=== PATIENT | female | born 1985 | race Caucasian/White ===

== ENCOUNTER 2019-12-07 14:23 | Emergency (ER) | payer OTHER, SELFPAY ==
[2019-12-07 14:55] VITALS: BP 151/82; PULSE 93; RESP 20; TEMP 36.7; O2SAT 99
--- NOTE | 2019-12-07 15:01 | ED.URI ---
HPI - URI/Sore Throat General Chief Complaint: Upper Respiratory Infection Stated Complaint: sinus sore throat cough Time Seen by Provider: 12/07/19 15:01 Source: patient and RN notes reviewed Mode of arrival: ambulatory Limitations: no limitations History of Present Illness HPI Narrative: 34 year old female who presents to [facility] care with complaints of sore throat, left ear pain, and cough for 1 week duration. Patient states that she has had some sinus drainage and non productive cough. denies any fevers, chills, or sweats. Patient states that she has not noted any drainage from her left ear or any tragal tenderness. Patient denies any shortness of breath or any tachypnea or accessory muscle use, [id number]% on room air.Patient states that she has Flonase at home but hasn't been using unsure if doing it correctly, reviewed administration. MD elicited complaint: sore throat and other (ear pain) Related Data Home Medications Medication Instructions Recorded Confirmed citalopram mg 12/07/19 norethindrone-e.estradiol-iron tablet 12/07/19 [] venlafaxine mg PO 12/07/19 Allergies Allergy/AdvReac Type Severity Reaction Status Date / Time Sulfa (Sulfonamide Allergy Severe swell up Verified 12/07/19 14:46 Antibiotics) Review of Systems Review of Systems: Narrative: CONSTITUTIONAL: Denies fever, chills, or sweats. EYES: Denies visual changes, redness, or discharge. ENT:positive rhinorrhea, congestion, sore throat, left otalgia. CARDIOVASCULAR: Denies chest pain, palpitations, or edema. RESPIRATORY: positive cough denies dyspnea. GASTROINTESTINAL: Denies abdominal pain, nausea, vomiting, or diarrhea. GENITOURINARY: Denies dysuria or hematuria. SKIN: Denies rash or itching. MUSCULOSKELETAL: Denies back pain, joint pain, or myalgia. NEUROLOGIC: Denies headache, numbness, or weakness. PSYCHIATRIC: positive history of anxiety or depression. All systems reviewed & are unremarkable except as noted in HPI and below PMFSH Past Medical History Medical History (Updated 12/08/19 @ 18:03 by Hayley Alvarez NP) Asthma Depression with anxiety GERD (gastroesophageal reflux disease) Hyperlipidemia Hypertension Hypothyroidism Kidney stone Migraines Seasonal allergies Surgical History Surgical History (Updated 12/08/19 @ 18:00 by Hayley Alvarez NP) Previous section Social History Social History (Updated 12/08/19 @ 18:03 by Hayley Alvarez NP) Smoking status: Never smoker Alcohol intake: never Substance use: never Living arrangements: with family Gender identity (if verbalized by the patient): Female Comments At time of signature, agree with nursing past medical, surgical, social history. There is no relevant family history pertinent to the presenting complaint Exam Narrative: Exam Narrative: GENERAL: Well-appearing, well-nourished, and in no acute distress. HEAD: Normocephalic, atraumatic. EYES: PERRLA and EOMI. ENT: Nares with swollen turbinates, clear rhinorrhea no epistaxis. Mucous membranes moist.TM's normal with good light reflex,left ear canal red irritated and swollen no drainage noted, right ear canal normal, throat pink with no tonsil swelling or exudates, post nasal drainage noted NECK: Supple.no lymphadenopathy CHEST: Clear to auscultation. No respiratory distress.SAO2 99% on room air HEART: Regular rate and rhythm. No murmur heard. Normal peripheral pulses. ABDOMEN: Soft, nontender, nondistended, normal active bowel sounds. EXTREMITIES: Normal range of motion. No edema. SKIN: Warm, dry, no rash. NEURO: No focal deficits. Alert and oriented x3. Course Vital Signs Vital signs: Vital Signs Temperature 36.7 C 12/07/19 14:55 Pulse Rate 93 12/07/19 14:55 Respiratory Rate 20 12/07/19 14:55 Blood Pressure 151/82 H 12/07/19 14:55 Pulse Oximetry 99 12/07/19 14:55 Temperature 36.7 C 12/07/19 14:55 Pulse Rate 93 12/07/19 14:55 Respiratory Rate
== END 2019-12-07 15:29 | disposition home or self-care (01) ==
PROVIDERS: Emergency Provider Registered Nurse; PCP Internal Medicine
DX: H60.502 Unspecified acute noninfective otitis externa, left ear (principal); J31.0 Chronic rhinitis; I10 Essential (primary) hypertension
CPT/HCPCS: 99213; G0463

== ENCOUNTER 2021-07-30 12:22 | Emergency (ER) | payer OTHER, SELFPAY ==
[2021-07-30 12:26] VITALS: BP 134/80; PULSE 98; RESP 16; TEMP 36.4; O2SAT 99
--- NOTE | 2021-07-30 12:49 | ED.URI ---
HPI - URI/Sore Throat General Chief Complaint: Upper Respiratory Infection Stated Complaint: left ear and nose runny Time Seen by Provider: 07/30/21 12:49 Source: patient, RN notes reviewed and old records reviewed Mode of arrival: ambulatory Limitations: no limitations History of Present Illness HPI Narrative: 35-year-old female who presents to [facility] care with complaints of left ear pain, clear nasal drainage and some sinus congestion for the past 2 days. Patient reports that she has history of sinus allergies and takes daily Singulair and has also had past history of ear infections and asthma. Patient denies any fevers, chills or sweats, denies any sore throat, shortness of breath or any wheezing. Patient states that her left ear is aching sharp pain at time with throbbing. MD elicited complaint: rhinorrhea, nasal congestion and other (ear pain) Related Data Home Medications Medication Instructions Recorded Confirmed albuterol sulfate 2 puff INHALATION QID PRN 07/30/21 07/30/21 carbamazepine 200 mg PO BID 07/30/21 07/30/21 citalopram 40 mg PO DAILY 07/30/21 07/30/21 docosahexaenoic acid-epa [EPA Fish 1 cap PO DAILY 07/30/21 07/30/21 Oil] erenumab-aooe [Aimovig 70 mg SUBCUT MONTHLY 07/30/21 07/30/21 Autoinjector] famotidine 20 mg PO BID 07/30/21 07/30/21 fenofibrate nanocrystallized 145 mg PO DAILY 07/30/21 07/30/21 fexofenadine-pseudoephedrine 1 tablet PO QAM 07/30/21 07/30/21 [Mary Grace-D 24 Hour] fluticasone furoate 1 inh INHALATION BID 07/30/21 07/30/21 hydrocodone-acetaminophen 1 tablet PO Q6H PRN 07/30/21 07/30/21 ketorolac 10 mg PO Q6H PRN 07/30/21 07/30/21 levothyroxine 25 mcg PO DAILY 07/30/21 07/30/21 lisinopril 20 mg PO DAILY 07/30/21 07/30/21 montelukast 10 mg PO DAILY 07/30/21 07/30/21 norethindrone-e.estradiol-iron 1 tablet PO DAILY 07/30/21 07/30/21 [Minh 24 Fe] ondansetron 4 mg PO Q8H PRN 07/30/21 07/30/21 pantoprazole 40 mg PO DAILY 07/30/21 07/30/21 psyllium husk [Fiber-Caps 0.52 g PO DAILY 07/30/21 07/30/21 (psyllium husk)] rizatriptan See Rx Instructions .ROUTE .COMPLEX 07/30/21 07/30/21 simvastatin 20 mg PO DAILY 07/30/21 07/30/21 venlafaxine 37.5 mg PO DAILY 07/30/21 07/30/21 Allergies Allergy/AdvReac Type Severity Reaction Status Date / Time Sulfa (Sulfonamide Allergy Severe swell up Verified 07/30/21 12:48 Antibiotics) haloperidol Allergy Unknown Verified 07/30/21 12:49 Review of Systems Review of Systems: CONSTITUTIONAL: Denies fever, chills, or sweats. EYES: Denies visual changes, redness, or discharge. ENT: Positive for rhinorrhea, congestion,no sore throat, positive for left otalgia. CARDIOVASCULAR: Denies chest pain, palpitations, or edema. RESPIRATORY: Denies cough or dyspnea. GASTROINTESTINAL: Denies abdominal pain, nausea, vomiting, or diarrhea. GENITOURINARY: Denies dysuria or hematuria. SKIN: Denies rash or itching. MUSCULOSKELETAL: Positive for chronic back pain,no other joint pain, or myalgia. NEUROLOGIC: Denies headache, numbness, or weakness. PSYCHIATRIC: Positive for anxiety or depression. All systems reviewed & are unremarkable except as noted in HPI and below PMFSH Past Medical History Medical History (Updated 07/31/21 @ 10:48 by Hayley Alvarez NP) Asthma Depression with anxiety GERD (gastroesophageal reflux disease) Hyperlipidemia Hypertension Hypothyroidism Kidney stone Migraines Seasonal allergies Surgical History Surgical History (Updated 12/08/19 @ 18:00 by Hayley Alvarez NP) Previous section Social History Social History (Updated 12/08/19 @ 18:03 by Hayley Alvarez NP) Smoking status: Never smoker Alcohol intake: never Substance use: never Gender identity (if verbalized by the patient): Female Exam Narrative: GENERAL: Well-appearing, well-nourished, and in no acute distress. HEAD: Normocephalic, atraumatic. EYES: PERRLA and EOMI. ENT: Nares with minimal redness with clear rhinorrhea no epistaxis. Mucous m
== END 2021-07-30 13:05 | disposition home or self-care (01) ==
PROVIDERS: Emergency Provider Registered Nurse
DX: H66.002 Acute suppurative otitis media without spontaneous rupture of ear drum, left ear (principal); J06.9 Acute upper respiratory infection, unspecified; K21.9 Gastro-esophageal reflux disease without esophagitis; E78.5 Hyperlipidemia, unspecified; I10 Essential (primary) hypertension; E03.9 Hypothyroidism, unspecified; F41.9 Anxiety disorder, unspecified; F32.A Depression, unspecified
CPT/HCPCS: 99213; G0463

== ENCOUNTER 2022-02-23 08:47 | Emergency (ER) | payer OTHER, SELFPAY ==
[2022-02-23 09:01] VITALS: BP 122/75; PULSE 94; RESP 16; TEMP 36.8; O2SAT 99
--- NOTE | 2022-02-23 09:54 | ED.URI ---
HPI - URI/Sore Throat General Chief Complaint: Upper Respiratory Infection Stated Complaint: ears and throat Time Seen by Provider: 02/23/22 09:54 Source: patient, RN notes reviewed and old records reviewed Mode of arrival: ambulatory Limitations: no limitations History of Present Illness HPI Narrative: 36 year old female who presents to [facility] care with complaints of 2 day history of sore throat, and left ear pain and some body aches.. Patient reports that highest temperature 100.3F and has taken Tylenol and Mary Grace for her symptoms.Patient denies any acute cough or any shortness of breath patient does have asthma history.Patient reports that daughter was ill with flu 1 week ago. Patient reports that she has been COVID vaccinated and has had flu shot. MD elicited complaint: sore throat and other (ear pain) Pertinent past history: asthma and seasonal allergies Onset (ago): day(s) (2) Pain scale (0-10): 7 Treatments prior to arrival: acetaminophen and other (mary grace) Related Data Home Medications Medication Instructions Recorded Confirmed albuterol sulfate 90 mcg/actuation 2 puff inhalation QID PRN sob 07/30/21 02/23/22 aerosol inhaler carbamazepine 200 mg 200 mg PO BID 07/30/21 02/23/22 tablet,extended release,12 hr citalopram 40 mg tablet 40 mg PO DAILY 07/30/21 02/23/22 docosahexaenoic acid (dha)-epa 1 cap PO DAILY 07/30/21 07/30/21 capsule erenumab-aooe 140 mg/mL 70 mg subcut MONTHLY 07/30/21 02/23/22 subcutaneous auto-injector (Aimovig Autoinjector) famotidine 20 mg tablet 20 mg PO BID 07/30/21 02/23/22 fenofibrate nanocrystallized 145 145 mg PO DAILY 07/30/21 02/23/22 mg tablet fexofenadine-pseudoephedrine ER 1 tablet PO QAM 07/30/21 02/23/22 180 mg-240 mg tablet,ext.release 24 hr (Mary Grace-D 24 Hour) fluticasone furoate 50 1 inh inhalation BID 07/30/21 02/23/22 mcg/actuation blister powder for inhalation hydrocodone 7.5 mg-acetaminophen 1 tablet PO Q6H PRN pain 07/30/21 02/23/22 325 mg tablet ketorolac 10 mg tablet 10 mg PO Q6H PRN Pain 07/30/21 02/23/22 levothyroxine 25 mcg tablet 25 mcg PO DAILY 07/30/21 02/23/22 lisinopril 20 mg tablet 20 mg PO DAILY 07/30/21 02/23/22 montelukast 10 mg tablet 10 mg PO DAILY 07/30/21 02/23/22 norethindrone 1 mg-ethinyl 1 tablet PO DAILY 07/30/21 02/23/22 estradiol 20 mcg (24)-iron 75 mg (4) tablet (Minh 24 Fe) ondansetron 4 mg disintegrating 4 mg PO Q8H PRN Nausea 07/30/21 02/23/22 tablet pantoprazole 40 mg tablet,delayed 40 mg PO DAILY 07/30/21 02/23/22 release psyllium husk 0.52 gram capsule 0.52 g PO DAILY 07/30/21 02/23/22 (Fiber-Caps (psyllium husk)) rizatriptan See Rx Instructions .Route .COMPLEX 07/30/21 07/30/21 simvastatin 20 mg tablet 20 mg PO DAILY 07/30/21 02/23/22 venlafaxine 37.5 mg 37.5 mg PO DAILY 07/30/21 02/23/22 capsule,extended release 24 hr Allergies Allergy/AdvReac Type Severity Reaction Status Date / Time Sulfa (Sulfonamide Allergy Severe swell up Verified 02/23/22 10:02 Antibiotics) haloperidol Allergy Unknown Verified 02/23/22 10:02 Review of Systems Review of Systems: CONSTITUTIONAL:Reports malaise, chills, sweats, or fever. EYES: Denies visual changes, redness, or discharge. ENT: Reports rhinorrhea, congestion, sinus pain, left otalgia and sore throat. CARDIOVASCULAR: Denies chest pain, palpitations, or edema. RESPIRATORY: Reports occasional cough.? Denies dyspnea. GASTROINTESTINAL: Denies abdominal pain, nausea, vomiting, diarrhea SKIN: Denies rash or itching. MUSCULOSKELETAL: Reports myalgia. NEUROLOGIC: Denies headache. All systems reviewed & are unremarkable except as noted in HPI and below PMFSH Past Medical History Medical History (Updated 02/24/22 @ 00:00 by Background Daemon) Asthma Depression with anxiety GERD (gastroesophageal reflux disease) Hyperlipidemia Hypertension Hypothyroidism Kidney stone Migraines Seasonal allergies Surgical History Surgical Hist
== END 2022-02-23 10:35 | disposition home or self-care (01) ==
PROVIDERS: Emergency Provider Registered Nurse; PCP Physician Assistant
DX: J06.9 Acute upper respiratory infection, unspecified (principal); H65.02 Acute serous otitis media, left ear; J45.909 Unspecified asthma, uncomplicated; K21.9 Gastro-esophageal reflux disease without esophagitis; I10 Essential (primary) hypertension; E03.9 Hypothyroidism, unspecified; F41.8 Other specified anxiety disorders
CPT/HCPCS: 99213; G0463

== ENCOUNTER 2022-03-08 08:15 | Emergency (ER) | payer OTHER, SELFPAY ==
[2022-03-08 08:22] VITALS: BP 134/86; PULSE 99; RESP 18; TEMP 36.8; O2SAT 100
--- NOTE | 2022-03-08 08:47 | ED.URI ---
HPI - URI/Sore Throat General Chief Complaint: Upper Respiratory Infection Stated Complaint: Cough Time Seen by Provider: 03/08/22 08:48 Source: patient and RN notes reviewed Mode of arrival: ambulatory Limitations: no limitations History of Present Illness HPI Narrative: 36-year-old female presents with concern for cough. Reports symptoms started on Monday with a scratchy throat and a cough. She reports she has not had a fever. She reports she has been taking [id number] medications with some of her symptoms. She reports she has asthma, she has not used her inhaler. She denies known recent sick contacts. MD elicited complaint: cough Related Data Home Medications Medication Instructions Recorded Confirmed albuterol sulfate 90 mcg/actuation 2 puff inhalation QID PRN sob 07/30/21 02/23/22 aerosol inhaler carbamazepine 200 mg 200 mg PO BID 07/30/21 02/23/22 tablet,extended release,12 hr citalopram 40 mg tablet 40 mg PO DAILY 07/30/21 02/23/22 docosahexaenoic acid (dha)-epa 1 cap PO DAILY 07/30/21 07/30/21 capsule erenumab-aooe 140 mg/mL 70 mg subcut MONTHLY 07/30/21 02/23/22 subcutaneous auto-injector (Aimovig Autoinjector) famotidine 20 mg tablet 20 mg PO BID 07/30/21 02/23/22 fenofibrate nanocrystallized 145 145 mg PO DAILY 07/30/21 02/23/22 mg tablet fexofenadine-pseudoephedrine ER 1 tablet PO QAM 07/30/21 02/23/22 180 mg-240 mg tablet,ext.release 24 hr (Mary Grace-D 24 Hour) fluticasone furoate 50 1 inh inhalation BID 07/30/21 02/23/22 mcg/actuation blister powder for inhalation hydrocodone 7.5 mg-acetaminophen 1 tablet PO Q6H PRN pain 07/30/21 02/23/22 325 mg tablet ketorolac 10 mg tablet 10 mg PO Q6H PRN Pain 07/30/21 02/23/22 levothyroxine 25 mcg tablet 25 mcg PO DAILY 07/30/21 02/23/22 lisinopril 20 mg tablet 20 mg PO DAILY 07/30/21 02/23/22 montelukast 10 mg tablet 10 mg PO DAILY 07/30/21 02/23/22 norethindrone 1 mg-ethinyl 1 tablet PO DAILY 07/30/21 02/23/22 estradiol 20 mcg (24)-iron 75 mg (4) tablet (Minh 24 Fe) ondansetron 4 mg disintegrating 4 mg PO Q8H PRN Nausea 07/30/21 02/23/22 tablet pantoprazole 40 mg tablet,delayed 40 mg PO DAILY 07/30/21 02/23/22 release psyllium husk 0.52 gram capsule 0.52 g PO DAILY 07/30/21 02/23/22 (Fiber-Caps (psyllium husk)) rizatriptan See Rx Instructions .Route .COMPLEX 07/30/21 07/30/21 simvastatin 20 mg tablet 20 mg PO DAILY 07/30/21 02/23/22 venlafaxine 37.5 mg 37.5 mg PO DAILY 07/30/21 02/23/22 capsule,extended release 24 hr Allergies Allergy/AdvReac Type Severity Reaction Status Date / Time Sulfa (Sulfonamide Allergy Severe swell up Verified 02/23/22 10:02 Antibiotics) haloperidol Allergy Unknown Verified 02/23/22 10:02 Review of Systems Review of Systems: CONSTITUTIONAL: Denies malaise, chills, sweats, or fever. EYES: Denies visual changes, redness, or discharge. ENT: Reports rhinorrhea, congestion, and sore throat. Denies sinus pain, otalgia CARDIOVASCULAR: Denies chest pain, palpitations, or edema. RESPIRATORY: Reports productive cough. Denies dyspnea. GASTROINTESTINAL: Denies abdominal pain, nausea, vomiting, diarrhea SKIN: Denies rash or itching. MUSCULOSKELETAL: Denies myalgia. NEUROLOGIC: Denies headache. All systems reviewed & are unremarkable except as noted in HPI and below PMFSH Past Medical History Medical History (Updated 03/08/22 @ 08:54 by Lizette Whitehead NP) Asthma Depression with anxiety GERD (gastroesophageal reflux disease) Hyperlipidemia Hypertension Hypothyroidism Kidney stone Migraines Seasonal allergies Surgical History Surgical History (Updated 12/08/19 @ 18:00 by Hayley Alvarez NP) Previous section Social History Social History (Updated 12/08/19 @ 18:03 by Hayley Alvarez NP) Smoking status: Never smoker Alcohol intake: never Substance use: never Gender identity (if verbalized by the patient): Female Comments At time of signature, agr
== END 2022-03-08 09:02 | disposition home or self-care (01) ==
PROVIDERS: Emergency Provider Nurse Practitioner; PCP Physician Assistant
DX: J06.9 Acute upper respiratory infection, unspecified (principal); J45.909 Unspecified asthma, uncomplicated; E78.5 Hyperlipidemia, unspecified; I10 Essential (primary) hypertension; E03.9 Hypothyroidism, unspecified
CPT/HCPCS: 99213; G0463

== ENCOUNTER 2022-05-13 09:39 | Outpatient (CLI) | payer OTHER, SELFPAY | END 2022-05-13 09:40 | disposition home or self-care (01) | LOC: ANHBWCAUD 09:40 | PROVIDERS: PCP Physician Assistant | DX: H90.3 Sensorineural hearing loss, bilateral (principal) | CPT/HCPCS: 92557; 92567 ==

== ENCOUNTER 2022-06-08 08:41 | Outpatient (CLI) | payer OTHER, SELFPAY | END 2022-06-08 08:42 | disposition home or self-care (01) | LOC: ANHBWCAUD 08:41 | PROVIDERS: PCP Physician Assistant | DX: H69.83 Other specified disorders of Eustachian tube, bilateral (principal) | CPT/HCPCS: 92557; 92567 ==

== ENCOUNTER 2022-06-16 13:14 | Emergency (ER) | payer OTHER, SELFPAY ==
--- NOTE | 2022-06-16 13:20 | ED.URI ---
HPI - URI/Sore Throat General Chief Complaint: Ear Stated Complaint: left ear pain Time Seen by Provider: 06/16/22 13:20 Source: patient and RN notes reviewed History of Present Illness HPI Narrative: Patient is a 36-year-old female who presents to urgent care with complaints of left ear pain. Patient states that it started 2 days ago. Patient has been taking Tylenol for the pain. States that she had tubes placed on the 7th. Patient was on Augmentin up until last week. Denies any drainage from the ear. No other acute complaints. No acute distress noted. Patient aware of the plan of care. Some parts of this dictation were generated by voice recognition software and may contain typographical and/or grammatical inaccuracies. Related Data Home Medications Medication Instructions Recorded Confirmed albuterol sulfate 90 mcg/actuation 2 puff inhalation QID PRN sob 07/30/21 02/23/22 aerosol inhaler carbamazepine 200 mg 200 mg PO BID 07/30/21 02/23/22 tablet,extended release,12 hr citalopram 40 mg tablet 40 mg PO DAILY 07/30/21 02/23/22 docosahexaenoic acid (dha)-epa 1 cap PO DAILY 07/30/21 07/30/21 capsule erenumab-aooe 140 mg/mL 70 mg subcut MONTHLY 07/30/21 02/23/22 subcutaneous auto-injector (Aimovig Autoinjector) famotidine 20 mg tablet 20 mg PO BID 07/30/21 02/23/22 fenofibrate nanocrystallized 145 145 mg PO DAILY 07/30/21 02/23/22 mg tablet fexofenadine-pseudoephedrine ER 1 tablet PO QAM 07/30/21 02/23/22 180 mg-240 mg tablet,ext.release 24 hr (Mary Grace-D 24 Hour) fluticasone furoate 50 1 inh inhalation BID 07/30/21 02/23/22 mcg/actuation blister powder for inhalation hydrocodone 7.5 mg-acetaminophen 1 tablet PO Q6H PRN pain 07/30/21 02/23/22 325 mg tablet ketorolac 10 mg tablet 10 mg PO Q6H PRN Pain 07/30/21 02/23/22 levothyroxine 25 mcg tablet 25 mcg PO DAILY 07/30/21 02/23/22 lisinopril 20 mg tablet 20 mg PO DAILY 07/30/21 02/23/22 montelukast 10 mg tablet 10 mg PO DAILY 07/30/21 02/23/22 norethindrone 1 mg-ethinyl 1 tablet PO DAILY 07/30/21 02/23/22 estradiol 20 mcg (24)-iron 75 mg (4) tablet (Minh 24 Fe) ondansetron 4 mg disintegrating 4 mg PO Q8H PRN Nausea 07/30/21 02/23/22 tablet pantoprazole 40 mg tablet,delayed 40 mg PO DAILY 07/30/21 02/23/22 release psyllium husk 0.52 gram capsule 0.52 g PO DAILY 07/30/21 02/23/22 (Fiber-Caps (psyllium husk)) rizatriptan See Rx Instructions .Route .COMPLEX 07/30/21 07/30/21 simvastatin 20 mg tablet 20 mg PO DAILY 07/30/21 02/23/22 venlafaxine 37.5 mg 37.5 mg PO DAILY 07/30/21 02/23/22 capsule,extended release 24 hr Allergies Allergy/AdvReac Type Severity Reaction Status Date / Time Sulfa (Sulfonamide Allergy Severe swell up Verified 02/23/22 10:02 Antibiotics) haloperidol Allergy Unknown Verified 02/23/22 10:02 Review of Systems Review of Systems: CONSTITUTIONAL: Denies fever, chills, or sweats. EYES: Denies visual changes, redness, or discharge. ENT: Denies rhinorrhea, congestion, sore throat. Reports of left otalgia CARDIOVASCULAR: Denies chest pain, palpitations, or edema. RESPIRATORY: Denies cough or dyspnea. GASTROINTESTINAL: Denies abdominal pain, nausea, vomiting, or diarrhea. GENITOURINARY: Denies dysuria or hematuria. SKIN: Denies rash or itching. MUSCULOSKELETAL: Denies back pain, joint pain, or myalgia. NEUROLOGIC: Denies headache, numbness, or weakness. All other systems reviewed are negative, except as documented in HPI. [facility] Past Medical History Medical History (Updated 06/16/22 @ 13:37 by BOB Soto) Asthma Depression with anxiety GERD (gastroesophageal reflux disease) Hyperlipidemia Hypertension Hypothyroidism Kidney stone Migraines Seasonal allergies Surgical History Surgical History (Updated 12/08/19 @ 18:00 by Hayley Alvarez NP) Previous section Social History Social History (Updated 12/08/19 @ 18:03 by Hayley Alvarez NP) Smoking status: Never
[2022-06-16 13:22] VITALS: BP 128/78; PULSE 102; RESP 20; TEMP 36.3; O2SAT 99
== END 2022-06-16 13:47 | disposition home or self-care (01) ==
PROVIDERS: Emergency Provider Nurse Practitioner Family; PCP Physician Assistant
DX: H92.02 Otalgia, left ear (principal); K21.9 Gastro-esophageal reflux disease without esophagitis; E78.5 Hyperlipidemia, unspecified; I10 Essential (primary) hypertension; E03.9 Hypothyroidism, unspecified; J45.909 Unspecified asthma, uncomplicated; F41.8 Other specified anxiety disorders
CPT/HCPCS: 99211; G0463

== ENCOUNTER 2022-10-06 14:58 | Emergency (ER) | payer OTHER, SELFPAY ==
[2022-10-06 15:03] VITALS: BP 124/77; PULSE 96; RESP 16; TEMP 36.2; O2SAT 99
[2022-10-06] MEDS: KETOROLAC (*BKC) 60 MG/2 ML VIAL IM (15:37)
--- NOTE | 2022-10-06 15:56 | ED.NECK ---
HPI - Neck Pain/Injury General Chief Complaint: Neck Pain/Injury Stated Complaint: Neck/shoulder pain w/headache Time Seen by Provider: 10/06/22 15:15 Source: patient Mode of arrival: ambulatory Limitations: no limitations History of Present Illness HPI Narrative: 36 yo F presents with c/o neck and upper back pain for approx. 1 wk. States very stiff . Pain is worse with movement. Denies injury. States hx of arthritis and thinks arthritis flaring. Taking tylenol arthritis with no relief. Now has had headache for past several days. Feels this is related to neck pain and how stiff she's holding herself. Denies N/v. No vision changes. no hx of migraines. States really don't have the headache right now . Ambulatory with steady gait. No c/o numbness/tingling to upper extremities. pt does not like to take NSAIDS due to hx of gastroparesis. All systems reviewed and negative except as noted above. Related Data Home Medications Medication Instructions Recorded Confirmed albuterol sulfate 90 mcg/actuation 2 puff inhalation QID PRN sob 07/30/21 10/06/22 aerosol inhaler carbamazepine 200 mg 200 mg PO BID 07/30/21 10/06/22 tablet,extended release,12 hr citalopram 40 mg tablet 40 mg PO DAILY 07/30/21 10/06/22 erenumab-aooe 140 mg/mL 70 mg subcut MONTHLY 07/30/21 10/06/22 subcutaneous auto-injector (Aimovig Autoinjector) famotidine 20 mg tablet 20 mg PO BID 07/30/21 10/06/22 fenofibrate nanocrystallized 145 145 mg PO DAILY 07/30/21 10/06/22 mg tablet fexofenadine-pseudoephedrine ER 1 tablet PO QAM 07/30/21 10/06/22 180 mg-240 mg tablet,ext.release 24 hr (Mary Grace-D 24 Hour) levothyroxine 25 mcg tablet 25 mcg PO DAILY 07/30/21 10/06/22 lisinopril 20 mg tablet 20 mg PO DAILY 07/30/21 10/06/22 montelukast 10 mg tablet 10 mg PO DAILY 07/30/21 10/06/22 norethindrone 1 mg-ethinyl 1 tablet PO DAILY 07/30/21 10/06/22 estradiol 20 mcg (24)-iron 75 mg (4) tablet (Minh 24 Fe) psyllium husk 0.52 gram capsule 0.52 g PO DAILY 07/30/21 10/06/22 (Fiber-Caps (psyllium husk)) simvastatin 20 mg tablet 20 mg PO DAILY 07/30/21 10/06/22 Allergies Allergy/AdvReac Type Severity Reaction Status Date / Time Sulfa (Sulfonamide Allergy Severe swell up Verified 10/06/22 15:30 Antibiotics) haloperidol Allergy Unknown Verified 10/06/22 15:30 Review of Systems Review of Systems: CONSTITUTIONAL: Denies fever, chills, or sweats. EYES: Denies visual changes, redness, or discharge. ENT: Denies rhinorrhea, congestion, sore throat, or otalgia. CARDIOVASCULAR: Denies chest pain, palpitations, or edema. RESPIRATORY: Denies cough or dyspnea. GASTROINTESTINAL: Denies abdominal pain, nausea, vomiting, or diarrhea. GENITOURINARY: Denies dysuria or hematuria. SKIN: Denies rash or itching. MUSCULOSKELETAL: Reports neck and upper back stiffness and pain. NEUROLOGIC: Reports headache. Denies numbness, or weakness. PSYCHIATRIC: Denies anxiety or depression. All other systems reviewed are negative, except as documented in HPI. [facility] Past Medical History Medical History (Updated 10/06/22 @ 15:55 by Emani Nam NP) Asthma Depression with anxiety GERD (gastroesophageal reflux disease) Hyperlipidemia Hypertension Hypothyroidism Kidney stone Migraines Seasonal allergies Surgical History Surgical History (Updated 12/08/19 @ 18:00 by Hayley Alvarez NP) Previous section Social History Social History (Updated 12/08/19 @ 18:03 by Hayley Alvarez NP) Smoking status: Never smoker Alcohol intake: never Substance use: never Living arrangements: with family Gender identity (if verbalized by the patient): Female Comments At time of signature, agree with nursing past medical, surgical, social and family history. There is no relevant family history pertinent to the presenting complaint. Exam Narrative: GENERAL: This is a well-nourished, well-developed patient, in no apparent distress. HEAD: norm
== END 2022-10-06 16:00 | disposition home or self-care (01) ==
PROVIDERS: Emergency Provider Nurse Practitioner Family; PCP Physician Assistant
DX: S16.1XXA Strain of muscle, fascia and tendon at neck level, initial encounter (principal); X58.XXXA Exposure to other specified factors, initial encounter; J45.909 Unspecified asthma, uncomplicated; K21.9 Gastro-esophageal reflux disease without esophagitis; I10 Essential (primary) hypertension; E03.9 Hypothyroidism, unspecified
CPT/HCPCS: 96372; 99213; G0463; J1885

== ENCOUNTER 2023-01-21 09:05 | Emergency (ER) | payer OTHER, SELFPAY ==
[2023-01-21 09:10] VITALS: BP 133/80; PULSE 97; RESP 20; TEMP 37.1; O2SAT 100
--- NOTE | 2023-01-21 09:28 | ED.URI ---
HPI - URI/Sore Throat General Chief Complaint: Upper Respiratory Infection Stated Complaint: Sinus Drainage and Sore Throat History of Present Illness HPI Narrative: Patient presents with right ear pain and nasal congestion. Patient states she takes daily nasal spray and Mary Grace. No fever no shortness of breath no chest pain. Related Data Home Medications Medication Instructions Recorded Confirmed albuterol sulfate 90 mcg/actuation 2 puff inhalation QID PRN sob 07/30/21 01/21/23 aerosol inhaler citalopram 40 mg tablet 40 mg PO DAILY 07/30/21 01/21/23 erenumab-aooe 140 mg/mL 70 mg subcut MONTHLY 07/30/21 01/21/23 subcutaneous auto-injector (Aimovig Autoinjector) famotidine 20 mg tablet 20 mg PO BID 07/30/21 01/21/23 fenofibrate nanocrystallized 145 145 mg PO DAILY 07/30/21 01/21/23 mg tablet fexofenadine-pseudoephedrine ER 1 tablet PO QAM 07/30/21 01/21/23 180 mg-240 mg tablet,ext.release 24 hr (Mary Grace-D 24 Hour) levothyroxine 25 mcg tablet 25 mcg PO DAILY 07/30/21 01/21/23 lisinopril 20 mg tablet 20 mg PO DAILY 07/30/21 01/21/23 montelukast 10 mg tablet 10 mg PO DAILY 07/30/21 01/21/23 norethindrone 1 mg-ethinyl 1 tablet PO DAILY 07/30/21 01/21/23 estradiol 20 mcg (24)-iron 75 mg (4) tablet (Minh 24 Fe) psyllium husk 0.52 gram capsule 0.52 g PO DAILY 07/30/21 01/21/23 (Fiber-Caps (psyllium husk)) simvastatin 20 mg tablet 20 mg PO DAILY 07/30/21 01/21/23 Allergies Allergy/AdvReac Type Severity Reaction Status Date / Time Sulfa (Sulfonamide Allergy Severe swell up Verified 01/21/23 09:14 Antibiotics) allopurinol Allergy Other Verified 01/21/23 09:15 haloperidol Allergy Unknown Verified 01/21/23 09:14 Review of Systems Review of Systems: CONSTITUTIONAL: Denies chills, or sweats. Reports fever and generalized body aches EYES: Denies visual changes, redness, or discharge. ENT: Denies otalgia. Reports nasal congestion runny nose and sore throat CARDIOVASCULAR: Denies chest pain, palpitations, or edema. RESPIRATORY: Denies dyspnea. Reports occasional cough GASTROINTESTINAL: Denies abdominal pain, nausea, vomiting, or diarrhea. GENITOURINARY: Denies dysuria or hematuria. SKIN: Denies rash or itching. MUSCULOSKELETAL: Denies back pain, joint pain, or myalgia. Reports generalized body aches NEUROLOGIC: Denies headache, numbness, or weakness. PSYCHIATRIC: Denies anxiety or depression. [facility] Past Medical History Medical History (Updated 01/21/23 @ 09:30 by BOB Cruz) Asthma Depression with anxiety GERD (gastroesophageal reflux disease) Hyperlipidemia Hypertension Hypothyroidism Kidney stone Migraines Seasonal allergies Surgical History Surgical History (Updated 12/08/19 @ 18:00 by Hayley Alvarez NP) Previous section Social History Social History (Updated 12/08/19 @ 18:03 by Hayley Alvarez NP) Smoking status: Never smoker Alcohol intake: never Substance use: never Living arrangements: with family Gender identity (if verbalized by the patient): Female Comments At time of signature, agree with nursing past medical, surgical, social and family history. There is no relevant family history pertinent to the presenting complaint Exam Narrative: The patient is a well-developed, well-nourished in no acute distress. SKIN: Skin is warm and dry without erythema, swelling or exudate. There is good turgor. No tenting. HEAD: Atraumatic. Normocephalic. No temporal or scalp tenderness. EYES: Moist and bright. Sclera and conjunctivae normal. No discharge. PERRLA. Extraocular motions intact. Gross visual acuity intact. EARS: Pinna is normal shape and contour. Clear external auditory canals. TM pearly capellan with good cone of light, no erythema or suppuration. Bilateral cerumen noted no gross hearing deficit. Right TM aero the Daysi tube patent. Mild maxillary sinus pressure and tenderness NOSE: pink, moist mucosa with good air movement. Clear
== END 2023-01-21 09:32 | disposition home or self-care (01) ==
PROVIDERS: Emergency Provider Nurse Practitioner Family; PCP Physician Assistant
DX: H66.90 Otitis media, unspecified, unspecified ear (principal); J32.9 Chronic sinusitis, unspecified; E78.5 Hyperlipidemia, unspecified; E03.9 Hypothyroidism, unspecified; I10 Essential (primary) hypertension; Z79.899 Other long term (current) drug therapy
CPT/HCPCS: 99213; G0463

== ENCOUNTER 2023-02-07 08:12 | Emergency (ER) | payer OTHER, SELFPAY ==
[2023-02-07 08:22] VITALS: BP 122/81; PULSE 100; RESP 16; TEMP 36.2; O2SAT 96
--- NOTE | 2023-02-07 08:37 | ED.GENADULT ---
HPI - General Adult General Chief complaint: Upper Respiratory Infection Stated complaint: Cough/Chest Congestion Source: patient Mode of arrival: ambulatory Limitations: no limitations History of Present Illness HPI narrative: Patient presents for evaluation of sick symptoms for last 3 days. Symptoms include sinus congestion, green nasal drainage, ?excessive sputum in the throat and left sided otalgia. She states her temperature has been higher than her baseline but she denies objective fever. No nausea, vomiting or diarrhea. She does not smoke. She took a home COVID test which was negative. One of her family members recently had a respiratory illness. She has history of tympanostomy tube placement. She states her ENT removed her left tube recently. Related Data Home Medications Medication Instructions Recorded Confirmed albuterol sulfate 90 mcg/actuation 2 puff inhalation QID PRN sob 07/30/21 01/21/23 aerosol inhaler citalopram 40 mg tablet 40 mg PO DAILY 07/30/21 01/21/23 erenumab-aooe 140 mg/mL 70 mg subcut MONTHLY 07/30/21 01/21/23 subcutaneous auto-injector (Aimovig Autoinjector) famotidine 20 mg tablet 20 mg PO BID 07/30/21 01/21/23 fenofibrate nanocrystallized 145 145 mg PO DAILY 07/30/21 01/21/23 mg tablet fexofenadine-pseudoephedrine ER 1 tablet PO QAM 07/30/21 01/21/23 180 mg-240 mg tablet,ext.release 24 hr (Mary Grace-D 24 Hour) levothyroxine 25 mcg tablet 25 mcg PO DAILY 07/30/21 01/21/23 lisinopril 20 mg tablet 20 mg PO DAILY 07/30/21 01/21/23 montelukast 10 mg tablet 10 mg PO DAILY 07/30/21 01/21/23 norethindrone 1 mg-ethinyl 1 tablet PO DAILY 07/30/21 01/21/23 estradiol 20 mcg (24)-iron 75 mg (4) tablet (Minh 24 Fe) psyllium husk 0.52 gram capsule 0.52 g PO DAILY 07/30/21 01/21/23 (Fiber-Caps (psyllium husk)) simvastatin 20 mg tablet 20 mg PO DAILY 07/30/21 01/21/23 Allergies Allergy/AdvReac Type Severity Reaction Status Date / Time Sulfa (Sulfonamide Allergy Severe swell up Verified 01/21/23 09:14 Antibiotics) allopurinol Allergy Other Verified 01/21/23 09:15 haloperidol Allergy Unknown Verified 01/21/23 09:14 Review of Systems Review of Systems: CONSTITUTIONAL: Denies fever, chills, or sweats. EYES: Denies visual changes, redness, or discharge. ENT: Reports sinus congestion, green nasal drainage, left-sided otalgia and excessive sputum in the throat CARDIOVASCULAR: Denies chest pain, palpitations, or edema. RESPIRATORY: Denies cough or dyspnea. GASTROINTESTINAL: Denies abdominal pain, nausea, vomiting, or diarrhea. GENITOURINARY: Denies dysuria or hematuria. SKIN: Denies rash or itching. MUSCULOSKELETAL: Denies back pain, joint pain, or myalgia. NEUROLOGIC: Reports headache, numbness, dizziness, or weakness. PSYCHIATRIC: Denies anxiety or depression. [facility] Past Medical History Medical History Asthma Depression with anxiety GERD (gastroesophageal reflux disease) Hyperlipidemia Hypertension Hypothyroidism Kidney stone Migraines Seasonal allergies Surgical History Surgical History Previous section Family History Family History Mother Family history non-contributory Social History Social History Smoking status: Never smoker Alcohol intake: never Substance use: never Living arrangements: with family Gender identity (if verbalized by the patient): Female Exam Narrative: GENERAL: Well-appearing, well-nourished, and in no acute distress. HEAD: Normocephalic, atraumatic. EYES: PERRLA and EOMI. ENT: Nares clear, no rhinorrhea or epistaxis. Mucous membranes moist. Oropharynx without tonsillar hypertrophy exudate or other lesions. Right tympanostomy tube in place. Left tympanic membrane is
== END 2023-02-07 08:39 | disposition home or self-care (01) ==
PROVIDERS: Emergency Provider Nurse Practitioner; PCP Physician Assistant
DX: H66.92 Otitis media, unspecified, left ear (principal); E78.5 Hyperlipidemia, unspecified; I10 Essential (primary) hypertension; E03.9 Hypothyroidism, unspecified
CPT/HCPCS: 99213; G0463

== ENCOUNTER 2023-06-03 08:21 | Emergency (ER) | payer OTHER, SELFPAY ==
[2023-06-03 08:32] VITALS: BP 136/96; PULSE 113; RESP 16; TEMP 37.1; O2SAT 100
--- NOTE | 2023-06-03 08:49 | ED.URI ---
HPI - URI/Sore Throat General Chief Complaint: Upper Respiratory Infection Stated Complaint: Sore Throat/Right Ear Pain Time Seen by Provider: 06/03/23 08:49 Source: patient, RN notes reviewed and old records reviewed Mode of arrival: ambulatory Limitations: no limitations History of Present Illness HPI Narrative: 37-year-old female presents to [facility] with complaint cough, congestion, sore throat 3 days and right ear pain that started this morning. Patient has attempted to treat at home with [id number] sinus medication. Patient denies fevers, shortness breath. Patient able tolerate fluids by mouth. Related Data Home Medications Medication Instructions Recorded Confirmed albuterol sulfate 90 mcg/actuation 2 puff inhalation QID PRN sob 07/30/21 06/03/23 aerosol inhaler citalopram 40 mg tablet 40 mg PO DAILY 07/30/21 06/03/23 erenumab-aooe 140 mg/mL 70 mg subcut MONTHLY 07/30/21 06/03/23 subcutaneous auto-injector (Aimovig Autoinjector) famotidine 20 mg tablet 20 mg PO BID 07/30/21 06/03/23 fenofibrate nanocrystallized 145 145 mg PO DAILY 07/30/21 06/03/23 mg tablet fexofenadine-pseudoephedrine ER 1 tablet PO QAM 07/30/21 06/03/23 180 mg-240 mg tablet,ext.release 24 hr (Mary Grace-D 24 Hour) levothyroxine 25 mcg tablet 25 mcg PO DAILY 07/30/21 06/03/23 lisinopril 20 mg tablet 20 mg PO DAILY 07/30/21 06/03/23 montelukast 10 mg tablet 10 mg PO DAILY 07/30/21 06/03/23 norethindrone 1 mg-ethinyl 1 tablet PO DAILY 07/30/21 06/03/23 estradiol 20 mcg (24)-iron 75 mg (4) tablet (Minh 24 Fe) psyllium husk 0.52 gram capsule 0.52 g PO DAILY 07/30/21 06/03/23 (Fiber-Caps (psyllium husk)) simvastatin 20 mg tablet 20 mg PO DAILY 07/30/21 06/03/23 Allergies Allergy/AdvReac Type Severity Reaction Status Date / Time Sulfa (Sulfonamide Allergy Severe swell up Verified 06/03/23 08:37 Antibiotics) allopurinol Allergy Unknown Other Verified 06/03/23 08:37 haloperidol Allergy Unknown Unknown Verified 06/03/23 08:37 dexamethasone AdvReac Intermediate Nervousness Verified 06/03/23 08:38 Review of Systems Review of Systems: All systems reviewed & are unremarkable except as noted in HPI and below Constitutional: Constitutional: Reports no additional constitutional complaints and Denies fever(s) Eyes: Eyes: Reports no additional eye complaints ENT: Reports as per HPI, Reports otalgia (right), Reports nasal congestion and Reports sore throat Cardiovascular: Cardiovascular: Reports no additional cardiovascular complaints, Denies chest pain and Denies dyspnea Respiratory: Respiratory: Reports no additional respiratory complaints, Reports cough ( nonproductive) and Denies dyspnea Musculoskeletal: Musculoskeletal: Reports no additional musculoskeletal complaints Neurologic: Reports system reviewed and no additional complaints, except as documented Psychiatric: Psychiatric: Reports no additional psychiatric complaints PMFSH Past Medical History Medical History Asthma Depression with anxiety GERD (gastroesophageal reflux disease) Hyperlipidemia Hypertension Hypothyroidism Kidney stone Migraines Seasonal allergies Surgical History Surgical History Previous section Family History Family History Mother Family history non-contributory Social History Social History Smoking status: Never smoker Alcohol intake: never Substance use: never Living arrangements: with family Gender identity (if verbalized by the patient): Female Comments At the time of my signature, I reviewed and agree with the nursing past medical, surgical, social, and family history. There is no relevant family history pertinent to the patient complaint. Exam Const:
== END 2023-06-03 09:05 | disposition home or self-care (01) ==
PROVIDERS: Emergency Provider Nurse Practitioner Family; PCP Physician Assistant
DX: H65.191 Other acute nonsuppurative otitis media, right ear (principal); H61.22 Impacted cerumen, left ear; H61.891 Other specified disorders of right external ear; Z20.822 Contact with and (suspected) exposure to COVID-19; J45.909 Unspecified asthma, uncomplicated; K21.9 Gastro-esophageal reflux disease without esophagitis; E78.5 Hyperlipidemia, unspecified; I10 Essential (primary) hypertension; E03.9 Hypothyroidism, unspecified; F41.8 Other specified anxiety disorders
CPT/HCPCS: 87081; 87426; 87804; 87880; 99213; G0463

== ENCOUNTER 2023-06-11 14:38 | Emergency (ER) | payer OTHER, SELFPAY ==
[2023-06-11 14:57] VITALS: BP 135/87; PULSE 106; RESP 20; TEMP 36.4; O2SAT 99
--- NOTE | 2023-06-11 14:58 | ED.EAR ---
HPI - Ear Problem General Chief complaint: Ear Stated complaint: Ears/eyes History of Present Illness HPI Narrative: Patient presents with right ear pain. Patient is currently taken on Amoxil for left ear infection patient states she had drainage from her right ear and does have a TM tube patent in her right ear. Related Data Home Medications Medication Instructions Recorded Confirmed albuterol sulfate 90 mcg/actuation 2 puff inhalation QID PRN sob 07/30/21 06/03/23 aerosol inhaler citalopram 40 mg tablet 40 mg PO DAILY 07/30/21 06/03/23 erenumab-aooe 140 mg/mL 70 mg subcut MONTHLY 07/30/21 06/03/23 subcutaneous auto-injector (Aimovig Autoinjector) famotidine 20 mg tablet 20 mg PO BID 07/30/21 06/03/23 fenofibrate nanocrystallized 145 145 mg PO DAILY 07/30/21 06/03/23 mg tablet fexofenadine-pseudoephedrine ER 1 tablet PO QAM 07/30/21 06/03/23 180 mg-240 mg tablet,ext.release 24 hr (Mary Grace-D 24 Hour) levothyroxine 25 mcg tablet 25 mcg PO DAILY 07/30/21 06/03/23 lisinopril 20 mg tablet 20 mg PO DAILY 07/30/21 06/03/23 montelukast 10 mg tablet 10 mg PO DAILY 07/30/21 06/03/23 norethindrone 1 mg-ethinyl 1 tablet PO DAILY 07/30/21 06/03/23 estradiol 20 mcg (24)-iron 75 mg (4) tablet (Minh 24 Fe) psyllium husk 0.52 gram capsule 0.52 g PO DAILY 07/30/21 06/03/23 (Fiber-Caps (psyllium husk)) simvastatin 20 mg tablet 20 mg PO DAILY 07/30/21 06/03/23 Allergies Allergy/AdvReac Type Severity Reaction Status Date / Time Sulfa (Sulfonamide Allergy Severe swell up Verified 06/03/23 08:37 Antibiotics) allopurinol Allergy Unknown Other Verified 06/03/23 08:37 haloperidol Allergy Unknown Unknown Verified 06/03/23 08:37 dexamethasone AdvReac Intermediate Nervousness Verified 06/03/23 08:38 Review of Systems Review of Systems: CONSTITUTIONAL: Denies fever, chills, or sweats. EYES: Denies visual changes, redness, or discharge. ENT: Denies rhinorrhea, congestion, sore throat, or otalgia. CARDIOVASCULAR: Denies chest pain, palpitations, or edema. RESPIRATORY: Denies cough or dyspnea. GASTROINTESTINAL: Denies abdominal pain, nausea, vomiting, or diarrhea. GENITOURINARY: Denies dysuria or hematuria. SKIN: Denies rash or itching. MUSCULOSKELETAL: Denies back pain, joint pain, or myalgia. NEUROLOGIC: Denies headache, numbness, or weakness. PSYCHIATRIC: Denies anxiety or depression. [facility] Past Medical History Medical History Asthma Depression with anxiety GERD (gastroesophageal reflux disease) Hyperlipidemia Hypertension Hypothyroidism Kidney stone Migraines Seasonal allergies Surgical History Surgical History Previous section Family History Family History Mother Family history non-contributory Social History Social History Smoking status: Never smoker Alcohol intake: never Substance use: never Living arrangements: with family Gender identity (if verbalized by the patient): Female Comments At time of signature, agree with nursing past medical, surgical, social and family history. There is no relevant family history pertinent to the presenting complaint Exam Narrative: GENERAL: Well-appearing, well-nourished, and in no acute distress. HEAD: Normocephalic, atraumatic. EYES: PERRLA and EOMI. ENT: Nares clear, no rhinorrhea or epistaxis. Mucous membranes moist. TM tube pain to left ear mild erythema around tube no drainage noted NECK: Supple. CHEST: Clear to auscultation. No respiratory distress. HEART: Regular rate and rhythm. No murmur heard. Normal peripheral pulses. ABDOMEN: Soft, nontender, nondistended, normal active bowel sounds. EXTREMITIES: Normal range of motion. No edema. SKIN: Warm, dry, no rash. NEURO: No focal defic
== END 2023-06-11 15:22 | disposition home or self-care (01) ==
PROVIDERS: Emergency Provider Nurse Practitioner Family; PCP Physician Assistant
DX: H60.91 Unspecified otitis externa, right ear (principal); H66.91 Otitis media, unspecified, right ear; J45.909 Unspecified asthma, uncomplicated; K21.9 Gastro-esophageal reflux disease without esophagitis; E78.5 Hyperlipidemia, unspecified; I10 Essential (primary) hypertension; E03.9 Hypothyroidism, unspecified
CPT/HCPCS: 99213; G0463

== ENCOUNTER 2023-08-14 12:27 | Emergency (ER) | payer OTHER, SELFPAY ==
[2023-08-14 12:32] VITALS: BP 142/84; PULSE 90; RESP 20; TEMP 36.7; O2SAT 97
--- NOTE | 2023-08-14 13:37 | ED.GENADULT ---
HPI - General Adult General Chief complaint: Dental/Oral Stated complaint: headache/neck and ear pain Source: patient Mode of arrival: ambulatory Limitations: no limitations History of Present Illness HPI narrative: Patient presents for evaluation of right sided dental pain with associated right sided headache and ear pain. Symptom onset two days ago. She has a tympanostomy tube in place on the right. She is under the care of ENT. She has known impacted teeth on the right. She is trying to get an appointment with an oral surgeon. She denies any fever, chills, nausea, vomiting, drainage from the ear, sore throat. Related Data Home Medications Medication Instructions Recorded Confirmed albuterol sulfate 90 mcg/actuation 2 puff inhalation QID PRN sob 07/30/21 08/14/23 aerosol inhaler citalopram 40 mg tablet 40 mg PO DAILY 07/30/21 08/14/23 erenumab-aooe 140 mg/mL 70 mg subcut MONTHLY 07/30/21 08/14/23 subcutaneous auto-injector (Aimovig Autoinjector) famotidine 20 mg tablet 20 mg PO BID 07/30/21 08/14/23 fenofibrate nanocrystallized 145 145 mg PO DAILY 07/30/21 08/14/23 mg tablet levothyroxine 25 mcg tablet 25 mcg PO DAILY 07/30/21 08/14/23 lisinopril 20 mg tablet 20 mg PO DAILY 07/30/21 08/14/23 montelukast 10 mg tablet 10 mg PO DAILY 07/30/21 08/14/23 norethindrone 1 mg-ethinyl 1 tablet PO DAILY 07/30/21 08/14/23 estradiol 20 mcg (24)-iron 75 mg (4) tablet (Minh 24 Fe) psyllium husk 0.52 gram capsule 0.52 g PO DAILY 07/30/21 08/14/23 (Fiber-Caps (psyllium husk)) simvastatin 20 mg tablet 20 mg PO DAILY 07/30/21 08/14/23 Allergies Allergy/AdvReac Type Severity Reaction Status Date / Time Sulfa (Sulfonamide Allergy Severe swell up Verified 08/14/23 13:22 Antibiotics) allopurinol Allergy Unknown Other Verified 08/14/23 13:22 haloperidol Allergy Unknown Unknown Verified 08/14/23 13:22 dexamethasone AdvReac Intermediate Nervousness Verified 08/14/23 13:22 Review of Systems Review of Systems: CONSTITUTIONAL: Denies fever, chills, or sweats. EYES: Denies visual changes, redness, or discharge. ENT: Reports right-sided dental pain and otalgia. Denies rhinorrhea, congestion, or sore throat. CARDIOVASCULAR: Denies chest pain, palpitations, or edema. RESPIRATORY: Denies cough or dyspnea. GASTROINTESTINAL: Denies abdominal pain, nausea, vomiting, or diarrhea. GENITOURINARY: Denies dysuria or hematuria. SKIN: Denies rash or itching. MUSCULOSKELETAL: Denies back pain, joint pain, or myalgia. NEUROLOGIC: Reports headache. Denies numbness, dizziness, or weakness. PSYCHIATRIC: Denies anxiety or depression. [facility] Past Medical History Medical History Asthma Depression with anxiety GERD (gastroesophageal reflux disease) Hyperlipidemia Hypertension Hypothyroidism Kidney stone Migraines Seasonal allergies Surgical History Surgical History Previous section Family History Family History Mother Family history non-contributory Social History Social History Smoking status: Never smoker Alcohol intake: never Substance use: never Living arrangements: with family Gender identity (if verbalized by the patient): Female Exam Narrative: GENERAL: Well-appearing, well-nourished, and in no acute distress. HEAD: Normocephalic, atraumatic. EYES: PERRLA and EOMI. ENT: Nares clear, no rhinorrhea or epistaxis. Mucous membranes moist. Oropharynx without tonsillar hypertrophy exudate or other lesions. There is tenderness over tooth #1 And over tooth #32 which are both impacted. Bilateral TMs pearly [place]field nonbulging. There is a tympanostomy tube on the right with yellow exudate present. NECK: Supple. No adenopathy or masses. No carotid bruits or J
== END 2023-08-14 13:40 | disposition home or self-care (01) ==
PROVIDERS: Emergency Provider Nurse Practitioner; PCP Physician Assistant
DX: H92.11 Otorrhea, right ear (principal); K01.1 Impacted teeth; J45.909 Unspecified asthma, uncomplicated; F41.8 Other specified anxiety disorders; E78.5 Hyperlipidemia, unspecified; E03.9 Hypothyroidism, unspecified; I10 Essential (primary) hypertension
CPT/HCPCS: 99213; G0463

== ENCOUNTER 2023-11-20 12:52 | Emergency (ER) | payer OTHER, SELFPAY ==
[2023-11-20 13:00] VITALS: BP 129/74; PULSE 99; RESP 20; TEMP 36.6; O2SAT 100
--- NOTE | 2023-11-20 13:37 | ED.DENTAL ---
HPI - Dental/Oral General Chief complaint: Dental/Oral Stated complaint: dizzy and diarrhea Time Seen by Provider: 11/20/23 13:25 Source: patient, RN notes reviewed and old records reviewed Mode of arrival: ambulatory Limitations: no limitations History of Present Illness HPI Narrative: 38-year-old female [facility] complaints with complaints of having dental pain to where she had wisdom teeth removed on the 06 of November, with removal of top and bottom wisdom teeth on the right side. Patient continues to have redness and swelling of the gums where teeth were removed. Patient reports that she is concerned for infection was not given antibiotic after procedure,denies any known fevers. MD Complaint: tooth pain (dental pain redness and swelling right upper and lower jaw where teeth removed) Location: Tooth # (#32 and #1 removed) Severity scale (1-10): 3 Treatment prior to arrival: other (Peridex mouth wash,Tylenol and Ibuprofen) Related Data Home Medications Medication Instructions Recorded Confirmed albuterol sulfate 90 mcg/actuation 2 puff inhalation QID PRN sob 07/30/21 08/14/23 aerosol inhaler citalopram 40 mg tablet 40 mg PO DAILY 07/30/21 08/14/23 erenumab-aooe 140 mg/mL 70 mg subcut MONTHLY 07/30/21 08/14/23 subcutaneous auto-injector (Aimovig Autoinjector) famotidine 20 mg tablet 20 mg PO BID 07/30/21 08/14/23 fenofibrate nanocrystallized 145 145 mg PO DAILY 07/30/21 08/14/23 mg tablet levothyroxine 25 mcg tablet 25 mcg PO DAILY 07/30/21 08/14/23 lisinopril 20 mg tablet 20 mg PO DAILY 07/30/21 08/14/23 montelukast 10 mg tablet 10 mg PO DAILY 07/30/21 08/14/23 norethindrone 1 mg-ethinyl 1 tablet PO DAILY 07/30/21 08/14/23 estradiol 20 mcg (24)-iron 75 mg (4) tablet (Minh 24 Fe) psyllium husk 0.52 gram capsule 0.52 g PO DAILY 07/30/21 08/14/23 (Fiber-Caps (psyllium husk)) simvastatin 20 mg tablet 20 mg PO DAILY 07/30/21 08/14/23 Allergies Allergy/AdvReac Type Severity Reaction Status Date / Time Sulfa (Sulfonamide Allergy Severe swell up Verified 08/14/23 13:22 Antibiotics) allopurinol Allergy Unknown Other Verified 08/14/23 13:22 haloperidol Allergy Unknown Unknown Verified 08/14/23 13:22 dexamethasone AdvReac Intermediate Nervousness Verified 08/14/23 13:22 Review of Systems Review of Systems: CONSTITUTIONAL: Denies fever, chills, or sweats. ENT: Denies rhinorrhea, congestion, sore throat, or otalgia. Reports dental pain with swelling and redness of gums where #32 and #1 teeth removed CARDIOVASCULAR: Denies chest pain, palpitations, or edema. RESPIRATORY: Denies cough or dyspnea. SKIN: Denies rash or itching. MUSCULOSKELETAL: Denies myalgia. NEUROLOGIC: Denies headache All systems reviewed & are unremarkable except as noted in HPI and below PMFSH Past Medical History Medical History Asthma Depression with anxiety GERD (gastroesophageal reflux disease) Hyperlipidemia Hypertension Hypothyroidism Kidney stone Migraines Seasonal allergies Surgical History Surgical History Previous section Family History Family History Mother Family history non-contributory Social History Social History Smoking status: Never smoker Alcohol intake: never Substance use: never Living arrangements: with family Gender identity (if verbalized by the patient): Female Comments At time of signature, agree with nursing past medical, surgical, social and family history. There is no relevant family history pertinent to the presenting complaint Exam Narrative: GENERAL: Well-appearing, well-nourished, and in no acute distress. HEAD: Normocephalic, atraumatic. EYES: PERRLA and EOMI. ENT: Nares clear, no rhinorrhea or epistaxis. Mucous membranes m
== END 2023-11-20 13:55 | disposition home or self-care (01) ==
PROVIDERS: Emergency Provider Registered Nurse; PCP Physician Assistant
DX: K08.89 Other specified disorders of teeth and supporting structures (principal); J45.909 Unspecified asthma, uncomplicated; K21.9 Gastro-esophageal reflux disease without esophagitis; E78.5 Hyperlipidemia, unspecified; I10 Essential (primary) hypertension; E03.9 Hypothyroidism, unspecified; F41.9 Anxiety disorder, unspecified; F32.A Depression, unspecified
CPT/HCPCS: 99213; G0463

== ENCOUNTER 2024-01-13 12:46 | Emergency (ER) | payer OTHER, SELFPAY ==
[2024-01-13 12:51] VITALS: BP 122/81; PULSE 85; RESP 18; TEMP 36.6; O2SAT 100
--- NOTE | 2024-01-13 13:45 | ED.URI ---
HPI - URI/Sore Throat General Chief Complaint: Upper Respiratory Infection Stated Complaint: Sore Throat/Chest Congestion Time Seen by Provider: 01/13/24 13:30 Source: patient, RN notes reviewed and old records reviewed Mode of arrival: ambulatory Limitations: no limitations History of Present Illness HPI Narrative: 38 year old female who presents to express care with complaints of 2 week history of sore throat, chest congestion which feel like it is going into her chest. Patient states it feels like something is stuck in her throat. Patient reports that she has been seen in the ER X2 and has seen her ENT and also her PMD. Patient reports that she has had strep and COVID test which has been negative. Patient reports that she is scheduled to have scope done on Monday. Patient reports that she has been taking her nasal spray and Mary Grace and also some Tylenol. MD elicited complaint: sore throat, rhinorrhea and nasal congestion Pertinent past history: asthma Onset (ago): week(s) (2) Pain scale (0-10): 8 Able to tolerate fluids by mouth: Yes Treatments prior to arrival: acetaminophen and other (nasal spray and Mary Grace) Related Data Home Medications Medication Instructions Recorded Confirmed albuterol sulfate 90 mcg/actuation 2 puff inhalation QID PRN sob 07/30/21 08/14/23 aerosol inhaler citalopram 40 mg tablet 40 mg PO DAILY 07/30/21 08/14/23 erenumab-aooe 140 mg/mL 70 mg subcut MONTHLY 07/30/21 08/14/23 subcutaneous auto-injector (Aimovig Autoinjector) famotidine 20 mg tablet 20 mg PO BID 07/30/21 08/14/23 fenofibrate nanocrystallized 145 145 mg PO DAILY 07/30/21 08/14/23 mg tablet levothyroxine 25 mcg tablet 25 mcg PO DAILY 07/30/21 08/14/23 lisinopril 20 mg tablet 20 mg PO DAILY 07/30/21 08/14/23 montelukast 10 mg tablet 10 mg PO DAILY 07/30/21 08/14/23 norethindrone 1 mg-ethinyl 1 tablet PO DAILY 07/30/21 08/14/23 estradiol 20 mcg (24)-iron 75 mg (4) tablet (Minh 24 Fe) simvastatin 20 mg tablet 20 mg PO DAILY 07/30/21 08/14/23 azelastine 137 mcg (0.1 %) nasal intranasal 01/13/24 spray oxybutynin chloride 10 mg mg PO 01/13/24 01/13/24 tablet,extended release 24 hr Allergies Allergy/AdvReac Type Severity Reaction Status Date / Time Sulfa (Sulfonamide Allergy Severe swell up Verified 08/14/23 13:22 Antibiotics) allopurinol Allergy Unknown Other Verified 08/14/23 13:22 haloperidol Allergy Unknown Unknown Verified 08/14/23 13:22 dexamethasone AdvReac Intermediate Nervousness Verified 08/14/23 13:22 Review of Systems Review of Systems: CONSTITUTIONAL: Denies malaise, chills, sweats, or fever. EYES: Denies visual changes, redness, or discharge. ENT: Reports rhinorrhea, congestion, sinus pain, otalgia and sore throat. CARDIOVASCULAR: Denies chest pain, palpitations, or edema. RESPIRATORY: Reports cough.? Denies dyspnea. GASTROINTESTINAL: Denies abdominal pain, nausea, vomiting, diarrhea SKIN: Denies rash or itching. MUSCULOSKELETAL: Denies myalgia. NEUROLOGIC: Denies headache. All systems reviewed & are unremarkable except as noted in HPI and below PMFSH Past Medical History Medical History Asthma Depression with anxiety GERD (gastroesophageal reflux disease) Hyperlipidemia Hypertension Hypothyroidism Kidney stone Migraines Seasonal allergies Surgical History Surgical History Previous section Family History Family History Mother Family history non-contributory Social History Social History Smoking status: Never smoker Alcohol intake: never Substance use: never Living arrangements: with family Gender identity (if verbalized by the patient): Female Comments At time of signature, agree with nursing past medical, surgical, social and family history. There is no relevant family history pertinent to the presenting complaint Exam Narrative: GENERAL: Well-appearing, well-nourished, obese and in no acute distress. HEAD: Normocephalic EYES: PERRLA, conjunctivae clear ENT: Nares clear, turbinates edematous and erythematous, clear discharge. Mucous membranes moist. TM pearly [place] with dull light reflex bilaterally; no tragal tenderness. Oropharynx erythematous without lesions. Tonsils not enlarged and without exudate, no drooling, no hoarseness, no trismus, uvula midline.post nasal drainage noted NECK: Supple. No lymphadenopathy CHEST: Clear to auscultation, breath sounds equal. No wheezing, rhonchi, rales, or stridor. No respiratory distress, speaks in full sentences. no acute cough noted SAO2 100% on room air HEART: Regular rate and rhythm. No murmur heard. SKIN: Warm, dry, no rash. NEURO: Alert and oriented x3. PSYCH: Normal mood and affect Course Course Emergency Course: Patient is aware of diagnosis, understands and agrees to treatment plan.? Anticipatory guidance given.? Patient agrees to follow-up as directed and is aware of reasons to seek care at the emergency department. Portions of this record may have been created with voice recognition software Level of Care: Express Care Visit Vital Signs Vital signs: Vital Signs Temperature 36.6 C 01/13/24 12:51 Pulse Rate 85 01/13/24 12:51 Respiratory Rate 18 01/13/24 12:51 Blood Pressure 122/81 01/13/24 12:51 Pulse Oximetry 100 01/13/24 12:51 Oxygen Delivery Room Air 01/13/24 12:51 Temperature 36.6 C 01/13/24 12:51 Pulse Rate 85 01/13/24 12:51 Respiratory Rate 18 01/13/24 12:51 Blood Pressure 122/81 01/13/24 12:51 Pulse Oximetry 100 01/13/24 12:51 Oxygen Delivery Room Air 01/13/24 12:51 Reviewed MDM - URI/Sore Throat MDM Narrative Medical decision making narrative: Differential diagnosis considered: Hay virus, strep pharyngitis, allergic rhinitis, upper respiratory tract infection, sinusitis, rhinosinusitis, nasopharyngitis. viral pharyngitis, otitis media, otitis externa, pneumonia, bronchitis, viral cough syndrome, viral syndrome, and influenza.? Exam findings show no acute concerns or changes; patient is non-toxic appearing and is in no distress.? Patient is appropriate for outpatient treatment and follow-up. Differential Diagnosis Differential diagnosis: Likely upper respiratory infection, viral infection and pharyngitis Medical Records Attestation: I reviewed the patient's medical records. Lab Data Attestation: I reviewed the patient's lab results. Critical Care Time Critical Care Time Critical Care Time: No Discharge Plan Discharge Clinical Impression: Upper respiratory infection Qualifiers: URI type: unspecified URI Qualified Code(s): J06.9 - Acute upper respiratory infection, unspecified Patient Disposition: Home, Self-Care Condition: Stable Instructions: Antibiotic Form, Upper Respiratory Infection (ED) Additional Instructions: Increase fluids especially juices and water [id number] cough and cold medicine of your choice for your symptoms Tylenol or Ibuprofen for any fever or pain Zyrtec Claritin or Mary Grace daily may include plain Sudafed and daily heat to the face 20-30 minutes 4-6 times a day for pain Salt water gargles, throat lozenges or throat sprays as desired If your symptoms persist, change or worsen significantly before you can contact your personal physician then please, without delay, go to the emergency department for further evaluation. Follow-up with PCP in 7-10 days or sooner if needed Follow up with PCP soon in regards to your blood pressure which is elevated above threshold for referral. Blood pressure above 120/80 may indicate pre-hypertension. Minimal elevation 122/81 Prescriptions: No Action cyclobenzaprine 10 mg tablet 10 mg PO Q8H PRN (Reason: muscle spasm) Qty: 30 0RF citalopram 40 mg tablet 40 mg PO DAILY lisinopril 20 mg tablet 20 mg PO DAILY levothyroxine 25 mcg tablet 25 mcg PO DAILY famotidine 20 mg tablet 20 mg PO BID simvastatin 20 mg tablet 20 mg PO DAILY montelukast 10 mg tablet 10 mg PO DAILY Minh 24 Fe 1 mg-20 mcg (24)/75 mg (4) tablet 1 tablet PO DAILY fenofibrate nanocrystallized 145 mg tablet 145 mg PO DAILY Aimovig Autoinjector 140 mg/mL auto-injector 70 mg SUBCUT MONTHLY albuterol sulfate 90 mcg/actuation Hfa Aerosol Inhaler 2 puff INHALATION QID PRN (Reason: sob) oxybutynin chloride 10 mg tablet extended release 24hr PO azelastine 137 mcg (0.1 %) spray,non-aerosol INTRANASAL Follow-up/Referrals: Erick,STEVEN Galicia [Primary Care Provider] - Time of Disposition: 14:03 Quality [place] Coma Scale Eyes: Open Verbal: Oriented and Alert Motor: Follows Commands [place] Coma Total Score: 15
== END 2024-01-13 14:10 | disposition home or self-care (01) ==
PROVIDERS: Emergency Provider Registered Nurse; PCP Physician Assistant
DX: J06.9 Acute upper respiratory infection, unspecified (principal); E78.5 Hyperlipidemia, unspecified; I10 Essential (primary) hypertension; E03.9 Hypothyroidism, unspecified; Z79.899 Other long term (current) drug therapy
CPT/HCPCS: 99211; G0463

== ENCOUNTER 2024-02-10 08:30 | Emergency (ER) | payer OTHER, SELFPAY ==
[2024-02-10 08:34] VITALS: BP 144/81; PULSE 100; RESP 18; TEMP 36.6; O2SAT 98
--- NOTE | 2024-02-10 08:53 | ED_ITS ---
HPI - URI/Sore Throat General Chief Complaint: Upper Respiratory Infection Stated Complaint: Chest Congestion/Fever History of Present Illness HPI Narrative: Patient presents with nasal congestion cough and runny nose. No shortness of breath no chest pain. Patient states she did take some Robitussin DM which helped with her cough. Patient denies any fever no body aches. Related Data Home Medications Medication Instructions Recorded Confirmed albuterol sulfate 90 mcg/actuation 2 puff inhalation QID PRN sob 07/30/21 08/14/23 aerosol inhaler citalopram 40 mg tablet 40 mg PO DAILY 07/30/21 08/14/23 erenumab-aooe 140 mg/mL 70 mg subcut MONTHLY 07/30/21 08/14/23 subcutaneous auto-injector (Aimovig Autoinjector) famotidine 20 mg tablet 20 mg PO BID 07/30/21 08/14/23 fenofibrate nanocrystallized 145 145 mg PO DAILY 07/30/21 08/14/23 mg tablet levothyroxine 25 mcg tablet 25 mcg PO DAILY 07/30/21 08/14/23 lisinopril 20 mg tablet 20 mg PO DAILY 07/30/21 08/14/23 montelukast 10 mg tablet 10 mg PO DAILY 07/30/21 08/14/23 simvastatin 20 mg tablet 20 mg PO DAILY 07/30/21 08/14/23 azelastine 137 mcg (0.1 %) nasal intranasal 01/13/24 spray oxybutynin chloride 10 mg mg PO 01/13/24 01/13/24 tablet,extended release 24 hr Allergies Allergy/AdvReac Type Severity Reaction Status Date / Time Sulfa (Sulfonamide Allergy Severe swell up Verified 08/14/23 13:22 Antibiotics) allopurinol Allergy Unknown Other Verified 08/14/23 13:22 haloperidol Allergy Unknown Unknown Verified 08/14/23 13:22 dexamethasone AdvReac Intermediate Nervousness Verified 08/14/23 13:22 Review of Systems Review of Systems: CONSTITUTIONAL: Denies chills, or sweats. Reports fever and generalized body aches EYES: Denies visual changes, redness, or discharge. ENT: Denies otalgia. Reports nasal congestion runny nose and sore throat CARDIOVASCULAR: Denies chest pain, palpitations, or edema. RESPIRATORY: Denies dyspnea. Reports occasional cough GASTROINTESTINAL: Denies abdominal pain, nausea, vomiting, or diarrhea. GENITOURINARY: Denies dysuria or hematuria. SKIN: Denies rash or itching. MUSCULOSKELETAL: Denies back pain, joint pain, or myalgia. Reports generalized body aches NEUROLOGIC: Denies headache, numbness, or weakness. PSYCHIATRIC: Denies anxiety or depression. REPLACED BY [facility] Past Medical History Medical History Asthma Depression with anxiety GERD (gastroesophageal reflux disease) Hyperlipidemia Hypertension Hypothyroidism Kidney stone Migraines Seasonal allergies Surgical History Surgical History Previous section Family History Family History Mother Family history non-contributory Social History Social History Smoking status: Never smoker Alcohol intake: never Substance use: never Living arrangements: with family Gender identity (if verbalized by the patient): Female Comments At time of signature, agree with nursing past medical, surgical, social and family history. There is no relevant family history pertinent to the presenting complaint Exam Narrative: The patient is a well-developed, well-nourished in no acute distress. SKIN: Skin is warm and dry without erythema, swelling or exudate. There is good turgor. No tenting. HEAD: Atraumatic. Normocephalic. No temporal or scalp tenderness. EYES: Moist and bright. Sclera and conjunctivae normal. No discharge. PERRLA. Extraocular motions intact. Gross visual acuity intact. EARS: Pinna is normal shape and contour. Clear external auditory canals. TM pearly capellan with good cone of light, no erythema or suppuration. Bilateral cerumen noted no gross hearing deficit. NOSE: pink, moist mucosa with good air movement. Clear rhinorrhea without nasal flaring. Septum midline. Mouth: moist mucous membranes. THROAT; mild erythema noted to posterior oropharynx with moderate postnasal drainage. Without exudate or ulceration.. Uvula midline. Normal movement of soft palate. NECK: Supple and nontender with full range of motion without discomfort. No meningeal signs. LUNGS: Equal and bilateral breath sounds without wheezes, rales or rhonchi. CHEST: The chest wall is without retractions or use of accessory muscles. HEART: Has a regular rate and rhythm without murmur, gallops, click or rub. ABDOMEN: Soft, nontender with positive active bowel sounds. No rebound tenderness. EXTREMITIES: Without cyanosis, clubbing or edema. Equal 2+ distal pulses and 2 second capillary refill noted. NEUROLOGIC: alert, active, . The patient moves all extremities with normal muscle strength. Normal muscle tone is noted. Normal coordination is noted. NO focal neurological findings noted. Course Course Level of Care: Express Care Visit Vital Signs Vital signs: Vital Signs Temperature 36.6 C 02/10/24 08:34 Pulse Rate 100 02/10/24 08:34 Respiratory Rate 18 02/10/24 08:34 Blood Pressure 144/81 H 02/10/24 08:34 Pulse Oximetry 98 02/10/24 08:34 Oxygen Delivery Room Air 02/10/24 08:34 Temperature 36.6 C 02/10/24 08:34 Pulse Rate 100 02/10/24 08:34 Respiratory Rate 18 02/10/24 08:34 Blood Pressure 144/81 H 02/10/24 08:34 Pulse Oximetry 98 02/10/24 08:34 Oxygen Delivery Room Air 02/10/24 08:34 Please RASHEL schedule a followup visit with your personal physician for further evaluation and treatment. Including recheck and discussion of your blood pressure. If your symptoms persist, change or worsen significantly before you can contact your personal physician then please, without delay, go to the emergency department for further evaluation Discharge Plan Discharge Clinical Impression: Upper respiratory infection, Bronchitis Patient Disposition: Home, Self-Care Condition: Stable Instructions: Antibiotic Form Additional Instructions: Increase fluids and rest 1. Bronchitis will generally resolve on it's own and may take a few weeks. Bronchitis is usually caused by a virus, but sometimes it may be bacterial. Antibiotics generally do not help bronchitis go away faster. Yellow or green mucous, does not always mean bacterial. If you are prescribed an antibiotic for your symptoms be sure to take the entire course of antibioitics. Take with food. It is also suggested to take with yogurt or a probiotic to decrease GI side effects. You may also be prescribed a steroid, if so, be sure to take entire course, first thing in the morning with food. 2. Rest and drink lots of fluids. Maintain a good diet, with foods rich in vitamins and minerals, and lots of fruits and vegetables. 3. Drinking hot tea, warm tea with honey, sucking on cough drops or hard candy, throat lozenges may help with sore throat. 4. OTC cough and cold medications are okay to take for your symptoms, including Mucinex expectorant. 5. If you have high BP, Coricidin HBP is behind the counter , you may ask your pharmacist for this. Otherwise, avoid medications that have a D at the end or a decongestant in them. These medications may increase your BP. 6. Breathing in warm, moist air, such as in the shower or a humidifier at your bedside or in your home. 7. Avoid smoking or being around those who smoke. 8. Protect yourself and others, cover your mouth when you cough and sneeze, and always wash your hands to prevent the spread of germs, if you are unable to, use hand vascular physician. . . congestion - flonase am and pm for chronic sinus congestion or prolonged symptoms of sinusitis (takes several days to work). one to three times a day of irrigation of sinus with saline spray, ocean nasal spray or eamon pot. fluids. if you don't have hypertension-afrin nasal spray with a 3 day limit for immediate relief of sinus congestion. for runny nose: do over the counter antihistamine (claritin, benadryl, zyrtec) for sneezing, runny nose. allergies. sudafed or decongestant can also be used, unless you have elevated blood pressure, nursing or . pineapple juice to help thin mucus pain and discomfort: over the counter treatment for pain - tylenol - with a max of 3 grams a day, not to take more than 3-4 days at this dose. discussed aleve - 1-2 am and pm with food. also not to take more than a few days if not improving. patient understands not to take ibuprofen or aleve without food. patient understands ibuprofen max is 4 pills 3 times a day, also not to take this amount for more than a few days if not improving. rest. -If you have any worsening of symptoms or any other concerns please go to the ED immediately. throat pain- gargling with salt water, throat losengers or chloraseptic spray may help with throat pain. if older than 2 years, cough- can try honey for cough if older than one year. mucinex, nyquil, dayquil, robitussin and other otc cold/cough medications can all be used in teenagers and adults with caution. do not mix or use multiple therapies without discussing with your doctor or pharmacy. steam from shower twice daily or cool mist humidifier. pineapple juice to help thin mucus eat yogurt 1-2 times daily or consider probiotics if on antibiotics. -If you have any worsening of symptoms or any other concerns please go to the ED immediately. Prescriptions: New benzonatate 100 mg capsule 100 mg PO TID PRN (Reason: cough) 5 Days Qty: 10 0RF fluticasone propionate [Flonase Allergy Relief] 50 mcg/actuation spray,suspension 2 spray intranasal DAILY 14 Days Qty: 16 0RF Rx Instructions: administer into each nostril No Action cyclobenzaprine 10 mg tablet 10 mg PO Q8H PRN (Reason: muscle spasm) Qty: 30 0RF citalopram 40 mg tablet 40 mg PO DAILY lisinopril 20 mg tablet 20 mg PO DAILY levothyroxine 25 mcg tablet 25 mcg PO DAILY famotidine 20 mg tablet 20 mg PO BID simvastatin 20 mg tablet 20 mg PO DAILY montelukast 10 mg tablet 10 mg PO DAILY fenofibrate nanocrystallized 145 mg tablet 145 mg PO DAILY Aimovig Autoinjector 140 mg/mL auto-injector 70 mg SUBCUT MONTHLY albuterol sulfate 90 mcg/actuation Hfa Aerosol Inhaler 2 puff INHALATION QID PRN (Reason: sob) oxybutynin chloride 10 mg tablet extended release 24hr PO azelastine 137 mcg (0.1 %) spray,non-aerosol INTRANASAL Follow-up/Referrals: Erick,STEVEN Galicia [Primary Care Provider] -
== END 2024-02-10 09:18 | disposition home or self-care (01) ==
PROVIDERS: Emergency Provider Nurse Practitioner Family; PCP Physician Assistant
DX: J06.9 Acute upper respiratory infection, unspecified (principal); J40 Bronchitis, not specified as acute or chronic; K21.9 Gastro-esophageal reflux disease without esophagitis; I10 Essential (primary) hypertension; E78.5 Hyperlipidemia, unspecified; E03.9 Hypothyroidism, unspecified; J45.909 Unspecified asthma, uncomplicated; F41.8 Other specified anxiety disorders
CPT/HCPCS: 99213; G0463

== ENCOUNTER 2025-03-16 17:03 | Emergency (ER) | payer OTHER, SELFPAY ==
--- OUTSIDE RECORDS SUMMARY | 2025-03-16 17:05 | XMS_ITS | Encounter Summary ---
Author Organization [facility] Address [address] [place] [id number] Phone Care Team Providers Care Cheese Specialist Name Role Phone Frida Suarez [facility] Primary Care Pro vider Iggy Garnica MD Unavailable [phone] Yasmany Sanchez MD Unavailable Tahira Stewart APRN, BUNG DRIVER Unavailable + [phone] Carrillo Mendez MD Unavailable [phone] Alphonso Robles MD Primary Care Provider [phone] Reason for Visit * Reason Comments Medication Refill Encounter Details Date Type Department Care Team (Late st Contact Info) Description 09/03/2020 Refill [facility] - Neurology - [place] [address] [place] [address] Iggy Garnica MD [address] [place] [address] Medication Refill Social History Tobacco Use Types Packs/Day Years Used Date Smoking Tobacco: Never Smokeless Tobacco: Never Alcohol Use Standard Drinks/Week Comments No 0 (1 standard drink = 0.6 oz pur e alcohol) PHQ-2 Answer Date Recorded Total Score - Questions 1-9 7 03/21 Education Answer Date Recorded What is the highest level of school you have completed or the highest degree you have received? GED or equivalent Sexually Active Control Partners Comments Yes Male Comments No Sex and Gender Information Value Date Recorded Sex Assigned at Not on file Legal Sex Female 10:54 PM CDT Gender Identity Not on file Sexual Orientation Not on file COVID-19 Exposure Response Date Recorded In the last month, have you been in contact with someone who was confirmed or suspected to have Coronavirus / COVID-19? No / Unsure 08/20/2020 10:20 AM CDT documented as of this encounter Plan of Treatment Not on file documented as of this encounter Visit Diagnoses Not on filedocumented in this encounter Additional Health Concerns Infection Onset Date Last Indicated Resolved Time COVID - 19 11/09/2021 11/09/2021 11/19/2021 12:1 6 AM CDT COVID - 19 Confirmed 11/09/2021 11/09/2021 022 12:16 AM CDT Respiratory Rule Out - RPA 05/30/2022 05/30/2022 0 05/30/2022 3:32 PM CDT COVID - 19 02/11/2024 02/11/2024 02/11/2024 8:33 PM NANOTECHNOLOGIST Respiratory Rule-Out 03/12/2025 03/12/2025 025 9:41 AM NANOTECHNOLOGIST COVID - 19 03/12/2025 03/12/2025 03/12/2025 9:41 AM NANOTECHNOLOGIST Assessment Noted Time PHQ-9 Depression Total Score: 7 04/14/19 21 1:40 PM NANOTECHNOLOGIST documented as of this encounter Care Teams Cheese Specialist Relationship Specialty Start Date End Date Frida Suarez PAC PCP - General Physician Statistical Developer 02/25/18 06/26/24 Alphonso Robles MD [address] [place] [id number] PCP - General Family Medicine 06/27/24 Iggy Garnica MD [address] [place] [address] Consulting Physician Neurology 07/05/21 Yasmany Sanchez MD [address] [place] [address] Consulting Physician Pulmonary Disease 10/18/21 Tahira Stewart, RECORD CENTER COORDINATOR, BUNG DRIVER [address] [place] [address] Nurse Practitioner Advanced Practice Nurse 10/11/22 Carrillo Mendez MD [address] [address] Consulting Physician Urology 12/01/23 documented as of this encounter
--- OUTSIDE RECORDS SUMMARY | 2025-03-16 17:05 | XMS_ITS | Encounter Summary ---
Author Organization [facility] Address [address] [place] [address] Phone Care Team Providers Care Supervisor Instrument Repair Name Role Phone Frida Suarez Primary Care Pro vider Iggy Garnica MD Unavailable [phone] Yasmany Sanchez MD Unavailable Tahira Stewart APRN, HAM TRIMMER Unavailable + [phone] Carrillo Mendez MD Unavailable [phone] Alphonso Robles MD Primary Care Provider [phone] Reason for Visit * Reason Comments Medication Refill Encounter Details Date Type Department Care Team (Late st Contact Info) Description 05/24/[address] [facility] - Internal Medicine - [place] [address] [place] [id number] Frida Suarez, [facility] [address] [place] [address] Medication Refill Social History Tobacco Use Types Packs/Day Years Used Date Smoking Tobacco: Never Passive Smoke Exposure: Never Smokeless Tobacco: Never Alcohol Use Standard Drinks/Week Comments No 0 (1 standard drink = 0.6 oz pur e alcohol) [facility] Utilities Answer Date Recorded In the past 12 months has th e electric, gas, oil, or water company threatened to shut off services in your home? Yes 05/17/2023 Social Connection and Isolation Panel Answer Date Recorded Frequency of Communication with Friends and Fami ly Not on file 05/17/2023 How often do you get together with friends or re latives? Once a week 05/17/2023 Attends [employer] Not on file 05/17 Active Member of Clubs or Organizations Not on f ile 05/17/2023 Attends Club or Organization Meetings Not on alma e 05/17/2023 Marital Status Not on file 05/17/2023 AUDIT-C Answer Date Recorded Q1: How often do you have a drink containing alcohol? Never 05/17/2023 Q2: How many drinks containi ng alcohol do you have on a typical day when you are drinking? Patient does not drink Q3: How often do you have si x or more drinks on one occasion? Never 05/17/2023 Overall Financial Resource Strain (CARDIA) Answe r Date Recorded How hard is it for you to pa y for the very basics like food, housing, medical care, and heating? Hard 05/17/2023 PHQ-2 Answer Date Recorded Total Score - Questions 1-9 10 06/19 [facility] - Occupational Stress Questionnaire Answer Date Recorded Do you feel stress - tense, restless, nervous, or anxious, or unable to sleep at night because your mind is troubled all the time - these days? Very much 05/17/2023 Exercise Vital Sign Answer Date Recorde d On average, how many days pe r week do you engage in moderate to strenuous exercise (like a brisk walk)? 0 days Minutes of Exercise per Session Not on file 05/17/2023 Hunger Vital Sign Answer Date Recorded Within the past 12 months, y ou worried that your food would run out before you got the money to buy more. Sometimes true Within the past 12 months, t he food you bought just didn't last and you didn't have money to get more. Sometimes true PRAPARE - Transportation Answer Date Re corded In the past 12 months, has l ack of transportation kept you from medical appointments or from getting medications? No 04/21 In the past 12 months, has l ack of transportation kept you from meetings, work, or from getting things needed for daily living? No 05/17/2023 Housing Stability Vital Sign Answer Brien e Recorded In the last 12 months, was t here a time when you were not able to pay the mortgage or rent on time? No 05/17/2023 In the last 12 months, how many places have you lived? 1 05/17/2023 In the last 12 months, was t here a time when you did not have a steady place to sleep or slept in a senior care (including now)? No 05/17/2023 Education Answer Date Recorded What is the highest level of school you have completed or the highest degree you have received? 10th grade 07/03/2022 Sexually Active Control Partners Comments Yes Oral Contraceptive Male Comments No Sex and Gender Information Value Date Recorded Sex Assigned at Not on file Legal Sex Female 10:54 PM CDT Gender Identity Not on file Sexual Orientation Not on file documented as of this encounter Miscellaneous Notes * Telephone Encounter - Lizette Russ RN - 05/25/2023 9:52 AM CST Medication(s) refilled and signed per [facility] Chronic Medication Refill Standing Order for Pediatricand Adult Patients. Requested Prescriptions Pending Prescriptions Disp Refills lisinopril (PRINIVIL, ZESTRIL) 20 MG Tablet [Pharmacy Med Name: Lisinopril 20 MG Oral Tablet] 90 Tablet 0 Sig: Take 1 tablet by mouth once daily HOOD Inhibitors Protocol Passed - 05/24/2023 6:11 PM Passed - Serum potassium on record in past 12 months POTASSIUM Date Value Ref Range Status 05/08/2023 3.9 3.5 - 5.1 mmol/L Final Passed - Blood pressure on record in past 12 months Clinician-entered: BP Readings from Last 3 Encounters: 05/17/23 138/90 05/12/23 (!) 191/97 05/08/23 132/85 Patient-entered: No data recorded Passed - No positive test in the past 12 months or most recent test was negative Passed - Visit with relevant provider in past 12 months or upcoming 90 days Recent Visits Date Type Provider Dept 05/17/23 Office Visit Frida Suarez, PAC [facility] 02/13/23 Office Visit Frida Suarez, PAC [facility] 01/11/23 Office Visit Frida Suarez, PAC [facility] 11/02/22 Office Visit Frida Suarez, PAC [facility] 08/10/22 Office Visit Frida Suarez, PAC [facility] 07/08/22 Office Visit Frida Suarez, PAC [facility] 05/30/22 Office Visit Frida Suarez, PAC [facility] Showing recent visits within past 365 days and meeting all other requirements Future Appointments Date Type Provider Dept 07/12/23 Appointment Frida Suarez, PAC [facility] Showing future appointments within next 90 days and meeting all other requirements Passed - No active on record Passed - GFR on record in past 12 months GFR, EST. NONAFRICAN Date Value Ref Range Status 05/08/2023 >60 >=60 Final ET SETTER documented in this encounter Plan of Treatment Not on file documented as of this encounter Visit Diagnoses Not on filedocumented in this encounter Additional Health Concerns Infection Onset Date Last Indicated Resolved Time COVID - 19 02/11/2024 02/11/2024 02/11/2024 8:33 PM POCKET SETTER Respiratory Rule-Out 03/12/2025 03/12/2025 025 9:41 AM POCKET SETTER COVID - 19 03/12/2025 03/12/2025 03/12/2025 9:41 AM POCKET SETTER Assessment Noted Time PHQ-9 Depression Total Score: 10 023 8:13 AM CDT documented as of this encounter Care Teams Supervisor Instrument Repair Relationship Specialty Start Date End Date Frida Suarez PAC PCP - General Physician Youth Pastor 02/25/18 06/26/24 Alphonso Robles MD #[address] [address] PCP - General Family Medicine 06/27/24 Iggy Garnica MD [address] [place] [address] Consulting Physician Neurology 07/05/21 Yasmany Sanchez MD #2 [place] [id number] Consulting Physician Pulmonary Disease 10/18/21 Tahira Stewart, CNA LTC, HAM TRIMMER [address] [place] [address] Nurse Practitioner Advanced Practice Nurse 10/11/22 Carrillo Mendez MD #[address] [address] Consulting Physician Urology 12/01/23 documented as of this encounter
--- OUTSIDE RECORDS SUMMARY | 2025-03-16 17:05 | XMS_ITS | Encounter Summary ---
Author Organization [facility] Address [address] [place] [address] Phone Care Team Providers Care Insurance Attorney Name Role Phone Frida Suarez Primary Care Pro vider Iggy Garnica MD Unavailable [phone] Yasmany Sanchez MD Unavailable Tahira Stewart APRN, [facility] Unavailable + [phone] Carrillo Mendez MD Unavailable [phone] Alphonso Robles MD Primary Care Provider Reason for Visit * Reason Comments Medication Refill Encounter Details Date Type Department Care Team (Late st Contact Info) Description 03/15/2023 [facility]ill [facility] #2 [place] [address] Frida Suarez, [facility] [address] [place] [address] Medication Refill Social History Tobacco Use Types Packs/Day Years Used Date Smoking Tobacco: Never Smokeless Tobacco: Never Alcohol Use Standard Drinks/Week Comments No 0 (1 standard drink = 0.6 oz pur e alcohol) PHQ-2 Answer Date Recorded Total Score - Questions 1-9 10 06/19 Education Answer Date Recorded What is the [...] Telephone Encounter - Lizette Russ RN - 03/16/2023 8:28 AM CST Medication failed the protocol, provider to review and approve the medication order if appropriate. Requested Prescriptions Pending Prescriptions Disp Refills montelukast (SINGULAIR) 10 MG Tablet [Pharmacy Med Name: Montelukast Sodium 10 MG Oral Tablet] 90 Tablet 0 Sig: Take 1 tablet by mouth in the evening Leukotriene Inhibitors Protocol Passed - 03/15/2023 6:39 PM Passed - Visit with relevant provider in past 12 months or upcoming 90 days Recent Visits Date Type Provider Dept 02/13/23 Office Visit Frida Suarez, PAC [facility] 01/11/23 Office Visit Frida Suarez, PAC [facility] 11/02/22 Office Visit Frida Suarez, PAC [facility] 08/10/22 Office Visit Frida Suarez, PAC [facility] 07/08/22 Office Visit Frida Suarez, PAC [facility] 05/30/22 Office Visit Frida Suarez, PAC [facility] 04/01/22 Office Visit Frida Suarez, PAC [facility] 03/28/22 Office Visit Frida Suarez, PAC [facility] Showing recent visits within past 365 days and meeting all other requirements Future Appointments No visits were found meeting these conditions. Showing future appointments within next 90 days and meeting all other requirements citalopram (CeleXA) 40 MG Tablet [Pharmacy Med Name: Citalopram Hydrobromide 40 MG Oral Tablet] 90 Tablet 0 Sig: Take 1 tablet by mouth once daily Citalopram (Celexa) (6 Month Refill Only) Protocol Failed - 03/15/2023 6:39 PM Failed - Has an encounter in the past 6 months with a depression, anxiety, adjustment disorder, OCD, or PTSD visit diagnosis Passed - No test in the past 12 months or most recent test was negative Passed - No active on record Passed - Citalopram dose is less than or equal to 40mg / day Passed - Visit with relevant provider in past 6 months or upcoming 90 days Recent Visits Date Type Provider Dept 02/13/23 Office Visit Frida Suarez PAC [facility] 01/11/23 Office Visit Frida Suarez PAC [facility] 11/02/22 Office Visit Frida Suarez PAC [facility] Showing recent visits within past 182 days and meeting all other requirements Future Appointments No visits were found meeting these conditions. Showing future appointments within next 90 days and meeting all other requirements Passed - Patient has established therapy with Citalopram for at least 6 months PERSON documented in this encounter Plan of Treatment Not on file documented as of this encounter Visit Diagnoses Not on filedocumented in this encounter Additional Health Concerns Infection Onset Date Last Indicated Resolved Time COVID - 19 02/11/2024 02/11/2024 02/11/2024 8:33 PM BAT PERSON Respiratory Rule-Out 03/12/2025 03/12/2025 025 9:41 AM BAT PERSON COVID - 19 03/12/2025 03/12/2025 03/12/2025 9:41 AM BAT PERSON Assessment Noted Time PHQ-9 Depression Total Score: 10 023 8:13 AM CDT documented as of this encounter Care Teams Insurance Attorney Relationship Specialty Start Date End Date Frida Suarez PAC PCP - General Physician Driver Helper 02/25/18 06/26/24 Alphonso Robles MD [address] [address] PCP - General Family Medicine 06/27/24 Iggy Garnica MD [address] [place] [address] Consulting Physician Neurology 07/05/21 Yasmany Sanchez MD [address] [place] [address] Consulting Physician Pulmonary Disease 10/18/21 Tahira Stewart, RESEARCH MANUFACTURING OPERATOR, TEXTILE MACHINERY SALES REPRESENTATIVE [address] [place] [address] Nurse Practitioner Advanced Practice Nurse 10/11/22 Carrillo Mendez MD [address] [address] Consulting Physician Urology 12/01/23 documented as of this encounter
--- OUTSIDE RECORDS SUMMARY | 2025-03-16 17:05 | XMS_ITS | Encounter Summary ---
Author Organization [facility] Address [address] [place] [address] Phone Care Team Providers Care Bevel Gear Generator Operator Name Role Phone Frida Suarez [facility] Primary Care Pro vider Iggy Garnica MD Unavailable [phone] Yasmany Sanchez MD Unavailable Tahira Stewart APRN, BONE TENDER Unavailable + [phone] Carrillo Mendez MD Unavailable [phone] Alphonso Robles MD Primary Care Provider [phone] Reason for Visit * Reason Comments Medication Refill Encounter Details Date Type Department Care Team (Late st Contact Info) Description 12/30/2020 Refill [facility] [place] [address] [address] Iggy Garnica MD [address] [place] [address] Medication Refill Social History Tobacco [...] have Coronavirus / COVID-19? No / Unsure 12/11/2020 9:37 AM CDT documented as of this encounter [...] - 19 02/11/2024 02/11/2024 02/11/2024 8:33 PM NURSING CONSULTANT Respiratory Rule-Out 03/12/2025 03/12/2025 025 9:41 AM NURSING CONSULTANT COVID - 19 03/12/2025 03/12/2025 03/12/2025 9:41 AM NURSING CONSULTANT Assessment Noted Time PHQ-9 Depression Total Score: 7 04/14/19 21 1:40 PM NURSING CONSULTANT documented as of this encounter Care Teams Bevel Gear Generator Operator Relationship Specialty Start Date End Date Frida Suarez PAC PCP - General Physician Transport Nurse 02/25/18 06/26/24 Alphonso Robles MD [address] [place] [id number] PCP - General Family Medicine 06/27/24 Iggy Garnica MD [address] [place] [address] Consulting Physician Neurology 07/05/21 Yasmany Sanchez MD [address] [place] [address] Consulting Physician Pulmonary Disease 10/18/21 Tahira Stewart, FLAME BRAZING MACHINE OPERATOR, BONE TENDER [address] [place] [address] Nurse Practitioner Advanced Practice Nurse 10/11/22 Carrillo Mendez MD #[address] [address] Consulting Physician Urology 12/01/23 documented as of this encounter
--- OUTSIDE RECORDS SUMMARY | 2025-03-16 17:05 | XMS_ITS | Encounter Summary ---
Author Organization [facility] Address [address] [place] [address] Phone Care Team Providers Care Health Care Technician Name Role Phone Frida Suarez Primary Care Pro vider Iggy Garnica MD Unavailable [phone] Yasmany Sanchez MD Unavailable Tahira Stewart APRN, REFRIGERATOR ROOM CLERK Unavailable + [phone] Carrillo Mendez MD Unavailable [phone] Alphonso Robles MD Primary Care Provider [phone] Reason for Visit * Reason Comments Medication Refill Encounter Details Date Type Department Care Team (Late st Contact Info) Description 03/10/2021 Refill [facility] Medical Group - Internal Medicine - [place] [address] [place] [id number] Frida Suarez, [facility] [address] [place] [address] Medication Refill Social History Tobacco Use Types [...] have Coronavirus / COVID-19? No / Unsure 03/08/2021 10:51 AM VAC PRESS OPERATOR documented as of this encounter Miscellaneous Notes * Telephone Encounter - Carolyn Vicente RN - 03/10/2021 4:20 PM CST Medication failed the protocol, provider to review and approve the medication order if appropriate. Requested Prescriptions Pending Prescriptions Disp Refills levothyroxine (SYNTHROID) 25 MCG Tablet [Pharmacy Med Name: Levothyroxine Sodium 25 MCG Oral Tablet] 30 Tablet 0 Sig: Take 1 tablet by mouth once daily Thyroid Hormones Protocol Failed - 03/10/2021 12:12 PM Failed - Normal TSH in past 12 months TSH Date Value Ref Range Status 01/28/2020 2.840 0.270 - 4.200 mIU/L Final Passed - No test in the past 12 months or most recent test was negative Passed - Visit with relevant provider in past 12 months or upcoming 90 days Recent Visits Date Type Provider Dept 03/08/21 Office Visit Frida Suarez, PAC [facility] 03/04/21 Office Visit Frida Suarez, PAC [facility] 01/27/21 Office Visit Frida Suarez, PAC [facility] 01/20/21 Office Visit Frida Suarez, PAC [facility] 12/07/20 Office Visit Frida Suarez, PAC [facility] 11/09/20 Office Visit Frida Suarez, PAC [facility] 11/06/20 Office Visit Frida Suarez, PAC [facility] 07/30/20 Office Visit Frida Suarez, PAC [facility] 05/20/20 Office Visit Frida Suarez, PAC [facility] 05/11/20 Office Visit Frida Suarez, PAC [facility] Showing recent visits within past 365 days and meeting all other requirements Future Appointments No visits were found meeting these conditions. Showing future appointments within next 90 days and meeting all other requirements Passed - No active on record simvastatin (ZOCOR) 20 MG Tablet [Pharmacy Med Name: Simvastatin 20 MG Oral Tablet] 30 Tablet 0 Sig: TAKE 1 TABLET BY MOUTH ONCE DAILY IN THE EVENING Hmg CoA Reductase Inhibitors Protocol Failed - 03/10/2021 12:12 PM Failed - Lipid panel in past 12 months LDL Date Value Ref Range Status 03/03/2021 121 0 - 130 mg/dL Final HDL CHOLESTEROL Date Value Ref Range Status 01/28/2020 34.6 (L) >40 mg/dL Final CHOLESTEROL Date Value Ref Range Status 01/28/2020 189 <=200 mg/dL Final TRIGLYCERIDES Date Value Ref Range Status 01/28/2020 252 (H) <150 mg/dL Final VLDL Date Value Ref Range Status 01/28/2020 50 5 - 55 mg/dL Final CHOL/HDL RATIO Date Value Ref Range Status 01/28/2020 5.5 (H) 0.0 - 4.4 Final NON-HDL CHOLESTEROL Date Value Ref Range Status 01/28/2020 154.4 (H) <130 mg/dL Final Passed - No positive test in the past 12 months or most recent test was negative Passed - Visit with relevant provider in past 12 months or upcoming 90 days Recent Visits Date Type Provider Dept 03/08/21 Office Visit Frida Suarez, PAC [facility] 03/04/21 Office Visit Frida Suarez, PAC [facility] 01/27/21 Office Visit Frida Suarez, PAC [facility] 01/20/21 Office Visit Frida Suarez, PAC [facility] 12/07/20 Office Visit Frida Suarez, PAC [facility] 11/09/20 Office Visit Frida Suarez, PAC [facility] 11/06/20 Office Visit Frida Suarez, PAC [facility] 07/30/20 Office Visit Frida Suarez, PAC [facility] 05/20/20 Office Visit Frida Suarez, PAC [facility] 05/11/20 Office Visit Frida Suarez, PAC [facility] Showing recent visits within past 365 days and meeting all other requirements Future Appointments No visits were found meeting these conditions. Showing future appointments within next 90 days and meeting all other requirements Passed - No active on record albuterol 108 (90 Base) MCG/ACT Aerosol Solution [Pharmacy Med Name: Albuterol Sulfate HFA 108 (90 Base) MCG/ACT Inhalation Aerosol Solution] 36 g 0 Sig: INHALE 2 PUFFS BY MOUTH EVERY 4 HOURS NEEDED FOR WHEEZING Short Acting Inhaled Beta-Agonists Protocol Passed - 03/10/2021 12:12 PM Passed - Visit with relevant provider in past 12 months or upcoming 90 days Recent Visits Date Type Provider Dept 03/08/21 Office Visit Frida Suarez, PAC [facility] 03/04/21 Office Visit Frida Suarez, PAC [facility] 01/27/21 Office Visit Frida Suarez, PAC [facility] 01/20/21 Office Visit Frida Suarez, PAC [facility] 12/07/20 Office Visit Frida Suarez, PAC [facility] 11/09/20 Office Visit Frida Suarez, PAC [facility] 11/06/20 Office Visit Frida Suarez, PAC [facility] 07/30/20 Office Visit Frida Suarez, PAC [facility] 05/20/20 Office Visit Frida Suarez, PAC [facility] 05/11/20 Office Visit Frida Suarez, PAC [facility] Showing recent visits within past 365 days and meeting all other requirements Future Appointments No visits were found meeting these conditions. Showing future appointments within next 90 days and meeting all other requirements PRESS OPERATOR documented in this encounter Plan of Treatment [...] - 19 02/11/2024 02/11/2024 02/11/2024 8:33 PM VAC PRESS OPERATOR Respiratory Rule-Out 03/12/2025 03/12/2025 025 9:41 AM VAC PRESS OPERATOR COVID - 19 03/12/2025 03/12/2025 03/12/2025 9:41 AM VAC PRESS OPERATOR Assessment Noted Time PHQ-9 Depression Total Score: 7 04/14/19 21 1:40 PM VAC PRESS OPERATOR documented as of this encounter Care Teams Health Care Technician Relationship Specialty Start Date End Date Frida Suarez, [facility] PCP - General Physician Weatherization Director 02/25/18 06/26/24 Alphonso Robles MD #[address] [address] PCP - General Family Medicine 06/27/24 Iggy Garnica MD [address] [place] [address] Consulting Physician Neurology 07/05/21 Yasmany Sanchez MD #[address] [place] [address] Consulting Physician Pulmonary Disease 10/18/21 Tahira Stewart APRN, REFRIGERATOR ROOM CLERK [address] [place] [address] Nurse Practitioner Advanced Practice Nurse 10/11/22 Carrillo Mendez MD #[address] [address] Consulting Physician Urology 12/01/23 documented as of this encounter
--- OUTSIDE RECORDS SUMMARY | 2025-03-16 17:05 | XMS_ITS | Encounter Summary ---
Author Organization [facility] Address [address] [place] [address] Phone Care Team Providers Care Mobile Manager Name Role Phone Frida Suarez [facility] Primary Care Pro vider Iggy Garnica MD Unavailable [phone] Yasmany Sanchez MD Unavailable Tahira Stewart APRN, TUBER MACHINE CUTTER Unavailable + [phone] Carrillo Mendez MD Unavailable [phone] Alphonso Robles MD Primary Care Provider [phone] Reason for Visit * Reason Comments Medication Refill Encounter Details Date Type Department Care Team (Late st Contact Info) Description 02/02/2021 Refill [facility] [place] [address] [address] Iggy Garnica MD [address] [place] [address] Medication Refill Social History Tobacco [...] have Coronavirus / COVID-19? No / Unsure 01/27/2021 11:25 AM LIVE TRUCK TECHNICIAN documented as of this encounter Plan of [...] - 19 02/11/2024 02/11/2024 02/11/2024 8:33 PM LIVE TRUCK TECHNICIAN Respiratory Rule-Out 03/12/2025 03/12/2025 025 9:41 AM LIVE TRUCK TECHNICIAN COVID - 19 03/12/2025 03/12/2025 03/12/2025 9:41 AM LIVE TRUCK TECHNICIAN Assessment Noted Time PHQ-9 Depression Total Score: 7 04/14/19 21 1:40 PM LIVE TRUCK TECHNICIAN documented as of this encounter Care Teams Mobile Manager Relationship Specialty Start Date End Date Frida Suarez PAC PCP - General Physician Formula Technician 02/25/18 06/26/24 Alphonso Robles MD #2 [place] [id number] PCP - General Family Medicine 06/27/24 Iggy Garnica MD #[address] [place] [address] Consulting Physician Neurology 07/05/21 Yasmany Sanchez MD #2 [place] [address] Consulting Physician Pulmonary Disease 10/18/21 Tahira Stewart, HOSPITAL NURSING ASSISTANT, TUBER MACHINE CUTTER [address] [place] [address] Nurse Practitioner Advanced Practice Nurse 10/11/22 Carrillo Mendez MD #[address] [address] Consulting Physician Urology 12/01/23 documented as of this encounter
--- OUTSIDE RECORDS SUMMARY | 2025-03-16 17:05 | XMS_ITS | Encounter Summary ---
Author Organization [facility] Address [address] [place] [address] Phone Care Team Providers Care Pictures Editor Name Role Phone Frida Suarez Primary Care Pro vider Iggy Garnica MD Unavailable [phone] Yasmany Sanchez MD Unavailable Tahira Stewart APRN, MATTRESS MAKER Unavailable + [phone] Carrillo Mendez MD Unavailable [phone] Alphonso Robles MD Primary Care Provider [phone] Reason for Visit * Reason Comments Medication Refill Encounter Details Date Type Department Care Team (Late st Contact Info) Description 05/10/2023 Refill [facility] - Internal Medicine - [place] [address] [place] [id number] Frida Suarez, [facility] [address] [place] [address] Medication Refill Social History Tobacco Use Types [...] Telephone Encounter - Lizette Russ RN - 05/11/2023 10:22 AM CST Medication failed the protocol, provider to review and approve the medication order if appropriate. Requested Prescriptions Pending Prescriptions Disp Refills simvastatin (ZOCOR) 20 MG Tablet [Pharmacy Med Name: Simvastatin 20 MG Oral Tablet] 30 Tablet 0 Sig: TAKE 1 TABLET BY MOUTH ONCE DAILY IN THE EVENING Hmg CoA Reductase Inhibitors Protocol Passed - 05/10/2023 6:24 PM Passed - No positive test in the past 12 months or most recent test was negative Passed - Visit with relevant provider in past 12 months or upcoming 90 days Recent Visits Date Type Provider Dept 02/13/23 Office Visit Frida Suarez, PAC [facility] 01/11/23 Office Visit Frida Suarez, PAC [facility] 11/02/22 Office Visit Frida Suarez, PAC [facility] 08/10/22 Office Visit Frida Suarez PAC [facility] 07/08/22 Office Visit Frida Suarez, PAC [facility] 05/30/22 Office Visit Frida Suarez PAC [facility] Showing recent visits within past 365 days and meeting all other requirements Future Appointments Date Type Provider Dept 07/12/23 Appointment Frida Suarez PAC [facility] Showing future appointments within next 90 days and meeting all other requirements Passed - No active on record Passed - Lipid panel in past 12 months LDL Date Value Ref Range Status 01/11/2023 75 <130 mg/dL Final HDL CHOLESTEROL Date Value Ref Range Status 01/11/2023 33 (L) >40 mg/dL Final CHOLESTEROL Date Value Ref Range Status 01/11/2023 153 <200 mg/dL Final TRIGLYCERIDES Date Value Ref Range Status 01/11/2023 226 (H) <150 mg/dL Final VLDL Date Value Ref Range Status 01/11/2023 45 10 - 50 mg/dL Final CHOL/HDL RATIO Date Value Ref Range Status 01/11/2023 4.6 (H) 0.0 - 4.4 Final NON-HDL CHOLESTEROL Date Value Ref Range Status 01/11/2023 120 <130 mg/dL Final Passed - CMP in past 12 months SODIUM Date Value Ref Range Status 05/08/2023 140 136 - 145 mmol/L Final POTASSIUM Date Value Ref Range Status 05/08/2023 3.9 3.5 - 5.1 mmol/L Final CHLORIDE Date Value Ref Range Status 05/08/2023 106 98 - 107 mmol/L Final CO2, VENOUS Date Value Ref Range Status 05/08/2023 24 22 - 30 mmol/L Final ANION GAP Date Value Ref Range Status 05/08/2023 13.9 <18.0 mmol/L Final GLUCOSE Date Value Ref Range Status 05/08/2023 83 70 - 99 mg/dL Final BUN Date Value Ref Range Status 05/08/2023 14 5 - 18 mg/dL Final CREATININE, BLOOD Date Value Ref Range Status 05/08/2023 0.68 0.60 - 1.00 mg/dL Final BUN/CREATININE RATIO Date Value Ref Range Status 05/08/2023 21 (H) 12 - 20 ratio Final TOTAL PROTEIN Date Value Ref Range Status 05/08/2023 7.0 6.3 - 8.2 g/dL Final ALBUMIN Date Value Ref Range Status 05/08/2023 4.1 3.5 - 5.0 g/dL Final A/G RATIO Date Value Ref Range Status 05/08/2023 1.4 1.0 - 2.2 Final CALCIUM Date Value Ref Range Status 05/08/2023 9.2 8.7 - 10.5 mg/dL Final T BILI Date Value Ref Range Status 05/08/2023 0.6 0.2 - 1.2 mg/dL Final SGOT (AST) Date Value Ref Range Status 05/08/2023 13 5 - 34 U/L Final SGPT (ALT) Date Value Ref Range Status 05/08/2023 12 0 - 55 U/L Final ALKALINE PHOSPHATASE Date Value Ref Range Status 05/08/2023 56 40 - 150 U/L Final GFR, EST. NONAFRICAN Date Value Ref Range Status 05/08/2023 >60 >=60 Final GFR, EST. Date Value Ref Range Status 05/08/2023 >60 >=60 Final GFR, ESTIMATED Date Value Ref Range Status 05/08/2023 >60 >=60 Final Comment: Creatinine Clearance is the preferred criteria for selecting drug dose adjustments in renally impaired patients. The GFR is provided as additional pertinent clinical information. GFR is reported in mL/min/1.73 sq m. Calculation based on the Chronic Kidney Disease Epidemiology Collaboration (CKD- EPI) equation refitwithout adjustment for race. IS THE PATIENT REQUIRED TO BE FASTING? Date Value Ref Range Status 01/11/2023 No Final omeprazole (PriLOSEC) 20 MG CAPSULE DELAYED RELEASE [Pharmacy Med Name: Omeprazole 20 MG Oral Capsule Delayed Release] 30 Capsule 0 Sig: TAKE 1 TO 2 CAPSULES BY MOUTH ONCE DAILY Proton Pump Inhibitors Protocol Passed - 05/10/2023 6:24 PM Passed - No positive test in the past 12 months or most recent test was negative Passed - Visit with relevant provider in past 12 months or upcoming 90 days Recent Visits Date Type Provider Dept 02/13/23 Office Visit Frida Suarez PAC [facility] 01/11/23 Office Visit Frida Suarez PAC [facility] 11/02/22 Office Visit Frida Suarez PAC [facility] 08/10/22 Office Visit Frida Suarez PAC [facility] 07/08/22 Office Visit Frida Suarez PAC [facility] 05/30/22 Office Visit Frida Suarez PAC [facility] [place] Showing recent visits within past 365 days and meeting all other requirements Future Appointments Date Type Provider Dept 07/12/23 Appointment Frida Suarez PAC [facility] Showing future appointments within next 90 days and meeting all other requirements Passed - No active on record levothyroxine (SYNTHROID) 25 MCG Tablet [Pharmacy Med Name: Levothyroxine Sodium 25 MCG Oral Tablet] 30 Tablet 0 Sig: Take 1 tablet by mouth once daily Thyroid Hormones Protocol Passed - 05/10/2023 6:24 PM Passed - No test in the past 12 months or most recent test was negative Passed - Visit with relevant provider in past 12 months or upcoming 90 days Recent Visits Date Type Provider Dept 02/13/23 Office Visit Frida Suarez, PAC [facility] 01/11/23 Office Visit Frida Suarez, PAC [facility] [place] 11/02/22 Office Visit Frida Suarez, PAC [facility] [place] 08/10/22 Office Visit Frida Suarez, PAC [facility] [place] 07/08/22 Office Visit Frida Suarez, PAC [facility] [place] 05/30/22 Office Visit Frida Suarez, PAC [facility] [place] Showing recent visits within past 365 days and meeting all other requirements Future Appointments Date Type Provider Dept 07/12/23 Appointment Frida Suarez, PAC [facility] Showing future appointments within next 90 days and meeting all other requirements Passed - No active on record Passed - Normal TSH in past 12 months TSH Date Value Ref Range Status 01/11/2023 1.753 0.300 - 5.000 mIU/L Final MOTIVE ENGINEERING TEACHER documented in this encounter Plan of Treatment Not on file documented as of this encounter Visit Diagnoses Not on filedocumented in this encounter Additional Health Concerns Infection Onset Date Last Indicated Resolved Time COVID - 19 02/11/2024 02/11/2024 02/11/2024 8:33 PM AUTOMOTIVE ENGINEERING TEACHER Respiratory Rule-Out 03/12/2025 03/12/2025 025 9:41 AM AUTOMOTIVE ENGINEERING TEACHER COVID - 19 03/12/2025 03/12/2025 03/12/2025 9:41 AM AUTOMOTIVE ENGINEERING TEACHER Assessment Noted Time PHQ-9 Depression Total Score: 10 023 8:13 AM CDT documented as of this encounter Care Teams Pictures Editor Relationship Specialty Start Date End Date Frida Suarez, AIME PCP - General Physician Stores Assistant 02/25/18 06/26/24 Alphonso Robles MD [address] [address] PCP - General Family Medicine 06/27/24 Iggy Garnica MD [address] [place] [address] Consulting Physician Neurology 07/05/21 Yasmany Sanchez MD [address] [place] [id number] Consulting Physician Pulmonary Disease 10/18/21 Tahira Stewart, LAND SURVEYOR ASSISTANT, MATTRESS MAKER [address] [place] [address] Nurse Practitioner Advanced Practice Nurse 10/11/22 Carrillo Mendez MD [address] [address] Consulting Physician Urology 12/01/23 documented as of this encounter
--- OUTSIDE RECORDS SUMMARY | 2025-03-16 17:05 | XMS_ITS | Encounter Summary ---
Author Organization [facility] Address [address] [place] [address] Phone Care Team Providers Care Bed Bug Exterminator Name Role Phone Frida Suarez [facility] Primary Care Pro vider Iggy Garnica MD Unavailable [phone] Yasmany Sanchez MD Unavailable Tahira Stewart APRN, MECHANISM ASSEMBLER Unavailable + [phone] Carrillo Mendez MD Unavailable [phone] Alphonso Robles MD Primary Care Provider Reason for Visit * Reason Comments Medication Refill Encounter Details Date Type Department Care Team (Late st Contact Info) Description [facility]/17/[address] [facility] [facility] [address] [place] [place], [place] [id number] Frida Suarez, PAC [address] [place] [address] Medication Refill Social History Tobacco Use Types [...] AM CDT documented as of this encounter Miscellaneous Notes * Telephone Encounter - Carolyn Vicente RN - 08/19/2020 9:41 AM CDT Please review and sign. documented in this encounter Plan of Treatment [...] - 19 02/11/2024 02/11/2024 02/11/2024 8:33 PM DIESEL DINKEY ENGINEER Respiratory Rule-Out 03/12/2025 03/12/2025 025 9:41 AM DIESEL DINKEY ENGINEER COVID - 19 03/12/2025 03/12/2025 03/12/2025 9:41 AM DIESEL DINKEY ENGINEER Assessment Noted Time PHQ-9 Depression Total Score: 7 04/14/19 1:40 PM DIESEL DINKEY ENGINEER documented as of this encounter Care Teams Bed Bug Exterminator Relationship Specialty Start Date End Date Frida Suarez, PAC PCP - General Physician Dry Kiln Loader 02/25/18 06/26/24 Alphonso Robles MD [address] [address] PCP - General Family Medicine 06/27/24 Iggy Garnica MD [address] [place] [address] Consulting Physician Neurology 07/05/21 Yasmany Sanchez MD [address] [place] [address] Consulting Physician Pulmonary Disease 10/18/21 Tahira Stewart, MOLD YARD SUPERVISOR, MECHANISM ASSEMBLER [address] [place] [address] Nurse Practitioner Advanced Practice Nurse 10/11/22 Carrillo Mendez MD [address] [address] Consulting Physician Urology 12/01/23 documented as of this encounter
--- OUTSIDE RECORDS SUMMARY | 2025-03-16 17:05 | XMS_ITS | Encounter Summary ---
Author Organization [facility] Address [address] [place] [address] Phone Care Team Providers Care Educational Technician Name Role Phone Frida Suarez [facility] Primary Care Pro vider Iggy Garnica MD Unavailable [phone] Yasmany Sanchez MD Unavailable Tahira Stewart APRN, ELECTRONIC TECHNOLOGIST Unavailable Carrillo Mendez MD Unavailable [phone] Alphonso Robles MD Primary Care Provider [phone] Reason for Visit * Reason Comments Medication Refill Encounter Details Date Type Department Care Team (Late st Contact Info) Description 05/17/[address] [facility] - Neurology - [place] [address] [place] [id number] Tahira Stewrat APRN, ELECTRONIC TECHNOLOGIST [address] [place] [address] Medication Refill Social History Tobacco Use Types Packs/Day Years Used Date Smoking Tobacco: Never Passive Smoke Exposure: Never Smokeless Tobacco: Never Alcohol Use Standard Drinks/Week Comments No 0 (1 standard drink = 0.6 oz pur e alcohol) [facility] Utilities Answer Date Recorded In the [...] re latives? Once a week 05/17/2023 Attends [employer] Services Not on file 05/17 Active Member [...] Total Score - Questions 1-9 10 06/19 [facility] - Occupational Stress [...] place to sleep or slept in a usp (including now)? No 05/17/2023 Education Answer Date [...] encounter Miscellaneous Notes * Telephone Encounter - Maritza Brown RN - 05/17/2023 9:05 AM CST Medication failed the protocol, provider to review and approve the medication order if appropriate. Requested Prescriptions Pending Prescriptions Disp Refills Erenumab-aooe (Aimovig) 140 MG/ML Solution Auto-injector [Pharmacy Med Name: Aimovig 140 MG/ML Subcutaneous Solution Auto-injector] 1 mL 3 Sig: INJECT 1ML SUBCUTANEOUSLY EVERY 28 DAYS Not Delegated - Off Protocol Failed - 05/17/2023 6:50 AM Failed - This refill cannot be delegated Passed - Visit with relevant provider in past 12 months or upcoming 90 days Recent Visits Date Type Provider Dept 04/24/23 Telemedicine Iggy Garnica MD [facility] 02/13/23 [facility] 12/27/22 Office Visit Iggy Garnica MD [facility] [address] 11/02/22 Office Visit Frida Suarez, PAC [facility] 10/11/22 Office Visit Tahira Stewart APRN, [facility]/08[facility]22 Office Visit Iggy Garnica MD [facility] 08/10/22 Office Visit Frida Suarez, PAC [facility] 07/08/22 Office Visit Frida Suarez, PAC [facility] 05/30/22 Office Visit Frida Suarez, PAC [facility] [place] Showing recent visits within past 365 days and meeting all other requirements Today's Visits Date Type Provider Dept 05/17/23 Appointment Frida Suarez, PAC [facility] [place] Showing today's visits and meeting all other requirements Future Appointments Date Type Provider Dept 07/12/23 Appointment Frida Suarez, PAC [facility] 07/27/23 Appointment Tahira Stewart APRN, [facility] Showing future appointments within next 90 days and meeting all other requirements MATIC TOOL OPERATOR documented in this encounter Plan of Treatment Not on file documented as of this encounter Visit Diagnoses Diagnosis Chronic migraine w/o aura w/o status migrainosus, not intractable Chronic migraine without aura, without mention of intractable migraine without mention of status migrainosus documented in this encounter Additional Health Concerns Infection Onset Date Last Indicated Resolved Time COVID - 19 02/11/2024 02/11/2024 02/11/2024 8:33 PM PNEUMATIC TOOL OPERATOR Respiratory Rule-Out 03/12/2025 03/12/2025 025 9:41 AM PNEUMATIC TOOL OPERATOR COVID - 19 03/12/2025 03/12/2025 03/12/2025 9:41 AM PNEUMATIC TOOL OPERATOR Assessment Noted Time PHQ-9 Depression Total Score: 10 023 8:13 AM CDT documented as of this encounter Care Teams Educational Technician Relationship Specialty Start Date End Date Frida Suarez, AIME PCP - General Physician Sawyer Cork Slabs 02/25/18 06/26/24 Alphonso Robles MD [address] [address] PCP - General Family Medicine 06/27/24 Iggy Garnica MD [address] [place] [address] Consulting Physician Neurology 07/05/21 Yasmany Sanchez MD [address] [place] [address] Consulting Physician Pulmonary Disease 10/18/21 Tahira Stewart, INSPECTOR BOILER, ELECTRONIC TECHNOLOGIST [address] [place] [address] Nurse Practitioner Advanced Practice Nurse 10/11/22 Carrillo Mendez MD [address] [address] Consulting Physician Urology 12/01/23 documented as of this encounter
--- OUTSIDE RECORDS SUMMARY | 2025-03-16 17:05 | XMS_ITS | Encounter Summary ---
Author Organization [facility] Address [address] [place] [address] Phone Care Team Providers Care Sausage Grinder Name Role Phone Frida Suarez [facility] Primary Care Pro vider Iggy Garnica MD Unavailable Yasmany Sanchez MD Unavailable Tahira Stewart APRN, MICA BUILDER Unavailable Carrillo Mendez MD Unavailable [phone] Alphonso Robles MD Primary Care Provider Reason for Visit * Reason Comments Medication Refill Encounter Details Date Type Department Care Team (Late st Contact Info) Description 10/30/2022 Refill [facility] - Neurology - [place] [address] [place] [id number] Tahira Stewart APRN, MICA BUILDER [address] [place] [address] Medication Refill Social History Tobacco Use Types [...] Exposure Response Date Recorded In the last 10 days, have yo u been in contact with someone who was confirmed or suspected to have Coronavirus/COVID-19? No / Unsure 11/02/2022 12:14 PM CDT documented as of this encounter Miscellaneous Notes * Telephone Encounter - Maritza Brown RN - 10/31/2022 8:24 AM CDT Medication failed the protocol, provider to review and approve the medication order if appropriate. Requested Prescriptions Pending Prescriptions Disp Refills Aimovig 140 MG/ML Solution Auto-injector [Pharmacy Med Name: Aimovig 140 MG/ML Subcutaneous Solution Auto-injector] 1 mL 3 Sig: INJECT 1ML SUBCUTANEOUSLY EVERY 28 DAYS Not Delegated - Off Protocol Failed - 10/30/2022 6:29 PM Failed - This refill cannot be delegated Passed - Visit with relevant provider in past 12 months or upcoming 90 days Recent Visits Date Type Provider Dept 10/11/22 Office Visit Tahira Stewart APRN, CNS [facility] 09/08/22 Office Visit Iggy Garnica MD [facility] 08/10/22 Office Visit Frida Suarez, PAC [facility] 07/08/22 Office Visit Frida Suarez, PAC [facility] 05/30/22 Office Visit Frida Suarez, PAC [facility] 04/01/22 Office Visit Frida Suarez, AIME [facility] 03/28/22 Office Visit Frida Suarez, PAC [facility] 03/10/22 Office Visit Frida Suarez, PAC [facility] 01/03/22 Office Visit Erick Frida Tahira, PAC [facility] 12/03/21 Office Visit Frida Suarez Tahira, PAC [facility] Showing recent visits within past 365 days and meeting all other requirements Future Appointments Date Type Provider Dept 12/27/22 Appointment Iggy Garnica MD [facility] [place] [facility] 01/11/23 Appointment Frida Suarez, PAC [facility] 01/12/23 Appointment Tahira Stewart APRN, [facility] Showing future appointments within next 90 days and meeting all other requirements documented in this encounter Plan of Treatment Not on file documented as of this encounter Visit Diagnoses Diagnosis Chronic migraine w/o aura w/o status migrainosus, not intractable Chronic migraine without aura, without mention of intractable migraine without mention of status migrainosus documented in this encounter Additional Health Concerns Infection Onset Date Last Indicated Resolved Time COVID - 19 02/11/2024 02/11/2024 02/11/2024 8:33 PM SALON MANAGER Respiratory Rule-Out 03/12/2025 03/12/2025 025 9:41 AM SALON MANAGER COVID - 19 03/12/2025 03/12/2025 03/12/2025 9:41 AM SALON MANAGER Assessment Noted Time PHQ-9 Depression Total Score: 10 023 8:13 AM CDT documented as of this encounter Care Teams Sausage Grinder Relationship Specialty Start Date End Date ErickFrida lopez PAC PCP - General Physician Couture Dressmaker 02/25/18 06/26/24 Alphonso Robles MD [address] [place] [address] PCP - General Family Medicine 06/27/24 Iggy Garnica MD [address] [place] [address] Consulting Physician Neurology 07/05/21 Yasmany Sanchez MD [address] [place] [address] Consulting Physician Pulmonary Disease 10/18/21 Tahira Stewart, LINE COOK, MICA BUILDER [address] [place] [address] Nurse Practitioner Advanced Practice Nurse 10/11/22 Carrillo Mendez MD [address] [address] Consulting Physician Urology 12/01/23 documented as of this encounter
--- OUTSIDE RECORDS SUMMARY | 2025-03-16 17:05 | XMS_ITS | Encounter Summary ---
Author Organization [facility] Address [address] [place] [address] Phone Care Team Providers Care Server Assistant Name Role Phone Frida Suarez [facility] Primary Care Pro vider Iggy Garnica MD Unavailable [phone] Yasmany Sanchez MD Unavailable Tahira Stewart APRN, METAL PRODUCTS VIEWER Unavailable + [phone] Carrillo Mendez MD Unavailable [phone] Alphonso Robles MD Primary Care Provider [phone] Reason for Visit * Reason Comments Medication Refill Encounter Details Date Type Department Care Team (Late st Contact Info) Description 08/22/2022 Refill [facility] - Internal Medicine - [place] [address] [place] [id number] Frida Suarez, [facility] [address] [place] [address] Medication Refill Social History Tobacco Use Types [...] was confirmed or suspected to have Coronavirus/COVID-19? Unable to assess 08/10/2022 9:06 AM CDT documented as of this encounter Plan of Treatment Not on file documented as of this encounter Visit Diagnoses Not on filedocumented in this encounter Additional Health Concerns Infection Onset Date Last Indicated Resolved Time COVID - 19 02/11/2024 02/11/2024 02/11/2024 8:33 PM BOBTAILER Respiratory Rule-Out 03/12/2025 03/12/2025 025 9:41 AM BOBTAILER COVID - 19 03/12/2025 03/12/2025 03/12/2025 9:41 AM BOBTAILER Assessment Noted Time PHQ-9 Depression Total Score: 10 023 8:13 AM CDT documented as of this encounter Care Teams Server Assistant Relationship Specialty Start Date End Date Frida Suarez PAC PCP - General Physician [place] 02/25/18 06/26/24 Alphonso Robles MD [address] [address] PCP - General Family Medicine 06/27/24 Iggy Garnica MD [address] [place] [phone] Consulting Physician Neurology 07/05/21 Yasmany Sanchez MD [address] [place] [address] Consulting Physician Pulmonary Disease 10/18/21 Tahira Stewart, PIECE DYER, METAL PRODUCTS VIEWER [address] [place] [address] Nurse Practitioner Advanced Practice Nurse 10/11/22 Carrillo Mendez MD [address] [address] Consulting Physician Urology 12/01/23 documented as of this encounter
--- OUTSIDE RECORDS SUMMARY | 2025-03-16 17:05 | XMS_ITS | Encounter Summary ---
Author Organization [facility] Address [address] [place] [address] Phone Care Team Providers Care Advertising Associate Name Role Phone Frida Suarez Primary Care Pro vider Iggy Garnica MD Unavailable [phone] Yasmany Sanchez MD Unavailable Tahira Stewart APRN, [facility] Unavailable + [phone] Carrillo Mendez MD Unavailable [phone] Alphonso Robles MD Primary Care Provider Reason for Visit * Reason Comments Medication Refill Encounter Details Date Type Department Care Team (Late st Contact Info) Description 02/16/2021 [facility]ill [facility] [address] [place] [address] Frida Saurez, [facility] [address] [place] [address] Medication Refill Social History Tobacco Use Types [...] COVID-19? No / Unsure 01/27/2021 11:25 AM CARGO AND RAMP SERVICES MANAGER documented as of this encounter Miscellaneous Notes * Telephone Encounter - Harriett Reynoso RN - 02/17/2021 9:34 AM CST Medication failed the protocol, provider to review and approve the medication order if appropriate. Requested Prescriptions Pending Prescriptions Disp Refills pantoprazole (PROTONIX) 40 MG Tablet Delayed Response [Pharmacy Med Name: Pantoprazole Sodium 40 MGOral Tablet Delayed Release] 90 Tablet 0 Sig: Take 1 tablet by mouth once daily Proton Pump Inhibitors Protocol Passed - 02/16/2021 6:33 PM Passed - No positive test in the past 12 months or most recent test was negative Passed - Visit with relevant provider in past 12 months or upcoming 90 days Recent Visits Date Type Provider Dept 01/27/21 Office Visit Frida Suarez, PAC [facility] 01/20/21 Office Visit Frida Suarez, PAC [facility] 12/07/20 Office Visit Frida Suarez, PAC [facility] 11/09/20 Office Visit Frida Suarez, PAC [facility] 11/06/20 Office Visit Frida Suarez, PAC [facility] 07/30/20 Office Visit Frida Suarez, PAC [facility] 05/20/20 Office Visit Frida Suarez, PAC [facility] 05/11/20 Office Visit Frida Suarez, PAC [facility] 04/24/20 Office Visit Alley Valle APRN, [facility] 04/14/20 Telemedicine Alley Valle APRN, [facility] Showing recent visits within past 365 days and meeting all other requirements Future Appointments Date Type Provider Dept 03/02/21 Appointment Lab[facility] [place] 03/08/21 Appointment Frida Suarez PAC [facility] Showing future appointments within next 90 days and meeting all other requirements Passed - No active on record citalopram (CeleXA) 40 MG Tablet [Pharmacy Med Name: Citalopram Hydrobromide 40 MG Oral Tablet] 90 Tablet 0 Sig: Take 1 tablet by mouth once daily Citalopram (Celexa) (6 Month Refill Only) Protocol Failed - 02/16/2021 6:33 PM Failed - Has an encounter in [...] days Recent Visits Date Type Provider Dept 01/27/21 Office Visit Frida Suarez PAC [facility] 01/20/21 Office Visit Frida Suarez PAC [facility] 12/07/20 Office Visit Frida Suarez PAC [facility] 11/09/20 Office Visit Frida Suarez PAC [facility] 11/06/20 Office Visit Frida Suarez PAC [facility] Showing recent visits within past 182 days and meeting all other requirements Future Appointments Date Type Provider Dept 03/02/21 Appointment Lab, [place] [facility] 03/08/21 Appointment Frida Suarez PAC [facility] Showing future appointments within next 90 days and meeting all other requirements Passed - Patient has established therapy with Citalopram for at least 6 months O AND RAMP SERVICES MANAGER documented in this encounter Plan of Treatment [...] - 19 02/11/2024 02/11/2024 02/11/2024 8:33 PM CARGO AND RAMP SERVICES MANAGER Respiratory Rule-Out 03/12/2025 03/12/2025 025 9:41 AM CARGO AND RAMP SERVICES MANAGER COVID - 19 03/12/2025 03/12/2025 03/12/2025 9:41 AM CARGO AND RAMP SERVICES MANAGER Assessment Noted Time PHQ-9 Depression Total Score: 7 04/14/19 21 1:40 PM CARGO AND RAMP SERVICES MANAGER documented as of this encounter Care Teams Advertising Associate Relationship Specialty Start Date End Date Frida Suarez PAC PCP - General Physician Implementation Lead 02/25/18 06/26/24 Alphonso Robles MD [address] [id number] PCP - General Family Medicine 06/27/24 Iggy Garnica MD [address] [place] [address] Consulting Physician Neurology 07/05/21 Yasmany Sanchez MD [address] [place] [address] Consulting Physician Pulmonary Disease 10/18/21 Tahira Stewart APRN, SCREW CUTTER [address] [place] [address] Nurse Practitioner Advanced Practice Nurse 10/11/22 Carrillo Mendez MD [address] [address] Consulting Physician Urology 12/01/23 documented as of this encounter
--- OUTSIDE RECORDS SUMMARY | 2025-03-16 17:05 | XMS_ITS | Encounter Summary ---
Author Organization [facility] Address [address] [place] [address] Phone Care Team Providers Care Utility Lineman Name Role Phone Frida Suarez Primary Care Pro vider Iggy Garnica MD Unavailable [phone] Yasmany Sanchez MD Unavailable Tahira Stewart APRN, [facility] Unavailable + [phone] Carrillo Mendez MD Unavailable [phone] Alphonso Robles MD Primary Care Provider Reason for Visit * Reason Comments Medication Refill Encounter Details Date Type Department Care Team (Late st Contact Info) Description 06/21/2023 Refill [facility] - [facility] [address] [place] [address] Frida Suarez, [facility] [address] [place] [address] Medication Refill Social History Tobacco Use Types Packs/Day Years Used Date Smoking Tobacco: Never Passive Smoke Exposure: Never Smokeless Tobacco: Never Alcohol Use Standard Drinks/Week Comments No 0 (1 standard drink = 0.6 oz pur e alcohol) [facility] Utilities Answer Date Recorded In the past [...] re latives? Once a week 05/17/2023 Attends Sabianism Services Not on file 05/17 Active Member [...] Total Score - Questions 1-9 10 06/19 [facility] - Occupational Stress [...] place to sleep or slept in a mcc (including now)? No 05/17/2023 Education Answer Date [...] Telephone Encounter - Lizette Russ RN - 06/22/2023 8:43 AM CDT Medication failed the protocol, provider to review and approve the medication order if appropriate. Requested Prescriptions Pending Prescriptions Disp Refills citalopram (CeleXA) 40 MG Tablet [Pharmacy Med Name: Citalopram Hydrobromide 40 MG Oral Tablet] 90 Tablet 0 Sig: Take 1 tablet by mouth once daily Citalopram (Celexa) (6 Month Refill Only) Protocol Failed - 06/21/2023 7:30 PM Failed - Has an encounter in [...] Type Provider Dept 05/17/23 Office Visit Frida Suarez PAC [facility] 02/13/23 Office Visit Frida Suarez, PAC [facility] 01/11/23 Office Visit Frida Suarez, PAC [facility] Showing recent visits within past 182 days and meeting all other requirements Future Appointments Date Type Provider Dept 07/12/23 Appointment Frida Suarez PAC [facility] Showing future appointments within next 90 days and meeting all other requirements Passed - Patient has established therapy with Citalopram for at least 6 months montelukast (SINGULAIR) 10 MG Tablet [Pharmacy Med Name: Montelukast Sodium 10 MG Oral Tablet] 90 Tablet 0 Sig: Take 1 tablet by mouth in the evening Leukotriene Inhibitors Protocol Passed - 06/21/2023 7:30 PM Passed - Visit with relevant provider in past 12 months or upcoming 90 days Recent Visits Date Type Provider Dept 05/17/23 Office Visit Frida Suarez, PAC [facility] 02/13/23 Office Visit Frida Suarez, PAC [facility] 01/11/23 Office Visit Frida Suarez, PAC [facility] 11/02/22 Office Visit Frida Suarez, PAC [facility] 08/10/22 Office Visit Frida Suarez, PAC [facility] 07/08/22 Office Visit Frida Suarez, PAC [facility] Showing recent visits within past 365 days and meeting all other requirements Future Appointments Date Type Provider Dept 07/12/23 Appointment Frida Suarez PAC [facility] Showing future appointments within next 90 days and meeting all other requirements documented in this encounter Plan of Treatment Not on file documented as of this encounter Visit Diagnoses Not on filedocumented in this encounter Additional Health Concerns Infection Onset Date Last Indicated Resolved Time COVID - 19 02/11/2024 02/11/2024 02/11/2024 8:33 PM 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 Respiratory Rule-Out 03/12/2025 03/12/2025 025 9:41 AM 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 COVID - 19 03/12/2025 03/12/2025 03/12/2025 9:41 AM 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 Assessment Noted Time PHQ-9 Depression Total Score: 10 023 8:13 AM CDT documented as of this encounter Care Teams Utility Lineman Relationship Specialty Start Date End Date Erick Frida Hoffmann, AIME PCP - General Physician Patient Transportation Driver 02/25/18 06/26/24 Alphonso Robles MD [address] [address] PCP - General Family Medicine 06/27/24 gIgy Garnica MD [address] [place] [phone] Consulting Physician Neurology 07/05/21 Yasmany Sanchez MD [address] [place] [address] Consulting Physician Pulmonary Disease 10/18/21 Tahira Stewart, SCHOOL CROSSING GUARD SUPERVISOR, ASTROCHEMIST [address] [place] [address] Nurse Practitioner Advanced Practice Nurse 10/11/22 Carrillo Mendez MD [address] [address] Consulting Physician Urology 12/01/23 documented as of this encounter
--- OUTSIDE RECORDS SUMMARY | 2025-03-16 17:05 | XMS_ITS | Encounter Summary ---
Author Organization [facility] Address [address] [place] [address] Phone Care Team Providers Care Credit Associate Name Role Phone Frida Suarez Primary Care Pro vider Iggy Garnica MD Unavailable [phone] Yasmany Sanchez MD Unavailable Tahira Stewart APRN, GIVER Unavailable + [phone] Carrillo Mendez MD Unavailable [phone] Alphonso Robles MD Primary Care Provider [phone] Reason for Visit * Reason Comments Medication Refill Encounter Details Date Type Department Care Team (Late st Contact Info) Description 06/07/2023 Refill [facility] - Internal Medicine - [place] [address] [place] [id number] Frida Suarez, [facility] [address] [place] [address] Medication Refill Social History Tobacco Use Types Packs/Day Years Used Date Smoking Tobacco: Never Passive Smoke Exposure: Never Smokeless Tobacco: Never Alcohol Use Standard Drinks/Week Comments No 0 (1 standard drink = 0.6 oz pur e alcohol) [facility] Utilities Answer Date Recorded In the past [...] re latives? Once a week 05/17/2023 Attends Restorationism Services Not on file 05/17 Active Member [...] Total Score - Questions 1-9 10 06/19 [facility] - Occupational [...] place to sleep or slept in a prison (including now)? No 05/17/2023 Education Answer Date [...] encounter Miscellaneous Notes * Telephone Encounter - Dagmar Cee RN - 06/08/2023 8:11 AM CDT Medication(s) refilled and signed per [facility] Chronic Medication Refill Standing Order for Pediatricand Adult Patients. Requested Prescriptions Pending Prescriptions Disp Refills omeprazole (PriLOSEC) 20 MG CAPSULE DELAYED RELEASE [Pharmacy Med Name: Omeprazole 20 MG Oral Capsule Delayed Release] 30 Capsule 0 Sig: TAKE 1 TO 2 CAPSULES BY MOUTH ONCE DAILY Proton Pump Inhibitors Protocol Passed - 06/07/2023 6:30 PM Passed - No positive test in the past 12 months or most recent test was negative Passed - Visit with relevant provider in past 12 months or upcoming 90 days Recent Visits Date Type Provider Dept 05/17/23 Office Visit Frida Suarez, AIME [facility] 02/13/23 Office Visit Frida Suarez, AIME [facility] 01/11/23 Office Visit Frida Suarez, AIME [facility] 11/02/22 Office Visit Frida Suarez, PAC [facility] 08/10/22 Office Visit Frida Suarez, PAC [facility] 07/08/22 Office Visit Frida Suarez, PAC [facility] Showing recent visits within past 365 days and meeting all other requirements Future Appointments Date Type Provider Dept 07/12/23 Appointment Frida Suarez PAC [facility] Showing future appointments within next 90 days and meeting all other requirements Passed - No active on record simvastatin (ZOCOR) 20 MG Tablet [Pharmacy Med Name: Simvastatin 20 MG Oral Tablet] 30 Tablet 0 Sig: TAKE 1 TABLET BY MOUTH ONCE DAILY IN THE EVENING Hmg CoA Reductase Inhibitors Protocol Passed - 06/07/2023 6:30 PM Passed - No positive test in the past 12 months or most recent test was negative Passed - Visit with relevant provider in past 12 months or upcoming 90 days Recent Visits Date Type Provider Dept 05/17/23 Office Visit Frida Suarez, PAC [facility] 02/13/23 Office Visit Frida Suarez, PAC [facility] 01/11/23 Office Visit Frida Suarez, PAC [facility] 11/02/22 Office Visit Frida Suarez, PAC [facility] 08/10/22 Office Visit Frida Suarez, PAC [facility] 07/08/22 Office Visit Frida Suarez, PAC [facility] Showing recent visits within past 365 days and meeting all other requirements Future Appointments Date Type Provider Dept 07/12/23 Appointment Frida Suarez PAC [facility] Showing future appointments within next 90 days [...] Value Ref Range Status 01/11/2023 No Final levothyroxine (SYNTHROID) 25 MCG Tablet [Pharmacy Med Name: Levothyroxine Sodium 25 MCG Oral Tablet] 30 Tablet 0 Sig: Take 1 tablet by mouth once daily Thyroid Hormones Protocol Passed - 06/07/2023 6:30 PM Passed - No test in the past 12 months or most recent test was negative Passed - Visit with relevant provider in past 12 months or upcoming 90 days Recent Visits Date Type Provider Dept 05/17/23 Office Visit Frida Suarez, PAC [facility] 02/13/23 Office Visit Frida Suarez, PAC [facility] 01/11/23 Office Visit Frida Suarez, PAC [facility] 11/02/22 Office Visit Frida Suarez PAC [facility] 08/10/22 Office Visit Frida Suarez PAC [facility] 07/08/22 Office Visit Frida Suarez PAC [facility] Showing recent visits within past 365 days and meeting all other requirements Future Appointments Date Type Provider Dept 07/12/23 Appointment Frida Suarez PAC [facility] Showing future appointments within next 90 days and meeting all other requirements Passed - No active on record Passed - Normal TSH in past 12 months TSH Date Value Ref Range Status 01/11/2023 1.753 0.300 - 5.000 mIU/L Final famotidine (PEPCID) 20 MG Tablet [Pharmacy Med Name: Famotidine 20 MG Oral Tablet] 60 Tablet 0 Sig: Take 1 tablet by mouth twice daily H2 Antagonists Protocol Passed - 06/07/2023 6:30 PM Passed - Visit with relevant provider in past 12 months or upcoming 90 days Recent Visits Date Type Provider Dept 05/17/23 Office Visit Frida Suarez, PAC [facility] 02/13/23 Office Visit Frida Suarez, PAC [facility] 01/11/23 Office Visit Frida Suarez, PAC [facility] 11/02/22 Office Visit Frida Suarez, PAC [facility] 08/10/22 Office Visit Frida Suarez, PAC [facility] 07/08/22 Office Visit Frida Suarez, PAC [facility] Showing recent visits within past 365 days and meeting all other requirements Future Appointments Date Type Provider Dept 07/12/23 Appointment Frida Suarez PAC [facility] Showing future appointments within next 90 days and meeting all other requirements documented in this encounter Plan of Treatment Not on file documented as of this encounter Visit Diagnoses Not on filedocumented in this encounter Additional Health Concerns Infection Onset Date Last Indicated Resolved Time COVID - 19 02/11/2024 02/11/2024 02/11/2024 8:33 PM FINANCE 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 Respiratory Rule-Out 03/12/2025 03/12/2025 025 9:41 AM FINANCE ASSOCIATE COVID - 19 03/12/2025 03/12/2025 03/12/2025 9:41 AM FINANCE ASSOCIATE Assessment Noted Time PHQ-9 Depression Total Score: 10 023 8:13 AM CDT documented as of this encounter Care Teams Credit Associate Relationship Specialty Start Date End Date Frida Suarez PAC PCP - General Physician [employer] Mining Machine Helper 02/25/18 06/26/24 Alphonso Robles MD [address] [address] PCP - General Family Medicine 06/27/24 Igyg Garnica MD [address] [place] [address] Consulting Physician Neurology 07/05/21 Yasmany Sanchez MD [address] [place] [address] Consulting Physician Pulmonary Disease 10/18/21 Tahira Stewart, NURSE MONITORING, GIVER [address] [place] [address] Nurse Practitioner Advanced Practice Nurse 10/11/22 Carrillo Mendez MD [address] [address] Consulting Physician Urology 12/01/23 documented as of this encounter
--- OUTSIDE RECORDS SUMMARY | 2025-03-16 17:05 | XMS_ITS | Data Portability ---
Author Organization [place] [facility],, [facility]- Address # [address] [facility] [address] [place] [address] Assessment Encounter Date Assessment Date Assessment LastModified by Organization Details LastModified Time 01/13/2023 01/13/2023 Information regarding the particular vaccine that patient is receiving today was presented to the parent(s). All questions were answered [email or web address] Not available 01/13/2023 09:43:43 Plan of Treatment Reminders Order Date Submit Date Provider Last Modified By Organization Details Last Modified Time Details Appointments None record ed. Lab None record ed. Referral None record ed. Procedures None record ed. Surgeries None record ed. Imaging None record ed. Medication Orders None record ed. Patient TargetsNo targets recorded. Patient Instructions Encounter Date Encounter Id Patient Instructions Last Modified By Organization Details Last Modified Time 01/13/2023 [id number] influenza (flu) vaccine (inactivated or recombinant): what you need to know Not available 01/13/2023 16:29:21 Reason for Referral None Reported. Problems No Known Problems Medical Equipment None Reported. Allergies No known drug allergies Medications Not known to be on any medication Vitals None Recorded Social History None recorded. Functional Status None recorded. Mental Status None recorded. Family History Nothing Reported. Medical History No medical history recorded. Gynecological HistoryNo gynecological history recorded. Obstetrics History GPAL:G 0 P 0 0 0 0 Immunizations Vaccine Type Date Status Note Provider Jayant frey and Address Organization Details Recorded Time Influenza, split virus, quadrivalent, PF 12/24/2020 completed Dyaa childress, [facility], 12/24/2020 13:03:28 Influenza, split virus, quadrivalent, PF 01/13/2023 completed Norma childress [place] [facility], 01/13/2023 16:47:10 Past Encounters Encounter ID Performer Location Encounter Start Date Encounter Closed Date Diagnosis/Indication Diagnosis SNOMED-CT Code Diagnosis ICD10 Code Diagnosis IMO Codes Diagnosis Note [id number] Halima Rader MD [facility]ED[facility] [address] [address] 12/24/2020 12:04:15 12/25/2020 11:47:45 Active or passive immunization [id number] Z23 Discussed with the parent the vaccines ordered below that the patient is to receive today; all questions were answered and the informatio nal handout(s) was/were given. [id number] NITHYA ROSARIO MD [facility]EDIATR[facility] [address] [address] 01/13/2023 16:21:26 01/13/2023 19:28:58 Active or passive immunization [id number] Z23 Health Concerns Section Related Observation LastModified by Organization Detai ls LastModified Time None Recorded Concern Status LastModified by Organization Details LastModified Time None Recorded Advance Directives Directive None Recorded Payers Insurance Date Sequence Insurance Name Policy Number Policy Schultz Covered Member ID Schultz Member ID Guarantor Name 09/25/2024 1 [facility] (MEDICAID HMO) [id number] Nina Daly [id number] Nina Daly Notes Date Note Type Note Provider Name and Address Organization Details Recorded Time 12/24/2020 text/html [facility] Eligibility Screening RecordReported by Patient [place] [facility], 12/24/2020 12:26:55 01/13/2023 text/html [facility] Eligibility Screening RecordReported by Patient Norma childress [place] [facility], 01/13/2023 16:29:35 OBGyn Episode No OBEpisode recorded.
--- OUTSIDE RECORDS SUMMARY | 2025-03-16 17:05 | XMS_ITS | Encounter Summary ---
Author Organization [facility] Address [address] [place] [address] Phone Care Team Providers Care Patent Prosecution Attorney Name Role Phone Frida Suarez Primary Care Pro vider Iggy Garnica MD Unavailable [phone] Yasmany Sanchez MD Unavailable Tahira Stewart APRN, BAKERY CLERK Unavailable + [phone] Carrillo Mendez MD Unavailable [phone] Alphonso Robles MD Primary Care Provider [phone] Reason for Visit * Reason Comments Medication Refill Encounter Details Date Type Department Care Team (Late st Contact Info) Description 07/05/2023 Refill [facility] - Internal Medicine - [place] [address] [place] [id number] Frida Suarez, [facility] [address] [place] [address] Medication Refill Social History Tobacco Use Types Packs/Day Years Used Date Smoking Tobacco: Never Passive Smoke Exposure: Never Smokeless Tobacco: Never Alcohol Use Standard Drinks/Week Comments No 0 (1 standard drink = 0.6 oz pur e alcohol) [facility] Utilities Answer Date Recorded In [...] re latives? Once a week 05/17/2023 Attends Holiness Services Not on file 05/17 Active Member [...] Total Score - Questions 1-9 10 06/19 [facility] - [...] place to sleep or slept in a longterm (including now)? No 05/17/2023 Education Answer Date [...] Telephone Encounter - Lizette Russ RN - 07/06/2023 9:56 AM CDT Medication(s) refilled and signed per [facility] Chronic Medication Refill Standing Order for Pediatricand Adult Patients. Requested Prescriptions Pending Prescriptions Disp Refills omeprazole (PriLOSEC) 20 MG CAPSULE DELAYED RELEASE [Pharmacy Med Name: Omeprazole 20 MG Oral Capsule Delayed Release] 30 Capsule 0 Sig: TAKE 1 TO 2 CAPSULES BY MOUTH ONCE DAILY Proton Pump Inhibitors Protocol Passed - 07/05/2023 4:30 PM Passed - No positive test in the past 12 months or most recent test was negative Passed - Visit with relevant provider in past 12 months or upcoming 90 days Recent Visits Date Type Provider Dept 05/17/23 Office Visit Frida Suarez, AIME [facility] 02/13/23 Office Visit Frida Suarez, AIME [facility] 01/11/23 Office Visit Frida Suarez, [facility]IME [facility] 11/02/22 Office Visit Frida Suarez, PAC [facility] 08/10/22 Office Visit Frida Suarez, PAC [facility] 07/08/22 Office Visit Frida Suarez, PAC [facility] Showing recent visits within past 365 days and meeting all other requirements Future Appointments Date Type Provider Dept 07/12/23 Appointment Frida Suarez PAC [facility] Showing future appointments within next 90 days and meeting all other requirements Passed - No active on record simvastatin (ZOCOR) 20 MG Tablet [Pharmacy Med Name: Simvastatin 20 MG Oral Tablet] 30 Tablet 0 Sig: TAKE 1 TABLET BY MOUTH ONCE DAILY IN THE EVENING Hmg CoA Reductase Inhibitors Protocol Passed - 07/05/2023 4:30 PM Passed - No positive test in the past 12 months or most recent test was negative Passed - Visit with relevant provider in past 12 months or upcoming 90 days Recent Visits Date Type Provider Dept 05/17/23 Office Visit Frida Suarez, PAC [facility] 02/13/23 Office Visit Frida Suarez, PAC [facility] 01/11/23 Office Visit Frida Suarez, PAC [facility] 11/02/22 Office Visit Frida Suarez, PAC [facility] 08/10/22 Office Visit Frida Suarez, PAC [facility] 07/08/22 Office Visit Frida Suarez, PAC [facility] Showing recent visits within past 365 days and meeting all other requirements Future Appointments Date Type Provider Dept 07/12/23 Appointment Frida Suarez PAC [facility] Showing future appointments within next 90 days [...] once daily Thyroid Hormones Protocol Passed - 07/05/2023 4:30 PM Passed - No test in the past 12 months or most recent test was negative Passed - Visit with relevant provider in past 12 months or upcoming 90 days Recent Visits Date Type Provider Dept 05/17/23 Office Visit Frida Suarez, PAC [facility] 02/13/23 Office Visit Frida Suarez, PAC [facility] 01/11/23 Office Visit Frida Suarez, PAC [facility] 11/02/22 Office Visit Frida Suarez PAC [facility] 08/10/22 Office Visit Frida Suarez PAC [facility] 07/08/22 Office Visit Frida Suarez PAC [facility] Showing recent visits within past 365 days and meeting all other requirements Future Appointments Date Type Provider Dept 07/12/23 Appointment Frida Suarez PAC [facility] Showing future appointments within next 90 days and meeting all other requirements Passed - No active on record Passed - Normal TSH in past 12 months TSH Date Value Ref Range Status 01/11/2023 1.753 0.300 - 5.000 mIU/L Final lisinopril (PRINIVIL, ZESTRIL) 10 MG Tablet [Pharmacy Med Name: Lisinopril 10 MG Oral Tablet] 90 Tablet 0 Sig: Take 1 tablet by mouth once daily HOOD Inhibitors Protocol Passed - 07/05/2023 4:30 PM Passed - Serum potassium on record [...] Office Visit Frida Suarez, PAC [facility] 02/13/23 Office Visit Frida Suarez, PAC [facility] 01/11/23 Office Visit Frida Suarez, PAC [facility] 11/02/22 Office Visit Frida Suarez, PAC [facility] 08/10/22 Office Visit Frida Suarez, PAC [facility] 07/08/22 Office Visit Frida Suarez, PAC [facility] Showing recent visits within past 365 days and meeting all other requirements Future Appointments Date Type Provider Dept 07/12/23 Appointment Frida Suarez PAC [facility] Showing future appointments within next 90 days and meeting all other requirements Passed - No active on record Passed - GFR on record in past 12 months GFR, EST. NONAFRICAN Date Value Ref Range Status 05/08/2023 >60 >=60 Final documented in this encounter Plan of Treatment Not on file documented as of this encounter Visit Diagnoses Not on filedocumented in this encounter Additional Health Concerns Infection Onset Date Last Indicated Resolved Time COVID - 19 02/11/2024 02/11/2024 02/11/2024 8:33 PM BLOCK HAND Respiratory Rule-Out 03/12/2025 03/12/2025 025 9:41 AM BLOCK HAND COVID - 19 03/12/2025 03/12/2025 03/12/2025 9:41 AM BLOCK HAND Assessment Noted Time PHQ-9 Depression Total Score: 10 023 8:13 AM CDT documented as of this encounter Care Teams Patent Prosecution Attorney Relationship Specialty Start Date End Date Frida Suarez, AIME PCP - General Physician Medical Billing Instructor 02/25/18 06/26/24 Alphonso Robles MD [address] [address] PCP - General Family Medicine 06/27/24 Iggy Garnica MD [address] [place] [address] Consulting Physician Neurology 07/05/21 Yasmany Sanchez MD [address] [place] [address] Consulting Physician Pulmonary Disease 10/18/21 Tahira Stewart, UI LEAD DEVELOPER, BAKERY CLERK [address] [place] [address] Nurse Practitioner Advanced Practice Nurse 10/11/22 Carrillo Mendez MD [address] [address] Consulting Physician Urology 12/01/23 documented as of this encounter
--- OUTSIDE RECORDS SUMMARY | 2025-03-16 17:05 | XMS_ITS | Encounter Summary ---
Author Organization [facility] Address [address] [place] [address] Phone Care Team Providers Care Clearance Diver Name Role Phone Frida Suarez Primary Care Pro vider Iggy Garnica MD Unavailable [phone] Yasmany Sanchez MD Unavailable Tahira Stewart APRN, CERTIFIED DENTAL ASSISTANT Unavailable + [phone] Carrillo Mendez MD Unavailable [phone] Alphonso Robles MD Primary Care Provider [phone] Reason for Visit * Reason Comments Medication Refill Encounter Details Date Type Department Care Team (Late st Contact Info) Description 01/26/[address] [facility] - Internal Medicine - [place] [address] [place] [id number] Frida Suarez, [facility] [address] [place] [address] Medication Refill Social History Tobacco Use Types Packs/Day Years Used Date Smoking Tobacco: Never Passive Smoke Exposure: Never Smokeless Tobacco: Never Alcohol Use Standard Drinks/Week Comments No 0 (1 standard drink = 0.6 oz pur e alcohol) [facility] Utilities Answer Date Recorded In the past 12 months has th e electric, gas, oil, or water company threatened to shut off services in your home? Yes 09/16/2023 Social Connection and Isolation Panel Answer Date Recorded In a typical week, how many times do you talk on the phone with family, friends, or neighbors? Once a week 09/16/19 How often do you get togethe r with friends or relatives? Once a week 09/16/2023 How often do you attend chur ch or mandaen services? Never 09/16/2023 Do you belong to any clubs o r organizations such as yazidi groups, unions, fraternal or athletic groups, or school groups? Yes 09/16/2023 How often do you attend meet ings of the clubs or organizations you belong to? 1 to 4 times per year 09/16/2023 Are you , , di vorced, , never , or living with a partner? 09/16/2023 AUDIT-C Answer Date Recorded Q1: How often do you have a drink containing alcohol? Never 09/16/2023 Q2: How many drinks containi ng alcohol do you have on a typical day when you are drinking? Patient does not drink Q3: How often do you have si x or more drinks on one occasion? Never 09/16/2023 Overall Financial Resource Strain (CARDIA) Answe r Date Recorded How hard is it for you to pa y for the very basics like food, housing, medical care, and heating? Somewhat hard 09/16/2023 PHQ-2 Answer Date Recorded Total Score - Questions 1-9 10 06/19 [facility] - Occupational Stress Questionnaire Answer Date Recorded Do you feel stress - tense, restless, nervous, or anxious, or unable to sleep at night because your mind is troubled all the time - these days? Very much 09/16/2023 Exercise Vital Sign Answer Date Recorde d On average, how many days pe r week do you engage in moderate to strenuous exercise (like a brisk walk)? 0 days 09/16/2023 On average, how many minutes do you engage in exercise at this level? 0 min 09/16/2023 Hunger Vital Sign Answer Date Recorded Within the past 12 months, y ou worried that your food would run out before you got the money to buy more. Patient declined Within the past 12 months, t he food you bought just didn't last and you didn't have money to get more. Patient declined PRAPARE - Transportation Answer Date Re corded In the past 12 months, has l ack of transportation kept you from medical appointments or from getting medications? No 08/19 In the past 12 months, has l ack of transportation kept you from meetings, work, or from getting things needed for daily living? No 09/16/2023 Housing Stability Vital Sign Answer Brien e Recorded In the last 12 months, was t here a time when you were not able to pay the mortgage or rent on time? Yes 07/11/2023 In the last 12 months, how many places have you lived? 1 07/11/2023 In the last 12 months, was t here a time when you did not have a steady place to sleep or slept in a intermediate (including now)? No 07/11/2023 Housing Stability Vital Sign Answer Brien e Recorded In the last 12 months, was t here a time when you were not able to pay the mortgage or rent on time? Yes 09/16/2023 Number of Times Moved in the Last Year Not on fi le 09/16/2023 At any time in the past 12 m [facility], were you homeless or living in a intermediate (including now)? No 09/16/2023 Education Answer Date Recorded What is the [...] on file documented as of this encounter Plan of Treatment Not on file documented as of this encounter Goals Goal Patient Goal Type Associated Problems Recent Progress Patient-Stated? Author I want to have the right mindframe. I want to keep up with the house. Behavioral Health On track(2023 8:42 AM END LATHE OPERATOR) No Park Carcamo, [facility] Note: Goal/Objective: Increase ability to cope with depressive and anxious features. Anticipated Time Frame for Goal Completion: 6 months Goal Reviewed with: patient Readiness to change: Thinking about making a change Department associated with goal: [facility] Steps to achieve goal: will attend counseling/psychotherapy sessions at least once monthly, at least 6 sessions, utilizing individual and/or group sessions to express thoughts and feelings. to identify, verbalize and process at least three contributing factors/triggers to anxiety and depression. to identify and verbalize at least three actions/skills to prevent and/or cope with anxiety and depression. to put into action, at least one time weekly, for one month, an action/skill to prevent and or cope with anxiety and depression. documented as of this encounter Visit Diagnoses Not on filedocumented in this encounter Additional Health Concerns Infection Onset Date Last Indicated Resolved Time COVID - 19 02/11/2024 02/11/2024 02/11/2024 8:33 PM END LATHE OPERATOR Respiratory Rule-Out 03/12/2025 03/12/2025 025 9:41 AM END LATHE OPERATOR COVID - 19 03/12/2025 03/12/2025 03/12/2025 9:41 AM END LATHE OPERATOR Assessment Noted Time PHQ-9 Depression Total Score: 10 023 8:13 AM CDT documented as of this encounter Care Teams Clearance Diver Relationship Specialty Start Date End Date Frida Suarez PAC PCP - General Physician Emt Dispatcher 02/25/18 06/26/24 Alphonso Robles MD #[address] [address] PCP - General Family Medicine 06/27/24 Iggy Garnica MD [address] [place] [address] Consulting Physician Neurology 07/05/21 Yasmany Sanchez MD [address] [place] [address] Consulting Physician Pulmonary Disease 10/18/21 Tahira Stewart, ELECTRICAL INSTRUMENT TECHNICIAN, CERTIFIED DENTAL ASSISTANT [address] [place] [address] Nurse Practitioner Advanced Practice Nurse 10/11/22 Carrillo Mendez MD [address] [address] Consulting Physician Urology 12/01/23 documented as of this encounter
--- OUTSIDE RECORDS SUMMARY | 2025-03-16 17:05 | XMS_ITS | Encounter Summary ---
Author Organization [facility] Address [address] [place] [address] Phone Care Team Providers Care Stoker Erector And Servicer Name Role Phone Frida Suarez [facility] Primary Care Pro vider Iggy Garnica MD Unavailable [phone] Yasmany Sanchez MD Unavailable Tahira Stewart APRN, FARM PLANNER Unavailable + [phone] Carrillo Mendez MD Unavailable [phone] Alphonso Robles MD Primary Care Provider [phone] Reason for Visit * Reason Comments Medication Refill Encounter Details Date Type Department Care Team (Late st Contact Info) Description 09/25/2022 Refill [facility] - Internal Medicine - [place] [address] [place] [phone] Frida Suarez, [facility] [address] [place] [address] Medication Refill Social History Tobacco Use Types [...] suspected to have Coronavirus/COVID-19? No / Unsure 09/08/2022 10:28 AM CDT documented as of this encounter Plan of Treatment Not on file documented as of this encounter Visit Diagnoses Not on filedocumented in this encounter Additional Health Concerns Infection Onset Date Last Indicated Resolved Time COVID - 19 02/11/2024 02/11/2024 02/11/2024 8:33 PM CUSTOM CAR BUILDER Respiratory Rule-Out 03/12/2025 03/12/2025 025 9:41 AM CUSTOM CAR BUILDER COVID - 19 03/12/2025 03/12/2025 03/12/2025 9:41 AM CUSTOM CAR BUILDER Assessment Noted Time PHQ-9 Depression Total Score: 10 023 8:13 AM CDT documented as of this encounter Care Teams Stoker Erector And Servicer Relationship Specialty Start Date End Date Frida Suarez PAC PCP - General Physician Laundry Sorter 02/25/18 06/26/24 Alphonso Robles MD #[address] [address] PCP - General Family Medicine 06/27/24 Iggy Garnica MD [address] [place] [phone] Consulting Physician Neurology 07/05/21 Yasmany Sanchez MD [address] [place] [address] Consulting Physician Pulmonary Disease 10/18/21 Tahira Stewart, DOCUMENT PREPARER MICROFILMING, FARM PLANNER [address] [place] [address] Nurse Practitioner Advanced Practice Nurse 10/11/22 Carrillo Mendez MD [address] [address] Consulting Physician Urology 12/01/23 documented as of this encounter
--- OUTSIDE RECORDS SUMMARY | 2025-03-16 17:05 | XMS_ITS | Encounter Summary ---
Author Organization [facility] Address [address] [place] [address] Phone Care Team Providers Care Batch Tank Controller Name Role Phone Frida Suarez Primary Care Pro vider Iggy Garnica MD Unavailable [phone] Yasmany Sanchez MD Unavailable Tahira Stewart APRN, [facility] Unavailable + [phone] Carrillo Mendez MD Unavailable [phone] Alphonso Robles MD Primary Care Provider Reason for Visit * Reason Comments Medication Refill Encounter Details Date Type Department Care Team (Late st Contact Info) Description 06/08/2022 [facility]ill [facility] [address] [place] [address] Frida Suarez, [facility] [address] [place] [address] Medication Refill Social History Tobacco Use Types Packs/Day Years Used Date Smoking Tobacco: Never Smokeless Tobacco: Never Alcohol Use Standard Drinks/Week Comments No 0 (1 standard drink = 0.6 oz pur e alcohol) PHQ-2 Answer Date Recorded Total Score - Questions 1-9 0 02/18 Education Answer Date Recorded What is the highest level of school you have completed or the highest degree you have received? GED or equivalent Sexually Active Control Partners Comments Yes Oral [...] suspected to have Coronavirus/COVID-19? No / Unsure 05/30/2022 10:37 AM CDT documented as of this encounter Miscellaneous Notes * Telephone Encounter - Lizette Russ RN - 06/09/2022 9:05 AM CDT Medication failed the protocol, provider to review and approve the medication order if appropriate. Requested Prescriptions Pending Prescriptions Disp Refills citalopram (CeleXA) 40 MG Tablet [Pharmacy Med Name: Citalopram Hydrobromide 40 MG Oral Tablet] 90 Tablet 0 Sig: Take 1 tablet by mouth once daily Citalopram (Celexa) (6 Month Refill Only) Protocol Failed - 06/08/2022 5:13 PM Failed - Has an encounter in [...] days Recent Visits Date Type Provider Dept 05/30/22 Office Visit Frida Suarez, PAC [facility] 04/01/22 Office Visit Frida Suarez, PAC [facility] 03/28/22 Office Visit Frida Suarez, AIME [facility] 03/10/22 Office Visit Frida Suarez, PAC [facility] 01/03/22 Office Visit Frida Suarez, PAC [facility] Showing recent visits within past 182 days and meeting all other requirements Future Appointments Date Type Provider Dept 07/04/22 Appointment Frida Suarez PAC [facility] Showing future appointments within next 90 days and meeting all other requirements Passed - Patient has established therapy with Citalopram for at least 6 months documented in this encounter Plan of Treatment Not on file documented as of this encounter Visit Diagnoses Not on filedocumented in this encounter Additional Health Concerns Infection Onset Date Last Indicated Resolved Time COVID - 19 02/11/2024 02/11/2024 02/11/2024 8:33 PM CROP FARM HELPER Respiratory Rule-Out 03/12/2025 03/12/2025 025 9:41 AM CROP FARM HELPER COVID - 19 03/12/2025 03/12/2025 03/12/2025 9:41 AM CROP FARM HELPER Assessment Noted Time PHQ-9 Depression Total Score: 0 03/10/20 9:00 AM CROP FARM HELPER documented as of this encounter Care Teams Batch Tank Controller Relationship Specialty Start Date End Date Frida Suarez PAC PCP - General Physician Display Director 02/25/18 06/26/24 Alphonso Robles MD #[address] [address] PCP - General Family Medicine 06/27/24 Iggy Garnica MD [address] [place] [address] Consulting Physician Neurology 07/05/21 Yasmany Sanchez MD [address] [place] [address] Consulting Physician Pulmonary Disease 10/18/21 Tahira Stewart APRN, TRIM SETTER [address] [place] [address] Nurse Practitioner Advanced Practice Nurse 10/11/22 Carrillo Mendez MD #2 [facility] [address] [address] Consulting Physician Urology 12/01/23 documented as of this encounter
--- OUTSIDE RECORDS SUMMARY | 2025-03-16 17:05 | XMS_ITS | Encounter Summary ---
Author Organization [facility] Address [address] [place] [address] Phone Care Team Providers Care Data Integrity Analyst Name Role Phone Frida Suarez [facility] Primary Care Pro vider Iggy Garnica MD Unavailable [phone] Yasmany Sanchez MD Unavailable Tahira Stewart APRN, RADIO INTERFERENCE SUPERVISOR Unavailable + [phone] Carrillo Mendez MD Unavailable [phone] Alphonso Robles MD Primary Care Provider [phone] Reason for Visit * Reason Comments Medication Refill Encounter Details Date Type Department Care Team (Late st Contact Info) Description 10/01/2020 Refill [facility] [address] [place] [address] [address] Iggy Garnica MD [address] [place] [address] Medication Refill Social History Tobacco [...] - 19 02/11/2024 02/11/2024 02/11/2024 8:33 PM DOCUMENT CONTROL ASSISTANT Respiratory Rule-Out 03/12/2025 03/12/2025 025 9:41 AM DOCUMENT CONTROL ASSISTANT COVID - 19 03/12/2025 03/12/2025 03/12/2025 9:41 AM DOCUMENT CONTROL ASSISTANT Assessment Noted Time PHQ-9 Depression Total Score: 7 04/14/19 21 1:40 PM DOCUMENT CONTROL ASSISTANT documented as of this encounter Care Teams Data Integrity Analyst Relationship Specialty Start Date End Date Frida Suarez PAC PCP - General Physician Director Summer Sessions 02/25/18 06/26/24 Alphonso Robles MD [facility] [address] [address] PCP - General Family Medicine 06/27/24 Iggy Garnica MD [address] [place] [address] Consulting Physician Neurology 07/05/21 Yasmany Sanchez MD [address] [place] [address] Consulting Physician Pulmonary Disease 10/18/21 Tahira Stewart APRN, RADIO INTERFERENCE SUPERVISOR [address] [place] [address] Nurse Practitioner Advanced Practice Nurse 10/11/22 Carrillo Mendez MD #[address] [address] Consulting Physician Urology 12/01/23 documented as of this encounter
--- OUTSIDE RECORDS SUMMARY | 2025-03-16 17:05 | XMS_ITS | Encounter Summary ---
Author Organization [facility] Address [address] [place] [address] Phone Care Team Providers Care Fire Engineer Name Role Phone Frida Suarez [facility] Primary Care Pro vider Iggy Garnica MD Unavailable [phone] Yasmany Snachez MD Unavailable Tahira Stewart APRN, CALL CENTER RECRUITER Unavailable + [phone] Carrillo Mendez MD Unavailable [phone] Alphonso Robles MD Primary Care Provider [phone] Reason for Visit * Reason Comments Medication Refill Encounter Details Date Type Department Care Team (Late st Contact Info) Description 11/20/2022 Refill [facility] - Internal Medicine - [place] [address] [place] [id number] Frida Suarez, [facility] [address] [place] [address] Medication Refill Social History Tobacco Use Types [...] Telephone Encounter - Dagmar Cee RN - 11/22/2022 2:05 PM CDT Warning activated: Duplicate Therapy: lisinopril Per nursing clinical judgement, provider to review and approve the medication(s) order(s) if appropriate. Requested Prescriptions Pending Prescriptions Disp Refills lisinopril (PRINIVIL, ZESTRIL) 20 MG Tablet [Pharmacy Med Name: Lisinopril 20 MG Oral Tablet] 90 Tablet 0 Sig: Take 1 tablet by mouth once daily HOOD Inhibitors Protocol Passed - 11/20/2022 6:42 PM Passed - Serum potassium on record in past 12 months POTASSIUM Date Value Ref Range Status 11/02/2022 4.1 3.5 - 5.1 mmol/L Final Passed - Blood pressure on record in past 12 months Clinician-entered: BP Readings from Last 3 Encounters: 11/02/22 106/80 10/11/22 118/72 09/08/22 124/82 Patient-entered: No data recorded Passed - No positive test in the past 12 months or most recent test was negative Passed - Visit with relevant provider in past 12 months or upcoming 90 days Recent Visits Date Type Provider Dept 11/02/22 Office Visit Frida Suarez, AIME [facility] 08/10/22 Office Visit Frida Suarez, PAC [facility] 07/08/22 Office Visit Frida Suarez, PAC [facility] 05/30/22 Office Visit Frida Suarez, PAC [facility] 04/01/22 Office Visit Erick Frida Tahira, PAC [facility] 03/28/22 Office Visit Frida Suarez, PAC [facility] 03/10/22 Office Visit Frida Suarez, PAC [facility] 01/03/22 Office Visit Frida Suarez, PAC [facility] 12/03/21 Office Visit Frida Suarez, PAC [facility] Showing recent visits within past 365 days and meeting all other requirements Future Appointments Date Type Provider Dept 01/11/23 Appointment Erick Fridakirk Hoffmann PAC [facility] Showing future appointments within next 90 days and meeting all other requirements Passed - No active on record Passed - GFR on record in past 12 months GFR, EST. NONAFRICAN Date Value Ref Range Status 11/02/2022 >60 >=60 Final documented in this encounter Plan of Treatment Not on file documented as of this encounter Visit Diagnoses Not on filedocumented in this encounter Additional Health Concerns Infection Onset Date Last Indicated Resolved Time COVID - 19 02/11/2024 02/11/2024 02/11/2024 8:33 PM DIRECTOR OF CASEWORK DEPARTMENT Respiratory Rule-Out 03/12/2025 03/12/2025 025 9:41 AM DIRECTOR OF CASEWORK DEPARTMENT COVID - 19 03/12/2025 03/12/2025 03/12/2025 9:41 AM DIRECTOR OF CASEWORK DEPARTMENT Assessment Noted Time PHQ-9 Depression Total Score: 10 023 8:13 AM CDT documented as of this encounter Care Teams Fire Engineer Relationship Specialty Start Date End Date Frida Suarez PAC PCP - General Physician Road Production General Manager 02/25/18 06/26/24 Alphonso Robles MD [address] [place] [address] PCP - General Family Medicine 06/27/24 Iggy Garnica MD [address] [place] [address] Consulting Physician Neurology 07/05/21 Yasmany Sanchez MD [address] [place] [address] Consulting Physician Pulmonary Disease 10/18/21 Tahira Stewart, SHOWER SCREEN INSTALLER, CALL CENTER RECRUITER [address] [place] [address] Nurse Practitioner Advanced Practice Nurse 10/11/22 Carrillo Mendez MD [address] [address] Consulting Physician Urology 12/01/23 documented as of this encounter
--- OUTSIDE RECORDS SUMMARY | 2025-03-16 17:05 | XMS_ITS | Encounter Summary ---
Author Organization [facility] Address [address] [place] [address] Phone Care Team Providers Care Telephone Ad Taker Name Role Phone Frida Suarez [facility] Primary Care Pro vider Iggy Garnica MD Unavailable [phone] Yasmany Sanchez MD Unavailable Tahira Stewart APRN, COPY ROOM TECHNICIAN Unavailable + [phone] Carrillo Mendez MD Unavailable [phone] Alphonso Robles MD Primary Care Provider [phone] Reason for Visit * Reason Comments Medication Refill Encounter Details Date Type Department Care Team (Late st Contact Info) Description 04/02/2021 Refill [facility] - Internal Medicine - [place] [address] [place] [id number] Frida Suarez, [facility] [address] [place] [address] Medication Refill Social History Tobacco Use Types Packs/Day Years Used Date Smoking Tobacco: Never Smokeless Tobacco: Never Alcohol Use Standard Drinks/Week Comments No 0 (1 standard drink = 0.6 oz pur e alcohol) PHQ-2 Answer Date Recorded Total Score - Questions 1-9 7 03/20 Education Answer Date Recorded What is the [...] or suspected to have Coronavirus / COVID-19? Yes 04/02/2021 1:46 PM NAPKIN MACHINE OPERATOR documented as of this encounter Miscellaneous Notes * Telephone Encounter - Carolyn Vicente RN - 04/05/2021 10:14 AM NAPKIN MACHINE OPERATOR Medication failed the protocol, provider to review and approve the medication order if appropriate. Requested Prescriptions Pending Prescriptions Disp Refills simvastatin (ZOCOR) 20 MG Tablet [Pharmacy Med Name: Simvastatin 20 MG Oral Tablet] 30 Tablet 0 Sig: TAKE 1 TABLET BY MOUTH ONCE DAILY IN THE EVENING Hmg CoA Reductase Inhibitors Protocol Failed - 04/02/2021 2:44 PM Failed - Lipid panel in past [...] Office Visit Frida Suarez, PAC [facility] 03/04/21 Office Visit Frida Suarez, PAC [facility] 01/27/21 Office Visit Frida Suarez, PAC [facility] 01/20/21 Office Visit Frida Suarez, PAC [facility] 12/07/20 Office Visit Frida Suarez, PAC [facility] 11/09/20 Office Visit Frida Suarez, PAC [facility] 11/06/20 Office Visit Frida Suarez, PAC [facility] 07/30/20 Office Visit Frida Suarez, PAC [facility] 05/20/20 Office Visit Frida Suarez, PAC [facility] 05/11/20 Office Visit Frida Suarez, PAC [facility] Showing recent visits within past 365 days [...] once daily Thyroid Hormones Protocol Failed - 04/02/2021 2:44 PM Failed - Normal TSH in past [...] Office Visit Frida Suarez, PAC [facility] 03/04/21 Office Visit Frida Suarez, PAC [facility] 01/27/21 Office Visit Frida Suarez, PAC [facility] 01/20/21 Office Visit Frida Suarez, PAC [facility] 12/07/20 Office Visit Frida Suarez, PAC [facility] 11/09/20 Office Visit Frida Suarez, PAC [facility] 11/06/20 Office Visit Frida Suarez, PAC [facility] 07/30/20 Office Visit Frida Suarez, PAC [facility] 05/20/20 Office Visit Frida Suarez, PAC [facility] 05/11/20 Office Visit Frida Suarez, PAC [facility] Showing recent visits within past 365 days and meeting all other requirements Future Appointments No visits were found meeting these conditions. Showing future appointments within next 90 days and meeting all other requirements Passed - No active on record IN MACHINE OPERATOR documented in this encounter Plan of [...] - 19 02/11/2024 02/11/2024 02/11/2024 8:33 PM NAPKIN MACHINE OPERATOR Respiratory Rule-Out 03/12/2025 03/12/2025 025 9:41 AM NAPKIN MACHINE OPERATOR COVID - 19 03/12/2025 03/12/2025 03/12/2025 9:41 AM NAPKIN MACHINE OPERATOR Assessment Noted Time PHQ-9 Depression Total Score: 7 04/14/19 21 1:40 PM NAPKIN MACHINE OPERATOR documented as of this encounter Care Teams Telephone Ad Taker Relationship Specialty Start Date End Date Erick Frida AIME Hoffmann PCP - General Physician Casino Change Attendant 02/25/18 06/26/24 Alphonso Robles MD [address] [address] PCP - General Family Medicine 06/27/24 Iggy Garnica MD [address] [place] [address] Consulting Physician Neurology 07/05/21 Yasmany Sanchez MD [address] [place] [address] Consulting Physician Pulmonary Disease 10/18/21 Tahira Stewart, SPAR MACHINE OPERATOR, COPY ROOM TECHNICIAN [address] [place] [address] Nurse Practitioner Advanced Practice Nurse 10/11/22 Carrillo Mendez MD [address] [address] Consulting Physician Urology 12/01/23 documented as of this encounter
--- OUTSIDE RECORDS SUMMARY | 2025-03-16 17:05 | XMS_ITS | Encounter Summary ---
Author Organization [facility] Address [address] [place] [address] Phone Care Team Providers Care Insurance Sales Associate Name Role Phone Frida Suarez Primary Care Pro vider Iggy Garnica MD Unavailable [phone] Yasmany Sanchez MD Unavailable Tahira Stewart APRN, DRAINLAYER Unavailable + [phone] Carrillo Mendez MD Unavailable [phone] Alphonso Robles MD Primary Care Provider [phone] Reason for Visit * Reason Comments Medication Refill Encounter Details Date Type Department Care Team (Late st Contact Info) Description 08/09/2023 Refill [facility] - Internal Medicine - [place] [address] [place] [id number] Frida Suarez, [facility] [address] [place] [address] Medication Refill Social History Tobacco Use Types Packs/Day Years Used Date Smoking Tobacco: Never Passive Smoke Exposure: Never Smokeless Tobacco: Never Alcohol Use Standard Drinks/Week Comments No 0 (1 standard drink = 0.6 oz pur e alcohol) [facility] Utilities Answer Date Recorded In the past 12 months has e electric, gas, oil, or water company threatened to shut off services in your home? Yes 07/11/2023 Social Connection and Isolation Panel Answer Date Recorded In a typical week, how many times do you talk on the phone with family, friends, or neighbors? Twice a week 07/11/2023 How often do you get together with friends or re latives? Once a week 07/11/2023 How often do you attend orthodox or shinto serv ices? Never 07/11/2023 Do you belong to any clubs o r organizations such as orthodox groups, unions, fraternal or athletic groups, or school groups? No 07/11/2023 How often do you attend meet ings of the clubs or organizations you belong to? Never 07/11/2023 Are you , , di vorced, , never , or living with a partner? 07/11/2023 AUDIT-C Answer Date Recorded Q1: How often do you have a drink containing alcohol? Never 07/11/2023 Q2: How many drinks containi ng alcohol do you have on a typical day when you are drinking? Patient does not drink Q3: How often do you have si x or more drinks on one occasion? Never 07/11/2023 Overall Financial Resource Strain (CARDIA) Answe r Date Recorded How hard is it for you to pa y for the very basics like food, housing, medical care, and heating? Somewhat hard 07/11/2023 PHQ-2 Answer Date Recorded Total Score - Questions 1-9 10 06/19 [facility] of Occupat ional Health - Occupational Stress Questionnaire Answer Date Recorded Do you feel stress - tense, restless, nervous, or anxious, or unable to sleep at night because your mind is troubled all the time - these days? Very much 07/11/2023 Exercise Vital Sign Answer Date Recorde d On average, how many days pe r week do you engage in moderate to strenuous exercise (like a brisk walk)? 0 days 07/11/2023 On average, how many minutes do you engage in exercise at this level? 0 min 07/11/2023 Hunger Vital Sign Answer Date Recorded Within [...] medical appointments or from getting medications? No 06/19 In the past 12 months, has l ack of transportation kept you from meetings, work, or from getting things needed for daily living? No 07/11/2023 Housing Stability Vital Sign Answer [...] place to sleep or slept in a fpc (including now)? No 07/11/2023 Education Answer Date Recorded What is the [...] Telephone Encounter - Lizette Russ RN - 08/10/2023 8:39 AM CDT Medication(s) refilled and signed per [facility] Chronic Medication Refill Standing Order for Pediatricand Adult Patients. Requested Prescriptions Pending Prescriptions Disp Refills famotidine (PEPCID) 20 MG Tablet [Pharmacy Med Name: Famotidine 20 MG Oral Tablet] 60 Tablet 0 Sig: Take 1 tablet by mouth twice daily H2 Antagonists Protocol Passed - 08/09/2023 6:20 PM Passed - Visit with relevant provider in past 12 months or upcoming 90 days Recent Visits Date Type Provider Dept 07/12/23 Office Visit Frida Suarez, AIME [facility] 05/17/23 Office Visit Frida Suarez, PAC [facility] 02/13/23 Office Visit Frida Suarez, PAC [facility] 01/11/23 Office Visit Frida Suarez, PAC [facility] 11/02/22 Office Visit Frida Suarez, PAC [facility] 08/10/22 Office Visit Frida Suarez, PAC [facility] Showing recent visits within past 365 days and meeting all other requirements Future Appointments No visits were found meeting these conditions. Showing future appointments within next 90 days and meeting all other requirements simvastatin (ZOCOR) 20 MG Tablet [Pharmacy Med Name: Simvastatin 20 MG Oral Tablet] 30 Tablet 0 Sig: TAKE 1 TABLET BY MOUTH ONCE DAILY IN THE EVENING Hmg CoA Reductase Inhibitors Protocol Passed - 08/09/2023 6:20 PM Passed - No positive test in the past 12 months or most recent test was negative Passed - Visit with relevant provider in past 12 months or upcoming 90 days Recent Visits Date Type Provider Dept 07/12/23 Office Visit Frida Suarez, PAC [facility] 05/17/23 Office Visit Frida Suarez, PAC [facility] 02/13/23 Office Visit Frida Suarez, PAC [facility] 01/11/23 Office Visit Frida Suarez, PAC [facility] 11/02/22 Office Visit Frida Suarez, PAC [facility] 08/10/22 Office Visit Frida Suarez, PAC [facility] Showing recent visits within past 365 days and meeting all other requirements Future Appointments No visits were found meeting these conditions. Showing future appointments within next 90 days and meeting all other requirements Passed - No active on record Passed - Lipid panel in past 12 months LDL Date Value Ref Range Status 07/12/2023 70 <130 mg/dL Final HDL CHOLESTEROL Date Value Ref Range Status 07/12/2023 37 (L) >40 mg/dL Final CHOLESTEROL Date Value Ref Range Status 07/12/2023 155 <200 mg/dL Final TRIGLYCERIDES Date Value Ref Range Status 07/12/2023 242 (H) <150 mg/dL Final VLDL Date Value Ref Range Status 07/12/2023 48 10 - 50 mg/dL Final CHOL/HDL RATIO Date Value Ref Range Status 07/12/2023 4.2 0.0 - 4.4 Final NON-HDL CHOLESTEROL Date Value Ref Range Status 07/12/2023 118 <130 mg/dL Final Passed - CMP in past 12 months SODIUM Date Value Ref Range Status 07/12/2023 140 136 - 145 mmol/L Final POTASSIUM Date Value Ref Range Status 07/12/2023 4.2 3.5 - 5.1 mmol/L Final CHLORIDE Date Value Ref Range Status 07/12/2023 104 98 - 107 mmol/L Final CO2, VENOUS Date Value Ref Range Status 07/12/2023 24 22 - 30 mmol/L Final ANION GAP Date Value Ref Range Status 07/12/2023 16.2 <18.0 mmol/L Final GLUCOSE Date Value Ref Range Status 07/12/2023 72 70 - 99 mg/dL Final BUN Date Value Ref Range Status 07/12/2023 15 5 - 18 mg/dL Final CREATININE, BLOOD Date Value Ref Range Status 07/12/2023 0.69 0.60 - 1.00 mg/dL Final BUN/CREATININE RATIO Date Value Ref Range Status 07/12/2023 22 (H) 12 - 20 ratio Final TOTAL PROTEIN Date Value Ref Range Status 07/12/2023 7.5 6.3 - 8.2 g/dL Final ALBUMIN Date Value Ref Range Status 07/12/2023 4.3 3.5 - 5.0 g/dL Final A/G RATIO Date Value Ref Range Status 07/12/2023 1.3 1.0 - 2.2 Final CALCIUM Date Value Ref Range Status 07/12/2023 10.0 8.7 - 10.5 mg/dL Final T BILI Date Value Ref Range Status 07/12/2023 0.5 0.2 - 1.2 mg/dL Final SGOT (AST) Date Value Ref Range Status 07/12/2023 15 5 - 34 U/L Final SGPT (ALT) Date Value Ref Range Status 07/12/2023 14 0 - 55 U/L Final ALKALINE PHOSPHATASE Date Value Ref Range Status 07/12/2023 52 40 - 150 U/L Final GFR, EST. NONAFRICAN Date Value Ref Range Status 07/12/2023 >60 >=60 Final GFR, EST. Date Value Ref Range Status 07/12/2023 >60 >=60 Final GFR, ESTIMATED Date Value Ref Range Status 07/12/2023 >60 >=60 Final Comment: Creatinine Clearance is the preferred criteria for selecting drug dose adjustments in renally impaired patients. The GFR is provided as additional pertinent clinical information. GFR is reported in mL/min/1.73 sq m. Calculation based on the Chronic Kidney Disease Epidemiology Collaboration (CKD- EPI) equation refitwithout adjustment for race. IS THE PATIENT REQUIRED TO BE FASTING? Date Value Ref Range Status 07/12/2023 No Final levothyroxine (SYNTHROID) 25 MCG Tablet [Pharmacy Med Name: Levothyroxine Sodium 25 MCG Oral Tablet] 30 Tablet 0 Sig: Take 1 tablet by mouth once daily Thyroid Hormones Protocol Passed - 08/09/2023 6:20 PM Passed - No test in the past 12 months or most recent test was negative Passed - Visit with relevant provider in past 12 months or upcoming 90 days Recent Visits Date Type Provider Dept 07/12/23 Office Visit Frida Suarez, PAC [facility] 05/17/23 Office Visit Frida Suarez, PAC [facility] 02/13/23 Office Visit Frida Suarez, PAC [facility] 01/11/23 Office Visit Frida Suarez, PAC [facility] 11/02/22 Office Visit Frida Suarez, PAC [facility] 08/10/22 Office Visit Firda Suarez, PAC [facility] Showing recent visits within past 365 days and meeting all other requirements Future Appointments No visits were found meeting these conditions. Showing future appointments within next 90 days and meeting all other requirements Passed - No active on record Passed - Normal TSH in past 12 months TSH Date Value Ref Range Status 07/12/2023 1.501 0.300 - 5.000 mIU/L Final omeprazole (PriLOSEC) 20 MG CAPSULE DELAYED RELEASE [Pharmacy Med Name: Omeprazole 20 MG Oral Capsule Delayed Release] 30 Capsule 0 Sig: TAKE 1 TO 2 CAPSULES BY MOUTH ONCE DAILY Proton Pump Inhibitors Protocol Passed - 08/09/2023 6:20 PM Passed - No positive test in the past 12 months or most recent test was negative Passed - Visit with relevant provider in past 12 months or upcoming 90 days Recent Visits Date Type Provider Dept 07/12/23 Office Visit Frida Suarez, PAC [facility] 05/17/23 Office Visit Frida Suarez, PAC [facility] 02/13/23 Office Visit Frida Suarez, PAC [facility] 01/11/23 Office Visit Frida Suarez, PAC [facility] 11/02/22 Office Visit Frida Suarez, PAC [facility] 08/10/22 Office Visit Frida Suarez, PAC [facility] Showing recent visits within past 365 days and meeting all other requirements Future Appointments No visits were found meeting these conditions. Showing future appointments within next 90 days and meeting all other requirements Passed - No active on record documented in this encounter Plan of Treatment Not on file documented as of this encounter Visit Diagnoses Not on filedocumented in this encounter Additional Health Concerns Infection Onset Date Last Indicated Resolved Time COVID - 19 02/11/2024 02/11/2024 02/11/2024 8:33 PM SEMICONDUCTOR DIES LOADER Respiratory Rule-Out 03/12/2025 03/12/2025 025 9:41 AM SEMICONDUCTOR DIES LOADER COVID - 19 03/12/2025 03/12/2025 03/12/2025 9:41 AM SEMICONDUCTOR DIES LOADER Assessment Noted Time PHQ-9 Depression Total Score: 10 023 8:13 AM CDT documented as of this encounter Care Teams Insurance Sales Associate Relationship Specialty Start Date End Date Frida Suarez PAC PCP - General Physician Middle School Tutor 02/25/18 06/26/24 Alphonso Robles MD #[address] [address] PCP - General Family Medicine 06/27/24 Iggy Garnica MD [address] [place] [address] Consulting Physician Neurology 07/05/21 Yasmany Sanchez MD [address] [place] [address] Consulting Physician Pulmonary Disease 10/18/21 Tahira Stewart, AUDIO VIDEO REPAIRER, DRAINLAYER [address] [place] [address] Nurse Practitioner Advanced Practice Nurse 10/11/22 Carrillo Mendez MD #[address] [address] Consulting Physician Urology 12/01/23 documented as of this encounter
--- OUTSIDE RECORDS SUMMARY | 2025-03-16 17:05 | XMS_ITS | Encounter Summary ---
Author Organization [facility] Address [address] [place] [address] Phone Care Team Providers Care Power Generation Technician Name Role Phone Frida Suarez [facility] Primary Care Pro vider Iggy Garnica MD Unavailable [phone] Yasmany Sanchez MD Unavailable Tahira Stewart APRN, STOCK CHASER Unavailable + [phone] Carrillo Mendez MD Unavailable [phone] Alphonso Robles MD Primary Care Provider [phone] Reason for Visit * Reason Comments Medication Refill Encounter Details Date Type Department Care Team (Late st Contact Info) Description 03/10/2021 Refill [facility] [address] [place] [address] [address] Iggy Garnica MD [address] [place] [address] Medication Refill Social History Tobacco [...] COVID-19? No / Unsure 03/08/2021 10:51 AM WILDLIFE ECOLOGY PROFESSOR documented as of this encounter Plan of Treatment Not on file documented as of this encounter Visit Diagnoses Diagnosis Migraine without aura and without status migrainosus, not intractable Migraine without aura, without mention of intractable migraine [...] - 19 02/11/2024 02/11/2024 02/11/2024 8:33 PM WILDLIFE ECOLOGY PROFESSOR Respiratory Rule-Out 03/12/2025 03/12/2025 025 9:41 AM WILDLIFE ECOLOGY PROFESSOR COVID - 19 03/12/2025 03/12/2025 03/12/2025 9:41 AM WILDLIFE ECOLOGY PROFESSOR Assessment Noted Time PHQ-9 Depression Total Score: 7 04/14/19 21 1:40 PM WILDLIFE ECOLOGY PROFESSOR documented as of this encounter Care Teams Power Generation Technician Relationship Specialty Start Date End Date Frida Suarez PAC PCP - General Physician Line Builder 02/25/18 06/26/24 Alphonso Robles MD [address] [place] [id number] PCP - General Family Medicine 06/27/24 Iggy Garnica MD [address] [place] [address] Consulting Physician Neurology 07/05/21 Yasmany Sanchez MD [address] [place] [address] Consulting Physician Pulmonary Disease 10/18/21 Tahira Stewart, FLOWER MACHINE OPERATOR, STOCK CHASER [address] [place] [address] Nurse Practitioner Advanced Practice Nurse 10/11/22 Carrillo Mendez MD #[address] [address] Consulting Physician Urology 12/01/23 documented as of this encounter
--- OUTSIDE RECORDS SUMMARY | 2025-03-16 17:05 | XMS_ITS | Encounter Summary ---
Author Organization [facility] Address [address] [place] [address] Phone Care Team Providers Care Material Requirements Worker Name Role Phone Frida Suarez [facility] Primary Care Pro vider Iggy Garnica MD Unavailable [phone] Yasmany Sanchez MD Unavailable Tahira Stewart APRN, MEDICAL DIAGNOSTIC RADIOGRAPHER Unavailable + [phone] Carrillo Mendez MD Unavailable [phone] Alphonso Robles MD Primary Care Provider Reason for Visit * Reason Comments Medication Refill Encounter Details Date Type Department Care Team (Late st Contact Info) Description 04/02/2021 Refill [facility] [place] [address] [address] Iggy Garnica MD [address]2 [place] [address] Medication Refill Social History Tobacco [...] Coronavirus / COVID-19? Yes 04/02/2021 1:46 PM MIXING AND MOLDING MACHINE OPERATOR documented as of this encounter Plan of [...] - 19 02/11/2024 02/11/2024 02/11/2024 8:33 PM MIXING AND MOLDING MACHINE OPERATOR Respiratory Rule-Out 03/12/2025 03/12/2025 025 9:41 AM MIXING AND MOLDING MACHINE OPERATOR COVID - 19 03/12/2025 03/12/2025 03/12/2025 9:41 AM MIXING AND MOLDING MACHINE OPERATOR Assessment Noted Time PHQ-9 Depression Total Score: 7 04/14/19 21 1:40 PM MIXING AND MOLDING MACHINE OPERATOR documented as of this encounter Care Teams Material Requirements Worker Relationship Specialty Start Date End Date Frida Suarez PAC PCP - General Physician Greenskeeper Laborer 02/25/18 06/26/24 Alphonso Robles MD #2 [place] [address] PCP - General Family Medicine 06/27/24 Iggy Garnica MD #2 [place] [address] Consulting Physician Neurology 07/05/21 Yasmany Sanchez MD #2 [place] [address] Consulting Physician Pulmonary Disease 10/18/21 Tahira Stewart, HEAD OF MEASUREMENT & INSIGHTS, MEDICAL DIAGNOSTIC RADIOGRAPHER #2 [place] [address] Nurse Practitioner Advanced Practice Nurse 10/11/22 Carrillo Mendez MD #[address] [address] Consulting Physician Urology 12/01/23 documented as of this encounter
--- OUTSIDE RECORDS SUMMARY | 2025-03-16 17:05 | XMS_ITS | Encounter Summary ---
Author Organization [facility] Address [address] [place] [address] Phone Care Team Providers Care Chief Librarian Extension Department Name Role Phone Frida Suarez [facility] Primary Care Pro vider Iggy Garnica MD Unavailable [phone] Yasmany Sanchez MD Unavailable Tahira Stewart APRN, PETROL TANKER DRIVER Unavailable + [phone] Carrillo Mendez MD Unavailable [phone] Alphonso Robles MD Primary Care Provider Reason for Visit * Reason Comments Medication Refill Encounter Details Date Type Department Care Team (Late st Contact Info) Description 02/21/2023 Refill [facility] - Internal Medicine - [place] [address] [place] [id number] Frida Suarez, [facility] [address] [place] [address] Medication Refill Social History Tobacco Use Types [...] Telephone Encounter - Lizette Russ RN - 02/22/2023 8:04 AM CST Per nursing clinical judgement, provider to review and approve the medication(s) order(s) if appropriate. Requested Prescriptions Pending Prescriptions Disp Refills fenofibrate (TRICOR) 145 MG Tablet [Pharmacy Med Name: Fenofibrate 145 MG Oral Tablet] 90 Tablet 0 Sig: Take 1 tablet by mouth once daily Fibrates Protocol Passed - 02/21/2023 5:46 PM Passed - Visit with relevant provider in past 12 months or upcoming 90 days Recent Visits Date Type Provider Dept 02/13/23 Office Visit Frida Suarez, PAC [facility] 01/11/23 Office Visit Frida Suarez, PAC [facility] 11/02/22 Office Visit Frida Suarez, PAC [facility] 08/10/22 Office Visit Frida Suarez, PAC [facility] 07/08/22 Office Visit Frida Suarez, PAC [facility] 05/30/22 Office Visit Frida Suarez, PAC [facility] 04/01/22 Office Visit Frida Suarez, PAC [facility] 03/28/22 Office Visit Frida Suarez, PAC [facility] 03/10/22 Office Visit Frida Suarez, PAC [facility] Showing recent visits within past 365 days and meeting all other requirements Future Appointments No visits were found meeting these conditions. Showing future appointments within next 90 days and meeting all other requirements Passed - Lipid panel in past 12 months LDL Date Value Ref Range Status 01/11/2023 75 <130 mg/dL Final 03/03/2021 121 0 - 130 mg/dL Final [...] Range Status 01/11/2023 120 <130 mg/dL Final lisinopril (PRINIVIL, ZESTRIL) 20 MG Tablet [Pharmacy Med Name: Lisinopril 20 MG Oral Tablet] 90 Tablet 0 Sig: Take 1 tablet by mouth once daily HOOD Inhibitors Protocol Passed - 02/21/2023 5:46 PM Passed - Serum potassium on record in past 12 months POTASSIUM Date Value Ref Range Status 01/11/2023 4.3 3.5 - 5.1 mmol/L Final Passed - Blood pressure on record in past 12 months Clinician-entered: BP Readings from Last 3 Encounters: 02/13/23 120/74 01/11/23 104/80 12/27/22 110/72 Patient-entered: No data recorded Passed - No positive test in the past 12 months or most recent test was negative Passed - Visit with relevant provider in past 12 months or upcoming 90 days Recent Visits Date Type Provider Dept 02/13/23 Office Visit Frida Suarez, PAC [facility] 01/11/23 Office Visit Frida Suarez, PAC [facility] 11/02/22 Office Visit Frida Suarez, PAC [facility] 08/10/22 Office Visit Frida Suarez, PAC [facility] 07/08/22 Office Visit Frida Suarez, PAC [facility] 05/30/22 Office Visit Frida Suarez, PAC [facility] 04/01/22 Office Visit Frida Suarez, PAC [facility] 03/28/22 Office Visit Frida Suarez, PAC [facility] 03/10/22 Office Visit Frida Suarez, PAC [facility] Showing recent visits within past 365 days and meeting all other requirements Future Appointments No visits were found meeting these conditions. Showing future appointments within next 90 days and meeting all other requirements Passed - No active on record Passed - GFR on record in past 12 months GFR, EST. NONAFRICAN Date Value Ref Range Status 01/11/2023 >60 >=60 Final CH ADVERTISING STRATEGIST documented in this encounter Plan of Treatment Not on file documented as of this encounter Visit Diagnoses Not on filedocumented in this encounter Additional Health Concerns Infection Onset Date Last Indicated Resolved Time COVID - 19 02/11/2024 02/11/2024 02/11/2024 8:33 PM SEARCH ADVERTISING STRATEGIST Respiratory Rule-Out 03/12/2025 03/12/2025 025 9:41 AM SEARCH ADVERTISING STRATEGIST COVID - 19 03/12/2025 03/12/2025 03/12/2025 9:41 AM SEARCH ADVERTISING STRATEGIST Assessment Noted Time PHQ-9 Depression Total Score: 10 023 8:13 AM CDT documented as of this encounter Care Teams Chief Librarian Extension Department Relationship Specialty Start Date End Date Frida SuarezAIME PCP - General Physician Tape Stringer 02/25/18 06/26/24 Alphonso Robles MD #[address] [id number] PCP - General Family Medicine 06/27/24 Iggy Garnica MD #2 [place] [address] Consulting Physician Neurology 07/05/21 Yasmany Sanchez MD #2 [place] [address] Consulting Physician Pulmonary Disease 10/18/21 Tahira Stewart, TAX TECHNICIAN, PETROL TANKER DRIVER [address]2 [place] [address] Nurse Practitioner Advanced Practice Nurse 10/11/22 Carrillo Mendez MD #[address] [address] Consulting Physician Urology 12/01/23 documented as of this encounter
--- OUTSIDE RECORDS SUMMARY | 2025-03-16 17:05 | XMS_ITS | Encounter Summary ---
Author Organization [facility] Address [address] [place] [address] Phone Care Team Providers Care Sales And Service Officer Name Role Phone Frida Suarez [facility] Primary Care Pro vider Iggy Garnica MD Unavailable [phone] Yasmany Sanchez MD Unavailable Tahira Stewart APRN, PHYS THERAPIST Unavailable + [phone] Carrillo Mendez MD Unavailable [phone] Alphonso Robles MD Primary Care Provider [phone] Reason for Visit * Reason Comments Medication Refill Encounter Details Date Type Department Care Team (Late st Contact Info) Description 10/10/2020 Refill [facility] [address] [address] Iggy Garnica MD [address]2 [place] [address] Medication Refill Social History Tobacco [...] have Coronavirus / COVID-19? No / Unsure 10/08/2020 10:52 AM CDT documented as of this encounter Miscellaneous Notes * Telephone Encounter - Maritza Brown RN - 10/12/2020 9:19 AM CDT Last OV 07/20/2020 documented in this encounter Plan of Treatment [...] - 19 02/11/2024 02/11/2024 02/11/2024 8:33 PM FARM LABOR CONTRACTOR Respiratory Rule-Out 03/12/2025 03/12/2025 025 9:41 AM FARM LABOR CONTRACTOR COVID - 19 03/12/2025 03/12/2025 03/12/2025 9:41 AM FARM LABOR CONTRACTOR Assessment Noted Time PHQ-9 Depression Total Score: 7 04/14/19 21 1:40 PM FARM LABOR CONTRACTOR documented as of this encounter Care Teams Sales And Service Officer Relationship Specialty Start Date End Date Frida Suarez, PAC PCP - General Physician Brine Mixer Operator 02/25/18 06/26/24 Alphonso Robles MD #[address] [address] PCP - General Family Medicine 06/27/24 Iggy Garnica MD #2 [place] [address] Consulting Physician Neurology 07/05/21 Yasmany Sanchez MD #2 [place] [address] Consulting Physician Pulmonary Disease 10/18/21 Tahira Stewart, CONSULTING UTILITY FORESTER, PHYS THERAPIST [address]2 [place] [address] Nurse Practitioner Advanced Practice Nurse 10/11/22 Carrillo Mendez MD #[address] [address] Consulting Physician Urology 12/01/23 documented as of this encounter
--- OUTSIDE RECORDS SUMMARY | 2025-03-16 17:05 | XMS_ITS | Encounter Summary ---
Author Organization [facility] Address [address] [place] [address] Phone Care Team Providers Care Data Coder Operator Name Role Phone Frida Suarez Primary Care Pro vider Iggy Garnica MD Unavailable [phone] Yasmany Sanchez MD Unavailable Tahira Stewart APRN, QUILL SKINNER Unavailable + [phone] Carrillo Mendez MD Unavailable [phone] Alphonso Robles MD Primary Care Provider [phone] Reason for Visit * Reason Comments Medication Refill Encounter Details Date Type Department Care Team (Late st Contact Info) Description 05/31/2023 Refill [facility] - Internal Medicine - [place] [address] [place] [id number] Frida Suarez, [facility] [address] [place] [address] Medication Refill Social History Tobacco Use Types Packs/Day Years Used Date Smoking Tobacco: Never Passive Smoke Exposure: Never Smokeless Tobacco: Never Alcohol Use Standard Drinks/Week Comments No 0 (1 standard drink = 0.6 oz pur e alcohol) [facility] Utilities Answer Date Recorded In the [...] re latives? Once a week 05/17/2023 Attends [employer] Not on file 05/17 Active Member [...] Total Score - Questions 1-9 10 06/19 [facility] - Occupational [...] place to sleep or slept in a group home (including now)? No 05/17/2023 Education Answer Date [...] Telephone Encounter - Lizette Russ RN - 06/01/2023 9:05 AM CDT Medication(s) refilled and signed per [facility] Chronic Medication Refill Standing Order for Pediatricand Adult Patients. Requested Prescriptions Pending Prescriptions Disp Refills fenofibrate (TRICOR) 145 MG Tablet [Pharmacy Med Name: Fenofibrate 145 MG Oral Tablet] 90 Tablet 0 Sig: Take 1 tablet by mouth once daily Fibrates Protocol Passed - 05/31/2023 6:53 PM Passed - Visit with relevant provider in past 12 months or upcoming 90 days Recent Visits Date Type Provider Dept 05/17/23 Office Visit Frida Suarez, AIME [facility] 02/13/23 Office Visit Frida Suarez, AIME [facility] 01/11/23 Office Visit Frida Suarez, AIME [facility] 11/02/22 Office Visit Frida Suarez, AIME [facility] 08/10/22 Office Visit Frida Suarez, AIME [facility] 07/08/22 Office Visit Frida Suarez, AIME [facility] Showing recent visits within past 365 days and meeting all other requirements Future Appointments Date Type Provider Dept 07/12/23 Appointment ErickFrida PAC [facility] Showing future appointments within next 90 days [...] Range Status 01/11/2023 120 <130 mg/dL Final documented in this encounter Plan of Treatment Not on file documented as of this encounter Visit Diagnoses Not on filedocumented in this encounter Additional Health Concerns Infection Onset Date Last Indicated Resolved Time COVID - 19 02/11/2024 02/11/2024 02/11/2024 8:33 PM SEED YEAST OPERATOR Respiratory Rule-Out 03/12/2025 03/12/2025 025 9:41 AM SEED YEAST OPERATOR COVID - 19 03/12/2025 03/12/2025 03/12/2025 9:41 AM SEED YEAST OPERATOR Assessment Noted Time PHQ-9 Depression Total Score: 10 023 8:13 AM CDT documented as of this encounter Care Teams Data Coder Operator Relationship Specialty Start Date End Date Frida Suarez PAC PCP - General Physician Bombsight Specialist 02/25/18 06/26/24 Alphonso Robles MD #[address] [address] PCP - General Family Medicine 06/27/24 Iggy Garnica MD #2 [place] [address] Consulting Physician Neurology 07/05/21 Yasmany Sanchez MD #2 [place] [address] Consulting Physician Pulmonary Disease 10/18/21 Tahira Stewart, APPLICATION ADMINISTRATOR, QUILL SKINNER [address] [place] [address] Nurse Practitioner Advanced Practice Nurse 10/11/22 Carrillo Mendez MD #[address] [address] Consulting Physician Urology 12/01/23 documented as of this encounter
--- OUTSIDE RECORDS SUMMARY | 2025-03-16 17:05 | XMS_ITS | Encounter Summary ---
Author Organization [facility] Address [address] [place] [address] Phone Care Team Providers Care Speeder Frame Tender Name Role Phone Frida Suarez [facility] Primary Care Pro vider Iggy Garnica MD Unavailable [phone] Yasmany Sanchez MD Unavailable Tahira Stewart APRN, TELECOMMUNICATIONS LINE INSTALLER Unavailable + [phone] Carrillo Mendez MD Unavailable [phone] Alphonso Robles MD Primary Care Provider [phone] Reason for Visit * Reason Comments Medication Refill Encounter Details Date Type Department Care Team (Late st Contact Info) Description 09/08/2020 [facility]ill [facility] - [place] #1 [place] [address] Iggy Garnica MD #2 [place] [address] Medication Refill Social History Tobacco [...] - 19 02/11/2024 02/11/2024 02/11/2024 8:33 PM HOME HEALTH CLINICAL SUPERVISOR Respiratory Rule-Out 03/12/2025 03/12/2025 025 9:41 AM HOME HEALTH CLINICAL SUPERVISOR COVID - 19 03/12/2025 03/12/2025 03/12/2025 9:41 AM HOME HEALTH CLINICAL SUPERVISOR Assessment Noted Time PHQ-9 Depression Total Score: 7 04/14/19 21 1:40 PM HOME HEALTH CLINICAL SUPERVISOR documented as of this encounter Care Teams Speeder Frame Tender Relationship Specialty Start Date End Date Frida Suarez PAC PCP - General Physician Pressfitter 02/25/18 06/26/24 Alphonso Robles MD #2 [place] [id number] PCP - General Family Medicine 06/27/24 Iggy Garnica MD #2 [place] [address] Consulting Physician Neurology 07/05/21 Yasmany Sanchez MD #2 [place] [address] Consulting Physician Pulmonary Disease 10/18/21 Tahira Stewart, ONCOLOGY NAVIGATOR, TELECOMMUNICATIONS LINE INSTALLER #2 [place] [address] Nurse Practitioner Advanced Practice Nurse 10/11/22 Carrillo Mendez MD #[address] [address] Consulting Physician Urology 12/01/23 documented as of this encounter
--- OUTSIDE RECORDS SUMMARY | 2025-03-16 17:05 | XMS_ITS | Encounter Summary ---
Author Organization [facility] Address [address] [place] [address] Phone Care Team Providers Care Warehouse Insulation Worker Name Role Phone Frida Suarez [facility] Primary Care Pro vider Iggy Garnica MD Unavailable [phone] Yasmany Sanchez MD Unavailable Tahira Stewart APRN, LOG DECK TENDER Unavailable + [phone] Carrillo Mendez MD Unavailable [phone] Alphonso Robles MD Primary Care Provider Reason for Visit * Reason Comments Medication Refill Encounter Details Date Type Department Care Team (Late st Contact Info) Description 06/23/2022 Refill [facility] Medical Group - Internal Medicine - [place] [address] [place] [id number] Frida Suarez, [facility] [address] [place] [address] Medication Refill Social History Tobacco Use Types [...] suspected to have Coronavirus/COVID-19? No / Unsure 06/15/2022 8:17 AM CDT documented as of this encounter Plan of Treatment Not on file documented as of this encounter Visit Diagnoses Not on filedocumented in this encounter Additional Health Concerns Infection Onset Date Last Indicated Resolved Time COVID - 19 02/11/2024 02/11/2024 02/11/2024 8:33 PM GRAPHITE PAN DRIER TENDER Respiratory Rule-Out 03/12/2025 03/12/2025 025 9:41 AM GRAPHITE PAN DRIER TENDER COVID - 19 03/12/2025 03/12/2025 03/12/2025 9:41 AM GRAPHITE PAN DRIER TENDER Assessment Noted Time PHQ-9 Depression Total Score: 0 03/10/20 9:00 AM GRAPHITE PAN DRIER TENDER documented as of this encounter Care Teams Warehouse Insulation Worker Relationship Specialty Start Date End Date Frida Suarez PAC PCP - General Physician Real Estate Professor 02/25/18 06/26/24 Alphonso Robles MD #[address] [address] PCP - General Family Medicine 06/27/24 Iggy Garnica MD #2 [place] [id number] Consulting Physician Neurology 07/05/21 Yasmany Sanchez MD #[address] [place] [address] Consulting Physician Pulmonary Disease 10/18/21 Tahira Stewart, SILK SCREEN PRINTER HELPER, LOG DECK TENDER [address] [place] [address] Nurse Practitioner Advanced Practice Nurse 10/11/22 Carrillo Mendez MD #[address] [address] Consulting Physician Urology 12/01/23 documented as of this encounter
--- OUTSIDE RECORDS SUMMARY | 2025-03-16 17:05 | XMS_ITS | Encounter Summary ---
Author Organization [facility] Address [address] [place] [address] Phone Care Team Providers Care Control Officer Name Role Phone Frida Suarez Primary Care Pro vider Iggy Garnica MD Unavailable [phone] Yasmany Sanchez MD Unavailable Tahira Stewart APRN, WATER RESOURCES BUSINESS SEGMENT LEADER Unavailable + [phone] Carrillo Mendez MD Unavailable [phone] Alphonso Robles MD Primary Care Provider [phone] Reason for Visit * Reason Comments Medication Refill Encounter Details Date Type Department Care Team (Late st Contact Info) Description 07/12/2023 Refill [facility] - Internal Medicine - [place] [address] [place] [id number] Frida Suarez, [facility] [address] [place] [address] Medication Refill Social History Tobacco Use Types Packs/Day Years Used Date Smoking Tobacco: Never Passive Smoke Exposure: Never Smokeless Tobacco: Never Alcohol Use Standard Drinks/Week Comments No 0 (1 standard drink = 0.6 oz pur e alcohol) [facility] Utilities Answer Date Recorded In the [...] week 07/11/2023 How often do you attend scientology or religion serv ices? Never 07/11/2023 Do you belong to any clubs o r organizations such as scientology groups, unions, fraternal or athletic groups, or [...] Total Score - Questions 1-9 10 06/19 [facility] - Occupational Stress [...] slept in a prison (including now)? No 07/11/2023 Education Answer Date [...] Telephone Encounter - Lizette Russ RN - 07/13/2023 9:45 AM CDT Medication(s) refilled and signed per [facility] Chronic Medication Refill Standing Order for Pediatricand Adult Patients. Requested Prescriptions Pending Prescriptions Disp Refills famotidine (PEPCID) 20 MG Tablet [Pharmacy Med Name: Famotidine 20 MG Oral Tablet] 60 Tablet 0 Sig: Take 1 tablet by mouth twice daily H2 Antagonists Protocol Passed - 07/12/2023 5:38 PM Passed - Visit with relevant provider in past 12 months or upcoming 90 days Recent Visits Date Type Provider Dept 07/12/23 Office Visit [facility]23 Office Visit Frida Suarez, PAC [facility] 02/13/23 Office Visit Frida Suarez, PAC [facility] 01/11/23 Office Visit Frida Suarez, PAC [facility] 11/02/22 Office Visit Frida Suarez, PAC [facility] 08/10/22 Office Visit Frida Suarez, PAC [facility] Showing recent visits within past 365 days [...] - 19 02/11/2024 02/11/2024 02/11/2024 8:33 PM TELEVISION ANTENNA INSTALLER Respiratory Rule-Out 03/12/2025 03/12/2025 025 9:41 AM TELEVISION ANTENNA INSTALLER COVID - 19 03/12/2025 03/12/2025 03/12/2025 9:41 AM TELEVISION ANTENNA INSTALLER Assessment Noted Time PHQ-9 Depression Total Score: 10 023 8:13 AM CDT documented as of this encounter Care Teams Control Officer Relationship Specialty Start Date End Date Frida SuarezAIME PCP - General Physician Dispatcher Tugboat 02/25/18 06/26/24 Alphonso Robles MD #[address] [address] PCP - General Family Medicine 06/27/24 Iggy Garnica MD #2 [place] [address] Consulting Physician Neurology 07/05/21 Yasmany Sanchez MD #2 [place] [address] Consulting Physician Pulmonary Disease 10/18/21 Tahira Stewart, DRAGLINE OPERATOR, WATER RESOURCES BUSINESS SEGMENT LEADER [address] [place] [address] Nurse Practitioner Advanced Practice Nurse 10/11/22 Carrillo Mendez MD #[address] [address] Consulting Physician Urology 12/01/23 documented as of this encounter
--- OUTSIDE RECORDS SUMMARY | 2025-03-16 17:05 | XMS_ITS | Clinical Summary ---
Author Organization [facility] Address [address] [address] Care Team Providers Care Target Protection Specialist Name Role Phone Unavailable Primary Care Provider Unavailabl e Source Comments [facility],non-owned Affiliates and Associated Physician Practices is amultiple site organization consisting of ambulatory clinics and hospital sitesin [place], [place], [place] and [place]. This disclosure is being madepursuant to the Care Everywhere program and may not contain all information available regarding this patient. Last updated 17.[facility] eGood Allergies Active Allergy Reactions Criticality Noted Date Comments Dexamethasone Other Low 06/21/2023 Irritability, paralysis, other mood changes Haloperidol Other,Vomiting Low 12/29/2018 Patient with dystonia Patient with dystonia Patient with dystonia Sulfa Antibiotics Nausea and/or Vomiting,Swelling 04/05/2024 Reaction: Swelling, , Reaction: Swelling, , Medications * Be aware that medications may not be up to date on this document. Alwaysverify current medications with the patient. azelastine (Astelin) 0.1 % nasal spray [place] 2 (two) sprays into the nose 2 times daily 4 Active citalopram (CeleXA) 40 MG tablet Take 1 (one) tablet by mouth once daily 5 Active docusate calcium (Surfak) 240 MG capsule Take by mouth once daily Active Aimovig 140 MG/ML auto injector pen Inject 1 mL subcutaneously 4 Active fenofibrate (Tricor) 145 MG tablet Take 1 (one) tablet by mouth once daily 4 Active famotidine (Pepcid) 20 MG tablet Take 1 (one) tablet by mouth 2 times daily 4 Active levothyroxine (Synthroid) 25 MCG tablet Take 1 (one) tablet by mouth once daily 4 Active nystatin (Mycostatin) 037006 UNIT/GM powder APPLY 3 TIMES DAILY TO AFFECTED AREA DIRECTED FOR 14 DAYS 4 Active fish oil/omega-3 fatty acids (Promega;Cardi -[place] 3) 1000 MG capsule Take 2 (two) capsules by mouth once daily Active pantoprazole EC (Protonix) 40 MG tablet Take 1 (one) tablet by mouth once daily Active sennosides (Senokot) 8.6 MG tablet Take 1 (one) tablet by mouth once daily 4 Active simvastatin (Zocor) 20 MG tablet Take 1 (one) tablet by mouth every evening 4 Active Minh 24 FE 1-20 MG-MCG(24) tablet 5 Active Social History Tobacco Use Types Packs/Day Years Used Date Smoking Tobacco: Never Assessed Comments Unknown Sex and Gender Information Value Date Recorded Sex Assigned at Not on file Legal Sex Female 12:07 PM CDT Gender Identity Not on file Sexual Orientation Not on file Last Filed Vital Signs Vital Sign Reading Time Taken Comments Blood Pressure 142/107 07/11/2024 9:23 AM CDT Pulse 83 07/11/2024 9:23 AM CDT Temperature 36.6 C (97.9 F) 07/11/2024 9:23 AM CDT Respiratory Rate 18 07/11/2024 9:23 AM CDT Oxygen Saturation 99% 07/11/2024 9:23 AM CDT Inhaled Oxygen Concentration - - Weight 130.2 kg (287 lb) 05/02/2024 12:53 PM PERIOPERATIVE NURSE Height 165.1 cm (5' 5) 05/02/2024 12:53 PM PERIOPERATIVE NURSE Body Mass Index 47.76 05/02/2024 12:53 PM PERIOPERATIVE NURSE Plan of Treatment Health Maintenance Due Date Last Done Comments HIV SCREENING 2000 HEPATITIS C SCREENING 10/24/2003 DTAP/TDAP/TD VACCINES (1 - Tdap) 2004 HEPATITIS B VACCINE (1 of 3 - 19+ 3-dose series) 2004 HPV VACCINE (1 - 3-dose SCDM series) 2012 DEPRESSION SCREENING 03/20/2024 COVID-19 VACCINE (2 - 2024- season) 2024 07/11/2020 INFLUENZA VACCINE (#1) 2024 , 01/19/2023, 01/13/2023, Additional history exists PAP SMEAR 06/28/2025 06/28/2022 ZOSTER VACCINE (1 of 2) 10/29/2035 HIB VACCINE Aged Out No longer eligi ble based on patient's age to complete this topic MENINGOCOCCAL (Group B) VACCINE SHARED DECISION-MAKING Aged Out No longer eligible based on patient's age to complete this topic MENINGOCOCCAL GROUPS A/C/Y/W VACCINE Aged Out No longer eligible based on patient's age to complete this topic PNEUMOCOCCAL VACCINE Aged Out No long er eligible based on patient's age to complete this topic Insurance [facility]
--- OUTSIDE RECORDS SUMMARY | 2025-03-16 17:05 | XMS_ITS | Encounter Summary ---
Author Organization [facility] Address [address] [place] [address] Phone Care Team Providers Care Mushroom Sorter Grader Name Role Phone Frida Suarez [facility] Primary Care Pro vider Iggy Garnica MD Unavailable [phone] Yasmany Sanchez MD Unavailable Tahira Stewart APRN, OFF TRACK BETTING MANAGER Unavailable + [phone] Carrillo Mendez MD Unavailable [phone] Alphonso Robles MD Primary Care Provider Reason for Visit * Reason Comments Medication Refill Encounter Details Date Type Department Care Team (Late st Contact Info) Description 12/01/2020 Refill [facility] [address] [address] Iggy Garnica MD [address] [place] [address] Medication Refill Social History Tobacco [...] have Coronavirus / COVID-19? No / Unsure 11/11/2020 1:05 PM CDT documented as of this encounter Plan [...] - 19 02/11/2024 02/11/2024 02/11/2024 8:33 PM FLOORING INSTALLER Respiratory Rule-Out 03/12/2025 03/12/2025 025 9:41 AM FLOORING INSTALLER COVID - 19 03/12/2025 03/12/2025 03/12/2025 9:41 AM FLOORING INSTALLER Assessment Noted Time PHQ-9 Depression Total Score: 7 04/14/19 21 1:40 PM FLOORING INSTALLER documented as of this encounter Care Teams Mushroom Sorter Grader Relationship Specialty Start Date End Date Frida Suarez PAC PCP - General Physician Outsole Cutter Machine 02/25/18 06/26/24 Alphonso Robles MD #[address] [place] [id number] PCP - General Family Medicine 06/27/24 Iggy Garnica MD [address] [place] [address] Consulting Physician Neurology 07/05/21 Yasmany Sanchez MD [address] [place] [address] Consulting Physician Pulmonary Disease 10/18/21 Tahira Stewart, EQUITY STRUCTURER, OFF TRACK BETTING MANAGER [address] [place] [address] Nurse Practitioner Advanced Practice Nurse 10/11/22 Carrillo Mendez MD #[address] [address] Consulting Physician Urology 12/01/23 documented as of this encounter
--- OUTSIDE RECORDS SUMMARY | 2025-03-16 17:05 | XMS_ITS | Encounter Summary ---
Author Organization [facility] Address [address] [place] [address] Phone Care Team Providers Care Underwear Finisher Name Role Phone Frida Suarez [facility] Primary Care Pro vider Iggy Garnica MD Unavailable [phone] Yasmany Sanchez MD Unavailable Tahira Stewart APRN, MOTION PICTURE CAMERA LENS TECHNICIAN Unavailable + [phone] Carrillo Mendez MD Unavailable [phone] Alphonso Robles MD Primary Care Provider [phone] Reason for Visit * Reason Comments Medication Refill Encounter Details Date Type Department Care Team (Late st Contact Info) Description 09/13/2022 Refill [facility] Medical Group - Internal Medicine - [place] [address] [place] [id number] Frida Suarez, [facility] [address] [place] [address] Medication Refill Social History Tobacco Use Types [...] encounter Miscellaneous Notes * Telephone Encounter - Eloina Urrutia RN - 09/14/2022 1:27 PM CDT Duplicate. Script signed 09/05/22 documented in this encounter Plan of Treatment Not on file documented as of this encounter Visit Diagnoses Not on filedocumented in this encounter Additional Health Concerns Infection Onset Date Last Indicated Resolved Time COVID - 19 02/11/2024 02/11/2024 02/11/2024 8:33 PM CORE PILER Respiratory Rule-Out 03/12/2025 03/12/2025 025 9:41 AM CORE PILER COVID - 19 03/12/2025 03/12/2025 03/12/2025 9:41 AM CORE PILER Assessment Noted Time PHQ-9 Depression Total Score: 10 023 8:13 AM CDT documented as of this encounter Care Teams Underwear Finisher Relationship Specialty Start Date End Date Frida Suarez PAC PCP - General Physician Corporate Quality Engineer 02/25/18 06/26/24 Alphonso Robles MD [address] [place] [address] PCP - General Family Medicine 06/27/24 Iggy Garnica MD [address] [place] [address] Consulting Physician Neurology 07/05/21 Yasmany Sanchez MD [address] [place] [address] Consulting Physician Pulmonary Disease 10/18/21 Tahira Stewart, INSTRUCTIONAL WRITER, MOTION PICTURE CAMERA LENS TECHNICIAN [address] [place] [address] Nurse Practitioner Advanced Practice Nurse 10/11/22 Carrillo Mendez MD #[address] [address] Consulting Physician Urology 12/01/23 documented as of this encounter
--- OUTSIDE RECORDS SUMMARY | 2025-03-16 17:05 | XMS_ITS | Encounter Summary ---
Author Organization [facility] Address [address] [place] [address] Phone Care Team Providers Care Circular Ripsaw Operator Name Role Phone Frida Suarez [facility] Primary Care Pro vider Iggy Garnica MD Unavailable [phone] Yasmany Sanchez MD Unavailable Tahira Stewart APRN, FOOD TRADES ASSISTANTS Unavailable + [phone] Carrillo Mendez MD Unavailable [phone] Alphonso Robles MD Primary Care Provider Reason for Visit * Reason Comments Medication Refill Encounter Details Date Type Department Care Team (Late st Contact Info) Description 10/30/2020 Refill [facility] [address] [address] Iggy Garnica MD [address] [place] [address] Medication Refill Social History Tobacco [...] have Coronavirus / COVID-19? No / Unsure 10/29/2020 1:32 PM CDT documented as of this encounter [...] - 19 02/11/2024 02/11/2024 02/11/2024 8:33 PM BICYCLE MESSENGER Respiratory Rule-Out 03/12/2025 03/12/2025 025 9:41 AM BICYCLE MESSENGER COVID - 19 03/12/2025 03/12/2025 03/12/2025 9:41 AM BICYCLE MESSENGER Assessment Noted Time PHQ-9 Depression Total Score: 7 04/14/19 21 1:40 PM BICYCLE MESSENGER documented as of this encounter Care Teams Circular Ripsaw Operator Relationship Specialty Start Date End Date Frida Suarez PAC PCP - General Physician Cloth Examiner Hand 02/25/18 06/26/24 Alphonso Robles MD [address] [place] [id number] PCP - General Family Medicine 06/27/24 Iggy Garnica MD [address] [place] [address] Consulting Physician Neurology 07/05/21 Yasmany Sanchez MD [address] [place] [address] Consulting Physician Pulmonary Disease 10/18/21 Tahira Stewart, CONTACT LENS FLASHING PUNCHER, FOOD TRADES ASSISTANTS [address] [place] [address] Nurse Practitioner Advanced Practice Nurse 10/11/22 Carrillo Mendez MD #[address] [address] Consulting Physician Urology 12/01/23 documented as of this encounter
--- OUTSIDE RECORDS SUMMARY | 2025-03-16 17:05 | XMS_ITS | Encounter Summary ---
Author Organization [facility] Address [address] [place] [address] Phone Care Team Providers Care Manager Grocery Name Role Phone Frida Suarez [facility] Primary Care Pro vider Iggy Garnica MD Unavailable [phone] Yasmany Sanchez MD Unavailable Tahira Stewart APRN, WEDDING CONSULTANT Unavailable + [phone] Carrillo Mendez MD Unavailable [phone] Alphonso Robles MD Primary Care Provider Reason for Visit * Reason Comments Medication Refill Encounter Details Date Type Department Care Team (Late st Contact Info) Description 11/17/2020 Refill [facility] [facility] [place] [address] [address] Iggy Garnica MD #[address] [place] [address] Medication Refill Social History Tobacco [...] - 19 02/11/2024 02/11/2024 02/11/2024 8:33 PM RIBBING MACHINE OPERATOR Respiratory Rule-Out 03/12/2025 03/12/2025 025 9:41 AM RIBBING MACHINE OPERATOR COVID - 19 03/12/2025 03/12/2025 03/12/2025 9:41 AM RIBBING MACHINE OPERATOR Assessment Noted Time PHQ-9 Depression Total Score: 7 04/14/19 21 1:40 PM RIBBING MACHINE OPERATOR documented as of this encounter Care Teams Manager Grocery Relationship Specialty Start Date End Date Frida Suarez PAC PCP - General Physician Sterile Preparation Technician 02/25/18 06/26/24 Alphonso Robles MD [address] [place] [id number] PCP - General Family Medicine 06/27/24 Iggy Garnica MD [address] [place] [address] Consulting Physician Neurology 07/05/21 Yasmany Sanchez MD [address] [place] [address] Consulting Physician Pulmonary Disease 10/18/21 Tahira Stewart, WETLAND SCIENTIST, WEDDING CONSULTANT [address] [place] [address] Nurse Practitioner Advanced Practice Nurse 10/11/22 Carrillo Mendez MD #[address] [address] Consulting Physician Urology 12/01/23 documented as of this encounter
--- OUTSIDE RECORDS SUMMARY | 2025-03-16 17:05 | XMS_ITS | Encounter Summary ---
Author Organization [facility] Address [address] [place] [address] Phone Care Team Providers Care Oyster Buyer Name Role Phone Frida Suarez Primary Care Pro vider Iggy Garnica MD Unavailable [phone] Yasmany Sanchez MD Unavailable Tahira Stewart APRN, RESIDENT CARE AIDE Unavailable + [phone] Carrillo Mendez MD Unavailable [phone] Alphonso Robles MD Primary Care Provider [phone] Reason for Visit * Reason Comments Medication Refill Encounter Details Date Type Department Care Team (Late st Contact Info) Description 09/07/2023 Refill [facility] - Internal Medicine - [place] [address] [place] [phone] Frida Suarez, [facility] [address] [place] [address] Medication Refill Social History Tobacco Use Types Packs/Day Years Used Date Smoking Tobacco: Never Passive Smoke Exposure: Never Smokeless Tobacco: Never Alcohol Use Standard Drinks/Week Comments No 0 (1 standard drink = 0.6 oz pur e alcohol) [facility] Utilities Answer Date Recorded In the past 12 months has e electric, gas, oil, or water company threatened to shut off services in your home? Yes 09/06/2023 Social Connection and Isolation Panel Answer Date Recorded In a typical week, how many times do you talk on the phone with family, friends, or neighbors? More than three times a week 09/06/2023 How often do you get togethe r with friends or relatives? Once a week 09/06/2023 How often do you attend chur ch or hoahaoism services? Never 09/06/2023 Do you belong to any clubs o r organizations such as methodist groups, unions, fraternal or athletic groups, or school groups? Yes 09/06/2023 How often do you attend meet ings of the clubs or organizations you belong to? 1 to 4 times per year 09/06/2023 Are you , , di vorced, , never , or living with a partner? 09/06/2023 AUDIT-C Answer Date Recorded Q1: How often do you have a drink containing alcohol? Never 09/06/2023 Q2: How many drinks containi ng alcohol do you have on a typical day when you are drinking? Patient does not drink Q3: How often do you have si x or more drinks on one occasion? Never 09/06/2023 Overall Financial Resource Strain (CARDIA) Answe r Date Recorded How hard is it for you to pa y for the very basics like food, housing, medical care, and heating? Somewhat hard 09/06/2023 PHQ-2 Answer Date Recorded Total Score - Questions 1-9 10 06/19 [facility] Occupat ional Health - Occupational Stress Questionnaire Answer Date Recorded Do you feel stress - tense, restless, nervous, or anxious, or unable to sleep at night because your mind is troubled all the time - these days? To some extent 09/06/2023 Exercise Vital Sign Answer Date Recorde d On average, how many days pe r week do you engage in moderate to strenuous exercise (like a brisk walk)? 0 days 09/06/2023 On average, how many minutes do you engage in exercise at this level? 0 min 09/06/2023 Hunger Vital Sign Answer Date Recorded Within the past 12 months, y ou worried that your food would run out before you got the money to buy more. Never true 09/06/19 24 Within the past 12 months, t he food you bought just didn't last and you didn't have money to get more. Never true 09/06/2023 PRAPARE - Transportation Answer Date Re corded In the past 12 months, has l ack of transportation kept you from medical appointments or from getting medications? No 08/18 In the past 12 months, has l ack of transportation kept you from meetings, work, or from getting things needed for daily living? No 09/06/2023 Housing Stability Vital Sign Answer Brien e [...] place to sleep or slept in a correction (including now)? No 07/11/2023 Housing Stability Vital Sign Answer Brien e Recorded In the last 12 months, was t here a time when you were not able to pay the mortgage or rent on time? Patient declined 09/06/19 24 Number of Times Moved in the Last Year Not on fi le 09/06/2023 At any time in the past 12 m [facility], were you homeless or living in a correction (including now)? No 09/06/2023 Education Answer Date Recorded What is the [...] Telephone Encounter - Lizette Russ RN - 09/07/2023 11:09 AM CDT Medication(s) refilled and signed per [facility] Chronic Medication Refill Standing Order for Pediatricand Adult Patients. Requested Prescriptions Pending Prescriptions Disp Refills simvastatin (ZOCOR) 20 MG Tablet [Pharmacy Med Name: Simvastatin 20 MG Oral Tablet] 30 Tablet 0 Sig: TAKE 1 TABLET BY MOUTH ONCE DAILY IN THE EVENING Hmg CoA Reductase Inhibitors Protocol Passed - 09/07/2023 9:27 AM Passed - No positive test in the past 12 months or most recent test was negative Passed - Visit with relevant provider in past 12 months or upcoming 90 days Recent Visits Date Type Provider Dept 07/12/23 Office Visit Frida Suarez, PAC [facility] 05/17/23 Office Visit Frida Suarez, PAC [facility] 02/13/23 Office Visit Frida Suarez, PAC [facility] 01/11/23 Office Visit Frida Suarez, PAC [facility] 11/02/22 Office Visit Frida Suarez, PAC [facility] Showing recent visits within past 365 days and meeting all other requirements Future Appointments Date Type Provider Dept 09/11/23 Appointment Frida Suarez, PAC [facility] Showing future appointments within next 90 days [...] Value Ref Range Status 07/12/2023 No Final omeprazole (PriLOSEC) 20 MG CAPSULE DELAYED RELEASE [Pharmacy Med Name: Omeprazole 20 MG Oral Capsule Delayed Release] 30 Capsule 0 Sig: TAKE 1 TO 2 CAPSULES BY MOUTH ONCE DAILY Proton Pump Inhibitors Protocol Passed - 09/07/2023 9:27 AM Passed - No positive test in the past 12 months or most recent test was negative Passed - Visit with relevant provider in past 12 months or upcoming 90 days Recent Visits Date Type Provider Dept 07/12/23 Office Visit Frida Suarez, PAC [facility] 05/17/23 Office Visit Frida Suarez, PAC [facility] 02/13/23 Office Visit Frida Suarez, PAC [facility] 01/11/23 Office Visit Frida Suarez, PAC [facility] 11/02/22 Office Visit Frida Suarez, PAC [facility] Showing recent visits within past 365 days and meeting all other requirements Future Appointments Date Type Provider Dept 09/11/23 Appointment Frida Suarez, PAC [facility] Showing future appointments within next 90 days and meeting all other requirements Passed - No active on record documented in this encounter Plan of Treatment Not on file documented as of this encounter Visit Diagnoses Not on filedocumented in this encounter Additional Health Concerns Infection Onset Date Last Indicated Resolved Time COVID - 19 02/11/2024 02/11/2024 02/11/2024 8:33 PM ECHO TECH Respiratory Rule-Out 03/12/2025 03/12/2025 025 9:41 AM ECHO TECH COVID - 19 03/12/2025 03/12/2025 03/12/2025 9:41 AM ECHO TECH Assessment Noted Time PHQ-9 Depression Total Score: 10 023 8:13 AM CDT documented as of this encounter Care Teams Oyster Buyer Relationship Specialty Start Date End Date Frida Suarez PAC PCP - General Physician Utility Manager 02/25/18 06/26/24 Alphonso Robles MD #[address] [address] PCP - General Family Medicine 06/27/24 Iggy Garnica MD #2 [place] [address] Consulting Physician Neurology 07/05/21 Yasmany Sanchez MD #[address] [place] [address] Consulting Physician Pulmonary Disease 10/18/21 Tahira Stewart, UM RN, RESIDENT CARE AIDE [address] [place] [address] Nurse Practitioner Advanced Practice Nurse 10/11/22 Carrillo Mendez MD #[address] [address] Consulting Physician Urology 12/01/23 documented as of this encounter
--- OUTSIDE RECORDS SUMMARY | 2025-03-16 17:05 | XMS_ITS | Encounter Summary ---
Author Organization [facility] Address [address] [place] [address] Phone Care Team Providers Care Drafter Plumbing Name Role Phone Frida Suarez Primary Care Pro vider Iggy Garnica MD Unavailable [phone] Yasmany Sanchez MD Unavailable Tahira Stewart APRN, PRODUCT DEVELOPMENT DIRECTOR Unavailable + [phone] Carrillo Mendez MD Unavailable [phone] Alphonso Robles MD Primary Care Provider [phone] Reason for Visit * Reason Comments Medication Refill Encounter Details Date Type Department Care Team (Late st Contact Info) Description 01/11/2024 Refill [facility] Medical Group - Internal Medicine - [place] [address] [place] [id number] Firda Suarez, [facility] [address] [place] [address] Medication Refill Social History Tobacco Use Types Packs/Day Years Used Date Smoking Tobacco: Never Passive Smoke Exposure: Never Smokeless Tobacco: Never Alcohol Use Standard Drinks/Week Comments No 0 (1 standard drink = 0.6 oz pur e alcohol) [facility] Utilities Answer Date Recorded In the [...] often do you attend chur ch or moravian services? Never 09/16/2023 Do you belong to any clubs o r organizations such as yarsani groups, unions, fraternal or athletic groups, or [...] Total Score - Questions 1-9 10 06/19 [facility] of Occupat ional Health - Occupational [...] place to sleep or slept in a detention (including now)? No 07/11/2023 Housing Stability Vital Sign Answer Brien e Recorded In the last 12 months, was t here a time when you were not able to pay the mortgage or rent on time? Yes 09/16/2023 Number of Times Moved in the Last Year Not on fi le 09/16/2023 At any time in the past 12 m [facility], were you homeless or living in a detention (including now)? No 09/16/2023 Education Answer Date [...] Telephone Encounter - Dagmar Cee RN - 01/12/2024 10:12 AM CDT Duplicate: Signed 3 days ago (01/09/2024): levothyroxine (SYNTHROID) 25 MCG Tablet Sig: Take 1 tablet by mouth once daily Disp: 30 Tablet Refills: 0 Signed by: Frida Suarez, PAC documented in this encounter Plan of Treatment Not on file documented as of this encounter Visit Diagnoses Not on filedocumented in this encounter Additional Health Concerns Infection Onset Date Last Indicated Resolved Time COVID - 19 02/11/2024 02/11/2024 02/11/2024 8:33 PM CANDY DEPOSITING MACHINE OPERATOR Respiratory Rule-Out 03/12/2025 03/12/2025 025 9:41 AM CANDY DEPOSITING MACHINE OPERATOR COVID - 19 03/12/2025 03/12/2025 03/12/2025 9:41 AM CANDY DEPOSITING MACHINE OPERATOR Assessment Noted Time PHQ-9 Depression Total Score: 10 023 8:13 AM CDT documented as of this encounter Care Teams Drafter Plumbing Relationship Specialty Start Date End Date Frida Suarez, PAC PCP - General Physician Grit Removal Operator 02/25/18 06/26/24 Alphonso Robles MD #[address] [address] PCP - General Family Medicine 06/27/24 Iggy Garnica MD #2 [place] [address] Consulting Physician Neurology 07/05/21 Yasmany Sanchez MD #2 [place] [address] Consulting Physician Pulmonary Disease 10/18/21 Tahira Stewart APRN, PRODUCT DEVELOPMENT DIRECTOR [address] [place] [address] Nurse Practitioner Advanced Practice Nurse 10/11/22 Carrillo Mendez MD [address] [place] [address] Consulting Physician Urology 12/01/23 documented as of this encounter
--- OUTSIDE RECORDS SUMMARY | 2025-03-16 17:05 | XMS_ITS | Encounter Summary ---
Author Organization [facility] Address [address] [place] [address] Phone Care Team Providers Care Ice Platform Supervisor Name Role Phone Frida Suarez [facility] Primary Care Pro vider Iggy Garnica MD Unavailable [phone] Yasmany Sanchez MD Unavailable Tahira Stewart APRN, SENIOR ENVIRONMENTAL TECHNICIAN Unavailable + [phone] Carrillo Mendez MD Unavailable [phone] Alphonso Robles MD Primary Care Provider Reason for Visit * Reason Comments Medication Refill Encounter Details Date Type Department Care Team (Late st Contact Info) Description 01/29/2023 Refill [facility] - Neurology [facility] [address] [place] [address] Iggy Garnica MD [address] [place] [address] Medication Refill Social History Tobacco [...] suspected to have Coronavirus/COVID-19? No / Unsure 01/11/2023 7:46 AM CDT documented as of this encounter Miscellaneous Notes * Telephone Encounter - Maritza Brown RN - 01/30/2023 9:06 AM CST Medication failed the protocol, provider to review and approve the medication order if appropriate. Requested Prescriptions Pending Prescriptions Disp Refills Aimovig 140 MG/ML Solution Auto-injector [Pharmacy Med Name: Aimovig 140 MG/ML Subcutaneous Solution Auto-injector] 1 mL 2 Sig: INJECT 1 ML SUBCUTANEOUSLY EVERY 28 DAYS Not Delegated - Off Protocol Failed - 01/29/2023 2:44 PM Failed - This refill cannot be delegated Passed - Visit with relevant provider in past 12 months or upcoming 90 days Recent Visits Date Type Provider Dept 01/11/23 Office Visit Frida Suarez, AIME [facility] 12/27/22 Office Visit Iggy Garnica MD [facility] Neurology [facility] 11/02/22 Office Visit Frida Suarez, PAC [facility] 10/11/22 Office Visit Tahira Stewart APRN, SENIOR ENVIRONMENTAL TECHNICIAN [facility] Neurology [facility] 09/08/22 Office Visit Iggy Garnica MD [facility] Neurology [facility] 08/10/22 Office Visit Frida Suarez, PAC [facility] 07/08/22 Office Visit Frida Suarez, PAC [facility] 05/30/22 Office Visit Frida Suarez, PAC [facility] 04/01/22 Office Visit Frida Suarez, PAC [facility] 03/28/22 Office Visit Frida Suarez, PAC [facility] Showing recent visits within past 365 days and meeting all other requirements Future Appointments Date Type Provider Dept 04/24/23 Appointment Iggy Garnica MD [facility] Neurology [facility] Showing future appointments within next 90 days and meeting all other requirements K OUT HAND documented in this encounter Plan of Treatment Not on file documented as of this encounter Visit Diagnoses Diagnosis Chronic migraine w/o aura w/o status migrainosus, not intractable Chronic migraine without aura, without mention of intractable migraine without mention of status migrainosus documented in this encounter Additional Health Concerns Infection Onset Date Last Indicated Resolved Time COVID - 19 02/11/2024 02/11/2024 02/11/2024 8:33 PM KNOCK OUT HAND Respiratory Rule-Out 03/12/2025 03/12/2025 025 9:41 AM KNOCK OUT HAND COVID - 19 03/12/2025 03/12/2025 03/12/2025 9:41 AM KNOCK OUT HAND Assessment Noted Time PHQ-9 Depression Total Score: 10 023 8:13 AM CDT documented as of this encounter Care Teams Ice Platform Supervisor Relationship Specialty Start Date End Date Frida SuarezAIME PCP - General Physician Brush Trimming Machine Setter 02/25/18 06/26/24 Alphonso Robles MD [address] [id number] PCP - General Family Medicine 06/27/24 Iggy Garnica MD [address] [place] [id number] Consulting Physician Neurology 07/05/21 Yasmany Sanchez MD [address] [place] [address] Consulting Physician Pulmonary Disease 10/18/21 Tahira Stewart, TELEVISION NEWS PRODUCER, SENIOR ENVIRONMENTAL TECHNICIAN [address] [place] [address] Nurse Practitioner Advanced Practice Nurse 10/11/22 Carrillo Mendez MD [address] [address] Consulting Physician Urology 12/01/23 documented as of this encounter
--- OUTSIDE RECORDS SUMMARY | 2025-03-16 17:05 | XMS_ITS | Encounter Summary ---
Author Organization [facility] Address [address] [place] [address] Phone Care Team Providers Care Certified Teacher Assistant Name Role Phone Frida Suarez Primary Care Pro vider Iggy Garnica MD Unavailable [phone] Yasmany Sanchez MD Unavailable Tahira Stewart APRN, [facility] Unavailable + [phone] Carrillo Mendez MD Unavailable [phone] Alphonso Robles MD Primary Care Provider Reason for Visit * Reason Comments Medication Refill Encounter Details Date Type Department Care Team (Late st Contact Info) Description 09/09/2022 Refill [facility] - Family Medicine [facility] [address] [place] [address] Frida Suarez, [facility] [address] [place] [address] Medication Refill Social History Tobacco Use Types [...] Telephone Encounter - Harriett Reynoso RN - 09/12/2022 7:48 AM CDT Medication failed the protocol, provider to review and approve the medication order if appropriate. Requested Prescriptions Pending Prescriptions Disp Refills citalopram (CeleXA) 40 MG Tablet [Pharmacy Med Name: Citalopram Hydrobromide 40 MG Oral Tablet] 90 Tablet 0 Sig: Take 1 tablet by mouth once daily Citalopram (Celexa) (6 Month Refill Only) Protocol Failed - 09/09/2022 10:06 PM Failed - Has an encounter in [...] days Recent Visits Date Type Provider Dept 08/10/22 Office Visit Frida Suarez, PAC [facility] 07/08/22 Office Visit Frida Suarez, PAC [facility] 05/30/22 Office Visit Frida Suarez, PAC [facility] 04/01/22 Office Visit Frida Suarez, PAC [facility] 03/28/22 Office Visit Frida Suarez, PAC [facility] Showing recent visits within past 182 days [...] - 19 02/11/2024 02/11/2024 02/11/2024 8:33 PM RACKING MACHINE OPERATOR Respiratory Rule-Out 03/12/2025 03/12/2025 025 9:41 AM RACKING MACHINE OPERATOR COVID - 19 03/12/2025 03/12/2025 03/12/2025 9:41 AM RACKING MACHINE OPERATOR Assessment Noted Time PHQ-9 Depression Total Score: 10 023 8:13 AM CDT documented as of this encounter Care Teams Certified Teacher Assistant Relationship Specialty Start Date End Date Frida Suarez, AIME PCP - General Physician Office Machine Service Supervisor 02/25/18 06/26/24 Alphonso Robles MD #[address] [address] PCP - General Family Medicine 06/27/24 Iggy Garnica MD [address] [place] [address] Consulting Physician Neurology 07/05/21 Yasmany Sanchez MD [address] [place] [address] Consulting Physician Pulmonary Disease 10/18/21 Tahira Stewart, UROLOGY TEACHER, SPONGE MAKER [address]2 [place] [address] Nurse Practitioner Advanced Practice Nurse 10/11/22 Carrillo Mendez MD [address], [address] [address] Consulting Physician Urology 12/01/23 documented as of this encounter
--- OUTSIDE RECORDS SUMMARY | 2025-03-16 17:05 | XMS_ITS | Encounter Summary ---
Author Organization [facility] Address [address] [place] [address] Phone Care Team Providers Care Emergency Response Officer Name Role Phone Frida Suarez Primary Care Pro vider Iggy Garnica MD Unavailable [phone] Yasmany Sanchez MD Unavailable Tahira Stewart APRN, [facility] Unavailable + [phone] Carrillo Mendez MD Unavailable [phone] Alphonso Robles MD Primary Care Provider Reason for Visit * Reason Comments Medication Refill Encounter Details Date Type Department Care Team (Late st Contact Info) Description 12/13/2022 Refill [facility] - Family Medicine [facility] [address] [place] [address] Frida Suarez, [facility] [address] [place] [address] Medication Refill Social History Tobacco Use Types [...] Telephone Encounter - Lizette Russ RN - 12/13/2022 2:25 PM CDT Medication failed the protocol, provider to review and approve the medication order if appropriate. Requested Prescriptions Pending Prescriptions Disp Refills citalopram (CeleXA) 40 MG Tablet [Pharmacy Med Name: Citalopram Hydrobromide 40 MG Oral Tablet] 90 Tablet 0 Sig: Take 1 tablet by mouth once daily Citalopram (Celexa) (6 Month Refill Only) Protocol Failed - 12/13/2022 8:35 AM Failed - Has an encounter in the [...] Type Provider Dept 11/02/22 Office Visit Frida Suarez PAC [facility] 08/10/22 Office Visit Frida Suarez PAC [facility] 07/08/22 Office Visit Frida Suarez PAC [facility] Showing recent visits within past 182 days and meeting all other requirements Future Appointments Date Type Provider Dept 01/11/23 Appointment Frida Suarez PAC [facility] Showing future appointments within next 90 days and meeting all other requirements Passed - Patient has established therapy with Citalopram for at least 6 months montelukast (SINGULAIR) 10 MG Tablet [Pharmacy Med Name: Montelukast Sodium 10 MG Oral Tablet] 90 Tablet 0 Sig: Take 1 tablet by mouth in the evening Leukotriene Inhibitors Protocol Passed - 12/13/2022 8:35 AM Passed - Visit with relevant provider in past 12 months or upcoming 90 days Recent Visits Date Type Provider Dept 11/02/22 Office Visit Frida Suarez, PAC [facility] 08/10/22 Office Visit Frida Suarez, PAC [facility] 07/08/22 Office Visit Frida Suarez, PAC [facility] 05/30/22 Office Visit Frida Suarez, PAC [facility] 04/01/22 Office Visit Frida Suarez, PAC [facility] 03/28/22 Office Visit Frida Suarez, PAC [facility] 03/10/22 Office Visit Frida Suarez, PAC [facility] 01/03/22 Office Visit Frida Suarez, PAC [facility] Showing recent visits within past 365 days and meeting all other requirements Future Appointments Date Type Provider Dept 01/11/23 Appointment Frida Suarez, PAC [facility] Showing future appointments within next 90 days and meeting all other requirements documented in this encounter Plan of Treatment Not on file documented as of this encounter Visit Diagnoses Not on filedocumented in this encounter Additional Health Concerns Infection Onset Date Last Indicated Resolved Time COVID - 19 02/11/2024 02/11/2024 02/11/2024 8:33 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 Respiratory Rule-Out 03/12/2025 03/12/2025 025 9:41 AM BATTERY VENT PLUG INSERTER COVID - 19 03/12/2025 03/12/2025 03/12/2025 9:41 AM BATTERY VENT PLUG INSERTER Assessment Noted Time PHQ-9 Depression Total Score: 10 023 8:13 AM CDT documented as of this encounter Care Teams Emergency Response Officer Relationship Specialty Start Date End Date Frida Suarez PAC PCP - General Physician Hall Coordinator 02/25/18 06/26/24 Alphonso Robles MD [address] [address] PCP - General Family Medicine 06/27/24 Iggy Garnica MD [address] [place] [address] Consulting Physician Neurology 07/05/21 Yasmany Sanchez MD [address] [place] [address] Consulting Physician Pulmonary Disease 10/18/21 Tahira Stewart, BRANDING SPECIALIST, MEDICAL LIBRARIAN [address] [place] [address] Nurse Practitioner Advanced Practice Nurse 10/11/22 Carrillo Mendez MD #[address] [address] Consulting Physician Urology 12/01/23 documented as of this encounter
--- OUTSIDE RECORDS SUMMARY | 2025-03-16 17:05 | XMS_ITS | Encounter Summary ---
Author Organization [facility] Address [address] [place] [address] Phone Care Team Providers Care Psychiatric Mental Health Nurse Name Role Phone Frida Suarez Primary Care Pro vider Iggy Garnica MD Unavailable [phone] Yasmany Sanchez MD Unavailable Tahira Stewart APRN, [facility] Unavailable + [phone] Carrillo Mendez MD Unavailable [phone] Alphonso Robles MD Primary Care Provider [phone] Reason for Visit * Reason Comments Medication Refill Encounter Details Date Type Department Care Team (Late st Contact Info) Description 08/30/2023 Refill [facility] - Internal Medicine - [place] [address] [place] [id number] Frida Suarez, [facility] [address] [place] [address] Medication Refill Social History Tobacco Use Types Packs/Day Years Used Date Smoking Tobacco: Never Passive Smoke Exposure: Never Smokeless Tobacco: Never Alcohol Use Standard Drinks/Week Comments No 0 (1 standard drink = 0.6 oz pur e alcohol) [facility] Utilities Answer Date Recorded In the [...] week 07/11/2023 How often do you attend yazidi or yazidi serv ices? Never 07/11/2023 Do you belong [...] Total Score - Questions 1-9 10 06/19 [facility] - Occupational [...] place to sleep or slept in a [facility] (including now)? No 07/11/2023 Education Answer Date [...] Telephone Encounter - Lizette Russ RN - 08/31/2023 9:56 AM CDT Per nursing clinical judgement, provider to review and approve the medication(s) order(s) if appropriate. Requested Prescriptions Pending Prescriptions Disp Refills fenofibrate (TRICOR) 145 MG Tablet [Pharmacy Med Name: Fenofibrate 145 MG Oral Tablet] 90 Tablet 0 Sig: Take 1 tablet by mouth once daily Fibrates Protocol Passed - 08/30/2023 2:41 PM Passed - Visit with relevant provider in past 12 months or upcoming 90 days Recent Visits Date Type Provider Dept 07/12/23 Office Visit Frida Suarez, [facility]23 Office Visit Frida Suarez, AIME [facility] 02/13/23 Office Visit Frida Suarez, PAC [facility] 01/11/23 Office Visit Frida Suarez, AIME [facility] 11/02/22 Office Visit Frida Suarez, AIME [facility] Showing recent visits within past 365 days [...] Range Status 07/12/2023 118 <130 mg/dL Final lisinopril (PRINIVIL, ZESTRIL) 20 MG Tablet [Pharmacy Med Name: Lisinopril 20 MG Oral Tablet] 90 Tablet 0 Sig: Take 1 tablet by mouth once daily HOOD Inhibitors Protocol Passed - 08/30/2023 2:41 PM Passed - Serum potassium on record in past 12 months POTASSIUM Date Value Ref Range Status 07/12/2023 4.2 3.5 - 5.1 mmol/L Final Passed - Blood pressure on record in past 12 months Clinician-entered: BP Readings from Last 3 Encounters: 07/12/23 180/84 05/17/23 138/90 05/12/23 (!) 191/97 Patient-entered: No data recorded Passed - No positive test in the past 12 months or most recent test was negative Passed - Visit with relevant provider in past 12 months or upcoming 90 days Recent Visits Date Type Provider Dept 07/12/23 Office Visit Frida Suarez, PAC [facility] 05/17/23 Office Visit Frida Suarez, PAC [facility] 02/13/23 Office Visit Frida Suarez, PAC [facility] 01/11/23 Office Visit Frida Suarez, PAC [facility] 11/02/22 Office Visit Frida Suarez, PAC [facility] Showing recent visits within past 365 days and meeting all other requirements Future Appointments No visits were found meeting these conditions. Showing future appointments within next 90 days and meeting all other requirements Passed - No active on record Passed - GFR on record in past 12 months GFR, EST. 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 Respiratory Rule-Out 03/12/2025 03/12/2025 025 9:41 AM RETAIL PROPERTY MANAGER COVID - 19 03/12/2025 03/12/2025 03/12/2025 9:41 AM RETAIL PROPERTY MANAGER Assessment Noted Time PHQ-9 Depression Total Score: 10 023 8:13 AM CDT documented as of this encounter Care Teams Psychiatric Mental Health Nurse Relationship Specialty Start Date End Date Frida SuarezAIME PCP - General Physician Manager Operations 02/25/18 06/26/24 Alphonso Robles MD [facility] [address] [id number] PCP - General Family Medicine 06/27/24 Iggy Garnica MD #2 [facility] [phone] Consulting Physician Neurology 07/05/21 Yasmany Sanchez MD [address]2 [place] [address] Consulting Physician Pulmonary Disease 10/18/21 Tahira Stewart APRN, MEDICAL TRANSCRIPTION RADIOLOGY [address] [place] [address] Nurse Practitioner Advanced Practice Nurse 10/11/22 Carrillo Mendez MD #[address] [address] Consulting Physician Urology 12/01/23 documented as of this encounter
[2025-03-16 17:06] VITALS: BP 126/78; PULSE 92; RESP 20; TEMP 37.4; O2SAT 100
--- OUTSIDE RECORDS SUMMARY | 2025-03-16 17:06 | XMS_ITS | Clinical Summary ---
Author Organization [facility] Address [address] [place] [address] Care Team Providers Care Bank Teller Machine Mechanic Name Role Phone Alphonso Robles MD Primary Care Provider + [phone] Allergies Active Allergy Reactions Criticality Noted Date Comments Dexamethasone Other (See comments) Low 06/21/2023 Irritability, paralysis, other mood changes Haloperidol Vomiting Low 06/28/2021 Haloperidol Lactate Other (See comments) Low 2018 Patient with dystonia Patient with dystonia Sulfa (Sulfonamide Antibiotics) Swelling Reaction: Swelling, , Medications rhxrswng-rfkj-tsg-fo lic acid (ONE DAILY FOR WOMEN) 18-0.4 mg tablet daily 0 0 06/15/19 16 Active levothyroxine sodium (TIROSINT) 25 mcg capsule take 1 capsule by oral route every day 0 0 06/15/19 16 Active norethindrone-e.estr adiol-iron (JUNEL ,) 1 mg-20 mcg (21)/75 mg (7) per tablet take 1 tablet by oral route every day 28 4 09/11/19 16 Active albuterol HFA (PROVENTIL HFA,VENTOLIN HFA,PROAIR HFA) 90 mcg/actuation inhaler Inhale 2 puffs every 4 (four) hours as needed 08/08/19 19 Active docusate calcium (COLACE) 240 mg capsule Take by mouth daily Active Aimovig Autoinjector 70 mg/mL auto-injector subcutaneous injection INJECT 70MG (1 PEN) SUB Q ONCE EVERY 28 DAYS 12/27/19 20 Active fenofibrate nanocrystallized (TRICOR) 145 mg tablet Take 1 tablet (145 mg total) by mouth daily 12/20/19 Active montelukast (SINGULAIR) 10 mg tablet Take 1 tablet (10 mg total) by mouth nightly 11/11/19 Active simvastatin (ZOCOR) 20 mg tablet Take 1 tablet (20 mg total) by mouth nightly 12/13/19 Active lisinopriL (PRINIVIL,ZESTRIL) 20 mg tablet Take 1 tablet (20 mg total) by mouth daily 02/10/20 Active lisinopriL (PRINIVIL,ZESTRIL) 10 mg tablet Take 1 tablet (10 mg total) by mouth daily 03/22/19 Active citalopram (CeleXA) 40 mg tablet Take 1 tablet (40 mg total) by mouth daily Active fexofenadine (LORETTA) 180 mg tablet Take 1 tablet (180 mg total) by mouth daily Active polycarbophil (FIBERCON) 625 mg tablet Take 1 tablet (625 mg total) by mouth daily Active omega-3 fatty acids-fish oil 300-1,000 mg capsule Take 2 capsules (2 g total) by mouth daily Active acetaminophen ER (TYLENOL) 650 mg 8 hr tablet Take 1 tablet (650 mg total) by mouth every 8 (eight) hours as needed for pain Active oxyBUTYnin XL (DITROPAN-XL) 10 mg 24 hr tablet Take 1 tablet (10 mg total) by mouth daily 12/01/19 24 Active famotidine (PEPCID) 40 mg tabletIndications:La ryngeal spasm Take 1 tablet (40 mg total) by mouth nightly 90 tablet 3 01/08/20 24 Active azelastine (ASTELIN) 137 mcg (0.1 %) nasal sprayIndications:Vas omotor phenomenon USE 2 SPRAY(S) IN EACH NOSTRIL TWICE DAILY DIRECTED 30 mL 10/09/19 25 Active doxycycline 100 mg tabletIndications:Si aladenitis Take 1 tablet (100 mg total) by mouth 2 (two) times a day for 14 days 28 tablet 02/06/20 25 025 Active Problems Problem Noted Date Diagnosed Date Sialadenitis 02/05/2025 Assessment & Plan (02/06/2025 7:09 AM GAS REGULATOR REPAIRER): Take thyroid medication first thing in the morning, then Protonix 60 minutes later then 60 minutes later take any other food, fluid or medication Doxycycline twice daily with a meal without dairy, wear sunscreen when on this antibiotic 64 ounces of caffeine free and soda free fluid daily Call if no improvement in 3-[address] Neck per stone protocol without contrast Have Dental evaluation Hearing test today mild hearing loss Laryngeal spasm 01/08/2024 Assessment & Plan (03/22/2024 9:29 AM GAS REGULATOR REPAIRER): Take Thyroid replacement first thing in the morning, then one hour later Take Pantoprazole 40 mg (Protonix), 30-60 minutes prior to any other medication, food or fluids other than water Follow up with GI Assessment & Plan (01/08/2024 10:21 AM CDT): Blood testing If negative will proceed with Esophagram Increase Pepcid to 40 mg daily 64 ounces of caffeine free and soda free fluid daily Avoid ear cleaning techniques Late period 01/08/2024 Assessment & Plan (01/08/2024 10:21 AM CDT): Blood testing If negative will proceed with Esophagram Increase Pepcid to 40 mg daily 64 ounces of caffeine free and soda free fluid daily Avoid ear cleaning techniques Referred otalgia of right ear 06/21/2023 Assessment & Plan (06/21/2023 8:52 AM CDT): Avoid ear cleaning techniques Avoid water to ears See a Dentist to evaluate teeth Otorrhea of left ear 01/30/2023 Assessment & Plan (01/30/2023 4:12 PM GAS REGULATOR REPAIRER): Ofloxacin 7 drops into Left EAR, NOT EYE, twice daily for 5 days Right ear tube in place, Left ear tube removed today How to Use Ear Drops discussed and Handout provided Conductive hearing loss, bilateral 06/20/2022 Assessment & Plan (06/20/2022 10:19 AM CDT): Avoid ear cleaning techniques Avoid water to ears Continue to work on TMJ dysfunction and call if physical therapy required Dysfunction of both eustachian tubes 06/02/2022 Assessment & Plan (03/22/2024 9:29 AM GAS REGULATOR REPAIRER): Take Thyroid replacement first thing in the morning, then one hour later Take Pantoprazole 40 mg (Protonix), 30-60 minutes prior to any other medication, food or fluids other than water Follow up with GI Assessment & Plan (06/21/2023 8:52 AM CDT): Avoid ear cleaning techniques Avoid water to ears See a Dentist to evaluate teeth Assessment & Plan (12/26/2022 9:54 AM CDT): Astelin (azelastine) 2 sprays into each nostril while looking down over the sink, do not sniff in or blow nose after use for at least 30 minutes twice daily Consider Dental guard Consider physical therapy for Jaw and muscle pain Assessment & Plan (08/10/2022 4:03 PM CDT): THROW AWAY THE Q-TIPS Physical therapy if desired for TMJ dysfunction Avoid ear cleaning techniques Avoid water to ears Assessment & Plan (06/20/2022 9:25 PM CDT): Avoid ear cleaning techniques Avoid water to ears Continue to work on TMJ dysfunction and call if physical therapy required If worsening ear pain or drainage, follow up earlier Assessment & Plan (06/02/2022 8:23 AM CDT): Finish Augmentin Finish ear drops Hearing test TMJ dysfunction discussed and Handout provided Vasomotor phenomenon 05/17/2022 Overview (05/17/2022): Added automatically from request for surgery [id number] Assessment & Plan (12/26/2022 9:54 AM CDT): Astelin (azelastine) 2 sprays into each nostril while looking down over the sink, do not sniff in or blow nose after use for at least 30 minutes twice daily Consider Dental guard Consider physical therapy for Jaw and muscle pain Sensorineural hearing loss (SNHL) of both ears 0 05/03/2022 Assessment & Plan (02/06/2025 7:14 AM GAS REGULATOR REPAIRER): Take thyroid medication first thing in the morning, then Protonix 60 minutes later then 60 minutes later take any other food, fluid or medication Doxycycline twice daily with a meal without dairy, wear sunscreen when on this antibiotic 64 ounces of caffeine free and soda free fluid daily Call if no improvement in 3-[address] Neck per stone protocol without contrast Have Dental evaluation Reviewed Hearing test today mild hearing loss, protect hearing Assessment & Plan (05/03/2022 7:45 AM GAS REGULATOR REPAIRER): Hearing testing Will obtain records from PCP's Office Based on these, will consider ear tube placement [facility] Seasonal allergic rhinitis due to pollen 022 Assessment & Plan (06/28/2021 3:45 PM CDT): Nasal saline spray (Simply saline, [employer] Remedies, [place], [place]) 2 second sprays or 2 squeezes into each nostril while looking down over the sink, do not need to sniff in. Followed by Astelin (azelastine) 2 sprays into each nostril while looking down over the sink, do not sniff in or blow nose after use for at least 30 minutes twice daily Blood allergy testing - call with results Vasomotor rhinitis 06/28/2021 Assessment & Plan (05/02/2022 10:29 AM GAS REGULATOR REPAIRER): Hearing testing Will obtain records from PCP's Office Based on these, will consider ear tube placement in the Operating Room at [facility] Assessment & Plan (06/28/2021 3:45 PM CDT): Nasal saline spray (Simply saline, [employer] Remedies, [place], [place]) 2 second sprays or 2 squeezes into each nostril while looking down over the sink, do not need to sniff in. Followed by Astelin (azelastine) 2 sprays into each nostril while looking down over the sink, do not sniff in or blow nose after use for at least 30 minutes twice daily Blood allergy testing - call with results Thyroid activity decreased 02/02/2016 Bronchial asthma 02/02/2016 High-risk 02/02/2016 Hypercholesterolemia 09/11/2015 Overview (06/23/2016): Elevated cholesterol Body mass index 40+ - severely obese 06/15/2015 Overview (06/24/2016): BMI 40+ severely obese Hypothyroidism 06/15/2015 Overview (06/24/2016): Hypothyroid Mild intermittent asthma 06/15/2015 Overview (06/24/2016): Mild intermittent asthma Arthritis 06/15/2015 Overview (06/24/2016): Arthritis Gastroesophageal reflux disease 06/15/2015 Overview (06/24/2016): GERD Depression 06/15/2015 Overview (06/24/2016): Depression Encounters Date Type Department Care Team Description 03/07/2025 Results Follow-Up [facility] - [address] [place] [address] Neck Soft Tissue W Contrast 03/06/2025 12:39 PM GAS REGULATOR REPAIRER - 03/06/2025 11:59 PM GAS REGULATOR REPAIRER Hospital Encounter [address] [address] Sialadenitis Discharge Disposition: Discharge to home or self care 03/05/[address] [address] Pearl Gant 02/18/2025 Orders Only [facility] - [address] [place] [address] Jeri Hernandes, Sialadenitis (Primary Dx) 02/05/2025 9:30 AM GAS REGULATOR REPAIRER Procedure visit [facility] at [address] [place] [address] Moon, Jessica Kayla, Au.D. Sensorineural hearing loss (SNHL), bilateral (Primary Dx) 02/05/2025 9:00 AM GAS REGULATOR REPAIRER Office Visit [facility] - [facility] [address] [facility] [address] [place] [address] Jeri Hernandes DO Sialadenitis (Primary Dx); Sensorineural hearing loss (SNHL) of both ears 01/23/2025 Telephone [facility] - [facility] [address] [facility] [address] [place] [address] Marti Vu MA 12/30/2024 Ancillary Procedure [facility] Outside Films from Last 3 Months Surgical History Surgery Date Site/Laterality Comments SECTION COLONOSCOPY ESOPHAGOGASTRODUODENOSCOPY Medical History Medical History Date Comments Sleep apnea Motion sickness Hypertension Asthma GERD (gastroesophageal reflux disease) Gastritis Kidney stones Hypothyroidism Depression Anxiety Headache migraines Hyperlipidemia Family History Medical History Relation Name Comments Hypertension Father Hypertension; Skin cancer Mother Cancer, skin; Other Mother's Brother 2 Mesotheli imtchel; Cause of : Mesothelioma Breast cancer Paternal Grandmother Cancer , breast; Relation Name Status Comments Father Mother Mother's Brother 1 Mother's Brother 2 Paternal Grandmother Social History Tobacco Use Types Packs/Day Years Used Date Smoking Tobacco: Never Smokeless Tobacco: Never Tobacco Cessation:Counseling Given: Not Answered Alcohol Use Standard Drinks/Week Comments No 0 (1 standard drink = 0.6 oz pur e alcohol) AUDIT-C Answer Date Recorded Q1: How often do you have a drink containing alcohol? Never 05/24/2022 Q2: How many drinks containi ng alcohol do you have on a typical day when you are drinking? Patient does not drink Frequency of Binge Drinking Not on file 09/2022 Personal Safety Answer Date Recorded Getting School Help Needed Denies 03/02 Comments Unknown Sex and Gender Information Value Date Recorded Sex Assigned at Not on file Legal Sex Female 4:01 AM GAS REGULATOR REPAIRER Gender Identity Female 05/17/2021 4:02 PM GAS REGULATOR REPAIRER Sexual Orientation Bisexual 05/17/2021 4: 02 PM GAS REGULATOR REPAIRER Last Filed Vital Signs Vital Sign Reading Time Taken Comments Blood Pressure 123/84 06/21/2023 8:22 AM CDT Pulse 101 06/21/2023 8:22 AM CDT Temperature 36.5 C (97.7 F) 01/30/2023 2:13 PM GAS REGULATOR REPAIRER Respiratory Rate 18 06/21/2023 8:22 AM CDT Oxygen Saturation 97% 06/21/2023 8:22 AM CDT Inhaled Oxygen Concentration - - Weight 127.9 kg (282 lb) 03/22/2024 9:10 AM GAS REGULATOR REPAIRER Height 165.1 cm (5' 5) 03/22/2024 9:10 AM GAS REGULATOR REPAIRER Body Mass Index 46.93 03/22/2024 9:10 AM GAS REGULATOR REPAIRER Plan of Treatment Health Maintenance Due Date Last Done Comments Cervical Cancer Screening 1985 Depression Screening 1985 Hepatitis C Screening 1985 Varicella Vaccines (1 of 2 - 13+ 2-dose series) 1998 Hepatitis B Screening 10/29/2003 Regular Well Visit/Exam 18-64 10/29/2003 Pneumococcal vaccine <65 (1 of 2 - PCV) 2004 HPV Vaccines (1 - 3-dose SCD M series) 2012 Covid-19 Vaccine (2 - 2024-2 6 season) 2024 07/11/2020 DTaP/Tdap/Td Vaccine (2 - Td or Tdap) 07/05/2026 07/05/2016, 03/20/2012 Influenza Vaccine Completed 01/04/2025, , 01/19/2023, Additional history exists Medical Devices Implanted Type Area Airport Utility Worker Device Identifier Shelf Expiration Date Model / Serial / Lot [employer] 1.32mm 4.8mm Modify Ear T Tube Ventilation Ultrasil Sterile Blue [id number] - [id number] Implanted:Qty: 2 on 05/24/2022 by Jeri Hernandes DO at [facility] l: Ear [employer]le [employer] 03/31/2032 [id number] / / [id number] Procedures Procedure Name Priority Date/Time Associated Diagnosis Comments CT SOFT TISSUE NECK W CONTRAST Routine 03/06/2025 1:24 PM GAS REGULATOR REPAIRER Sialadenitis AUDIOGRAM Routine 02/05/2025 9:30 AM GAS REGULATOR REPAIRER Sensorineural hearing loss (SNHL), bilateral XR TRANSFER OF OUTSIDE FILMS Routine 12/30/2024 12:00 AM CDT from Last 3 Months Results * CT Neck Soft Tissue W Contrast (03/06/2025 1:24 PM GAS REGULATOR REPAIRER) Anatomical Region Laterality Modality Head and Neck N/A Computed Tomogra phy 03/06/2025 1:51 PM GAS REGULATOR REPAIRER Impressions 03/06/2025 1:51 PM GAS REGULATOR REPAIRER No acute process on CT soft tissue neck. Electronically signed by: Raudel Larson M.D. Narrative 03/06/2025 1:51 PM GAS REGULATOR REPAIRER EXAMINATION: CT SOFT TISSUE NECK W CONTRAST REASON FOR STUDY: No provided patient complaints with concern for sialoliths of unspecified laterality submandibular gland. No provided history of trauma. No cancer history. No head or neck surgeries. TECHNIQUE: Post IV contrast CT imaging from the skull base through lung apices. Reconstructed MPR images reviewed. Automated exposure control was used as a dose optimization technique for this examination. Images saved to PACS. CONTRAST: 100 mL Optiray 350 was administered via peripheral IV site. COMPARISON: No prior relevant imaging available at time of interpretation. FINDINGS: SOFT TISSUE: No CT evidence of discrete mass, fluid collection, edema, and/or acute inflammatory changes. ORAL CAVITY/FLOOR OF MOUTH, PHARYNX, LARYNX, HYPOPHARYNX: No acute abnormality. Widely patent airway. LYMPHADENOPATHY: No lymphadenopathy by size criteria. MAJOR SALIVARY GLANDS: No CT evidence of discrete mass, fluid collection, edema, and/or acute inflammatory changes. No sialolithiasis or sialodocholithiasis. THYROID: Normal in size No nodules greater than 1 cm. VASCULATURE: No occlusion or hemodynamically significant stenosis. INTRACRANIAL/SKULL BASE/INCLUDED ORBITS: Limited intracranial evaluation. No gross evidence of acute intracranial process. No acute orbital abnormality. Ocular lenses and globes normal in conformation and position. PARANASAL SINUSES: No significant mucosal thickening and no fluid levels of the visualized paranasal sinuses. Mastoid air cells well-developed and well aerated. CERVICAL SPINE: Constellation of straightening of the cervical lordosis, spondylosis, and degenerative disease of the cervical spine. LUNG APICES: No acute abnormality. OTHER: None. Procedure Note Raudel Larson MD - 03/06/2025 EXAMINATION: CT SOFT TISSUE NECK W CONTRAST REASON FOR STUDY: No provided patient complaints with concern for sialoliths of unspecified laterality submandibular gland. No provided history of trauma. No cancer history. No head or neck surgeries. TECHNIQUE: Post IV contrast CT imaging from the skull base through lung apices. Reconstructed MPR images reviewed. Automated exposure control was used as a dose optimization technique for this examination. Images saved to PACS. CONTRAST: 100 mL Optiray 350 was administered via peripheral IV site. COMPARISON: No prior relevant imaging available at time of interpretation. FINDINGS: SOFT TISSUE: No CT evidence of discrete mass, fluid collection, edema, and/or acute inflammatory changes. ORAL CAVITY/FLOOR OF MOUTH, PHARYNX, LARYNX, HYPOPHARYNX: No acute abnormality. Widely patent airway. LYMPHADENOPATHY: No lymphadenopathy by size criteria. MAJOR SALIVARY GLANDS: No CT evidence of discrete mass, fluid collection, edema, and/or acute inflammatory changes. No sialolithiasis or sialodocholithiasis. THYROID: Normal in size No nodules greater than 1 cm. VASCULATURE: No occlusion or hemodynamically significant stenosis. INTRACRANIAL/SKULL BASE/INCLUDED ORBITS: Limited intracranial evaluation. No gross evidence of acute intracranial process. No acute orbital abnormality. Ocular lenses and globes normal in conformation and position. PARANASAL SINUSES: No significant mucosal thickening and no fluid levels of the visualized paranasal sinuses. Mastoid air cells well-developed and well aerated. CERVICAL SPINE: Constellation of straightening of the cervical lordosis, spondylosis, and degenerative disease of the cervical spine. LUNG APICES: No acute abnormality. OTHER: None. IMPRESSION: No acute process on CT soft tissue neck. Electronically signed by: Raudel Larson M.D. Jeri Hernandes DO IMG CT PROCEDURES Final Resu lt * AUDIOGRAM (02/05/2025 9:30 AM GAS REGULATOR REPAIRER) Narrative Jessica Mustafa Au.D. - 02/05/2025 9:30 AM GAS REGULATOR REPAIRER Jessica Mustafa Au.D. 02/05/2025 10:26 AM Audiogram Performed by: Jessica Mustafa Au.D. Authorized by: Jeri Hernandes DO Jeri Hernandes DO AUDIOLOGY SERVICES ORDERABLE S Final Result * XR Outside Reference (12/30/2024 12:00 AM CDT) Narrative [facility] - 02/27/2025 1:15 PM GAS REGULATOR REPAIRER This order has been auto-finalized and does not contain a result. us Not In File Miscellaneous IMG XR PROCEDURES Camille l Result [facility] from Last 3 Months Insurance [employer] Member Subscriber Plan / Payer (Ef fective 2024-Present) Name:Nina Daly Relation to Subscriber:Self Name:Nina Daly Payer ID:Not on file Group ID:Not on file Type:OTHER Address: [address] Advance Directives For more information, please contact: [phone] * Full Code (Latest Code Status on File) Date Activated Date Inactivated Comments 05/24/2022 9:31 AM 05/24/2022 3:01 PM Care Teams Bank Teller Machine Mechanic Relationship Specialty Start Date End Date Alphonso Robles MD [address] [address] PCP - General Family Medicine 02/18/25
--- OUTSIDE RECORDS SUMMARY | 2025-03-16 17:06 | XMS_ITS | Encounter Summary ---
Author Organization [facility] Address [address] [place] [address] Phone Care Team Providers Care Clinical Massage Therapist Name Role Phone Frida Suarez [facility] Primary Care Pro vider Iggy Garn[place] MD Unavailable [phone] Yasmany Sanchez MD Unavailable Tahira Stewart APRN, SHOULDER PUNCHER Unavailable + [phone] Carrillo Mendez MD Unavailable [phone] Alphonso Robles MD Primary Care Provider Reason for Visit * Reason Comments Medication Refill Encounter Details Date Type Department Care Team (Late st Contact Info) Description 01/03/2022 Refill [facility] [address] [address] Iggy Garnica MD [address] [place] [address] Medication Refill Social History Tobacco [...] suspected to have Coronavirus/COVID-19? No / Unsure 01/03/2022 8:13 AM CDT documented as of this encounter Plan of Treatment Not on file documented as of this encounter Visit Diagnoses Diagnosis Migraine without aura and without status migrainosus, not intractable Migraine without aura, without mention of intractable migraine without mention of status migrainosus documented in this encounter Additional Health Concerns Infection Onset Date Last Indicated Resolved Time Respiratory Rule Out - RPA 05/30/2022 05/30/2022 0 05/30/2022 3:32 PM CDT COVID - 19 02/11/2024 02/11/2024 02/11/2024 8:33 PM COMPRESS ENGINEER Respiratory Rule-Out 03/12/2025 03/12/2025 025 9:41 AM COMPRESS ENGINEER COVID - 19 03/12/2025 03/12/2025 03/12/2025 9:41 AM COMPRESS ENGINEER Assessment Noted Time PHQ-9 Depression Total Score: 7 04/06/19 22 3:00 PM COMPRESS ENGINEER documented as of this encounter Care Teams Clinical Massage Therapist Relationship Specialty Start Date End Date Frida Suarez PAC PCP - General Physician Supervisor Die Casting 02/25/18 06/26/24 Alphonso Robles MD [address] [place] [address] PCP - General Family Medicine 06/27/24 Iggy Garnica MD [address] [place] [address] Consulting Physician Neurology 07/05/21 Yasmany Sanchez MD [address] [place] [address] Consulting Physician Pulmonary Disease 10/18/21 Tahira Stewart APRN, SHOULDER PUNCHER [address] [place] [address] Nurse Practitioner Advanced Practice Nurse 10/11/22 Carrillo Mendez MD [address] [address] Consulting Physician Urology 12/01/23 documented as of this encounter
--- OUTSIDE RECORDS SUMMARY | 2025-03-16 17:06 | XMS_ITS | Encounter Summary ---
Author Organization [facility] Address [address] [place] [address] Phone Care Team Providers Care Deputy Probation Officer Name Role Phone Frida Suarez [facility] Primary Care Pro vider Iggy Garnica MD Unavailable Yasmany Sanchez MD Unavailable Tahira Stewart APRN, BODY SHOP ESTIMATOR Unavailable Carrillo Mendez MD Unavailable [phone] Alphonso Robles MD Primary Care Provider Reason for Visit * Reason Comments Medication Refill Encounter Details Date Type Department Care Team (Late st Contact Info) Description 02/15/2022 Refill [facility] - Neurology - [place] [address] [place] [id number] Tahira Stewart APRN, BODY SHOP ESTIMATOR [address] [place] [address] Medication Refill Social History Tobacco Use Types [...] 19 02/11/2024 02/11/2024 02/11/2024 8:33 PM AUTOMOTIVE SALES SPECIALIST Respiratory Rule-Out 03/12/2025 03/12/2025 025 9:41 AM AUTOMOTIVE SALES SPECIALIST COVID - 19 03/12/2025 03/12/2025 03/12/2025 9:41 AM AUTOMOTIVE SALES SPECIALIST Assessment Noted Time PHQ-9 Depression Total Score: 7 04/06/19 22 3:00 PM AUTOMOTIVE SALES SPECIALIST documented as of this encounter Care Teams Deputy Probation Officer Relationship Specialty Start Date End Date Frida Suarez PAC PCP - General Physician Commercial Field Inspector 02/25/18 06/26/24 Alphonso Robles MD [address] [address] PCP - General Family Medicine 06/27/24 Iggy Garnica MD [address] [place] [address] Consulting Physician Neurology 07/05/21 Yasmany Sanchez MD [address] [place] [address] Consulting Physician Pulmonary Disease 10/18/21 Tahira Stewart APRN, BODY SHOP ESTIMATOR [address] [place] [address] Nurse Practitioner Advanced Practice Nurse 10/11/22 Carrillo Mendez MD [address] [address] Consulting Physician Urology 12/01/23 documented as of this encounter
--- OUTSIDE RECORDS SUMMARY | 2025-03-16 17:06 | XMS_ITS | Encounter Summary ---
Author Organization [facility] Address [address] [place] [address] Phone Care Team Providers Care Soldering Machine Tender Name Role Phone Frida Suarez [facility] Primary Care Pro vider Iggy Garnica MD Unavailable [phone] Yasmany Sanchez MD Unavailable Tahira Stewart APRN, BUSINESS PROCESS MODELER Unavailable + [phone] Carrillo Mendez MD Unavailable [phone] Alphonso Robles MD Primary Care Provider [phone] Reason for Visit * Reason Comments Medication Refill Encounter Details Date Type Department Care Team (Late st Contact Info) Description 04/14/[facility] [address] [place] [address] Alphonso Robles MD [address] [address] Medication Refill Social History Tobacco Use Types [...] have Coronavirus / COVID-19? No / Unsure 04/14/2020 1:27 PM SENIOR MANUFACTURING TEST ENGINEER documented as of this encounter Miscellaneous Notes * Telephone Encounter - Carmen Thomas RMA - 04/15/2020 1:49 PM SENIOR MANUFACTURING TEST ENGINEER Looks like Dr. Robles has been prescribing snf , do you want to take over script? Per nursing clinical judgement, provider to review and approve the medication(s) order(s) if appropriate. Requested Prescriptions Pending Prescriptions Disp Refills montelukast (SINGULAIR) 10 MG Tablet [Pharmacy Med Name: Montelukast Sodium 10 MG Oral Tablet] 90 Tab 0 Sig: Take 1 tablet by mouth in the evening Pulmonology: Leukotriene Inhibitors Passed - 04/15/2020 9:14 AM Passed - Valid encounter within last 12 months Past Office Visits Recent Outpatient Visits Yesterday Acute non-recurrent frontal sinusitis [facility] - Family Medicine - Alley Perla APN, INTERACTIVE DESIGNER 2 months ago Left otitis media, unspecified otitis media type [facility] - [facility] - Frida Marte PAC 2 months ago Well adult exam [facility] - Frida Marte PAC 4 months ago Sore throat [facility] Family Medicine Frida Rivera PAC 4 months ago Cough [facility] Family Medicine - Alley Perla APN, INTERACTIVE DESIGNER Upcoming Appointments Future Appointments In 5 months Yasmany Sanchez MD [facility] PULMONOLOGY, [facility] FRIT MIXER AND BURNER - Recent and Past Visits Recent Visits Date Type Provider Dept 04/14/20 Telemedicine Alley Valle APN, INTERACTIVE DESIGNER [facility] 02/07/20 Office Visit Nandini Suarezkirk Hoffmann, PAC [facility] 02/03/20 Telemedicine ErickFrida, PAC [facility] 12/04/19 Office Visit Erick Frdia Hoffmann, PAC [facility] 12/02/19 Telemedicine Alley Valle APN, INTERACTIVE DESIGNER [facility] 11/13/19 Office Visit Nandini Suarezkirk Hoffmann, PAC [facility] 11/08/19 Telemedicine ErickFrida, PAC [facility] 09/16/19 Telemedicine ErickFrida, PAC [facility] 09/11/19 Office Visit Erick Frida Hoffmann, PAC [facility] 08/14/19 Telemedicine Nandini Suarezkirk Hoffmann, PAC [facility] Showing recent visits within past 460 days with a meds authorizing provider and meeting all other requirements Future Appointments No visits were found meeting these conditions. Showing future appointments within next 90 days with a meds authorizing provider and meeting all other requirements OR MANUFACTURING TEST ENGINEER * Telephone Encounter - Debora Tyler RN - 04/15/2020 9:13 AM CST Pt needs to schedule follow up appt for med refill approval per PCP. OR MANUFACTURING TEST ENGINEER documented in this encounter Plan of Treatment [...] - 19 02/11/2024 02/11/2024 02/11/2024 8:33 PM SENIOR MANUFACTURING TEST ENGINEER Respiratory Rule-Out 03/12/2025 03/12/2025 025 9:41 AM SENIOR MANUFACTURING TEST ENGINEER COVID - 19 03/12/2025 03/12/2025 03/12/2025 9:41 AM SENIOR MANUFACTURING TEST ENGINEER Assessment Noted Time PHQ-9 Depression Total Score: 7 04/14/19 21 1:40 PM SENIOR MANUFACTURING TEST ENGINEER documented as of this encounter Care Teams Soldering Machine Tender Relationship Specialty Start Date End Date Frida Suarez, [facility] PCP - General Physician Investigative Agent 02/25/18 06/26/24 Alphonso Robles MD [address] [address] PCP - General Family Medicine 06/27/24 Iggy Garnica MD [address] [place] [address] Consulting Physician Neurology 07/05/21 Yasmany Sanchez MD [address] [place] [address] Consulting Physician Pulmonary Disease 10/18/21 Tahira Stewart, TOPLINE BEADING MACHINE TENDER, BUSINESS PROCESS MODELER [address] [place] [address] Nurse Practitioner Advanced Practice Nurse 10/11/22 Carrillo Mendez MD [address] [address] Consulting Physician Urology 12/01/23 documented as of this encounter
--- OUTSIDE RECORDS SUMMARY | 2025-03-16 17:06 | XMS_ITS | Encounter Summary ---
Author Organization [facility] Address [address] [place] [id number] Phone Care Team Providers Care Ring Making Machine Operator Name Role Phone Frida Suarez Primary Care Pro vider Iggy Garnica MD Unavailable [phone] Yasmany Sanchez MD Unavailable Tahira Stewart APRN, [facility] Unavailable + [phone] Carrillo Mendez MD Unavailable [phone] Alphonso Robles MD Primary Care Provider Reason for Visit * Reason Comments Medication Refill Encounter Details Date Type Department Care Team (Late st Contact Info) Description 07/26/2020 Refill [facility] [address] [place] [address] Frida Suarez, [facility] [address] [place] [address] Medication Refill Social History Tobacco Use Types [...] have Coronavirus / COVID-19? No / Unsure 07/29/2020 12:54 PM CDT documented as of this encounter Miscellaneous Notes * Telephone Encounter - Deanna Vargas RN - 07/27/2020 10:25 AM CDT Per nursing clinical judgement, provider to review and approve the medication(s) order(s) if appropriate. Requested Prescriptions Pending Prescriptions Disp Refills simvastatin (ZOCOR) 20 MG Tablet [Pharmacy Med Name: Simvastatin 20 MG Oral Tablet] 30 Tablet 0 Sig: TAKE 1 TABLET BY MOUTH ONCE DAILY IN THE EVENING Hmg CoA Reductase Inhibitors Protocol Passed - 07/27/2020 10:24 AM Passed - No positive test in the past 12 months or most recent test was negative Passed - Visit with relevant provider in past 12 months or upcoming 90 days Recent Visits Date Type Provider Dept 05/20/20 Office Visit Frida Suarez, AIME [facility] 05/11/20 Office Visit Frida Suarez, PAC [facility] 04/24/20 Office Visit Alley Valle APN, MATH INSTRUCTOR [facility] 04/14/20 Telemedicine Alley Valle APN, MATH INSTRUCTOR [facility] 02/07/20 Office Visit Frida Suarez, PAC [facility] 02/03/20 Telemedicine Frida Suarez, PAC [facility] 12/04/19 Office Visit Frida Suarez, PAC [facility] 12/02/19 Telemedicine Alley Valle APN, MATH INSTRUCTOR [facility] 11/13/19 [facility] 11/[facility]19 Telemedicine [facility]arez [facility] Showing recent visits within past 365 days and meeting all other requirements Future Appointments No visits were found meeting these conditions. Showing future appointments within next 90 days and meeting all other requirements Passed - No active on record Passed - Lipid panel in past 12 months LDL Date Value Ref Range Status 01/28/2020 104 5 - 130 mg/dL Final HDL CHOLESTEROL Date [...] Status 01/28/2020 154.4 (H) <130 mg/dL Final montelukast (SINGULAIR) 10 MG Tablet [Pharmacy Med Name: Montelukast Sodium 10 MG Oral Tablet] 90 Tablet 0 Sig: Take 1 tablet by mouth in the evening [facility] Pulmonology: Leukotriene Inhibitors Passed - 07/27/2020 10:24 AM Passed - Valid encounter within last 12 months Past Office Visits Recent Outpatient Visits 3 months ago [facility] Alley Perla APN, MATH INSTRUCTOR 3 months ago Acute non-recurrent frontal sinusitis [facility] - Alley Perla APN, MATH INSTRUCTOR 5 months ago Left otitis media, unspecified otitis media type [facility] - Frida Marte PAC 5 months ago Well adult exam [facility] - Frida Marte PAC 7 months ago Sore throat [facility] - Frida Marte PAC Upcoming Appointments Future Appointments In 2 days Wayne Jones DPM [facility] - Podiatry - [facility] In 2 months Yasmany Sanchez MD [facility] - Pulmonology & Sleep Medicine - [facility] In 11 months Tahira Stewart APN, ALEX [facility] - Neurology - [facility] SITE PLANNER - Recent and Past Visits Recent Visits Date Type Provider Dept 05/20/20 Office Visit Frida Suarez, PAC [facility] 05/11/20 Office Visit Frida Suarez, PAC [facility] 04/24/20 Office Visit Alley Valle APN, MATH INSTRUCTOR [facility] 04/14/20 Telemedicine Alley Valle CATTLE EXAMINER, MATH INSTRUCTOR [facility] 02/07/20 Office Visit Frida Suarez, PAC [facility] 02/03/20 Telemedicine Frida Suarez, PAC [facility] 12/04/19 Office Visit Frida Suarez, PAC [facility] 12/02/19 Telemedicine Alley Valle APN, MATH INSTRUCTOR [facility] 11/13/19 Office Visit Frida Suarez, PAC [facility] 11/08/19 Telemedicine Frida Suarez, PAC [facility] Showing recent visits within past 460 days with a meds authorizing provider and meeting all other requirements Future Appointments No visits were found meeting these conditions. Showing future appointments within next 90 days with a meds authorizing provider and meeting all other requirements documented in [...] - 19 02/11/2024 02/11/2024 02/11/2024 8:33 PM SPANISH MOSS PICKER Respiratory Rule-Out 03/12/2025 03/12/2025 025 9:41 AM SPANISH MOSS PICKER COVID - 19 03/12/2025 03/12/2025 03/12/2025 9:41 AM SPANISH MOSS PICKER Assessment Noted Time PHQ-9 Depression Total Score: 7 04/14/19 21 1:40 PM SPANISH MOSS PICKER documented as of this encounter Care Teams Ring Making Machine Operator Relationship Specialty Start Date End Date Frida Suarez, [facility] PCP - General Physician Quality Tech 02/25/18 06/26/24 Alphonso Robles MD [address] [address] PCP - General Family Medicine 06/27/24 Iggy Garnica MD [address] [place] [address] Consulting Physician Neurology 07/05/21 Yasmany Sanchez MD [address] [place] [address] Consulting Physician Pulmonary Disease 10/18/21 Tahira Stewart, BUSINESS INTELLIGENCE ARCHITECT, ASSEMBLY LINE DRIVER [address] [place] [address] Nurse Practitioner Advanced Practice Nurse 10/11/22 Carrillo Mendez MD [address] [address] Consulting Physician Urology 12/01/23 documented as of this encounter
--- OUTSIDE RECORDS SUMMARY | 2025-03-16 17:06 | XMS_ITS | Data Portability ---
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 planning regular STD testing at 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 Lab cytology report, thin prep, smear or scraping, cervical or vaginal 2024 025 [facility], [address], [address], [place], [address], 5 07:32:19 test, urine 2022 023 In-Office Order, Internal Use Only DO Not Attach Compendium DO Not Attach Compendium, Do Not Delete/merge, [id number] 13:07:34 cytology report, thin prep, smear or scraping, cervical or vaginal 2022 023 [facility], [address], [address], [place], [address], 3 11:08:10 Referral None recorded. Procedures None recorded. Surgeries None recorded. Imaging None recorded. Medication Orders Minh 24 Fe 1 mg-20 mcg (24)/75 mg (4) tablet 2022 023 [facility] [place], [address], 3 14:58:25 Minh 24 Fe 1 mg-20 mcg (24)/75 mg (4) tablet 2020 021 [facility] [address] [place], [address], 1 14:45:04 Patient TargetsNo targets recorded. Patient Instructions Encounter Date Encounter Id Patient Instructions Last Modified By Organization Details Last Modified Time 09/02/2022 [id number] A healthy lifestyle: care instructions Not available 09/02/2022 13:07:34 secondary amenorrhea: care instructions Not available 09/02/2022 13:07:34 12/03/2024 [id number] A healthy lifestyle: care instructions Not available 12/03/2024 10:51:31 Reason for Referral None Reported. Results Created Date Observation Date Name Description Value Unit Range Abnormal Flag Note LastModifiedBy Organization Detail LastModifiedTime 06/29/19 23 07/03/2022 IGP, RFX APTIM A HPV ASCU diagnosis: Commen t NEGAT ORION FOR INTRA EPITH ELIAL LESIO N OR MALIG EVONNE . Not Available [facility] ([facility]) [address] [place], [address], 07/03/2022 11:08:10 06/29/19 23 07/03/2022 IGP, RFX APTIM A HPV ASCU specimen adequacy: Theresa t Satis facto ry for evalu ation . No endoc ervic al compo nent is ident ified . Not Available [facility] ([facility]) [address] [facility], [place], [address], 07/03/2022 11:08:10 06/29/19 23 07/03/2022 IGP, RFX APTIM A HPV ASCU clinician provided ICD10: Theresa callahan Z01.4 19 Not Available [facility] ([facility]) [address] [place], [address], 07/03/2022 11:08:10 06/29/19 23 07/03/2022 IGP, RFX APTIM A HPV ASCU performed by: Theresa hoyos Cytot yrn callahan (ASCP ) Not Available [facility] ([facility]) [address] [place], [address], 07/03/2022 11:08:10 06/29/19 23 07/03/2022 IGP, RFX APTIM A HPV ASCU . . Not Available [facility] ([facility]) [address] [place], [address], 07/03/2022 11:08:10 06/29/19 23 07/03/2022 IGP, RFX APTIM A HPV ASCU note: Theresa t The Pap smear is a scree rodolfo test desig augie to aid in the detec tion of christi ligna nt and malig nant condi tions of the uteri ne cervi x. It is not a diagn ostic proce dure and shoul d not be used as the sole means of detec ting cervi olu cance r. Both false -posi tive and false -nega tive repor ts do occur . Not Available [facility] ([facility]) [address] [facility], [place], [address], 07/03/2022 11:08:10 06/29/19 23 07/03/2022 IGP, RFX APTIM A HPV ASCU test methodology: Commen t This liqui d based ThinP rep(R ) pap test was scree augie with the use of an image guide d syste m. Not Available [facility] ([facility]) [address] [facility], [place], [address], 07/03/2022 11:08:10 06/29/19 23 07/03/2022 IGP, RFX APTIM A HPV ASCU . Commen t The HPV DNA refle x crite pat were not met with this speci men resul t there fore, no HPV testi ng was perfo rmed. Not Available [facility] ([facility]) [address] [facility], [place], [address], 07/03/2022 11:08:10 09/03/19 23 09/02/2022 pregn howie test, urine HCG negati ve Not Available In-Office Order Internal Use Only DO Not Attach Compendium DO Not Attach Compendium, Do Not Delete/merge, [id number] 09/02/2022 11:16:39 12/04/19 25 12/05/2024 IGP, RFX APTIM A HPV ASCU diagnosis: COMMEN T NEGAT ORION FOR INTRA EPITH ELIAL LESIO N OR BRANEDN DUOGLASS . Not Available [facility] ([facility]) [address] [facility], [place], [address], 12/06/2024 07:32:19 12/04/19 25 12/05/2024 IGP, RFX APTIM A HPV ASCU specimen adequacy: COMMEN T Satis facto ry for evalu ation . Endoc ervic al and/o r squam ous metap lasti c cells (endo cervi olu compo nent) are prese nt. Not Available [facility] ([facility]) [address] [place], [address], 12/06/2024 07:32:19 12/04/19 25 12/05/2024 IGP, RFX APTIM A HPV ASCU clinician provided ICD10: THERESA Callahan Z01.4 19 Not Available [facility] ([facility]) [address] [place], [address], 12/06/2024 07:32:19 12/04/19 25 12/05/2024 IGP, RFX APTIM A HPV ASCU performed by: THERESA Rivera , Cytol ogist (ASCP ) Not Available [facility] ([facility]) [address] [place], [address], 12/06/2024 07:32:19 12/04/19 25 12/05/2024 IGP, RFX APTIM A HPV ASCU . . Not Available [facility] ([facility]) [address] [place], [address], 12/06/2024 07:32:19 12/04/19 25 12/05/2024 IGP, RFX APTIM A HPV ASCU note: THERESA Callahan The Pap smear is a scree rodolfo test desig augie to aid in the detec tion of christi ligna nt and malig nant condi tions of the uteri ne cervi x. It is not a diagn ostic proce dure and shoul d not be used as the sole means of detec ting cervi olu cance r. Both false -posi tive and false -nega tive repor ts do occur . Not Available [facility] ([facility]) [address] [place], [address], 12/06/2024 07:32:19 12/04/19 25 12/05/2024 IGP, RFX APTIM A HPV ASCU test methodology: COMMEN T This liqui d based ThinP rep(R ) pap test was charly ghosh with the use of an image guide bernard montes Not Available [facility] ([facility]) [address] [facility], [place], [address], 12/06/2024 07:32:19 12/04/19 25 12/05/2024 IGP, RFX APTIM A HPV ASCU . COMMEN T The HPV DNA refle x crite pat were not met with this speci men resul t there fore, no HPV testi ng was perfo rmed. Not Available [facility] ([facility]) [address] [facility], [place], [address], 12/06/2024 07:32:19 Result Notes None recorded. Problems Name Problem SNOMED Code Status Onset Date Resolution Date Notes Provider Name and Address Organization Details Recorded Time No current problems or disability 791454735 Active Linda chakraborty [place], [place] - [facility] 7 16:31:59 Renal pain 052272209 Completed Alexa Mcgill [place], [place] - [facility] 7 12:32:11 Asthma 047358177 Completed Alexa Bendorf [place] [facility] 7 12:32:11 Disorder of thyroid gland 15527298 Completed Alexa Bendjarrett [place], [place] [facility] 7 12:32:11 Hypercholes terolemia 85630984 Completed Alexa Bendjarrett [place] [facility] 7 12:32:11 60951985 Completed 201508/23/2016 Rut Cordova RN [place], [place] [facility] 7 10:06:43 Problem Notes None recorded. Procedures Surgical History Date Name Laterality Status Provider Name and Address Organization Details Recorded Time Date of Last Pap Smear completed Rut Cordova RN [place] [facility] 12/06/2024 10:40:50 7 Suture/Staple removal completed Graciela Valentine MD Attn: Accounting,[address] [facility], [place], [address], [facility] 08/26/2016 14:40:21 7 Caesarean Section completed Linda Carmichael MA [facility] 08/23/2016 16:15:17 Imaging Results None recorded. Procedure Notes None recorded. Medical Equipment None Reported. Allergies Allergen ID Allergen Name Allergen Category Reaction Reaction Severity Criticality Documentation Date Start Date Code Code System Note Provider Name and Address Organization Details Recorded Time 299082 Haldol medicatio n other Not available Not available 04/17/2019 [id number] 9 RxNorm make s me grind my teeth Rut Cordova RN [facility], [facility] 0 10:11:37 63928 Substance with sulfonami de structure and antibacte rial mechanism of action (substanc e) medicatio n hives severe Not available 12/30/2015 [id number] SNOMED Annabella Soliz MA [facility], [facility] 6 15:01:46 Medications Name Sig Start Date Stop Date Status Note LastModified by Organization Details LastModified Time cyclobenzap rine 10 mg tablet TAKE 1 TABLET BY MOUTH NIGHTLY NEEDED FOR MUSCLE SPASMS active Not Available Not Available No t Available promethazin e-DM 6.25 mg-15 mg/5 mL oral syrup TAKE 5 ML BY MOUTH EVERY 4 TO 6 HOURS NEEDED FOR COUGH 06/28 completed Not Available Not Available Not Available neomycin-po lymyxin-hyd rocort 3.5 mg/mL-10,00 0 unit/mL-1 % ear solution 06/28 completed Not Available Not Available Not Available venlafaxine ER 37.5 mg capsule,ext ended release 24 hr TAKE 1 CAPSULE BY MOUTH ONCE DAILY FOR 30 DAYS 06/28 completed Not Available Not Available Not Available venlafaxine ER 75 mg capsule,ext ended release 24 hr TAKE 1 CAPSULE BY MOUTH ONCE DAILY IN THE MORNING 06/28 completed Not Available Not Available Not Available doxycycline hyclate 100 mg capsule TAKE 1 CAPSULE BY MOUTH TWICE DAILY FOR 10 DAYS 06/28 completed Not Available Not Available Not Available tizanidine 2 mg tablet TAKE 1 TABLET BY MOUTH EVERY 8 HOURS NEEDED FOR MUSCLE SPASM active Not Available Not Available No t Available citalopram 40 mg tablet TAKE 1 TABLET BY MOUTH ONCE DAILY active Not Available Not Available No t Available oxybutynin chloride ER 10 mg tablet,exte nded release 24 hr TAKE 1 TABLET BY MOUTH ONCE DAILY active Not Available Not Available No t Available azithromyci n 250 mg tablet TAKE 2 TABLETS BY MOUTH ON DAY 1, AND THEN TAKE 1 TABLET BY MOUTH ONCE A DAY ON DAY 2 THROUGH DAY 5 active Not Available Not Available No t Available ibuprofen 800 mg tablet TAKE ONE TABLET BY MOUTH EVERY 8 HOURS NEEDED FOR PAIN 06/28 completed Not Available Not Available Not Available ofloxacin 0.3 % eye drops INSTILL 10 DROPS INTO LEFT EAR ONCE DAILY FOR 7 DAYS 06/28 completed Not Available Not Available Not Available fluconazole 150 mg tablet TAKE 1 TABLET BY MOUTH ONCE DAILY FOR 1 DAY active Not Available Not Available No t Available sumatriptan 100 mg tablet 06/28 completed Not Available Not Available Not Available hydrocodone 5 mg-acetamin ophen 325 mg tablet TAKE 1 TO 2 TABLETS BY MOUTH EVERY 6 HOURS NEEDED FOR PAIN 06/28 completed Not Available Not Available Not Available senna 8.6 mg tablet TAKE 1 TABLET BY MOUTH ONCE DAILY active Not Available Not Available No t Available fluconazole 200 mg tablet TAKE 1 TABLET BY MOUTH ONCE DAILY FOR 14 DAYS 03/04 completed Not Available Not Available Not Available phenazopyri dine 200 mg tablet 06/28 completed Not Available Not Available Not Available sumatriptan 25 mg tablet 06/28 completed Not Available Not Available Not Available metronidazo le 0.75 % (37.5 mg/5 gram) vaginal gel 06/28 completed Not Available Not Available Not Available lisinopril 20 mg tablet TAKE 1 TABLET BY MOUTH ONCE DAILY active Not Available Not Available No t Available ondansetron HCl 4 mg tablet 06/28 completed Not Available Not Available Not Available famotidine 40 mg tablet TAKE 1 TABLET BY MOUTH NIGHTLY active Not Available Not Available No t Available prednisone 20 mg tablet TAKE 1 TABLET BY MOUTH TWICE DAILY FOR 5 DAYS active Not Available Not Available No t Available rizatriptan 10 mg tablet TAKE 1 TAB BY MOUTH ONCE NEEDED FOR HEADACHES FOR UP TO 1 DOSE. MAY REPEAT IN 2 HOURS IF NEEDED 06/28 completed Not Available Not Available Not Available Doc-Q-Lace 100 mg capsule Take 1 capsule every day by oral route for 30 days. 06/28 completed Not Available Not Available Not Available metronidazo le 500 mg tablet Take 1 tablet twice a day by oral route for 7 days. 06/28 completed Not Available Not Available Not Available acetaminoph en 300 mg-codeine 30 mg tablet TAKE 1 TO 2 TABLETS BY MOUTH EVERY 4 TO 6 HOURS FOR PAIN 06/28 completed Not Available Not Available Not Available ciprofloxac in 500 mg tablet TAKE ONE TABLET BY MOUTH TWICE DAILY X 3 DAYS 03/04 completed Not Available Not Available Not Available tramadol 50 mg tablet 06/28 completed Not Available Not Available Not Available guaifenesin 100 mg/5 mL oral liquid TAKE 10 ML BY MOUTH EVERY 4 HOURS NEEDED FOR CONGESTIO N active Not Available Not Available No t Available levothyroxi ne 25 mcg tablet TAKE 1 TABLET BY MOUTH ONCE DAILY active Not Available Not Available No t Available ketorolac 10 mg tablet TAKE 1 TABLET BY MOUTH EVERY 6 HOURS NEEDED FOR PAIN 06/28 completed Not Available Not Available Not Available terconazole 80 mg vaginal suppository INSERT 1 SUPPOSITO RY VAGINALLY ONCE DAILY FOR 3 DAYS active Not Available Not Available No t Available oxycodone-a cetaminophe n 5 mg-325 mg tablet 06/25 completed Not Available Not Available Not Available amoxicillin 875 mg tablet 06/25 completed Not Available Not Available Not Available citalopram 20 mg tablet 06/25 completed Not Available Not Available Not Available famotidine 20 mg tablet TAKE 1 TABLET BY MOUTH TWICE DAILY active Not Available Not Available No t Available methocarbam ol 750 mg tablet 06/28 completed Not Available Not Available Not Available ciprofloxac in 0.3 % eye drops INSTILL 7 DROPS INTO EACH EAR, NOT EYE, TWICE DAILY FOR 10 DAYS 06/28 completed Not Available Not Available Not Available amitriptyli ne 10 mg tablet 04/28 completed Not Available Not Available Not Available Proctozone- HC 2.5 % topical cream perineal applicator 06/28 completed Not Available Not Available Not Available meclizine 25 mg tablet 06/28 completed Not Available Not Available Not Available carbamazepi ne ER 200 mg tablet,exte nded release,12 hr TAKE 1 TABLET BY MOUTH TWICE DAILY 06/28 completed Not Available Not Available Not Available benzonatate 100 mg capsule TAKE 1 CAPSULE BY MOUTH THREE TIMES DAILY FOR UP TO 10 DAYS NEEDED FOR COUGH active Not Available Not Available No t Available hydrocodone 7.5 mg-acetamin ophen 325 mg tablet 06/28 completed Not Available Not Available Not Available cephalexin 500 mg capsule TAKE 1 CAPSULE BY MOUTH TWICE DAILY FOR 10 DAYS 06/28 completed Not Available Not Available Not Available pantoprazol e 40 mg tablet,radha yed release TAKE 1 TABLET BY MOUTH ONCE DAILY active Not Available Not Available No t Available simvastatin 20 mg tablet TAKE 1 TABLET BY MOUTH ONCE DAILY IN THE EVENING active Not Available Not Available No t Available triamcinolo ne acetonide 0.1 % topical ointment 06/28 completed Not Available Not Available Not Available nystatin 100,000 unit/gram topical cream APPLY TOPICALLY TO LEFT BREAST THREE TIMES DAILY FOR 14 DAYS active Not Available Not Available No t Available lisinopril 10 mg tablet TAKE 1 TABLET BY MOUTH ONCE DAILY -TO TAKE WITH 20 MG TO MAKE 30 MG DAILY active Not Available Not Available No t Available propranolol ER 80 mg capsule,24 hr,extended release 06/28 completed Not Available Not Available Not Available polymyxin B sulfate 10,000 unit-trimet hoprim 1 mg/mL eye drops 06/28 completed Not Available Not Available Not Available omeprazole 20 mg capsule,del ayed release TAKE 1 TO 2 CAPSULES BY MOUTH ONCE DAILY active Not Available Not Available No t Available montelukast 10 mg tablet TAKE 1 TABLET BY MOUTH ONCE DAILY IN THE EVENING active Not Available Not Available No t Available nystatin 100,000 unit/gram topical powder APPLY 3 TIMES DAILY TO AFFECTED AREA DIRECTED FOR 14 DAYS active Not Available Not Available No t Available azelastine 137 mcg (0.1 %) nasal spray USE 2 SPRAY(S) IN EACH NOSTRIL TWICE DAILY DIRECTED active Not Available Not Available No t Available ibuprofen 600 mg tablet 06/28 completed Not Available Not Available Not Available levofloxaci n 750 mg tablet TAKE 1 TABLET BY MOUTH DAILY FOR 4 DAYS FOR PNEUMONIA active Not Available Not Available No t Available methylpredn isolone 4 mg tablets in a dose pack TAKE 6 TABS BY MOUTH ON DAY 1, 5 TABS ON DAY 2, 4 TABS ON DAY 3, 3 TABS ON DAY 4, 2 TABS ON DAY 5 AND 1 TAB ON DAY 6 DIRECTED 06/28 completed Not Available Not Available Not Available albuterol sulfate HFA 90 mcg/actuati on aerosol inhaler 06/28 completed Not Available Not Available Not Available ondansetron 4 mg disintegrat ing tablet TAKE 1 TABLET BY MOUTH EVERY 6 HOURS NEEDED FOR NAUSEA active Not Available Not Available No t Available fluticasone propionate 50 mcg/actuati on nasal spray,suspe nsion USE 2 SPRAY(S) IN EACH NOSTRIL ONCE DAILY FOR 14 DAYS active Not Available Not Available No t Available doxycycline hyclate 100 mg tablet 06/25 completed Not Available Not Available Not Available naproxen 500 mg tablet TK 1 T PO BID PRF MODERATE OR MORE SEVERE PAIN 06/28 completed Not Available Not Available Not Available metoclopram lyn 10 mg tablet 06/28 completed Not Available Not Available Not Available amoxicillin 875 mg-potassiu m clavulanate 125 mg tablet TAKE 1 TABLET BY MOUTH TWICE DAILY FOR 7 DAYS active Not Available Not Available No t Available amoxicillin 500 mg-potassiu m clavulanate 125 mg tablet 06/25 completed Not Available Not Available Not Available hydroxyzine pamoate 25 mg capsule TAKE 1 CAPSULE BY MOUTH THREE TIMES DAILY NEEDED FOR ANXIETY active Not Available Not Available No t Available neomycin 3.5 mg/g-polymy bianca B 10,000 unit/g-dexa meth 0.1 % eye oint APPLY A SMALL AMOUNT OF OINTMENT UNDER UPPER LID OF LEFT EYE THREE TIMES DAILY FOR 7 DAYS 06/28 completed Not Available Not Available Not Available neomycin-po lymyxin-hyd rocort 3.5 mg-10,000 unit/mL-1 % ear drops,susp 06/28 completed Not Available Not Available Not Available clindamycin 1 % lotion APPLY TOPICALLY TWICE DAILY TO ARMPITS GROIN AND UNDER BREASTS TO PREVENT TREAT BOILS 06/28 completed Not Available Not Available Not Available cyclobenzap rine 5 mg tablet 06/28 completed Not Available Not Available Not Available ciprofloxac in 0.3 %-dexametha sone 0.1 % ear drops,suspe nsion INSTILL 4 DROPS INTO AFFECTED EAR(S) EVERY 12 HOURS FOR 7 DAYS 06/28 completed Not Available Not Available Not Available June FE 04/08 (28) 1 mg-20 mcg (21)/75 mg (7) tablet Take 1 tablet by mouth once daily 06/25 completed Not Available Not Available Not Available nitrofurant oin monohydrate /macrocryst als 100 mg capsule TAKE 1 CAPSULE BY MOUTH TWICE DAILY FOR 7 DAYS 06/28 completed Not Available Not Available Not Available fenofibrate nanocrystal lized 145 mg tablet TAKE 1 TABLET BY MOUTH ONCE DAILY active Not Available Not Available No t Available Jencycla 0.35 mg tablet 03/04 completed Not Available Not Available Not Available Minh 24 Fe 1 mg-20 mcg (24)/75 mg (4) tablet TAKE 1 TABLET BY MOUTH ONCE DAILY-SKI PPING THE LAST WEEK OF TABLETS. CALL OFFICE FOR OVERDUE APPOINTME NT. active Not Available Not Available No t Available Aimovig Autoinjecto r 70 mg/mL subcutaneou s auto-inject or INJECT 70MG (1 PEN) SUBCUTANE OUSLY ONCE EVERY 28 DAYS 06/28 completed Not Available Not Available Not Available Aimovig Autoinjecto r 140 mg/mL subcutaneou s auto-inject or INJECT 1 ML SUBCUTANE OUSLY ONCE EVERY 30 DAYS active Not Available Not Available No t Available COVID-19 test specimen collection DIRECTED 06/28 completed Not Available Not Available Not Available Qulipta 30 mg tablet TAKE 1 TABLET BY MOUTH NIGHTLY FOR MIGRAINE HEADACHE active Not Available Not Available No t Available Vitals Date Recorded Body height Body mass index (BMI) Body weight Systolic And Diastolic Provider Name and Address Organization Details Last Updated DateTime 06/28/2022 165.1 cm 44.6 kg/m2 033146.04 g 121/82 mm[Hg] Anali Leal [place] - [facility] 06/28/2022 14:46:40 Date Recorded Body height Body mass index (BMI) Body weight Systolic And Diastolic Provider Name and Address Organization Details Last Updated DateTime 09/02/2022 165.1 cm 45.3 kg/m2 825240.41 g 112/78 mm[Hg] Anali Leal [place] [facility] 09/02/2022 10:43:49 Date Recorded Body height Body mass index (BMI) Body weight Systolic And Diastolic Provider Name and Address Organization Details Last Updated DateTime 12/03/2024 165.1 cm 46.4 kg/m2 104030.7 g 132/84 mm[Hg] Anali Leal [facility] 12/03/2024 10:48:18 Date Recorded Body height Body mass index (BMI) Body weight Systolic And Diastolic Provider Name and Address Organization Details Last Updated DateTime 12/09/2022 165.1 cm 46.3 kg/m2 675565.82 g 116/72 mm[Hg] Anali Leal [facility] 12/09/2022 11:21:07 Date Recorded Body weight Systolic And Diastolic Provider Name and Address Organization Details Last Updated DateTime 03/04/2021 281819.56 g 144/96 mm[Hg] Anali Leal [facility] 03/04/2021 14:29:06 Social History Question Answer Notes LastModified by Organizat ion Details LastModified Time Tobacco Smoking Status Never Smoker Annabella Soliz MA [facility], [facility] 12/30/2015 15:00:30 In The 14 Days Before Symptom Onset, Have You Had Close Contact With A Laboratory-confirm ed COVID-19 While That Case Was Ill? No Information n ot available 10/08/2020 In The 14 Days Before Symptom Onset, Have You Had Close Contact With A Person Who Is Under Investigation For COVID-19 While That Person Was Ill? No Information not available 10/08/2020 Have You Been To An Area Known To Be High Risk For COVID-19? No Information not available 10/08/2020 What Was The Date Of Your Most Recent Tobacco Screening? 12/03/2024 Information not available 12/03/2024 Has Tobacco Cessation Counseling Been Provided? No Information not available 10/08/2020 Sex: Female Functional Status Question Answer Note LastModified by Organization D etails LastModified Time Do you or have you ever used any other forms of tobacco or nicotine? No Information not available 10/08/2020 Mental Status None recorded. Family History Relationship Description Onset Age of this Age Resolved Age Notes LastModified by Organization Details LastModified Time Father No current problems or disability [email or web address] Not available 10/08 15:46:27 Mother No current problems or disability [email or web address] Not available 10/08 15:46:27 Medical History No medical history recorded. Gynecological History Statement/Question Response Abnormal Pap N Flow Moderate Date of LMP 09/27/2015 On BCP's at Conception? Y STIs/STDs N HPV Vaccine N Current Control Method None Frequency of Cycle (Q days) 8 Sexually Active? Y Menses Monthly Y Date of Last Pap Smear 12/03/2024 Sexual Problems? N LMP Unknown Obstetrics History GPAL:G 1 P 1 0 0 1 Type Value Full Term 1 Living 1 Total 1 Immunizations Vaccine Type Date Status Note Provider Nam e and Address Organization Details Recorded Time COVID-19, mRNA, LNP-S, PF, 100 mcg/0.5mL dose or 50 mcg/0.25mL dose 1 completed Anali Leal RMA [place], [place] [facility] 06/28/2022 14:38:14 COVID-19, mRNA, LNP-S, PF, 100 mcg/0.5mL dose or 50 mcg/0.25mL dose 1 completed Anali Leal RMA [place], [place] [facility] 06/28/2022 14:38:14 COVID-19, mRNA, LNP-S, PF, 100 mcg/0.5mL dose or 50 mcg/0.25mL dose 1 completed Anali Leal RMA [place], [place] [facility] 06/28/2022 14:38:14 Influenza, split virus, trivalent, preservative 4 completed Anali Leal [place] [facility] 06/28/2022 14:38:14 Td (adult), 2 Lf tetanus toxoid, preservative free, adsorbed 3 completed [place] [facility] 06/28/2022 14:38:14 Influenza, split virus, quadrivalent, PF 6 completed [place] [facility] 06/28/2022 14:38:14 Influenza, split virus, quadrivalent, PF 9 completed Anali Mel, [place] [facility] 06/28/2022 14:38:14 Influenza, split virus, quadrivalent, PF 1 completed Anali Mel, [place] [facility] 06/28/2022 14:38:14 Influenza, split virus, quadrivalent, PF 8 completed Anali Mel, [place] [facility] 06/28/2022 14:38:14 Influenza, split virus, quadrivalent, PF 0 completed Anali Mel, [place] [facility] 06/28/2022 14:38:14 Influenza, split virus, quadrivalent, PF 7 completed Anali Saldanace, [place] [facility] 06/28/2022 14:38:14 Influenza, split virus, quadrivalent, PF 2 completed Anali Leal, [place] [facility] 06/28/2022 14:38:14 Tdap 7 completed Not Available [facility] 04/06/2019 02:44:48 Influenza, split virus, quadrivalent, PF 3 completed Not Available [facility] 12/03/2024 10:39:52 COVID-19, mRNA, LNP-S, PF, 50 mcg/0.5 mL 4 completed Not Available [facility] 12/03/2024 10:39:52 Influenza, split virus, trivalent, PF 4 completed Not Available [facility] 12/03/2024 10:39:52 Pneumococcal conjugate PCV20, polysaccharide [id number] conjugate, adjuvant, PF 5 completed Not Available [facility] 12/03/2024 10:39:52 Past Encounters Encounter ID Performer Location Encounter Start Date Encounter Closed Date Diagnosis/Indication Diagnosis SNOMED-CT Code Diagnosis ICD10 Code Diagnosis IMO Codes Diagnosis Note [id number] BOB Mitchell-MIGDALIA [facility] ([place] [facility]) [address] [facility] [address] [address] [place] [address] 01/19/2016 15:15:21 01/19/2016 16:28:08 Normal 48253557 Z34.90 Gynecologi c examination 28882682 Z01.997 [id number] Parul Lei [facility] Yrn More[place] ([facility] 122) [address] [facility] [place] [address] 02/16/2016 15:25:40 02/16/2016 16:36:23 Normal [id number] Z34.90 Hyperemesi s gravidarum 20291533 O21.0 [id number] [facility] ([facility] 122) [address] [facility] [place] [address] 03/08/2016 09:42:22 03/08/2016 15:03:58 Normal [id number] Z34.90 [id number] Parul Lei [facility] Ynr More[place] ([facility] 122) [address] [facility] [place] [address] 04/05/2016 14:00:58 04/05/2016 15:20:11 Normal [id number] Z34.90 [id number] [facility] ([facility] 122) [address] [facility] [place] [address] 05/03/2016 13:50:16 05/16/2016 13:49:22 Normal [id number] Z34.90 [id number] MD Yrn Lazo ([place] [address]) [address] [facility] [place] [address] 05/31/2016 13:51:01 06/01/2016 10:16:25 Normal [id number] Z34.83 [id number] MD Yrn Lazo ([place] [address]) [address] [facility] [place] [address] 06/21/2016 13:31:15 06/21/2016 14:32:10 Normal [id number] Z34.83 [id number] MD Yrn Lazo ([place] [address]) [address] [facility] [place] [address] 07/05/2016 15:40:58 07/06/2016 09:51:19 Administration of diphtheria, pertussis, and tetanus vaccine 910121160 Z23 Normal [id number] Z34.83 [id number] MD Yrn Lazo ([place] [address]) [address] [facility] [place] [address] 07/19/2016 10:52:07 07/19/2016 15:10:07 Normal [id number] Z34.83 [id number] MD Yrn Lazo ([place] [address]) [address] [facility] [place] [address] 07/26/2016 10:49:59 07/26/2016 14:16:14 Normal [id number] Z34.83 [id number] MD Yrn Lazo ([place] [address]) [address] [facility] [place] [address] 08/02/2016 11:24:27 08/02/2016 14:17:08 Normal [id number] Z34.83 [id number] MD Yrn Lazo ([place] [address]) [address] [facility] [place] [address] 08/09/2016 10:27:24 08/09/2016 16:00:32 Normal [id number] Z34.83 [id number] MD Yrn Lazo ([place] [address]) [address] [facility] [place] [address] 08/16/2016 09:47:28 08/16/2016 14:14:07 [id number] Z33.1 High head at term 309101 000 O32.4XX9 [id number] MD Yrn Lazo ([place] [address]) [address] [facility] [place] [address] 08/23/2016 13:50:40 08/26/2016 15:21:14 Removal of drew 94296920 Z48.02 [id number] MD Yrn Lazo ([place] [address]) [address] [facility] [place] [address] 09/05/2016 16:30:29 09/13/2016 17:11:01 depression [id number] O99.511 [id number] MD Yrn Lazo ([place] [address]) [address] [facility] [place] [address] 10/03/2016 14:28:57 10/03/2016 16:00:07 care [id number] Z39.2 [id number] MD Yrn Lazo 14 OB [address] [facility] [place] [address] 10/05/2017 13:39:07 10/09/2017 17:30:41 Gynecologic examination 72339283 Z01.419 Obesity 744655107 E66.9 [id number] MD Yrn Lazo 14 OB [address] [facility] [place] [address] 11/15/2018 10:01:07 11/16/2018 09:40:07 Gynecologic examination 79830118 Z01.419 Contracept ion care management 072760277 Z30.9 [id number] MD Yrn Lazo 14 OB [address] [facility] [place] [address] 11/18/2019 11:16:11 11/19/2019 12:08:13 Gynecologic examination 38818125 Z01.419 Contracept ion care management 036442906 Z30.9 [id number] MD Yrn Lazo 14 OB [address] [facility] [place] [address] 06/25/2020 10:19:24 06/26/2020 07:43:14 Vaginal irritation 110099193 N89.8 [id number] MD Yrn Lazo [address] [place] [address] [place] [address] 10/08/2020 15:44:26 10/09/2020 07:51:38 Vaginal discharge 712454464 N89.8 [id number] MD Yrn Lazo [address] [place] [address] [place] [address] 03/04/2021 14:16:19 03/05/2021 00:23:48 Pain in pelvis 53141373 R10.2 Contracept ion care management 848936434 Z30.9 [id number] MD Yrn Lazo [address] [place] [address] [place] [address] 06/28/2022 14:27:39 06/30/2022 10:51:54 Contraception care management 840692760 Z30.9 Positive s creening for depression on PHQ-9 (Patient Health Questionnaire 9) 8204550237 42329 Z13.31 Gynecologi c examination 57801326 Z01.553 [id number] MD Yrn Lazo 14 OB [address] [facility] [place] [address] 09/02/2022 10:27:29 09/16/2022 14:49:35 Positive screening for depression on PHQ-9 (Patient Health Questionnaire 9) 2822347688 51043 Z13.31 Amenorrhea 46837920 N91. 2 Morbid obesity 565136667 E66.01 [id number] MD Yrn Lazo 14 OB [address] [facility] [place] [address] 12/09/2022 11:01:22 12/12/2022 11:59:17 Positive screening for depression on PHQ-9 (Patient Health Questionnaire 9) 3967945349 73017 Z13.31 Vaginal irritation 52059 6004 N89.8 [id number] MD Yrn Lazo 14 OB [address] [facility] [place] [address] 12/03/2024 10:24:03 12/04/2024 11:12:34 Depression screening positive 4247228575 51621 Z13.31 [id number] Obese class III 26683901 5 E66.813 E66.3 [id number] Gynecologi c examination 94238898 Z01.440 [id number] Health Concerns Section Related Observation LastModified by Organization Detai ls LastModified Time None Recorded Concern Status LastModified by Organization Details LastModified Time None Recorded Advance Directives Directive None Recorded Payers Insurance Date Sequence Insurance Name Policy Number Policy Schultz Covered Member ID Schultz Member ID Guarantor Name 11/28/2024 1 [place] [employer] [place] [employer] Nina Addy [id number] Nina Daly 12/03/2024 1 [facility] (MEDICAID HMO) [id number] Nina Daly [id number] Nina Daly Notes Date Note Type Note Provider Name and Address Organization Details Recorded Time text/html discussed recent occurrences regarding rt leg pain and the remote possibility that it could be related to 'osis. No t really cyclic or always with period, and she has already been on OCPs for some time. Graciela Valentine MD Attn: Accounting,[address] [place], [address], [facility] 03/04/2021 14:45:36 3 text/html Annual GYNReported by PatientGenitourinary symptomsFor urinary symptoms, patient reportsno hematuriaandno incontinence. For vulva, patient reportsno genital lesion. For vagina, patient reportsnormal vaginal discharge.Breast symptomsFor breast, patient reportsno breast pain,no breast lump, andno nipple discharge.ContraceptionFo r current contraception, patient reportsoral contraceptives.Endocrine symptomsFor sexual complaints, patient reportsno sexual complaints,no pain during intercourse, andnormal libido. For menopausal symptoms, patient reportsno menopausal symptomsandnormal vaginal lubrication.Psychological symptomsFor psychological symptoms, patient reportsno depression,no anxiety, andno pmdd.ROS as noted in the HPI On continuous pills a little over a year now. No real cyclic periods, just occ. spotting Graciela Valentine MD Attn: Accounting[address] [place], [address], [facility] 06/28/2022 14:58:30 3 text/html takes continuopus OCPs has vasectomy, but she is polyamorous ; bhcg is (-) today discussed pros and cons of BTL vs OCP usage Graciela Valentine MD Attn: Accounting,[address] [place], [address], 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 ) Graciela Valentine MD Attn: Accounting,[address] [place], [address], [facility] 12/09/2022 11:40:14 5 text/html Annual GYNReported by PatientGenitourinary symptomsFor urinary symptoms, patient reportsno hematuriaandno incontinence. For vulva, patient reportsno genital lesion. For vagina, patient reportsnormal vaginal discharge.Breast symptomsFor breast, patient reportsno breast pain,no breast lump, andno nipple discharge.ContraceptionFo r current contraception, patient reportsoral contraceptives.Endocrine symptomsFor sexual complaints, patient reportsno sexual complaints,no pain during intercourse, andnormal libido. For menopausal symptoms, patient reportsno menopausal symptomsandnormal vaginal lubrication.Psychological symptomsFor psychological symptoms, patient reportsno depression,no anxiety, andno pmdd.ROS as noted in the HPI hospitalized with pneumonia once in last two years off of continuous OCPs about a month now. Had achieved amenorrhea, but is electing to stay off for now to see how it goes Graciela Valentine MD Attn: Accounting,[address] [facility], [place], [address], 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 @ [facility] ED Fetus Data First Name Last Name Admitted to NICU Weight (g) Sex Living Outcome Pediatric Complications Fetus ID Race Codes Race Delivery Type Miriam Gonzalez s false [id number] [phone] F true Full Term [id number] White Problems Problem Notes Problem Name Start Date End Date Resolution Snomed Code Not e Renal pain [id number] Asthma 905385975 Disorder of thyroid gland 1430 4000 Hypercholesterolemia 03815388 Vinny Calculation Initial Vinny Date Initial Exam Date Initial Exam Provider Initial Ultrasound Date Last Menstrual Period Date Ultra Sound Weeks Gestation 08/20/2016 12/30/2015 [email or web address] 01/07/2016 11/14/2015 7 Eighteen To Twenty Week Vinny Update Ultra Sound Date Fundal Height At Umbil Quickening Date Ultra Sound Latest Weeks Gestation Final Vinny Confirmed By Final Vinny Confirmed Date Final Vinny Date Ultra Sound Latest Days Gestation 0 [email or web address] 01/19/2016 08/21/19 17 0 Pre- Flowsheet Flowsheet Date 01/19/2016 Baumann Score Blood Edema Fundus Height Fundus Units Glucose Ketones Leukocytes Nitrite Labor Signs Protein Cervic Dilation Cervic Effacement Cervic Station none Type Weight in lbs Pre/Post Dialysis Refused 269.737011489787 BP Diastolic BP Location Tested BP Systolic BP Type 76 118 sitting Fetus Heart Rate Present Fetus Movement Comments New ob here for exam. States a history of kidney stones, feels like she may have one right now. Also a history of asthma, high cholesterol and hypothyroidism. States she quit taking all meds when she found out she was . TSH level drawn today. Will consult M for asthma and renal for possible kidney stone. No other issues at this time. Pap and nuswab done and sent to lab. Will follow up in 4 weeks. Flowsheet Date 02/16/2016 Baumann Score Blood Edema Fundus Height Fundus Units Glucose Ketones Leukocytes Nitrite Labor Signs Protein Cervic Dilation Cervic Effacement Cervic Station none Backpain Type Weight in lbs Pre/Post Dialysis Refused 269.445353443990 BP Diastolic BP Location Tested BP Systolic BP Type 72 116 sitting Fetus Heart Rate Present Fetus Movement Comments Patient here for 4 week che k up. Had some questions about occasional constipation. Recommended increased water intake, occasional use of Colace, prunes and prune juice. Also has some sciatic and lower back pain. Recommended stretching and walking frequently. Pt states she has a history of a right hip injury when she was a kid. Nausea has been bad recently. Rx for Zofran sent to pharmacy. Seen urologist and all is well. Has not seen high risk doctor as of yet. Will follow up in 4 weeks. Flowsheet Date 03/08/2016 Baumann Score Blood Edema Fundus Height Fundus Units Glucose Ketones Leukocytes Nitrite Labor Signs Protein Cervic Dilation Cervic Effacement Cervic Station none Type Weight in lbs Pre/Post Dialysis Refused 268.659701686624 BP Diastolic BP Location Tested BP Systolic BP Type 70 118 sitting Fetus Heart Rate Present Fetus Movement Comments No complaints at this time, doing well. Went to the ED at [facility] last week due to bending the wrong way and felt like she lost feeling in the left arm from fingers to face. Was told she just pinched a nerve and had a sinus headache. Treated and released, doing better now. AFT labs done today and ultrasound order given. Follow up in 4 weeks or sooner if needed. Flowsheet Date 04/05/2016 Baumann Score Blood Edema Fundus Height Fundus Units Glucose Ketones Leukocytes Nitrite Labor Signs Protein Cervic Dilation Cervic Effacement Cervic Station none none Type Weight in lbs Pre/Post Dialysis Refused 272.490385786750 BP Diastolic BP Location Tested BP Systolic BP Type 70 118 sitting Fetus Heart Rate Present Fetus Movement Comments Patient doing well. No compl aints at this time. Pinched nerve has recovered and has no complaints. Unable to Doppler fht's due to body habitus but could hear baby movement through Doppler. Will follow up in 4 weeks. Flowsheet Date 05/03/2016 Baumann Score Blood Edema Fundus Height Fundus Units Glucose Ketones Leukocytes Nitrite Labor Signs Protein Cervic Dilation Cervic Effacement Cervic Station none 24 cm none Type Weight in lbs Pre/Post Dialysis Refused 276.350724130784 BP Diastolic BP Location Tested BP Systolic BP Type 70 138 sitting Fetus Heart Rate Present A 150 Present Fetus Movement A Yes Comments Patient doing well with no c omplaints. One hour glucose done today. Nephew from terminal illness last week, patient teary eyed but states she is doing well and has a good support group at home. Patient educated on movement and labor. Will follow up in 4 weeks. Flowsheet Date 05/31/2016 Baumann Score Blood Edema Fundus Height Fundus Units Glucose Ketones Leukocytes Nitrite Labor Signs Protein Cervic Dilation Cervic Effacement Cervic Station 26 wks Type Weight in lbs Pre/Post Dialysis Refused 282.725821358877 BP Diastolic BP Location Tested BP Systolic BP Type 66 106 sitting Fetus Heart Rate Present A 145 Present Fetus Movement A Yes Comments Doing well, first after many years of no success Flowsheet Date 06/21/2016 Baumann Score Blood Edema Fundus Height Fundus Units Glucose Ketones Leukocytes Nitrite Labor Signs Protein Cervic Dilation Cervic Effacement Cervic Station 32 cm Type Weight in lbs Pre/Post Dialysis Refused 280.12811405897 BP Diastolic BP Location Tested BP Systolic BP Type 92 112 sitting Fetus Heart Rate Present A 146 Present Fetus Movement A Yes Comments doing well, nervous, eating lots of pizza, then paying for it... Flowsheet Date 07/05/2016 Baumann Score Blood Edema Fundus Height Fundus Units Glucose Ketones Leukocytes Nitrite Labor Signs Protein Cervic Dilation Cervic Effacement Cervic Station 34 Type Weight in lbs Pre/Post Dialysis Refused 283.080864315668 BP Diastolic BP Location Tested BP Systolic BP Type 82 118 sitting Fetus Heart Rate Present A 156 Present Fetus Movement A Yes Comments doing wellgirl per US zone ; GBS and tdap today Flowsheet Date 07/19/2016 Baumann Score Blood Edema Fundus Height Fundus Units Glucose Ketones Leukocytes Nitrite Labor Signs Protein Cervic Dilation Cervic Effacement Cervic Station none 37 cm Type Weight in lbs Pre/Post Dialysis Refused 290.4099725083 BP Diastolic BP Location Tested BP Systolic BP Type 84 132 sitting Fetus Heart Rate Present A 148 Present Fetus Movement A Yes Comments doing ok, cervix check next week Flowsheet Date 07/26/2016 Baumann Score Blood Edema Fundus Height Fundus Units Glucose Ketones Leukocytes Nitrite Labor Signs Protein Cervic Dilation Cervic Effacement Cervic Station 38 cm 0cm 30% -4 Type Weight in lbs Pre/Post Dialysis Refused 289.335706402311 BP Diastolic BP Location Tested BP Systolic BP Type 92 130 sitting Fetus Heart Rate Present A 142 Present Fetus Movement A Yes Comments baby very high, cervix close d, labor discussed Flowsheet Date 08/02/2016 Baumann Score Blood Edema Fundus Height Fundus Units Glucose Ketones Leukocytes Nitrite Labor Signs Protein Cervic Dilation Cervic Effacement Cervic Station 39 cm Type Weight in lbs Pre/Post Dialysis Refused 284.798266048121 BP Diastolic BP Location Tested BP Systolic BP Type 92 122 sitting Fetus Heart Rate Present A 154 Present Fetus Movement A Yes Comments doing well, labor reviewed, lots of pressure Flowsheet Date 08/09/2016 Baumann Score Blood Edema Fundus Height Fundus Units Glucose Ketones Leukocytes Nitrite Labor Signs Protein Cervic Dilation Cervic Effacement Cervic Station 40 cm 0cm 50% -4 Type Weight in lbs Pre/Post Dialysis Refused 287.928240872331 BP Diastolic BP Location Tested BP Systolic BP Type 80 126 sitting Fetus Heart Rate Present A 148 Present Fetus Movement A Yes Comments baby still high, barely in p dimple, labor discussed Flowsheet Date 08/16/2016 Baumann Score Blood Edema Fundus Height Fundus Units Glucose Ketones Leukocytes Nitrite Labor Signs Protein Cervic Dilation Cervic Effacement Cervic Station trace 43 cm Type Weight in lbs Pre/Post Dialysis Refused 291.388576166080 BP Diastolic BP Location Tested BP Systolic BP Type 80 162 Fetus Heart Rate Present A 144 Present Fetus Movement A Yes Comments BP elevated today - will sen d to L&DMay need US for size; narrow pelvis , may be primary c/s Menstrual History Last Menstrual Date Menses Monthly On Bcp Conception Prior Menses Frequency Hcg Plus Date Menarche Onset Age 0811/14/2015 false true 09/27/2015 8 12/30/19 1 6 13 Genetic Screening And Infection History Question Response Note Patient's Age Will Be 35 Years Or Older At Estim ated Date of Delivery false Thalassemia (Romanian, Divehi, Mediterranean, Or Background): MCV < 80 false Neural Tube Defect (Meningomyelocele, Spina Bifi da, Or Anencephaly) false Congenital Heart Defect false Down Syndrome false Abelino-Sachs (eg, Orthodox, Cajun, Sri Lankan-Iranian) f alse Sonja Disease false Sickle Cell Disease Or Trait () false Hemophilia Or Other Blood Disorders false Muscular Dystrophy false Cystic Fibrosis false Raffy's Chorea false Mental Retardation/Autism false If Yes, Was Person Tested For Fragile X? false Other Inherited Genetic Or Chromosomal Disorder false Maternal Metabolic Disorder (eg, Type 1 Diabetes , PKU) false Patient Or Baby's Father Had A Child With Defects Not Listed Above false Recurrent Loss, Or A Stillbirth false Medications (including Suppl ements, Vitamins, Herbs, OTC Drugs), Illicit/Recreational Drugs, Alcohol false If Yes, Agent(s) And Strength/Dosage false Any Other Genetic History false Live With Someone With TB Or Exposed To TB false Patient Or Partner Has History Of Genital Herpes false Rash Or Viral Illness Since Last Menstrual Perio d false History Of STD, Gonorrhea, Chlamydia, HPV, Syphi lis false Other Infection History false Plans and Education First Trimester Discussed Date Discussion Item Discussion Note Discuss ed By 01/19/2016 Anticipated course of care deldredsmit 01/19/2016 Alcohol deldredsmit 01/19/2016 Intimate partner violence de ldredvaughn 01/19/2016 [facility] 01/[facility] 01/19/2016 Nutrition counseling ; special diet; dietary precautions (mercury, listeriosis) deldredsmit 01/19/2016 Childbirth classes/hospital facilities deldredsmit 01/19/2016 HIV and other routine tests deldredsmit 01/19/2016 Risk factors identif ied by history deldredsmit 01/19/2016 Weight gain counseling deldr edsmit 01/19/2016 Exercise deldredsmit 01/19/2016 Teratogens deldredsmit 01/19/2016 Use of any medicatio ns (including supplements, vitamins, herbs, or OTC drugs) deldredsmit 01/19/2016 deldredsmit 01/19/2016 Sexual activity [facility] 01/19/2016 Tobacco/smoking cess ation counseling (ask, advise, assess, assist, and arrange) [facility] 01/19/2016 Illicit/recreational drugs [facility] 01/19/2016 [facility] 01/19/2016 [facility] 01/19/2016 Seat belt use [facility] 01/19/2016 Indications for ultrasonography [facility] 01/19/2016 Avoidance of saunas or hot tubs [facility] 01/19/2016 Toxoplasmosis precautions (cats/raw meat) [facility] Second Trimester Discussed Date Discussion Item Discussion Note Discuss ed By 02/16/2016 [facility]ing a care provider [facility] 02/16/[address] anning/tubal sterilization [facility] 02/16/2016 Depression screening (when indicated) [facility] 02/16/2016 [facility] 02/16/2016 Signs and symptoms of labor [facility] 02/16/2016 Intimate partner violence de ldredvaughn 02/16/2016 Tobacco/smoking cess ation counseling (ask, advise, assess, assist, and arrange) [facility] Third Trimester Discussed Date Discussion Item Discussion Note Discuss ed By Delivery Information Delivery Date Delivery Type Labor Anesthesia Weeks Gestation Incision Type Labor Labor Length Hrs Delivered By Post Complications Tubal Sterilization Discharge Date Comments 7 None [facility] 39.4 Low Transvers e false G. Ishan RAJAN false 08/19/2016 failure to descend; PIH/ Pre eclampsia Discharge Information Feeding Method Contraceptive Method Maternal HG B and HCT Levels Combination
--- OUTSIDE RECORDS SUMMARY | 2025-03-16 17:06 | XMS_ITS | Encounter Summary ---
Author Organization [facility] Address [address] [place] [address] Phone Care Team Providers Care Hydro Plant Operator Name Role Phone Frida Suarez [facility] Primary Care Pro vider Iggy Garnica MD Unavailable [phone] Yasmany Sanchez MD Unavailable Tahira Stewart APRN, SAW SHARPENER Unavailable + [phone] Carrillo Mendez MD Unavailable [phone] Alphonso Robles MD Primary Care Provider [phone] Reason for Visit * Reason Comments Medication Refill Encounter Details Date Type Department Care Team (Late st Contact Info) Description 07/08/2021 Refill [facility] - Internal Medicine - [place] [address] [place] [id number] Frida Suarez, [facility] [address] [place] [address] Medication Refill Social History Tobacco Use Types [...] suspected to have Coronavirus/COVID-19? No / Unsure 07/05/2021 9:54 AM CDT documented as of this encounter Miscellaneous Notes * Telephone Encounter - Lizette Russ RN - 07/09/2021 8:59 AM CDT Medication failed the protocol, provider to review and approve the medication order if appropriate. Requested Prescriptions Pending Prescriptions Disp Refills levothyroxine (SYNTHROID) 25 MCG Tablet [Pharmacy Med Name: Levothyroxine Sodium 25 MCG Oral Tablet] 30 Tablet 0 Sig: Take 1 tablet by mouth once daily Thyroid Hormones Protocol Failed - 07/08/2021 6:21 PM Failed - Normal TSH in past 12 months TSH Date Value Ref Range Status 01/28/2020 2.840 0.270 - 4.200 mIU/L Final Passed - No test in the past 12 months or most recent test was negative Passed - Visit with relevant provider in past 12 months or upcoming 90 days Recent Visits Date Type Provider Dept 07/02/21 Office Visit Frida Suarez, PAC [facility] 06/18/21 Office Visit Frida Suarez, PAC [facility] 05/19/21 Office Visit Frida Suarez, PAC [facility] 04/28/21 Office Visit Frida Suarez, PAC [facility] 04/14/21 Office Visit Frida Suarez, PAC [facility] [place] [facility] 04/06/21 Office Visit Frida Suarez, PAC [facility] [place] [facility] 03/08/21 Office Visit Frdia Suarez, PAC [facility] [place] [facility] 03/04/21 Office Visit Frida Suarez, PAC [facility] 01/27/21 Office Visit Frida Suarez, PAC [facility] [place] [facility] 01/20/21 Office Visit Frida Suarez, PAC [facility] [place] [facility] Showing recent visits within past 365 days [...] - 19 02/11/2024 02/11/2024 02/11/2024 8:33 PM TOOL AND DIE MAKER LEVEL FIVE Respiratory Rule-Out 03/12/2025 03/12/2025 025 9:41 AM TOOL AND DIE MAKER LEVEL FIVE COVID - 19 03/12/2025 03/12/2025 03/12/2025 9:41 AM TOOL AND DIE MAKER LEVEL FIVE Assessment Noted Time PHQ-9 Depression Total Score: 7 04/06/19 3:00 PM TOOL AND DIE MAKER LEVEL FIVE documented as of this encounter Care Teams Hydro Plant Operator Relationship Specialty Start Date End Date ErickFrida lopez PAC PCP - General Physician Acoustical Tile Drill Press Operator 02/25/18 06/26/24 Alphonso Robles MD [address] [place] [address] PCP - General Family Medicine 06/27/24 Iggy Garnica MD [address] [place] [id number] Consulting Physician Neurology 07/05/21 Yasmany Sanchez MD [address] [place] [address] Consulting Physician Pulmonary Disease 10/18/21 Tahira Stewart APRN, SAW SHARPENER [address] [place] [address] Nurse Practitioner Advanced Practice Nurse 10/11/22 Carrillo Mendez MD #[address] [address] Consulting Physician Urology 12/01/23 documented as of this encounter
--- OUTSIDE RECORDS SUMMARY | 2025-03-16 17:06 | XMS_ITS | Encounter Summary ---
Author Organization [facility] Address [address] [place] [address] Phone Care Team Providers Care Table Cut Off Saw Operator Name Role Phone Frida Suarez Primary Care Pro vider Iggy Garnica MD Unavailable [phone] Yasmany Sanchez MD Unavailable Tahira Stewart APRN, [facility] Unavailable + [phone] Carrillo Mendez MD Unavailable [phone] Alphonso Robles MD Primary Care Provider [phone] Reason for Visit * Reason Comments Medication Refill Encounter Details Date Type Department Care Team (Late st Contact Info) Description 04/19/2024 Refill [facility] Access [address] [address] Frida Suarez, [facility] [address] [place] [address] Medication Refill Social History Tobacco Use Types Packs/Day Years Used Date Smoking Tobacco: Never Passive Smoke Exposure: Never Smokeless Tobacco: Never Alcohol Use Standard Drinks/Week Comments No 0 (1 standard drink = 0.6 oz pur e alcohol) [facility] Utilities Answer Date Recorded In the past 12 months has e electric, gas, oil, or water company threatened to shut off services in your home? Patient unable to answer 02/12/2024 Social Connection and Isolation Panel Answer Date Recorded In a typical week, how many times do you talk on the phone with family, friends, or neighbors? Once a week 09/16/19 How often do you get togethe r with friends or relatives? Once a week 09/16/2023 How often do you attend chur ch or synagogue services? Never 09/16/2023 Do you belong to any clubs o r organizations such as restorationist groups, unions, fraternal or athletic groups, or [...] Total Score - Questions 1-9 10 06/19 [facility] [place] Occupat ional Health - Occupational Stress [...] got the money to buy more. Patient unable to answer 02/12/2024 Within the past 12 months, t he food you bought just didn't last and you didn't have money to get more. Patient unable to answer 02/12/2024 PRAPARE - Transportation Answer Date Re corded In the past 12 months, has l ack of transportation kept you from medical appointments or from getting medications? Patient unable to answer 02/12/2024 In the past 12 months, has l ack of transportation kept you from meetings, work, or from getting things needed for daily living? Patient unable to answer 02/12/2024 Housing Stability Vital Sign Answer Brien e [...] place to sleep or slept in a nursing home (including now)? No 07/11/2023 Housing Stability Vital Sign Answer Brien e Recorded In the last 12 months, was t here a time when you were not able to pay the mortgage or rent on time? Patient unable to answer 02/12/2024 In the past 12 months, how m any times have you moved where you were living? 1 02/12/2024 At any time in the past 12 m [facility], were you homeless or living in a nursing home (including now)? Patient unable to answer 02/12/2024 Education Answer Date Recorded What is the [...] house. Behavioral Health On track(2023 8:42 AM COMMUNICATION STUDIES PROFESSOR) No Park Carcamo, [facility] Note: Goal/Objective: Increase ability to cope with depressive and anxious features. Anticipated Time Frame for Goal Completion: 6 months Goal Reviewed with: patient Readiness to change: Thinking about making a change Department associated with goal: [facility] Steps to achieve [...] Onset Date Last Indicated Resolved Time Respiratory Rule-Out 03/12/2025 03/12/2025 025 9:41 AM COMMUNICATION STUDIES PROFESSOR COVID - 19 03/12/2025 03/12/2025 03/12/2025 9:41 AM COMMUNICATION STUDIES PROFESSOR Assessment Noted Time PHQ-9 Depression Total Score: 10 023 8:13 AM CDT documented as of this encounter Care Teams Table Cut Off Saw Operator Relationship Specialty Start Date End Date Frida Suarez PAC PCP - General Physician Lapel Padder 02/25/18 06/26/24 Alphonso Robles MD #[address] [address] PCP - General Family Medicine 06/27/24 Iggy Garnica MD [address] [place] [address] Consulting Physician Neurology 07/05/21 Yasmany Sanchez MD [address] [place] [address] Consulting Physician Pulmonary Disease 10/18/21 Tahira Stewart, COTTONSEED MEAT PRESSER, BICYCLE FITTER [address] [place] [address] Nurse Practitioner Advanced Practice Nurse 10/11/22 Carrillo Mendez MD #[address] [address] Consulting Physician Urology 12/01/23 documented as of this encounter
--- OUTSIDE RECORDS SUMMARY | 2025-03-16 17:06 | XMS_ITS | Encounter Summary ---
Author Organization [facility] Address [address] [place] [address] Phone Care Team Providers Care Plate Mounter Name Role Phone Frida Suarez Primary Care Pro vider Iggy Garnica MD Unavailable [phone] Yasmany Sanchez MD Unavailable Tahira Stewart APRN, [facility] Unavailable + [phone] Carrillo Mendez MD Unavailable [phone] Alphonso Robles MD Primary Care Provider [phone] Reason for Visit * Reason Comments Medication Refill Encounter Details Date Type Department Care Team (Late st Contact Info) Description 06/19/2020 Refill [facility] [address] [place] [address] Frida Suarez, [facility] [address] [place] [address] Medication Refill Social History Tobacco Use Types [...] have Coronavirus / COVID-19? No / Unsure 05/20/2020 11:05 AM SHELLFISH PROCESSING MACHINE TENDER documented as of this encounter Miscellaneous Notes * Telephone Encounter - Carolyn Vicente RN - 06/19/2020 3:28 PM CDT Please review and sign. documented in [...] - 19 02/11/2024 02/11/2024 02/11/2024 8:33 PM SHELLFISH PROCESSING MACHINE TENDER Respiratory Rule-Out 03/12/2025 03/12/2025 025 9:41 AM SHELLFISH PROCESSING MACHINE TENDER COVID - 19 03/12/2025 03/12/2025 03/12/2025 9:41 AM SHELLFISH PROCESSING MACHINE TENDER Assessment Noted Time PHQ-9 Depression Total Score: 7 04/14/19 21 1:40 PM SHELLFISH PROCESSING MACHINE TENDER documented as of this encounter Care Teams Plate Mounter Relationship Specialty Start Date End Date Frida Suarez, PAC PCP - General Physician Nitric Acid Concentrator Operator 02/25/18 06/26/24 Alphonso Robles MD #[address] [address] PCP - General Family Medicine 06/27/24 Iggy Garnica MD [address] [place] [address] Consulting Physician Neurology 07/05/21 Yasmany Sanchez MD [address] [place] [address] Consulting Physician Pulmonary Disease 10/18/21 Tahira Stewart, CANT GANG SAWYER, ASSISTANT CHIEF TRAIN DISPATCHER [address] [place] [address] Nurse Practitioner Advanced Practice Nurse 10/11/22 Carrillo Mendez MD #[address] [address] Consulting Physician Urology 12/01/23 documented as of this encounter
--- OUTSIDE RECORDS SUMMARY | 2025-03-16 17:06 | XMS_ITS | Encounter Summary ---
Author Organization [facility] Healthcare Address [address] [place] [address] Care Team Providers Care Metal Fitters And Machinists Name Role Phone Alphonso Robles MD Primary Care Provider [phone] Encounter Details Date Type Department Care Team (Late st Contact Info) Description 03/07/2025 Results Follow-Up [facility] Medical Group ENT Specialists - [facility] [address] [facility] [address] [place] [id number] Jeri Hernandes DO [address] [place] [address] [address] [place] [address] CT Neck Soft Tissue W Contrast Social History Tobacco Use Types Packs/Day Years [...] on file Legal Sex Female 4:01 AM HEALTH OCCUPATIONS TEACHER Gender Identity Female 05/17/2021 4:02 PM HEALTH OCCUPATIONS TEACHER Sexual Orientation Bisexual 05/17/2021 4: 02 PM HEALTH OCCUPATIONS TEACHER documented as of this encounter Miscellaneous Notes * Telephone Encounter - Jeri Hernandes DO - 03/10/2025 10:49 AM HEALTH OCCUPATIONS TEACHER Please have Dental evaluation Dental Offices [facility] [place] [phone] [facility] [address] [facility] TH OCCUPATIONS TEACHER documented in this encounter Plan of Treatment Not on file documented as of this encounter Visit Diagnoses Not on filedocumented in this encounter Care Teams Metal Fitters And Machinists Relationship Specialty Start Date End Date Alphonso Robles MD [address] [place] [address] PCP - General Family Medicine 02/18/25 documented as of this encounter
--- OUTSIDE RECORDS SUMMARY | 2025-03-16 17:06 | XMS_ITS | Encounter Summary ---
Author Organization [facility] Address [address] [place] [address] Phone Care Team Providers Care Wagon Driver Salesperson Name Role Phone Frida Suarez Primary Care Pro vider Iggy Garnica MD Unavailable [phone] Yasmany Snachez MD Unavailable Tahira Setwart APRN, ACADEMIC ADVISEMENT DIRECTOR Unavailable + [phone] Carrillo Mendez MD Unavailable [phone] Alphonso Robles MD Primary Care Provider Reason for Visit * Reason Comments Medication Refill Encounter Details Date Type Department Care Team (Late st Contact Info) Description 08/12/2021 Refill [facility] Family [facility] [address] [place] [address] Frida Suarez, [facility] [address] [place] [address] Medication Refill Social History Tobacco Use Types [...] suspected to have Coronavirus/COVID-19? Unable to assess 08/02/2021 8:48 AM CDT documented as of this encounter Miscellaneous Notes * Telephone Encounter - Deanna Vargas RN - 08/13/2021 9:44 AM CDT Medication failed the protocol, provider to review and approve the medication order if appropriate. Requested Prescriptions Pending Prescriptions Disp Refills fenofibrate (TRICOR) 145 MG Tablet [Pharmacy Med Name: Fenofibrate 145 MG Oral Tablet] 90 Tablet 0 Sig: Take 1 tablet by mouth once daily Fibrates Protocol Failed - 08/12/2021 4:59 PM Failed - Lipid panel in past [...] 154.4 (H) <130 mg/dL Final Passed - Visit with relevant provider in past 12 months or upcoming 90 days Recent Visits Date Type Provider Dept 08/02/21 Office Visit Frida Suarez, A[facility] [place] 07/02/21 Office Visit Frida Suarez, PAC [facility] 06/18/21 Office Visit Frida Suarez, PAC [facility] 05/19/21 Office Visit Frida Suarez, PAC [facility] 04/28/21 Office Visit Frida Suarez, PAC [facility] 04/14/21 Office Visit Frida Suarez, PAC [facility] 04/06/21 Office Visit Frida Suarez, PAC [facility] 03/08/21 Office Visit Frida Suarez, PAC [facility] 03/04/21 Office Visit Frida Suarez, PAC [facility] 01/27/21 Office Visit Frida Suarez, PAC [facility] Showing recent visits within past 365 days and meeting all other requirements Future Appointments No visits were found meeting these conditions. Showing future appointments within next 90 days and meeting all other requirements montelukast (SINGULAIR) 10 MG Tablet [Pharmacy Med Name: Montelukast Sodium 10 MG Oral Tablet] 90 Tablet 0 Sig: Take 1 tablet by mouth in the evening Leukotriene Inhibitors Protocol Passed - 08/12/2021 4:59 PM Passed - Visit with relevant provider in past 12 months or upcoming 90 days Recent Visits Date Type Provider Dept 08/02/21 Office Visit Frida Suarez, PAC [facility] 07/02/21 Office Visit Frida Suarez, PAC [facility] 06/18/21 Office Visit Frida Suarez, PAC [facility] 05/19/21 Office Visit Frida Suarez, PAC [facility] 04/28/21 Office Visit Frida Suarez, PAC [facility] 04/14/21 Office Visit Frida Suarez, PAC [facility] 04/06/21 Office Visit Frida Suarez, PAC [facility] 03/08/21 Office Visit Frida Suarez, PAC [facility] 03/04/21 Office Visit Frida Suarez, PAC [facility] 01/27/21 Office Visit Frida Suarez, PAC [facility] Showing recent visits within past 365 days [...] - 19 02/11/2024 02/11/2024 02/11/2024 8:33 PM DISTRICT TRAFFIC CHIEF Respiratory Rule-Out 03/12/2025 03/12/2025 025 9:41 AM DISTRICT TRAFFIC CHIEF COVID - 19 03/12/2025 03/12/2025 03/12/2025 9:41 AM DISTRICT TRAFFIC CHIEF Assessment Noted Time PHQ-9 Depression Total Score: 7 04/06/19 22 3:00 PM DISTRICT TRAFFIC CHIEF documented as of this encounter Care Teams Wagon Driver Salesperson Relationship Specialty Start Date End Date Frida SuarezAIME PCP - General Physician Buildings Painter 02/25/18 06/26/24 Alphonso Robles MD #[address] [address] PCP - General Family Medicine 06/27/24 Iggy Garnica MD [address] [place] [address] Consulting Physician Neurology 07/05/21 Yasmany Sanchez MD [address] [place] [address] Consulting Physician Pulmonary Disease 10/18/21 Tahira Stewart, WHOLESALE ACCOUNT EXECUTIVE, ACADEMIC ADVISEMENT DIRECTOR [address] [place] [address] Nurse Practitioner Advanced Practice Nurse 10/11/22 Carrillo Mendez MD #[address] [address] Consulting Physician Urology 12/01/23 documented as of this encounter
--- OUTSIDE RECORDS SUMMARY | 2025-03-16 17:06 | XMS_ITS | Encounter Summary ---
Author Organization [facility] Address [address] [place] [address] Phone Care Team Providers Care Learning Developer Name Role Phone Frida Suarez [facility] Primary Care Pro vider Iggy Garnica MD Unavailable [phone] Yasmany Sanchez MD Unavailable Tahira Stewart APRN, INVOICE CHECKER Unavailable + [phone] Carrillo Mendez MD Unavailable [phone] Alphonso Robles MD Primary Care Provider [phone] Reason for Visit * Reason Comments Medication Refill Encounter Details Date Type Department Care Team (Late st Contact Info) Description 05/07/2021 Refill [facility] - Internal Medicine - [place] [address] [place] [id number] Frida Suarez, [facility] [address] [place] [address] Medication Refill Social History Tobacco Use Types [...] have Coronavirus / COVID-19? No / Unsure 05/10/2021 12:57 PM STEAM POWERPLANT SUPERVISOR documented as of this encounter Miscellaneous Notes * Telephone Encounter - Harriett Reynoso RN - 05/10/2021 8:05 AM CST Medication failed the protocol, provider to review and approve the medication order if appropriate. Requested Prescriptions Pending Prescriptions Disp Refills simvastatin (ZOCOR) 20 MG Tablet [Pharmacy Med Name: Simvastatin 20 MG Oral Tablet] 30 Tablet 0 Sig: TAKE 1 TABLET BY MOUTH ONCE DAILY IN THE EVENING Hmg CoA Reductase Inhibitors Protocol Failed - 05/07/2021 6:49 PM Failed - Lipid panel in past [...] days Recent Visits Date Type Provider Dept 04/28/21 Office Visit Frida Suarez, PAC [facility] [place] [facility] 04/14/21 Office Visit Frida Suarez, PAC [facility] [place] [facility] 04/06/21 Office Visit Frida Suarez, PAC [facility] 03/08/21 Office Visit Frida Suarez, PAC [facility] [place] 03/04/21 Office Visit Frida Suarez, PAC [facility] [place] 01/27/21 Office Visit Frida Suarez, PAC [facility] [place] [facility] 01/20/21 Office Visit Frida Suarez, PAC [facility] [place] [facility] 12/07/20 Office Visit Frida Suarez, PAC [facility] 11/09/20 Office Visit Frida Suarez, PAC [facility] [place] [facility] 11/06/20 Office Visit Frida Suarez, PAC [facility] [place] [facility] Showing recent visits within past 365 days and meeting all other requirements Future Appointments Date Type Provider Dept 08/02/21 Appointment Frida Suarez PAC [facility] Showing future appointments within next 90 days and meeting all other requirements Passed - No active on record levothyroxine (SYNTHROID) 25 MCG Tablet [Pharmacy Med Name: Levothyroxine Sodium 25 MCG Oral Tablet] 30 Tablet 0 Sig: Take 1 tablet by mouth once daily Thyroid Hormones Protocol Failed - 05/07/2021 6:49 PM Failed - Normal TSH in past 12 months TSH Date Value Ref Range Status 01/28/2020 2.840 0.270 - 4.200 mIU/L Final Passed - No test in the past 12 months or most recent test was negative Passed - Visit with relevant provider in past 12 months or upcoming 90 days Recent Visits Date Type Provider Dept 04/28/21 Office Visit Frida Suarez, PAC [facility] 04/14/21 Office Visit Frida Saurez, PAC [facility] 04/06/21 Office Visit Frida Suarez, PAC [facility] [place] [facility] 03/08/21 Office Visit Frida Suarez, PAC [facility] [place] [facility] 03/04/21 Office Visit Frida Suarez, PAC [facility] [place] [facility] 01/27/21 Office Visit Frida Suarez, PAC [facility] [place] [facility] 01/20/21 Office Visit Frida Suarez, PAC [facility] [place] [facility] 12/07/20 Office Visit Frida Suarez, PAC [facility] [place] [facility] 11/09/20 Office Visit Frida Suarez, PAC [facility] [place] 11/06/20 Office Visit Frida Suarez, PAC [facility] [place] [facility] Showing recent visits within past 365 days and meeting all other requirements Future Appointments Date Type Provider Dept 08/02/21 Appointment Frida Suarez, PAC [facility] [place] [facility] Showing future appointments within next 90 days and meeting all other requirements Passed - No active on record montelukast (SINGULAIR) 10 MG Tablet [Pharmacy Med Name: Montelukast Sodium 10 MG Oral Tablet] 90 Tablet 0 Sig: Take 1 tablet by mouth in the evening Leukotriene Inhibitors Protocol Passed - 05/07/2021 6:49 PM Passed - Visit with relevant provider in past 12 months or upcoming 90 days Recent Visits Date Type Provider Dept 04/28/21 Office Visit Frida Suarez, PAC [facility] [place] 04/14/21 Office Visit Frida Suarez, PAC [facility] [place] 04/06/21 Office Visit Frida Suarez, PAC [facility] [place] 03/08/21 Office Visit Frida Suarez, PAC [facility] [place] 03/04/21 Office Visit Frida Suarez, PAC [facility] [place] 01/27/21 Office Visit Frida Suarez, PAC [facility] [place] 01/20/21 Office Visit Frida Suarez, PAC [facility] [place] 12/07/20 Office Visit Frida Suarez, PAC [facility] [place] 11/09/20 Office Visit Frida Suarez, PAC [facility] [place] [facility] 11/06/20 Office Visit rFida Suarez, AIME [facility] [place] [facility] Showing recent visits within past 365 days and meeting all other requirements Future Appointments Date Type Provider Dept 08/02/21 Appointment ErickNandini wadekirk HoffmannAIME [facility] [place] [facility] Showing future appointments within next 90 days and meeting all other requirements M POWERPLANT SUPERVISOR documented in this encounter Plan of Treatment [...] - 19 02/11/2024 02/11/2024 02/11/2024 8:33 PM STEAM POWERPLANT SUPERVISOR Respiratory Rule-Out 03/12/2025 03/12/2025 025 9:41 AM STEAM POWERPLANT SUPERVISOR COVID - 19 03/12/2025 03/12/2025 03/12/2025 9:41 AM STEAM POWERPLANT SUPERVISOR Assessment Noted Time PHQ-9 Depression Total Score: 7 04/06/19 3:00 PM STEAM POWERPLANT SUPERVISOR documented as of this encounter Care Teams Learning Developer Relationship Specialty Start Date End Date Frida Suarez PAC PCP - General Physician Data Officer 02/25/18 06/26/24 Alphonso Robles MD [address] [place] [address] [id number] PCP - General Family Medicine 06/27/24 Iggy Garnica MD [address] [place] [id number] Consulting Physician Neurology 07/05/21 Yasmany Sanchez MD [address] [place] [address] Consulting Physician Pulmonary Disease 10/18/21 Tahira Stewart APRN, INVOICE CHECKER [address] [place] [address] Nurse Practitioner Advanced Practice Nurse 10/11/22 Carrillo Mendez MD #[address] [address] Consulting Physician Urology 12/01/23 documented as of this encounter
--- OUTSIDE RECORDS SUMMARY | 2025-03-16 17:06 | XMS_ITS | Encounter Summary ---
Author Organization [facility] Address [address] [place] [address] Phone Care Team Providers Care Java Software Architect Name Role Phone Frida Suarez [facility] Primary Care Pro vider Iggy Garnica MD Unavailable [phone] Yasmany Sanchez MD Unavailable Tahira Stewart APRN, MANAGER RESORT Unavailable Carrillo Mendez MD Unavailable [phone] Alphonso Robles MD Primary Care Provider Reason for Visit * Reason Comments Medication Refill Encounter Details Date Type Department Care Team (Late st Contact Info) Description 02/02/2022 Refill [facility] - Neurology - [place] [address] [place] [id number] Tahira Stewart APRN, MANAGER RESORT [address]2 [place] [address] Medication Refill Social History Tobacco Use Types [...] - 19 02/11/2024 02/11/2024 02/11/2024 8:33 PM HAND GLOVE CLEANER Respiratory Rule-Out 03/12/2025 03/12/2025 025 9:41 AM HAND GLOVE CLEANER COVID - 19 03/12/2025 03/12/2025 03/12/2025 9:41 AM HAND GLOVE CLEANER Assessment Noted Time PHQ-9 Depression Total Score: 7 04/06/19 22 3:00 PM HAND GLOVE CLEANER documented as of this encounter Care Teams Java Software Architect Relationship Specialty Start Date End Date Frida Suarez PAC PCP - General Physician Appeals Coordinator 02/25/18 06/26/24 Alphonso Robles MD [address] [place] [id number] PCP - General Family Medicine 06/27/24 Iggy Garnica MD [address]2 [place] [address] Consulting Physician Neurology 07/05/21 Yasmany Sanchez MD [address]2 [place] [address] Consulting Physician Pulmonary Disease 10/18/21 Tahira Stewart, TAXATION ACCOUNTANT, MANAGER RESORT [address] [place] [address] Nurse Practitioner Advanced Practice Nurse 10/11/22 Carrillo Mendez MD #[address] [address] Consulting Physician Urology 12/01/23 documented as of this encounter
--- OUTSIDE RECORDS SUMMARY | 2025-03-16 17:06 | XMS_ITS | Encounter Summary ---
Author Organization [facility] Address [address] [place] [address] Phone Care Team Providers Care Employee Relations Assistant Name Role Phone Frida Suarez Primary Care Pro vider Iggy Garnica MD Unavailable [phone] aYsmany Sanchez MD Unavailable Tahira Stewart APRN, [facility] Unavailable + [phone] Carrillo Mendez MD Unavailable [phone] Alphonso Robles MD Primary Care Provider Reason for Visit * Reason Comments Medication Refill Encounter Details Date Type Department Care Team (Late st Contact Info) Description 07/25/2020 Refill [facility] - [facility] Medicine [facility] [address] [place] [address] Frida Suarez, [facility] WITH [facility] [address] [place] [address] Medication Refill Social History Tobacco Use Types [...] have Coronavirus / COVID-19? No / Unsure 07/20/2020 8:41 AM CDT documented as of this encounter Miscellaneous Notes * Telephone Encounter - Deanna Vargas RN - 07/27/2020 10:24 AM CDT Per nursing clinical judgement, provider to review and approve the medication(s) order(s) if appropriate. Requested Prescriptions Pending Prescriptions Disp Refills Euthyrox 25 MCG Tablet [Pharmacy Med Name: Euthyrox 25 MCG Oral Tablet] 30 Tablet 0 Sig: Take 1 tablet by mouth once daily [facility] Endocrinology: Hypothyroid Agents Passed - 07/27/2020 10:23 AM Passed - Valid encounter within last 12 months Past Office Visits Recent Outpatient Visits 3 months ago [facility] Alley [place]la APN, MANAGER INSIDE 3 months ago Acute non-recurrent [facility] [place] APN, MANAGER INSIDE 5 months ago Left otitis media, unspecified otitis media type [facility] PAC 5 months ago Well [facility] 7 months ago [facility]ore [facility] PAC Upcoming Appointments Future Appointments In 2 days [facility] - [place], [facility] In 2 months Yasmany Sanchez MD [facility] - Pulmonology & Sleep Medicine - [place] [facility] In 11 months Tahira Stewart APN, EXHIBIT DESIGNER [facility] - Neurology - YENIFER Shankar TANK STAVE ASSEMBLER - Recent and Past Visits Recent Visits Date Type Provider Dept 05/20/20 Office Visit Frida Suarez, PAC [facility] 05/11/20 Office Visit Frida Suarez, PAC [facility] 04/24/20 Office Visit Alley Valle APN, MANAGER INSIDE [facility] 04/14/20 Telemedicine Alley Valle APN, MANAGER INSIDE [facility] 02/07/20 Office Visit Frida uSarez, PAC [facility] 02/03/20 Telemedicine Frida Suarez, PAC [facility] 12/04/19 Office Visit Frida Suarez, PAC [facility] 12/02/19 Telemedicine Alley Valle APN, MANAGER INSIDE [facility] 11/13/19 Office Visit Frida Suarez, PAC [facility] 11/08/19 Telemedicine Frida Suarez, PAC [facility] Showing recent visits within past 460 days with a meds authorizing provider and meeting all other requirements Future Appointments No visits were found meeting these conditions. Showing future appointments within next 90 days with a meds authorizing provider and meeting all other requirements Passed - TSH in normal range and within 360 days TSH Date Value Ref Range Status 01/28/2020 2.840 0.270 - 4.200 mIU/L Final documented in this encounter Plan of [...] - 19 02/11/2024 02/11/2024 02/11/2024 8:33 PM DUPLICATOR PUNCH OPERATOR Respiratory Rule-Out 03/12/2025 03/12/2025 025 9:41 AM DUPLICATOR PUNCH OPERATOR COVID - 19 03/12/2025 03/12/2025 03/12/2025 9:41 AM DUPLICATOR PUNCH OPERATOR Assessment Noted Time PHQ-9 Depression Total Score: 7 04/14/19 21 1:40 PM DUPLICATOR PUNCH OPERATOR documented as of this encounter Care Teams Employee Relations Assistant Relationship Specialty Start Date End Date Frida Suarez, [facility] PCP - General Physician Ppa Teacher 02/25/18 06/26/24 Alphonso Robles MD #[address] [address] PCP - General Family Medicine 06/27/24 Iggy Garnica MD [address]2 [place] [address] Consulting Physician Neurology 07/05/21 Yasmany Sanchez MD #[address] [place] [address] Consulting Physician Pulmonary Disease 10/18/21 Tahira Stewart, SENIOR JAVA SOFTWARE DEVELOPER, EXHIBIT DESIGNER [address] [place] [address] Nurse Practitioner Advanced Practice Nurse 10/11/22 Carrillo Mendez MD #[address] [address] Consulting Physician Urology 12/01/23 documented as of this encounter
--- OUTSIDE RECORDS SUMMARY | 2025-03-16 17:06 | XMS_ITS | Encounter Summary ---
Author Organization [facility] Address [address] [place] [address] Phone Care Team Providers Care Building Materials Sales Attendant Name Role Phone Frida Suarez [facility] Primary Care Pro vider Iggy Garnica MD Unavailable [phone] Yasmany Sanchez MD Unavailable Tahira Stewart APRN, AUTOMOTIVE SALES PROFESSIONAL Unavailable + [phone] Carrillo Mendez MD Unavailable [phone] Alphonso Robles MD Primary Care Provider [phone] Reason for Visit * Reason Comments Medication Refill Encounter Details Date Type Department Care Team (Late st Contact Info) Description 06/12/2021 Refill [facility] - Internal Medicine - [place] [address] [place] [id number] Frida Suarez, [facility] [address] [place] [address] Medication Refill Social History Tobacco Use Types [...] suspected to have Coronavirus/COVID-19? No / Unsure 06/11/2021 3:54 PM CDT documented as of this encounter Miscellaneous Notes * Telephone Encounter - Carolyn Vicente RN - 06/14/2021 7:40 AM CDT Medication failed the protocol, provider to review and approve the medication order if appropriate. Requested Prescriptions Pending Prescriptions Disp Refills levothyroxine (SYNTHROID) 25 MCG Tablet [Pharmacy Med Name: Levothyroxine Sodium 25 MCG Oral Tablet] 30 Tablet 0 Sig: Take 1 tablet by mouth once daily Thyroid Hormones Protocol Failed - 06/12/2021 8:05 AM Failed - Normal TSH in past 12 months TSH Date Value Ref Range Status 01/28/2020 2.840 0.270 - 4.200 mIU/L Final Passed - No test in the past 12 months or most recent test was negative Passed - Visit with relevant provider in past 12 months or upcoming 90 days Recent Visits Date Type Provider Dept 05/19/21 Office Visit Frida Suarez, PAC [facility] 04/28/21 Office Visit Frida Suarez, PAC [facility] [place] [facility] 04/14/21 Office Visit Frida Suarez, PAC [facility] [place] 04/06/21 Office Visit Frida Suarez, PAC [facility] [place] 03/08/21 Office Visit Frida Suarez, PAC [facility] [place] 03/04/21 Office Visit Frida Suarez, PAC [facility] [place] 01/27/21 Office Visit Frida Suarez, PAC [facility] [place] 01/20/21 Office Visit Frida Suarez, PAC [facility] [place] 12/07/20 Office Visit Frida Suarez, PAC [facility] [place] 11/09/20 Office Visit Frida Suarez, PAC [facility] [place] Showing recent visits within past 365 days and meeting all other requirements Future Appointments Date Type Provider Dept 08/02/21 Appointment Frida Suarez, PAC [facility] [place] 09/02/21 Appointment Frida Suarez PAC [facility] [place] [facility] Showing future appointments within next 90 days and meeting all other requirements Passed - No active on record simvastatin (ZOCOR) 20 MG Tablet [Pharmacy Med Name: Simvastatin 20 MG Oral Tablet] 30 Tablet 0 Sig: TAKE 1 TABLET BY MOUTH ONCE DAILY IN THE EVENING Hmg CoA Reductase Inhibitors Protocol Failed - 06/12/2021 8:05 AM Failed - Lipid panel in past 12 [...] days Recent Visits Date Type Provider Dept 05/19/21 Office Visit Frida Suarez, PAC [facility] [place] 04/28/21 Office Visit Frida Suarez, PAC [facility] [place] 04/14/21 Office Visit Frida Suarez, PAC [facility] [place] 04/06/21 Office Visit Frida Suarez, PAC [facility] [place] 03/08/21 Office Visit Frida Suarez, PAC [facility] [place] 03/04/21 Office Visit Frida Suarez, PAC [facility] [place] 01/27/21 Office Visit Frida Suarez, PAC [facility] [place] 01/20/21 Office Visit Frida Suarez, PAC [facility] [place] 12/07/20 Office Visit Frida Suarez, PAC [facility] [place] 11/09/20 Office Visit Frida Suarez, PAC [facility] [place] Showing recent visits within past 365 days and meeting all other requirements Future Appointments Date Type Provider Dept 08/02/21 Appointment Frida Suarez, PAC [facility] [place] 09/02/21 Appointment Frida Suarez, PAC [facility] [place] Showing future appointments within next 90 days [...] - 19 02/11/2024 02/11/2024 02/11/2024 8:33 PM SUPERVISOR CLAIMS Respiratory Rule-Out 03/12/2025 03/12/2025 025 9:41 AM SUPERVISOR CLAIMS COVID - 19 03/12/2025 03/12/2025 03/12/2025 9:41 AM SUPERVISOR CLAIMS Assessment Noted Time PHQ-9 Depression Total Score: 7 04/06/19 22 3:00 PM SUPERVISOR CLAIMS documented as of this encounter Care Teams Building Materials Sales Attendant Relationship Specialty Start Date End Date Frida Suarez, AIME PCP - General Physician Healthcare Advisory Services Manager 02/25/18 06/26/24 Alphonso Robles MD #[address] [address] PCP - General Family Medicine 06/27/24 Iggy Garnica MD [address] [place] [id number] Consulting Physician Neurology 07/05/21 Yasmany Sanchez MD #2 [place] [address] Consulting Physician Pulmonary Disease 10/18/21 Tahira Stewart, WAREHOUSE TEAM LEADER, AUTOMOTIVE SALES PROFESSIONAL [address] [place] [address] Nurse Practitioner Advanced Practice Nurse 10/11/22 Carrillo Mendez MD #[address] [address] Consulting Physician Urology 12/01/23 documented as of this encounter
--- OUTSIDE RECORDS SUMMARY | 2025-03-16 17:06 | XMS_ITS | Encounter Summary ---
Author Organization [facility] Address [address] [place] [address] Phone Care Team Providers Care Director Hedis Name Role Phone Iggy Garnica MD Unavailable Yasmany Sanchez MD Unavailable Tahira Stewart APRN, HAM STRIPPER Unavailable Carrillo Mendez MD Unavailable [phone] Alphonso Robles MD Primary Care Provider [phone] Reason for Visit * Reason Comments Medication Refill Encounter Details Date Type Department Care Team (Late st Contact Info) Description 01/21/2025 Refill [facility] - Neurology - [place] [address] [place] [address] Tahira Stewart, MARIANO, HAM STRIPPER [address] [place] [address] Medication Refill Social History Tobacco Use Types Packs/Day Years Used Date Smoking Tobacco: Never Cigarettes 1 15 Passive Smoke Exposure: Yes Smokeless Tobacco: Never Alcohol Use Standard Drinks/Week Comments No 0 (1 standard drink = 0.6 oz pur e alcohol) [facility] Utilities Answer Date Recorded In the past 12 months has th e electric, gas, oil, or water [employer] threatened to shut off services in your home? Yes 06/25/2024 Social Connection and Isolation Panel Answer Date Recorded In a typical week, how many times do you talk on the phone with family, friends, or neighbors? Once a week 06/25/2024 How often do you get together with friends or re latives? Once a week 06/25/2024 How often do you attend sabianist or islam serv ices? Never 06/25/2024 Do you belong to any clubs o r organizations such as sabianist groups, unions, fraternal or athletic groups, or school groups? No 06/25/2024 How often do you attend meet ings of the clubs or organizations you belong to? Never 06/25/2024 Are you , , di vorced, , never , or living with a partner? 06/25/2024 AUDIT-C Answer Date Recorded Q1: How often do you have a drink containing alcohol? Never 06/25/2024 Q2: How many drinks containi ng alcohol do you have on a typical day when you are drinking? Patient does not drink Q3: How often do you have si x or more drinks on one occasion? Never 06/25/2024 Overall Financial Resource Strain (CARDIA) Answe r Date Recorded How hard is it for you to pa y for the very basics like food, housing, medical care, and heating? Hard 06/25/2024 PHQ-2 Answer Date Recorded Total Score - Questions 1-9 0 07/18 [facility] - Occupational Stress Questionnaire Answer Date Recorded Do you feel stress - tense, restless, nervous, or anxious, or unable to sleep at night because your mind is troubled all the time - these days? Very much 06/25/2024 Exercise Vital Sign Answer Date Recorde d On average, how many days pe r week do you engage in moderate to strenuous exercise (like a brisk walk)? 0 days 06/25/2024 On average, how many minutes do you engage in exercise at this level? 0 min 06/25/2024 Hunger Vital Sign Answer Date Recorded Within the past 12 months, y ou worried that your food would run out before you got the money to buy more. Sometimes true Within the past 12 months, t he food you bought just didn't last and you didn't have money to get more. Sometimes true 10/2024 PRAPARE - Transportation Answer Date Re corded In the past 12 months, has l ack of transportation kept you from medical appointments or from getting medications? No 10/2024 In the past 12 months, has l ack of transportation kept you from meetings, work, or from getting things needed for daily living? No 06/25/2024 Housing Stability Vital Sign Answer Brien e [...] place to sleep or slept in a long term (including now)? No 07/11/2023 Housing Stability Vital Sign Answer Brien e Recorded In the last 12 months, was t here a time when you were not able to pay the mortgage or rent on time? Yes 06/25/2024 In the past 12 months, how m any times have you moved where you were living? 1 06/25/2024 At any time in the past 12 [facility], were you homeless or living in a long term (including now)? No 06/25/2024 Education Answer Date Recorded What is the highest level of school you have completed or the highest degree you have received? 10th grade 07/03/2022 Sexually Active Control Partners Comments Yes Male Condom, Oral Contraceptive Female, M evan Comments No Sex and Gender Information Value [...] house. Behavioral Health On track(2023 8:42 AM PRODUCTION CONTROL COORDINATING CLERK) No Park Carcamo, CHERYL Note: Goal/Objective: Increase ability to cope with depressive and anxious features. Anticipated Time Frame for Goal Completion: 6 months Goal Reviewed with: patient Readiness to change: Thinking about making a change Department associated with goal: [facility] Steps to achieve goal: [...] of this encounter Visit Diagnoses Diagnosis Chronic bilateral low back pain with right-sided sciatica Chronic migraine w/o aura w/o status migrainosus, not intractable Chronic migraine without aura, without mention of intractable migraine without mention of status migrainosus documented in this encounter Additional Health Concerns Infection Onset Date Last Indicated Resolved Time Respiratory Rule-Out 03/12/2025 03/12/2025 025 9:41 AM PRODUCTION CONTROL COORDINATING CLERK COVID - 19 03/12/2025 03/12/2025 03/12/2025 9:41 AM PRODUCTION CONTROL COORDINATING CLERK Assessment Noted Time PHQ-9 Depression Total Score: 0 07/30/19 25 4:19 PM CDT documented as of this encounter Care Teams Director Hedis Relationship Specialty Start Date End Date Alphonso Robles MD [address] [address] PCP - General Family Medicine 06/27/24 Iggy Garnica MD [address] [place] [address] Consulting Physician Neurology 07/05/21 Yasmany Sanchez MD [address]2 [place] [address] Consulting Physician Pulmonary Disease 10/18/21 Tahira Stewart APRN, HAM STRIPPER [address] [place] [address] Nurse Practitioner Advanced Practice Nurse 10/11/22 Carrillo Mendez MD #2 [facility] [address] [address] Consulting Physician Urology 12/01/23 documented as of this encounter
--- OUTSIDE RECORDS SUMMARY | 2025-03-16 17:06 | XMS_ITS | Encounter Summary ---
Author Organization [facility] Address [address] [place] [address] Phone Care Team Providers Care Residential Sales Representative Name Role Phone Frida Suarez [facility] Primary Care Pro vider Iggy Garnica MD Unavailable [phone] Yasmany Sanchez MD Unavailable Tahira Stewart APRN, INDUSTRIAL INSULATOR Unavailable + [phone] Carrillo Mendez MD Unavailable [phone] Alphonso Robles MD Primary Care Provider [phone] Reason for Visit * Reason Comments Medication Refill Encounter Details Date Type Department Care Team (Late st Contact Info) Description 11/08/2021 Refill [facility] - Internal Medicine - [place] [address] [place] [id number] Frida Suarez, [facility] [address] [place] [address] Medication Refill Social History Tobacco Use Types [...] suspected to have Coronavirus/COVID-19? No / Unsure 11/09/2021 6:35 AM CDT documented as of this encounter Miscellaneous Notes * Telephone Encounter - Lizette Russ RN - 11/09/2021 12:10 PM CDT Medication failed the protocol, provider to review and approve the medication order if appropriate. Requested Prescriptions Pending Prescriptions Disp Refills simvastatin (ZOCOR) 20 MG Tablet [Pharmacy Med Name: Simvastatin 20 MG Oral Tablet] 30 Tablet 0 Sig: TAKE 1 TABLET BY MOUTH ONCE DAILY IN THE EVENING Hmg CoA Reductase Inhibitors Protocol Failed - 11/08/2021 6:51 PM Failed - Lipid panel in past [...] days Recent Visits Date Type Provider Dept 09/10/21 Office Visit Frida Suarez, PAC [facility] 09/01/21 Office Visit Frida Suarez, PAC [facility] 08/02/21 Office Visit Frida Suarez, PAC [facility] 07/02/21 Office Visit Frida Suarez, PAC [facility] 06/18/21 Office Visit Frida Suarez, PAC [facility] 05/19/21 Office Visit Frida Suarez, PAC [facility] 04/28/21 Office Visit Frida Suarez, PAC [facility] 04/14/21 Office Visit Frida Suarez, PAC [facility] 04/06/21 Office Visit Frida Suarez, PAC [facility] 03/08/21 Office Visit Frida Suarez, PAC [facility] Showing recent visits within past 365 days and meeting all other requirements Today's Visits Date Type Provider Dept 11/09/21 Office Visit Frida Suarez, PAC [facility] Showing today's visits and meeting all other requirements Future Appointments Date Type Provider Dept 01/03/22 Appointment Frida Suarez, PAC [facility] Showing future appointments within next 90 days and meeting all other requirements Passed - No active on record famotidine (PEPCID) 20 MG Tablet [Pharmacy Med Name: Famotidine 20 MG Oral Tablet] 60 Tablet 0 Sig: Take 1 tablet by mouth twice daily H2 Antagonists Protocol Passed - 11/08/2021 6:51 PM Passed - Visit with relevant provider in past 12 months or upcoming 90 days Recent Visits Date Type Provider Dept 09/10/21 Office Visit Frida Suarez, PAC [facility] 09/01/21 Office Visit Frida Suarez, PAC [facility] 08/02/21 Office Visit Frida Suarez, PAC [facility] 07/02/21 Office Visit Frida Suarez, PAC [facility] 06/18/21 Office Visit Frida Suarez, PAC [facility] 05/19/21 Office Visit Frida Suarez, PAC [facility] 04/28/21 Office Visit rFida Suarez, PAC [facility] 04/14/21 Office Visit Frida Suarez, PAC [facility] 04/06/21 Office Visit Frida Suarez, PAC [facility] 03/08/21 Office Visit Frida Suarez, PAC [facility] Showing recent visits within past 365 days and meeting all other requirements Today's Visits Date Type Provider Dept 11/09/21 Office Visit Frida Suarez PAC [facility] Showing today's visits and meeting all other requirements Future Appointments Date Type Provider Dept 01/03/22 Appointment Frida Suarez PAC [facility] Showing future appointments within next 90 days and meeting all other requirements lisinopril (PRINIVIL, ZESTRIL) 20 MG Tablet [Pharmacy Med Name: Lisinopril 20 MG Oral Tablet] 90 Tablet 0 Sig: Take 1 tablet by mouth once daily HOOD Inhibitors Protocol Failed - 11/08/2021 6:51 PM Failed - Serum potassium on record in past 12 months POTASSIUM Date Value Ref Range Status 02/07/2020 4.1 3.5 - 5.1 mmol/L Final Failed - GFR on record in past 12 months GFR, EST. NONAFRICAN Date Value Ref Range Status 02/07/2020 >60 >=60 Final Passed - Blood pressure on record in past 12 months Clinician-entered: BP Readings from Last 3 Encounters: 10/18/21 126/70 09/10/21 100/72 09/01/21 112/78 Patient-entered: No data recorded Passed - No positive test in the past 12 months or most recent test was negative Passed - Visit with relevant provider in past 12 months or upcoming 90 days Recent Visits Date Type Provider Dept 09/10/21 Office Visit Frida Suarez, PAC [facility] 09/01/21 Office Visit Frida Suarez, PAC [facility] 08/02/21 Office Visit Frida Suarez, PAC [facility] 07/02/21 Office Visit Frida Suarez, PAC [facility] 06/18/21 Office Visit Frida Suarez, PAC [facility] 05/19/21 Office Visit Frida Suarez, PAC [facility] 04/28/21 Office Visit Frida Suarez, PAC [facility] 04/14/21 Office Visit Frida Suarez, PAC [facility] 04/06/21 Office Visit Frida Suarez, PAC [facility] 03/08/21 Office Visit Frida Suarez, PAC [facility] Showing recent visits within past 365 days and meeting all other requirements Today's Visits Date Type Provider Dept 11/09/21 Office Visit Frida Suarez, PAC [facility] Showing today's visits and meeting all other requirements Future Appointments Date Type Provider Dept 01/03/22 Appointment Frida Suarez, PAC [facility] Showing future appointments within next 90 days and meeting all other requirements Passed - No active on record fenofibrate (TRICOR) 145 MG Tablet [Pharmacy Med Name: Fenofibrate 145 MG Oral Tablet] 90 Tablet 0 Sig: Take 1 tablet by mouth once daily Fibrates Protocol Failed - 11/08/2021 6:51 PM Failed - Lipid panel in past [...] days Recent Visits Date Type Provider Dept 09/10/21 Office Visit Frida Suarez, PAC [facility] 09/01/21 Office Visit Frida Suarez, PAC [facility] 08/02/21 Office Visit Frida Suarez, PAC [facility] 07/02/21 Office Visit Frida Suarez, PAC [facility] 06/18/21 Office Visit Frida Suarez, PAC [facility] 05/19/21 Office Visit Frida Suarez, PAC [facility] 04/28/21 Office Visit Frida Suarez, PAC [facility] 04/14/21 Office Visit Frida Suarez, PAC [facility] 04/06/21 Office Visit Frida Suarez, PAC [facility] 03/08/21 Office Visit Frida Suarez, PAC [facility] Showing recent visits within past 365 days and meeting all other requirements Today's Visits Date Type Provider Dept 11/09/21 Office Visit Frida Suarez, PAC [facility] Showing today's visits and meeting all other requirements Future Appointments Date Type Provider Dept 01/03/22 Appointment Frida Suarez, PAC [facility] Showing future appointments within next 90 days [...] - 19 02/11/2024 02/11/2024 02/11/2024 8:33 PM SCRAPE GATHERER Respiratory Rule-Out 03/12/2025 03/12/2025 025 9:41 AM SCRAPE GATHERER COVID - 19 03/12/2025 03/12/2025 03/12/2025 9:41 AM SCRAPE GATHERER Assessment Noted Time PHQ-9 Depression Total Score: 7 04/06/19 3:00 PM SCRAPE GATHERER documented as of this encounter Care Teams Residential Sales Representative Relationship Specialty Start Date End Date Frida Suarez, [facility] PCP - General Physician Information Systems Analyst 02/25/18 06/26/24 Alphonso Robles MD [address] [address] PCP - General Family Medicine 06/27/24 Iggy Garnica MD [address] [place] [address] Consulting Physician Neurology 07/05/21 Yasmany Sanchez MD [address] [place] [id number] Consulting Physician Pulmonary Disease 10/18/21 Tahira Stewart, CERTIFIED PERFORMANCE TECHNOLOGIST, INDUSTRIAL INSULATOR [address] [place] [address] Nurse Practitioner Advanced Practice Nurse 10/11/22 Carrillo Mendez MD [address] [address] Consulting Physician Urology 12/01/23 documented as of this encounter
--- OUTSIDE RECORDS SUMMARY | 2025-03-16 17:06 | XMS_ITS | Clinical Summary ---
Author Organization [facility] Address [address] [place] [address] Phone Care Team Providers Care Flooring Professional Name Role Phone Iggy Garnica MD Unavailable [phone] Yasmany Sanchez MD Unavailable Tahira Stewart APRN, ATHLETIC MONITOR Unavailable + [phone] Carrillo Mendez MD Unavailable [phone] Alphonso Robles MD Primary Care Provider [phone] Allergies Active Allergy Reactions Criticality Noted Date Comments Dexamethasone Other (see Comments) Low 06/21/2023 Irritability, paralysis, other mood changes Haloperidol Lactate Other (see Comments) 2018 Patient with dystonia Haloperidol Vomiting Low 06/28/2021 Sulfa Antibiotics Nausea,Swelling Reaction: Swelling, , Reaction: Swelling, , Medications [place]-3 Fatty Acids (FISH OIL PO) Take by mouth daily. Active albuterol 108 (90 Base) MCG/ACT Aerosol Solution INHALE 2 PUFFS BY MOUTH EVERY 4 HOURS NEEDED FOR WHEEZING 36 g 03/10/20 21 Active Fexofenadine HCl (LORETTA PO) Take by mouth daily. Active azelastine (ASTELIN) 0.1 % Solution 2 Sprays by Nasal route 2 times daily. Use in each nostril as directed Active Acetaminophen (TYLENOL ARTHRITIS PAIN PO) Take by mouth. Activ e simvastatin (ZOCOR) 20 MG Tablet Take 1 Tablet by mouth every evening. 90 Tablet 1 07/09/19 25 Active nystatin 259214 UNIT/GM Powder APPLY 3 TIMES DAILY TO AFFECTED AREA DIRECTED FOR 14 DAYS 30 g 08/05/19 25 Active citalopram (CeleXA) 40 MG Tablet Take 1 tablet by mouth once daily 90 Tablet 1 12/13/19 25 Active fenofibrate (TRICOR) 145 MG Tablet Take 1 tablet by mouth once daily 90 Tablet 01/05/20 25 Active lisinopril (PRINIVIL, ZESTRIL) 10 MG Tablet TAKE 1 TABLET BY MOUTH ONCE DAILY -TO TAKE WITH 20 MG TO MAKE 30 MG DAILY 90 Tablet 01/06/20 25 Active lisinopril (PRINIVIL, ZESTRIL) 20 MG Tablet Take 1 tablet by mouth once daily 90 Tablet 01/06/20 25 Active senna (SENOKOT) 8.6 MG Tablet Take 1 tablet by mouth once daily 90 Tablet 01/05/20 25 Active levothyroxine (SYNTHROID) 25 MCG Tablet Take 1 tablet by mouth once daily 30 Tablet 5 01/08/20 25 Active cyclobenzaprin e (FLEXERIL) 10 MG TabletIndicati ons:Chronic bilateral low back pain with right-sided sciatica Take 1 Tablet by mouth nightly as needed for Muscle spasms. 30 Tablet 2 01/18/20 25 Active Erenumab-aooe (Aimovig) 140 MG/ML Solution Auto-injectorI ndications:Chr onic bilateral low back pain with right-sided sciatica,Chron ic migraine w/o aura w/o status migrainosus, not intractable 1 mL by Subcutaneous route every 30 days. 1 mL 5 01/18/20 25 Active Rizatriptan Benzoate 10 MG TabletIndicati ons:Chronic migraine w/o aura w/o status migrainosus, not intractable Take 1 Tablet by mouth once as needed for Headaches. May repeat in 2 hours in needed 10 Tablet 3 01/18/20 25 Active pantoprazole (PROTONIX) 40 MG Tablet Delayed Response Take 1 tablet by mouth once daily 90 Tablet 01/22/20 25 Active montelukast (SINGULAIR) 10 MG Tablet TAKE 1 TABLET BY MOUTH ONCE DAILY IN THE EVENING 30 Tablet 2 02/18/20 25 Active atogepant (Qulipta) 30 MG TabletIndicati ons:Chronic migraine w/o aura w/o status migrainosus, not intractable TAKE 1 TABLET BY MOUTH NIGHTLY FOR MIGRAINE HEADACHE 30 Tablet 5 03/03/20 25 Active montelukast (SINGULAIR) 10 MG Tablet Take 1 Tablet by mouth every evening. 30 Tablet 2 10/08/19 25 025 Discontinued Qulipta 30 MG TabletIndicati ons:Chronic migraine w/o aura w/o status migrainosus, not intractable TAKE 1 TABLET BY MOUTH NIGHTLY FOR MIGRAINE HEADACHE 30 Tablet 2 12/12/19 25 025 Discontinued Active Problems Problem Noted Date Diagnosed Date Primary hypertension 02/03/2025 Community acquired pneumonia 02/11/2024 MDD (major depressive disord er), recurrent episode, moderate 01/16/2024 Constipation 04/28/2021 Sinus disease 04/28/2021 Overview (04/28/2021): Referred to ENT Chronic frontal sinusitis 04/14/2021 BMI 45.0-49.9, adult 12/02/2019 Chronic fatigue 06/25/2019 LYNNETTE (obstructive sleep apnea) 01/03/2019 Overview (02/03/2020): cpap Dr Sanchez Morbid obesity 01/03/2019 Migraine without aura 09/27/2017 Overview (04/14/2021): Dr Garnica; NEURO follows Chronic nonintractable headache 09/13/2017 Ureteral stone 03/14/2017 Pain of left hip joint 10/05/2016 Menstrual irregularity 12/21/2015 Hematochezia 12/03/2015 Generalized anxiety disorder 10/01/2015 Pure hypercholesterolemia 09/11/2015 Anxiety 09/11/2015 Asthma 05/14/2015 GERD (gastroesophageal reflux disease) 6 Overview (04/28/2021): Referred to GI EGD ordered Depression 05/14/2015 Hypothyroid 05/14/2015 Arthritis 05/14/2015 Sleep apnea Migraine Kidney stone Hyperlipidemia Colon polyp Allergic rhinitis Resolved Problems Problem Noted Date Diagnosed Date Resolved Date Furuncle of right axilla 11/15/2019 Otitis of right ear 04/09/2018 12/02/19 Pharyngitis 05/24/2016 12/02/2019 Encounters Date Type Department Care Team Description 03/12/2025 9:30 AM COMPOSITE BOAT BUILDER Office Visit [facility] [place] [address] [place] [phone] Sahra Montenegro, PETROLEUM INSPECTOR SUPERVISOR, DIRECTOR DIGITAL Viral infection (Primary Dx); Diarrhea, unspecified type; Sore throat Discharge Disposition: Discharged to home or Selfcare 03/12/2025 Travel 03/12/2025 [facility] [address] [place] [address] Alphonso Robles MD Diarrhea; Ear Pain 03/03/[address] [facility] [place] [phone] Iggy Garnica MD Medication Refill 02/16/2025 Refill [facility] Internal Medicine [facility] [address] [place] [address] Frida Suarez, PAC Medication Refill 02/03/2025 10:15 AM COMPOSITE BOAT BUILDER Office Visit [facility] [address] [place] [phone] Alphonso Robles MD LYNNETTE (obstructive sleep apnea) (Primary Dx); Primary hypertension Discharge Disposition: Discharged to home or Selfcare 02/03/2025 Travel 02/03/2025 Telephone [facility] [address] [place] [address] Alphonso Robles MD Advice Only 01/21/2025 Refill [facility] Neurology [facility] [address] [place] [phone] Tahira Stewart APRN, ATHLETIC MONITOR Medication Refill 01/21/2025 Refill [facility] Gastroenterology [facility] [address] [place] [address] Carolyn hSah APRN, DIRECTOR DIGITAL Medication Refill 01/17/2025 10:00 AM CDT Telemedicine [facility] Neurology - [place] [address] [place] [address] Tahira Stewart APRN, ATHLETIC MONITOR Chronic migraine w/o aura w/o status migrainosus, not intractable (Primary Dx); Chronic bilateral low back pain with right-sided sciatica 01/17/2025 Travel 01/07/2025 Refill [facility] Primary Care [facility] [address] [place] [address] Alphonso Robles MD Medication Refill 01/03/2025 Refill [facility] Family Medicine [facility] [address] [place] [address] Alphonso Robles MD Medication Refill 12/31/2024 Results Follow-Up [facility] Gastroenterology [facility] [address] [place] [address] Alysa Dong RN XR SWALLOWING FUNCTION STUDY WITH VIDEO/CINE 12/30/2024 8:54 AM CDT - 12/30/2024 11:59 PM CDT Hospital Encounter [facility] Diagnostic Radiology [address] [place] [address] Clem Luz MD Davis, Kristina J MS [facility] Discharge Disposition: Discharged to home or Selfcare 12/30/2024 Plan of Care Documentation [facility] Diagnostic Radiology [address] [place] [address] 12/28/2024 Travel from Last 3 Months Immunizations Immunization Administration Dates Next Due Covid-19, Mrna, Lnp-s, PF, 1 00 mcg/0.5 mL Dose (Moderna) 07/11/2020 Influenza Vaccine greater than 3 yrs 01/19/2023, 02/17/2014 Influenza Vaccine, Quadrivalent, PF 12/19,01/03/2022,12/24/2020,01/02,12/14/2018,12/28/2017,01/03/2017 ,11/20/2015 Influenza, Seasonal, Injecta ble, Undefined 02/17/2014 Influenza,Split Virus,Trivalent,Injectable,PF 01/04/2025,12/31/2023 PUR FLU 3+ YRS PRES FREE QUAD IM 11/20/2015 Pneumococcal conjugate PCV20 , polysaccharide SFT614 conjugate, adjuvant, PF 06/27/2024 TD VACCINE 03/20/2012 TDAP Vaccine 07/05/2016 Family History Medical History Relation Name Comments No Known Problems Brother 1 No Known Problems Daughter Migraines Father Shimon High Cholesterol Maternal Grandmother Clois Hypertension Maternal Grandmother Clois Cancer Maternal Uncle Cesario mesothelioma Breast Cancer Mother Iliana Cancer Mother Iliana Skin cancer Diabetes Mother Iliana diet controlled Endometriosis Mother Iliana High Cholesterol Mother Iliana Hypertension Mother Iliana Skin Cancer Mother Iliana Breast Cancer Paternal Grandmother Candice Cancer Paternal Grandmother Candice Breast cancer Migraines Paternal Grandmother Candice Relation Name Status Comments Brother 1 Alive Brother 2 Alive Daughter Alive Father Shimon Alive Maternal Grandfather Maternal Grandmother Clois Alive Maternal Uncle Cesario Mother Iliana Alive Paternal Grandfather Paternal Grandmother Candice Social History Tobacco Use Types Packs/Day Years Used Date Smoking Tobacco: Never Cigarettes 1 15 Passive Smoke Exposure: Yes Smokeless Tobacco: Never Tobacco Cessation:Counseling Given: No Alcohol Use Standard Drinks/Week Comments No 0 (1 standard drink = 0.6 oz pur e alcohol) [facility] Utilities Answer Date Recorded In the past 12 months has [employer], gas, oil, or water [employer] threatened to shut off services in your home? Yes 06/25/2024 Social Connection and Isolation Panel Answer Date Recorded In a typical week, how many times do you talk on the phone with family, friends, or neighbors? Once a week 06/25/2024 How often do you get together with friends or re latives? Once a week 06/25/2024 How often do you attend taoism or voodoo serv ices? Never 06/25/2024 Do you belong to any clubs o r organizations such as taoism groups, unions, fraternal or athletic groups, or [...] Total Score - Questions 1-9 0 07/18 [facility] Occupat ional [facility] - Occupational Stress Questionnaire Answer Date Recorded [...] place to sleep or slept in a assisted (including now)? No 07/11/2023 Housing Stability Vital Sign Answer Brien e Recorded In the last 12 months, was t here a time when you were not able to pay the mortgage or rent on time? Yes 06/25/2024 In the past 12 months, how m any times have you moved where you were living? 1 06/25/2024 At any time in the past 12 m [facility], were you homeless or living in a assisted (including now)? No 06/25/2024 Education Answer Date [...] Sign Reading Time Taken Comments Blood Pressure 124/78 03/12/2025 9:16 AM COMPOSITE BOAT BUILDER Pulse 67 03/12/2025 9:16 AM COMPOSITE BOAT BUILDER Temperature 36.4 C (97.6 F) 03/12/2025 9:16 AM COMPOSITE BOAT BUILDER Respiratory Rate 18 03/12/2025 9:16 AM COMPOSITE BOAT BUILDER Oxygen Saturation 99% 03/12/2025 9:16 AM COMPOSITE BOAT BUILDER Inhaled Oxygen Concentration - - Weight 128.1 kg (282 lb 6.4 oz) 03/12/2025 9:16 AM COMPOSITE BOAT BUILDER Height 165.1 cm (5' 5) 03/12/2025 9:16 AM COMPOSITE BOAT BUILDER Body Mass Index 46.99 03/12/2025 9:16 AM COMPOSITE BOAT BUILDER Plan of Treatment Health Maintenance Due Date Last Done Comments Varicella Immunization (1 of 2 - 13+ 2-dose series) 1998 Hepatitis B Immunization (1 of 3 - 19+ 3-dose series) 2004 HPV/Cotest 01/18/2021 01/19/2016 SARS-COV-2 Immunization ( season) 2024 12/31/2023, 02/28/2021, 08/08/2020, Additional history exists Cervical Cancer Screening (CCS) 06/28/2025 Pap Smear 06/28/2025 06/28/2022, 10/20, 11/15/2018, Additional history exists Td Immunization Every 10 Years (Adults With 1 Tdap) 07/05/2026 07/05/2016, 03/20/2012 Respiratory Syncytial Virus (RSV) Immunization (Adult) (1 - 1-dose 75+ series) 2060 Hepatitis C Virus (HCV) Screening Completed 07/05/2021 Pneumococcal Immunization Combined Completed 06/27/2024 Influenza Immunization Completed , 12/31/2023, 01/19/2023, Additional history exists Human Papillomavirus (HPV) Immunization (No Doses Required) Completed Meningococcal Immunization (ACWY) Aged Out No longer eligible based on patient's age to complete this topic Rotavirus Immunization Aged Out No lo nger eligible based on patient's age to complete this topic Goals Goal Patient Goal Type Associated Problems Recent Progress Patient-Stated? Author I want to have the right mindframe. I want to keep up with the house. Behavioral Health On track(2023 8:42 AM COMPOSITE BOAT BUILDER) No Park [place], [facility] Note: Goal/Objective: Increase ability to cope with depressive and anxious features. Anticipated Time Frame for Goal Completion: 6 months Goal Reviewed with: patient Readiness to change: Thinking about making a change Department associated with goal: [facility] Steps to achieve goal: [...] and or cope with anxiety and depression. Medical Devices Implanted Type Area Lisw Device Identifier Shelf Expiration Date Model / Serial / Lot [employer] [place] Ureteral Stent Implanted:Qty: 1 on 02/25/2017 by Josue Mckeon MD at [facility] N/A: Ureter [employer] 06/30/2021 [id number] / [id number] / [id number] Procedures Procedure Name Priority Date/Time Associated Diagnosis Comments POC GROUP A STREP BY MOLECULAR Routine 03/12/2025 9:24 AM COMPOSITE BOAT BUILDER Sore throat POC SARS-COV-2 BY MOLECULAR Routine 03/12/2025 9:20 AM COMPOSITE BOAT BUILDER Diarrhea, unspecified type POC INFLUENZA A AND B BY MOLECULAR Routine 03/12/2025 9:20 AM COMPOSITE BOAT BUILDER Diarrhea, unspecified type XR SWALLOWING FUNCTION STUDY WITH VIDEO/CINE Routine 12/30/2024 10:14 AM CDT Dysphagia, unspecified type PATHOLOGY CYTOLOGY SUPERVISOR [employer]BIOLOGY TECHNOLOGISTS 06/28/2022 12:00 AM CDT HEPATITIS C ANTIBODY Routine 07/05/2021 10:12 AM CDT STD exposure HUMAN PAPILLOMA VIRUS (HPV) 01/19/2016 12:00 AM CDT from Last 3 Months or Most Recently Relevant to Health Maintenance Results * POC GROUP A STREP BY MOLECULAR (03/12/2025 9:24 AM COMPOSITE BOAT BUILDER) STREP A DNA Negative Negative, Invalid PROCEDURE CONTROL Valid 03/12/2025 9:24 AM COMPOSITE BOAT BUILDER us June N Moni PETROLEUM INSPECTOR SUPERVISOR, DIRECTOR DIGITAL POINT OF CARE TESTING (MA NUAL) Final Result * POC SARS-COV-2 BY MOLECULAR (03/12/2025 9:20 AM COMPOSITE BOAT BUILDER) SARSCOV2 Negative Negative, INVALID PROCEDURE CONTROL Valid 03/12/2025 9:20 AM COMPOSITE BOAT BUILDER june N Moni PETROLEUM INSPECTOR SUPERVISOR, DIRECTOR DIGITAL POINT OF CARE TESTING (MA NUAL) Final Result * POC INFLUENZA A AND B BY MOLECULAR (03/12/2025 9:20 AM COMPOSITE BOAT BUILDER) INFLUENZA A RNA Negative Negative, Invalid INFLUENZA B RNA Negative Negative, Invalid PROCEDURE CONTROL Valid 03/12/2025 9:20 AM COMPOSITE BOAT BUILDER Sahra N Oehl PETROLEUM INSPECTOR SUPERVISOR, DIRECTOR DIGITAL POINT OF CARE TESTING (MARGY MCGOVERN) Final Result * XR SWALLOWING FUNCTION STUDY WITH VIDEO/CINE (12/30/2024 10:14 AM CDT) Anatomical Region Laterality Modality GI, Abdomen N/A Digital Radiogra phy Narrative 12/30/2024 12:24 PM CDT Modified video barium swallow Indication: 39-year-old who reports difficulty swallowing and a swelling sensation in her throat, left greater than right. Findings: She was observed swallowing thin and nectar consistency media, as well as barium impregnated pudding and a barium impregnated cracker. All media were handled in a smooth and coordinated manner, with no evidence of endotracheal aspiration or penetration. No diverticuli are seen. There is no retention of any of the media, and there is a well-coordinated pharyngeal and proximal esophageal motion. Impression: Unremarkable modified video barium swallow. Please refer the speech pathology report for additional comments. Clem Luz MD IMG FLUOROSCOPY ORDERABLE S Final Result * PATHOLOGY CYTOLOGY SUPERVISOR [employer]CROBIOLOGY TECHNOLOGISTS (06/28/2022 12:00 AM CDT) 06/28/2022 us Provider Scan PATHOLOGY/CYTOLOGY ORDERABLES Fi nal Result SCAN * HEPATITIS C ANTIBODY (07/05/2021 10:12 AM CDT) hepatitis C antibody 0.11 <1 S/CO [facility] ARCH [id number] B 07/05/2021 10:40 PM CDT [facility] Comment: Signal/Cutoff ratio < 0.79 is Nondetected Signal/Cutoff ratio 0.80-0.99 is Grayzone Signal/Cutoff ratio > 0.99 is Detected Supplemental assays are recommended if signal/cutoff ratio is >/=1.00. Signal/cutoff ratio result >/= 5.00 is 97% predictive of positivity for recombinant immunoblot assay (RIBA) and will be reported to the [place] Department of Public Health as required. Blood Venipuncture / Unknown 07/05/2021 10:12 AM CDT 07/05/2021 10:27 AM CDT Frida Suarez PAC CHEMISTRY ORDERAB LES Final Result [facility] [address] [place] [address], * HUMAN PAPILLOMA VIRUS (HPV) (01/19/2016 12:00 AM CDT) 01/19/2016 Provider Scan LAB SEND OUTS Final Result [facility] NON-INTERFACED [facility]FERENCE LABORATORIES from Last 3 Months or Most Recently Relevant to Health Maintenance Insurance MED[place]ID [place] Advance Directives * Full Code (Latest Code Status on File) Date Activated Date Inactivated Comments 02/12/2024 12:26 AM CPR-Full Romulo atment: FULL ARREST: Attempt Resuscitation/CPR wit intubation and mechanical ventilation. PRE-ARREST: Use entire range of life support measures to stabilize the patient. Care Teams Flooring Professional Relationship Specialty Start Date End Date Alphonso Robles MD [address] [address] PCP - General Family Medicine 06/27/24 Iggy Garnica MD [address] [place] [address] Consulting Physician Neurology 07/05/21 Yasmany Sanchez MD [address] [place] [address] Consulting Physician Pulmonary Disease 10/18/21 Tahira Stewart, PETROLEUM INSPECTOR SUPERVISOR, ATHLETIC MONITOR [address] [place] [address] Nurse Practitioner Advanced Practice Nurse 10/11/22 Carrillo Mendez MD [address] [address] Consulting Physician Urology 12/01/23
--- OUTSIDE RECORDS SUMMARY | 2025-03-16 17:06 | XMS_ITS | Encounter Summary ---
Author Organization [facility] Address [address] [place] [address] Phone Care Team Providers Care Foot Miter Operator Name Role Phone Frida Suarez [facility] Primary Care Pro vider Iggy Garnica MD Unavailable [phone] Yasmany Sanchez MD Unavailable Tahira Stewart APRN, SATELLITE INSTALLATION TECHNICIAN Unavailable + [phone] Carrillo Mendez MD Unavailable [phone] Alphonso Robles MD Primary Care Provider [phone] Reason for Visit * Reason Comments Medication Refill Encounter Details Date Type Department Care Team (Late st Contact Info) Description 09/02/2021 Refill [facility] - Internal Medicine - [place] [address] [place] [id number] Frida Suarez, [facility] [address] [place] [address] Medication Refill Social History Tobacco Use Types [...] suspected to have Coronavirus/COVID-19? No / Unsure 09/04/2021 1:52 PM CDT documented as of this encounter Miscellaneous Notes * Telephone Encounter - Carolyn Vicente RN - 09/03/2021 10:02 AM CDT Medication failed the protocol, provider to review and approve the medication order if appropriate. Requested Prescriptions Pending Prescriptions Disp Refills levothyroxine (SYNTHROID) 25 MCG Tablet [Pharmacy Med Name: Levothyroxine Sodium 25 MCG Oral Tablet] 30 Tablet 0 Sig: Take 1 tablet by mouth once daily Thyroid Hormones Protocol Failed - 09/02/2021 9:28 PM Failed - Normal TSH in past 12 months TSH Date Value Ref Range Status 01/28/2020 2.840 0.270 - 4.200 mIU/L Final Passed - No test in the past 12 months or most recent test was negative Passed - Visit with relevant provider in past 12 months or upcoming 90 days Recent Visits Date Type Provider Dept 09/01/21 Office Visit Frida Suarez, PAC [facility] 08/02/21 Office Visit Frida Suarez, PAC [facility] 07/02/21 Office Visit Frida Suarez, PAC [facility] 06/18/21 Office Visit Frida Suarez, PAC [facility] 05/19/21 Office Visit Frida Suarez, PAC [facility] 04/28/21 Office Visit Frida Suarez, PAC [facility] 04/14/21 Office Visit Frida Suarez, PAC [facility] 04/06/21 Office Visit Frida Suarez, PAC [facility] 03/08/21 Office Visit Frida Suarez, PAC [facility] 03/04/21 Office Visit Frida Suarez, PAC [facility] Showing recent visits within past 365 days [...] Hmg CoA Reductase Inhibitors Protocol Failed - 09/02/2021 9:28 PM Failed - Lipid panel in past [...] days Recent Visits Date Type Provider Dept 09/01/21 Office Visit Frida Suarez, PAC [facility] 08/02/21 Office Visit Frida Suarez, PAC [facility] 07/02/21 Office Visit Frida Suarez, AIME [facility] 06/18/21 Office Visit Frida Suarez, PAC [facility] 05/19/21 Office Visit Frida Suarez, PAC [facility] 04/28/21 Office Visit Frida Suarez, PAC [facility] 04/14/21 Office Visit Frida Suarez, PAC [facility] 04/06/21 Office Visit Frida Suarez, PAC [facility] 03/08/21 Office Visit Frida Suarez, PAC [facility] 03/04/21 Office Visit Frida Suarez, PAC [facility] Showing recent visits within past 365 days [...] twice daily H2 Antagonists Protocol Passed - 09/02/2021 9:28 PM Passed - Visit with relevant provider in past 12 months or upcoming 90 days Recent Visits Date Type Provider Dept 09/01/21 Office Visit Frida Suarez, PAC [facility] 08/02/21 Office Visit Frida Suarez, PAC [facility] 07/02/21 Office Visit Frida Suarez, PAC [facility] 06/18/21 Office Visit Frida Suarez, PAC [facility] 05/19/21 Office Visit Frida Suarez, PAC [facility] 04/28/21 Office Visit Frida Suarez, PAC [facility] 04/14/21 Office Visit Frida Suarez, PAC [facility] 04/06/21 Office Visit Frida Suarez, PAC [facility] 03/08/21 Office Visit Frida Suarez, PAC [facility] 03/04/21 Office Visit Frida Suarez, PAC [facility] Showing recent visits within past 365 days [...] - 19 02/11/2024 02/11/2024 02/11/2024 8:33 PM CARETAKER RESORT Respiratory Rule-Out 03/12/2025 03/12/2025 025 9:41 AM CARETAKER RESORT COVID - 19 03/12/2025 03/12/2025 03/12/2025 9:41 AM CARETAKER RESORT Assessment Noted Time PHQ-9 Depression Total Score: 7 04/06/19 22 3:00 PM CARETAKER RESORT documented as of this encounter Care Teams Foot Miter Operator Relationship Specialty Start Date End Date Frida Suarez [facility] PCP - General Physician Vice President Of Instruction 02/25/18 06/26/24 Alphonso Robles MD [address] [address] PCP - General Family Medicine 06/27/24 Iggy Garnica MD [address] [place] [address] Consulting Physician Neurology 07/05/21 Yasmany Sanchez MD [address] [place] [address] Consulting Physician Pulmonary Disease 10/18/21 Tahira Stewart APRN, SATELLITE INSTALLATION TECHNICIAN [address] [place] [address] Nurse Practitioner Advanced Practice Nurse 10/11/22 Carrillo Mendez MD [address] [place], [address] [address] Consulting Physician Urology 12/01/23 documented as of this encounter
--- OUTSIDE RECORDS SUMMARY | 2025-03-16 17:06 | XMS_ITS | Encounter Summary ---
Author Organization [facility] Address [address] [place] [address] Phone Care Team Providers Care Clinical Psychiatrist Name Role Phone Frida Suarez Primary Care Pro vider Iggy Garnica MD Unavailable [phone] Yasmany Sanchez MD Unavailable Tahira Stewart APRN, [facility] Unavailable + [phone] Carrillo Mendez MD Unavailable [phone] Alphonso Robles MD Primary Care Provider Reason for Visit * Reason Comments Medication Refill Encounter Details Date Type Department Care Team (Late st Contact Info) Description 11/29/2021 Refill [facility] - Family Medicine [facility] [address] [place] [address] Frida Suarez, [facility] [address] [place] [address] Medication Refill Social History Tobacco Use Types [...] suspected to have Coronavirus/COVID-19? No / Unsure 12/02/2021 9:10 AM CDT documented as of this encounter Plan of Treatment Not on file documented as of this encounter Visit Diagnoses Not on filedocumented in this encounter Additional Health Concerns Infection Onset Date Last Indicated Resolved Time COVID - 19 Confirmed 11/09/2021 11/09/2021 022 12:16 AM CDT Respiratory Rule Out - RPA 05/30/2022 05/30/2022 0 05/30/2022 3:32 PM CDT COVID - 19 02/11/2024 02/11/2024 02/11/2024 8:33 PM EFFICIENCY MANAGER Respiratory Rule-Out 03/12/2025 03/12/2025 025 9:41 AM EFFICIENCY MANAGER COVID - 19 03/12/2025 03/12/2025 03/12/2025 9:41 AM EFFICIENCY MANAGER Assessment Noted Time PHQ-9 Depression Total Score: 7 04/06/19 22 3:00 PM EFFICIENCY MANAGER documented as of this encounter Care Teams Clinical Psychiatrist Relationship Specialty Start Date End Date Frida Suarez PAC PCP - General Physician Silo Erector 02/25/18 06/26/24 Alphonso Robles MD #[address] [place] [id number] PCP - General Family Medicine 06/27/24 Iggy Garnica MD #2 [place] [address] Consulting Physician Neurology 07/05/21 Yasmany Sanchez MD [address]2 [place] [address] Consulting Physician Pulmonary Disease 10/18/21 Tahira Stewart, REVENUE LIAISON, ATHLETE MARKETING AGENT [address]2 [place] [address] Nurse Practitioner Advanced Practice Nurse 10/11/22 Carrillo Mendez MD #[address] [address] Consulting Physician Urology 12/01/23 documented as of this encounter
--- OUTSIDE RECORDS SUMMARY | 2025-03-16 17:06 | XMS_ITS | Encounter Summary ---
Author Organization [facility] Address [address] [place] [address] Phone Care Team Providers Care Food Assembler Commissary Kitchen Name Role Phone Frida Suarez [facility] Primary Care Pro vider Iggy Garnica MD Unavailable [phone] Yasmany Sanchez MD Unavailable Tahira Stewart APRN, CHIMNEY SUPERVISOR BRICK Unavailable + [phone] Carrillo Mendez MD Unavailable [phone] Alphonso Robles MD Primary Care Provider [phone] Reason for Visit * Reason Comments Medication Refill Encounter Details Date Type Department Care Team (Late st Contact Info) Description 10/09/2021 Refill [facility] - Internal Medicine - [place] [address] [place] [id number] Frida Suarez, [facility] [address] [place] [address] Medication Refill Social History Tobacco Use Types [...] suspected to have Coronavirus/COVID-19? No / Unsure 09/10/2021 6:21 AM CDT documented as of this encounter Miscellaneous Notes * Telephone Encounter - Carolyn Vicente RN - 10/11/2021 12:29 PM CDT Medication failed the protocol, provider to review and approve the medication order if appropriate. Requested Prescriptions Pending Prescriptions Disp Refills levothyroxine (SYNTHROID) 25 MCG Tablet [Pharmacy Med Name: Levothyroxine Sodium 25 MCG Oral Tablet] 30 Tablet 0 Sig: Take 1 tablet by mouth once daily Thyroid Hormones Protocol Failed - 10/09/2021 7:25 PM Failed - Normal TSH in past [...] Office Visit Frida Suarez, PAC [facility] 09/01/21 Office Visit Frida Suarez, PAC [facility] 08/02/21 Office Visit Frida Suarez, PAC [facility] 07/02/21 Office Visit Frida Suarez, PAC [facility] 06/18/21 Office Visit Frida Suarez, PAC [facility] 05/19/21 Office Visit Frida Suarez, PAC [facility] 04/28/21 Office Visit Frida Suarez, PAC [facility] 04/14/21 Office Visit Frida Suarez, PAC [facility] 04/06/21 Office Visit Frida Suarez, PAC [facility] 03/08/21 Office Visit Frida Suarez, PAC [facility] Showing recent visits within past 365 days and meeting all other requirements Future Appointments Date Type Provider Dept 01/03/22 Appointment Frida Suarez, PAC [facility] Showing future appointments within next 90 days and meeting all other requirements Passed - No active on record famotidine (PEPCID) 20 MG Tablet [Pharmacy Med Name: Famotidine 20 MG Oral Tablet] 60 Tablet 0 Sig: Take 1 tablet by mouth twice daily H2 Antagonists Protocol Passed - 10/09/2021 7:25 PM Passed - Visit with relevant provider in past 12 months or upcoming 90 days Recent Visits Date Type Provider Dept 09/10/21 Office Visit Frida Suarez, PAC [facility] 09/01/21 Office Visit Frida Suarez, PAC [facility] 08/02/21 Office Visit Frida Suarze, PAC [facility] 07/02/21 Office Visit Frida Suarez, PAC [facility] 06/18/21 Office Visit Frida Suarez, PAC [facility] 05/19/21 Office Visit Frida Suarez, PAC [facility] 04/28/21 Office Visit Frida Suarez, PAC [facility] 04/14/21 Office Visit Frida Suarez, PAC [facility] 04/06/21 Office Visit Frida Suarez, PAC [facility] 03/08/21 Office Visit Frida Suarez, PAC [facility] Showing recent visits within past 365 days and meeting all other requirements Future Appointments Date Type Provider Dept 01/03/22 Appointment Frida Suarez, PAC [facility] Showing future appointments within next 90 days and meeting all other requirements simvastatin (ZOCOR) 20 MG Tablet [Pharmacy Med Name: Simvastatin 20 MG Oral Tablet] 30 Tablet 0 Sig: TAKE 1 TABLET BY MOUTH ONCE DAILY IN THE EVENING Hmg CoA Reductase Inhibitors Protocol Failed - 10/09/2021 7:25 PM Failed - Lipid panel in past [...] Office Visit Frida Suarez, PAC [facility] 09/01/21 Office Visit Frida Suarez, PAC [facility] 08/02/21 Office Visit Frida Suarez, PAC [facility] 07/02/21 Office Visit Frida Suarez, PAC [facility] 06/18/21 Office Visit Frida Suarez, PAC [facility] 05/19/21 Office Visit Frida Suarez, PAC [facility] 04/28/21 Office Visit Frida Suarez, PAC [facility] 04/14/21 Office Visit Frida Suarez, PAC [facility] 04/06/21 Office Visit Frida Suarez, PAC [facility] 03/08/21 Office Visit Frida Suarez, PAC [facility] Showing recent visits within past 365 days and meeting all other requirements Future Appointments Date Type Provider Dept 01/03/22 Appointment Frida Suarez PAC [facility] Showing future appointments within next 90 days and meeting all other requirements Passed - No active on record levothyroxine (SYNTHROID) 25 MCG Tablet [Pharmacy Med Name: Levothyroxine Sodium 25 MCG Oral Tablet] 30 Tablet 0 Sig: Take 1 tablet by mouth once daily Thyroid Hormones Protocol Failed - 10/09/2021 7:25 PM Failed - Normal TSH in past 12 months TSH Date Value Ref Range Status 01/28/2020 2.840 0.270 - 4.200 mIU/L Final Passed - No test in the past 12 months or most recent test was negative Passed - Visit with relevant provider in past 12 months or upcoming 90 days Recent Visits Date Type Provider Dept 09/10/21 Office Visit Firda Suarez, PAC [facility] 09/01/21 Office Visit Frida Suarez, PAC [facility] 08/02/21 Office Visit Frida Suarez, PAC [facility] 07/02/21 Office Visit Frida Suarez, PAC [facility] 06/18/21 Office Visit Frida Suarez, PAC [facility] 05/19/21 Office Visit Frida Suarez, PAC [facility] 04/28/21 Office Visit Frida Suarez, PAC [facility] 04/14/21 Office Visit Frida Suarez, PAC [facility] 04/06/21 Office Visit Frida Suarez, PAC [facility] 03/08/21 Office Visit Frida Suarez, PAC [facility] Showing recent visits within past 365 days and meeting all other requirements Future Appointments Date Type Provider Dept 01/03/22 Appointment Frida Suarez PAC [facility] Showing future appointments within next 90 days [...] - 19 02/11/2024 02/11/2024 02/11/2024 8:33 PM CERTIFIED EMERGENCY VEHICLE TECHNICIAN Respiratory Rule-Out 03/12/2025 03/12/2025 025 9:41 AM CERTIFIED EMERGENCY VEHICLE TECHNICIAN COVID - 19 03/12/2025 03/12/2025 03/12/2025 9:41 AM CERTIFIED EMERGENCY VEHICLE TECHNICIAN Assessment Noted Time PHQ-9 Depression Total Score: 7 04/06/19 3:00 PM CERTIFIED EMERGENCY VEHICLE TECHNICIAN documented as of this encounter Care Teams Food Assembler Commissary Kitchen Relationship Specialty Start Date End Date Frida Suarez PAC PCP - General Physician Music Therapy Specialist 02/25/18 06/26/24 Alphonso Robles MD #[address] [address] PCP - General Family Medicine 06/27/24 Iggy Garnica MD [address]2 [place] [address] Consulting Physician Neurology 07/05/21 Yasmany Sanchez MD [address] [place] [address] Consulting Physician Pulmonary Disease 10/18/21 Tahira Stewart APRN, CHIMNEY SUPERVISOR BRICK [address] [place] [address] Nurse Practitioner Advanced Practice Nurse 10/11/22 Carrillo Mendez MD #[address] [address] Consulting Physician Urology 12/01/23 documented as of this encounter
--- OUTSIDE RECORDS SUMMARY | 2025-03-16 17:06 | XMS_ITS | Encounter Summary ---
Author Organization [facility] Address [address] [place] [address] Phone Care Team Providers Care Single Fold Machine Operator Name Role Phone Frida Suarez [facility] Primary Care Pro vider Iggy Garnica MD Unavailable [phone] Yasmany Sanchez MD Unavailable Tahira Stewart APRN, [employer] SCHO[employer] HVAC R INSTRUCTOR Unavailable + [phone] Carrillo Mendez MD Unavailable [phone] Alphonso Robles MD Primary Care Provider [phone] Reason for Visit * Reason Comments Medication Refill Encounter Details Date Type Department Care Team (Late st Contact Info) Description 06/17/2021 Refill [facility] [address] [place] [address] [address] Iggy Garnica MD [address] [place] [address] Medication Refill Social History Tobacco [...] suspected to have Coronavirus/COVID-19? No / Unsure 06/18/2021 12:21 PM CDT documented as of this encounter [...] - 19 02/11/2024 02/11/2024 02/11/2024 8:33 PM SR RISK MANAGEMENT CONSULTANT Respiratory Rule-Out 03/12/2025 03/12/2025 025 9:41 AM SR RISK MANAGEMENT CONSULTANT COVID - 19 03/12/2025 03/12/2025 03/12/2025 9:41 AM SR RISK MANAGEMENT CONSULTANT Assessment Noted Time PHQ-9 Depression Total Score: 7 04/06/19 3:00 PM SR RISK MANAGEMENT CONSULTANT documented as of this encounter Care Teams Single Fold Machine Operator Relationship Specialty Start Date End Date Frida Suarez PAC PCP - General Physician Sales Recruiting Coordinator 02/25/18 06/26/24 Alphonso Robles MD #[address] [address] PCP - General Family Medicine 06/27/24 Iggy Garnica MD #2 [place] [address] Consulting Physician Neurology 07/05/21 Yasmany Sanchez MD #2 [place] [address] Consulting Physician Pulmonary Disease 10/18/21 Tahira Stewart APRN, HIGH SCHOOL HVAC R INSTRUCTOR [address] [place] [address] Nurse Practitioner Advanced Practice Nurse 10/11/22 Carrillo Mendez MD #[address] [address] Consulting Physician Urology 12/01/23 documented as of this encounter
--- OUTSIDE RECORDS SUMMARY | 2025-03-16 17:06 | XMS_ITS | Encounter Summary ---
Author Organization [facility] Address [address] [place] [address] Phone Care Team Providers Care Production Lead Name Role Phone Frida Suarez [facility] Primary Care Pro vider Iggy Garnica MD Unavailable [phone] Yasmany Sanchez MD Unavailable Tahira Stewart APRN, AIR VALUE TESTER Unavailable + [phone] Carrillo Mendez MD Unavailable [phone] Alphonso Robles MD Primary Care Provider [phone] Encounter Details Date Type Department Care Team (Late st Contact Info) Description 04/02/2020 [facility] Ad[facility] [address] [place] [address] Dmitri Olmstead MD [address] [place] [address] [address], [address] [place] [address] Amenorrhea (Primary Dx) Social History Tobacco Use Types Packs/Day Years Used Date Smoking Tobacco: Never Smokeless Tobacco: Never Alcohol Use Standard Drinks/Week Comments No 0 (1 standard drink = 0.6 oz pur e alcohol) PHQ-2 Answer Date Recorded PHQ-2 Score 0 12/14/2018 Education Answer Date Recorded What is the [...] have Coronavirus / COVID-19? No / Unsure 03/23/2020 8:20 PM ADJUSTMENT EXAMINER documented as of this encounter Plan of Treatment Scheduled Orders Name Type Priority Associated Diagnoses Orde r Schedule BETA-HCG, QUANTITATIVE, SERUM TUMOR MARKER, [facility] Lab Routine Amenorrhea Expected: 04/02/2020, Expires: 04/02/2021 documented as of this encounter Visit Diagnoses Diagnosis Amenorrhea- Primary Absence of menstruation documented in this encounter Additional Health Concerns Infection Onset Date Last Indicated Resolved Time COVID - 19 11/09/2021 11/09/2021 11/19/2021 12:1 6 AM CDT COVID - 19 Confirmed 11/09/2021 11/09/2021 022 12:16 AM CDT Respiratory Rule Out - RPA 05/30/2022 05/30/2022 0 05/30/2022 3:32 PM CDT COVID - 19 02/11/2024 02/11/2024 02/11/2024 8:33 PM ADJUSTMENT EXAMINER Respiratory Rule-Out 03/12/2025 03/12/2025 025 9:41 AM ADJUSTMENT EXAMINER COVID - 19 03/12/2025 03/12/2025 03/12/2025 9:41 AM ADJUSTMENT EXAMINER Assessment Noted Time PHQ-9 Depression Total Score: 0 08/14/19 20 12:26 PM CDT documented as of this encounter Care Teams Production Lead Relationship Specialty Start Date End Date Frida Suarez PAC PCP - General Physician Television Parts Tester 02/25/18 06/26/24 Alphonso Robles MD #[address] [address] PCP - General Family Medicine 06/27/24 Iggy Garnica MD #2 [place] [address] Consulting Physician Neurology 07/05/21 Yasmany Sanchez MD #2 [place] [address] Consulting Physician Pulmonary Disease 10/18/21 Tahira Stewart, STEEL BOX TOE INSERTER, AIR VALUE TESTER [address] [place] [address] Nurse Practitioner Advanced Practice Nurse 10/11/22 Carrillo Mendez MD #[address] [address] Consulting Physician Urology 12/01/23 documented as of this encounter
--- OUTSIDE RECORDS SUMMARY | 2025-03-16 17:06 | XMS_ITS | Encounter Summary ---
Author Organization [facility] Address [address] [place] [address] Phone Care Team Providers Care Capsule Inspector Name Role Phone Frida Suarez [facility] Primary Care Pro vider Iggy Garnica MD Unavailable [phone] Yasmany Sanchez MD Unavailable Tahira Stewart APRN, MEDICAL RESEARCHER Unavailable + [phone] Carrillo Mendez MD Unavailable [phone] Alphonso Robles MD Primary Care Provider [phone] Reason for Visit * Reason Comments Medication Refill Encounter Details Date Type Department Care Team (Late st Contact Info) Description 08/05/2021 Refill [facility] - Internal Medicine - [place] [address] [place] [id number] Frida Suarez, [facility] [address] [place] [address] Medication Refill Social History Tobacco Use Types [...] Telephone Encounter - Carolyn Vicente RN - 08/06/2021 9:39 AM CDT Medication failed the protocol, provider to review and approve the medication order if appropriate. Requested Prescriptions Pending Prescriptions Disp Refills levothyroxine (SYNTHROID) 25 MCG Tablet [Pharmacy Med Name: Levothyroxine Sodium 25 MCG Oral Tablet] 30 Tablet 0 Sig: Take 1 tablet by mouth once daily Thyroid Hormones Protocol Failed - 08/05/2021 8:52 PM Failed - Normal TSH in past [...] Office Visit Frida Suarez, PAC [facility] 07/02/21 Office Visit Frida Suarez, PAC [facility] 06/18/21 Office Visit Frida Suarez, PAC [facility] 05/19/21 Office Visit Frida Suarez, PAC [facility] 04/28/21 Office Visit Frdia Suarez, PAC [facility] 04/14/21 Office Visit Frida Suarez, PAC [facility] 04/06/21 Office Visit Frida Suarez, PAC [facility] 03/08/21 Office Visit Frida Suarez, PAC [facility] 03/04/21 Office Visit Frida Suarez, PAC [facility] 01/27/21 Office Visit Frida Suarez, PAC [facility] Showing recent visits within past 365 days [...] Hmg CoA Reductase Inhibitors Protocol Failed - 08/05/2021 8:52 PM Failed - Lipid panel in past [...] Office Visit Frida Suarez, PAC [facility] 07/02/21 Office Visit Frida Suarez, PAC [facility] 06/18/21 Office Visit Frida Suarez, AIME [facility] 05/19/21 Office Visit Frida Suarez, PAC [facility] 04/28/21 Office Visit Frida Suarez, PAC [facility] 04/14/21 Office Visit Frida Suarez, PAC [facility] 04/06/21 Office Visit Frida Suarez, PAC [facility] 03/08/21 Office Visit Frida Suarez, PAC [facility] 03/04/21 Office Visit Frida Suarez, PAC [facility] 01/27/21 Office Visit Frida Suarez, PAC [facility] Showing recent visits within past 365 days [...] - 19 02/11/2024 02/11/2024 02/11/2024 8:33 PM KNITTING MACHINE OPERATOR Respiratory Rule-Out 03/12/2025 03/12/2025 025 9:41 AM KNITTING MACHINE OPERATOR COVID - 19 03/12/2025 03/12/2025 03/12/2025 9:41 AM KNITTING MACHINE OPERATOR Assessment Noted Time PHQ-9 Depression Total Score: 7 04/06/19 22 3:00 PM KNITTING MACHINE OPERATOR documented as of this encounter Care Teams Capsule Inspector Relationship Specialty Start Date End Date Erick Frida AIME Hoffmann PCP - General Physician Assembler Installer Structures 02/25/18 06/26/24 [facility]les MD [facility] [address] [address] PCP - General Family Medicine 06/27/24 Iggy Garnica MD #2 [place] [address] Consulting Physician Neurology 07/05/21 Yasmany Sanchez MD #2 [place] [address] Consulting Physician Pulmonary Disease 10/18/21 Tahira Stewart, GEOSCIENTIST, MEDICAL RESEARCHER [address] [place] [address] Nurse Practitioner Advanced Practice Nurse 10/11/22 Carrillo Mendez MD #[address] [address] Consulting Physician Urology 12/01/23 documented as of this encounter
--- OUTSIDE RECORDS SUMMARY | 2025-03-16 17:06 | XMS_ITS | Encounter Summary ---
Author Organization [facility] Address [address] [place] [address] Phone Care Team Providers Care Platen Press Operator Apprentice Name Role Phone Frida Suarez [facility] Primary Care Pro vider Iggy Garnica MD Unavailable [phone] Yasmany Sanchez MD Unavailable Tahira Stewart APRN, FOOD EDITOR Unavailable + [phone] Carrillo Mendez MD Unavailable [phone] Alphonso Robles MD Primary Care Provider Reason for Visit * Reason Comments Medication Refill Encounter Details Date Type Department Care Team (Late st Contact Info) Description 04/05/2022 Refill [facility] #[address] [place] [address] [address] Iggy Garnica MD [address] [place] [address] Medication Refill Social History Tobacco [...] suspected to have Coronavirus/COVID-19? No / Unsure 04/01/2022 7:19 AM SOYBEAN GROWER documented as of this encounter Plan of [...] - 19 02/11/2024 02/11/2024 02/11/2024 8:33 PM SOYBEAN GROWER Respiratory Rule-Out 03/12/2025 03/12/2025 025 9:41 AM SOYBEAN GROWER COVID - 19 03/12/2025 03/12/2025 03/12/2025 9:41 AM SOYBEAN GROWER Assessment Noted Time PHQ-9 Depression Total Score: 0 03/10/20 22 9:00 AM SOYBEAN GROWER documented as of this encounter Care Teams Platen Press Operator Apprentice Relationship Specialty Start Date End Date Frida Suarez PAC PCP - General Physician Tube Winder 02/25/18 06/26/24 Alphonso Robles MD [address] [place] [address] PCP - General Family Medicine 06/27/24 Iggy Garnica MD #[address] [place] [address] Consulting Physician Neurology 07/05/21 Yasmany Sanchez MD #2 [place] [address] Consulting Physician Pulmonary Disease 10/18/21 Tahira Stewart APRN, FOOD EDITOR #[address] [place] [address] Nurse Practitioner Advanced Practice Nurse 10/11/22 Carrillo Mendez MD #[address] [address] Consulting Physician Urology 12/01/23 documented as of this encounter
--- OUTSIDE RECORDS SUMMARY | 2025-03-16 17:06 | XMS_ITS | Encounter Summary ---
Author Organization [facility] Address [address] [place] [address] Phone Care Team Providers Care Welding Setter Name Role Phone Iggy Garnica MD Unavailable [phone] Yasmany Sanchez MD Unavailable Tahira Stewart APRN, [facility] Unavailable + [phone] Carrillo Mendez MD Unavailable [phone] Alphonso Robles MD Primary Care Provider [phone] Reason for Visit * Reason Comments Medication Refill Encounter Details Date Type Department Care Team (Late st Contact Info) Description 10/22/2024 Refill [facility] - [facility] - [place] [address]2 [place] [id number] Carolyn Shah APRN, [employer] [address] [place] [address] Medication Refill Social History Tobacco Use Types Packs/Day Years Used Date Smoking Tobacco: Never Cigarettes 1 15 Passive Smoke Exposure: Yes Smokeless Tobacco: Never Alcohol Use Standard Drinks/Week Comments No 0 (1 standard drink = 0.6 oz pur e alcohol) [facility] Utilities Answer Date Recorded In the past 12 months has e [employer], gas, oil, or water [employer] threatened to shut off services in your home? Yes 06/25/2024 Social Connection and Isolation Panel Answer Date Recorded In a typical week, how many times do you talk on the phone with family, friends, or neighbors? Once a week 06/25/2024 How often do you get together with friends or re latives? Once a week 06/25/2024 How often do you attend episcopal or buddhist serv ices? Never 06/25/2024 Do you belong to any clubs o r organizations such as episcopal groups, unions, fraternal or athletic groups, or [...] Total Score - Questions 1-9 0 07/18 [facility] [...] place to sleep or slept in a half-way (including now)? No 07/11/2023 Housing Stability Vital Sign Answer Brien e Recorded In the last 12 months, was t here a time when you were not able to pay the mortgage or rent on time? Yes 06/25/2024 In the past 12 months, how m any times have you moved where you were living? 1 06/25/2024 At any time in the past 12 m [facility], were you homeless or living in a half-way (including now)? No 06/25/2024 Education Answer Date [...] encounter Miscellaneous Notes * Telephone Encounter - Alysa Dong RN - 10/22/2024 8:59 AM CDT Medication refilled and signed per [facility] chronic medication standing order for pediatric and adult patients. documented in this encounter Plan of Treatment Not on file documented as of this encounter Goals Goal Patient Goal Type Associated Problems Recent Progress Patient-Stated? Author I want to have the right mindframe. I want to keep up with the house. Behavioral Health On track(2023 8:42 AM MACHINE INKER) Park Shay, [facility] Note: Goal/Objective: Increase ability to cope with depressive and anxious features. Anticipated Time Frame for Goal Completion: 6 months Goal Reviewed with: patient Readiness to change: Thinking about making a change Department associated with goal: [facility] Steps to achieve goal: [...] Respiratory Rule-Out 03/12/2025 03/12/2025 025 9:41 AM MACHINE INKER COVID - 19 03/12/2025 03/12/2025 03/12/2025 9:41 AM MACHINE INKER Assessment Noted Time PHQ-9 Depression Total Score: 0 07/30/19 25 4:19 PM CDT documented as of this encounter Care Teams Welding Setter Relationship Specialty Start Date End Date Alphonso Robles MD [address] [address] PCP - General Family Medicine 06/27/24 Iggy Garnica MD [address] [place] [address] Consulting Physician Neurology 07/05/21 Yasmany Sanchez MD [address] [place] [address] Consulting Physician Pulmonary Disease 10/18/21 Tahira Stewart, GAME DESIGN INSTRUCTOR, ART CRITIC [address] [place] [address] Nurse Practitioner Advanced Practice Nurse 10/11/22 Carrillo Mendez MD [address] [address] Consulting Physician Urology 12/01/23 documented as of this encounter
--- OUTSIDE RECORDS SUMMARY | 2025-03-16 17:06 | XMS_ITS | Encounter Summary ---
Author Organization [facility] Address [address] [place] [address] Phone Care Team Providers Care Marine Diver Name Role Phone Frida Suarez [facility] Primary Care Pro vider Iggy Garnica MD Unavailable [phone] Yasmany Sanchez MD Unavailable Tahira Stewart APRN, [facility] Unavailable + [phone] Carrillo Mendez MD Unavailable [phone] Alphonso Robles MD Primary Care Provider [phone] Reason for Visit * Reason Comments Medication Refill Encounter Details Date Type Department Care Team (Late st Contact Info) Description 04/05/2024 Refill [facility] - Internal Medicine - [place] [address] [place] [id number] Alley Valle APRN, DIGITAL LEARNING PLATFORMS MANAGER #[address] [address] Medication Refill Social History Tobacco Use Types Packs/Day Years Used Date Smoking Tobacco: Never Passive Smoke Exposure: Never Smokeless Tobacco: Never Alcohol Use Standard Drinks/Week Comments No 0 (1 standard drink = 0.6 oz pur e alcohol) [facility] Utilities Answer Date Recorded In the [...] often do you attend chur ch or yazidi services? Never 09/16/2023 Do you belong to any clubs o r organizations such as oriental orthodox groups, unions, fraternal or athletic groups, [...] Total Score - Questions 1-9 10 06/19 [facility] Occupat ional Health - Occupational Stress [...] place to sleep or slept in a chcf (including now)? No 07/11/2023 Housing Stability Vital [...] any time in the past 12 m [facility], were you homeless or living in a chcf (including now)? Patient unable to answer 02/12/2024 [...] encounter Miscellaneous Notes * Telephone Encounter - Addie Saldivar RN - 04/08/2024 10:10 AM PRACTICAL NURSE CLINICAL COORDINATOR The original prescription was discontinued on 01/05/2024 by Frida Suarez PAC. Renewing this prescription may not be appropriate. TICAL NURSE CLINICAL COORDINATOR documented in this encounter Plan of Treatment Not on file documented as of this encounter Goals Goal Patient Goal Type Associated Problems Recent Progress Patient-Stated? Author I want to have the right mindframe. I want to keep up with the house. Behavioral Health On track(2023 8:42 AM PRACTICAL NURSE CLINICAL COORDINATOR) No Park Carcamo, [facility] Note: Goal/Objective: Increase ability to cope with depressive and anxious features. Anticipated Time Frame for Goal Completion: 6 months Goal Reviewed with: patient Readiness to change: Thinking about making a change Department associated with goal: [facility] Steps to achieve [...] Respiratory Rule-Out 03/12/2025 03/12/2025 025 9:41 AM PRACTICAL NURSE CLINICAL COORDINATOR COVID - 19 03/12/2025 03/12/2025 03/12/2025 9:41 AM PRACTICAL NURSE CLINICAL COORDINATOR Assessment Noted Time PHQ-9 Depression Total Score: 10 023 8:13 AM CDT documented as of this encounter Care Teams Marine Diver Relationship Specialty Start Date End Date Frida Suarez PAC PCP - General Physician Pockets And Pieces Necktie Operator 02/25/18 06/26/24 Alphonso Robles MD #[address] [address] PCP - General Family Medicine 06/27/24 Iggy Garnica MD [address] [place] [address] Consulting Physician Neurology 07/05/21 Yasmany Sanchez MD [address] [place] [address] Consulting Physician Pulmonary Disease 10/18/21 Tahira Stewart APRN, QUALITY CONTROL COORDINATOR [address] [place] [address] Nurse Practitioner Advanced Practice Nurse 10/11/22 Carrillo Mendez MD #[address] [address] Consulting Physician Urology 12/01/23 documented as of this encounter
--- OUTSIDE RECORDS SUMMARY | 2025-03-16 17:06 | XMS_ITS | Encounter Summary ---
Author Organization [facility] Address [address] [place] [address] Phone Care Team Providers Care Licensing Registration Examiner Name Role Phone Frida Suarez [facility] Primary Care Pro vider Iggy Garnica MD Unavailable [phone] Yasmany Sanchez MD Unavailable Tahira Stewart APRN, PROCESS CONSULTANT Unavailable + [phone] Carrillo Mendez MD Unavailable [phone] Alphonso Robles MD Primary Care Provider Reason for Visit * Reason Comments Medication Refill Encounter Details Date Type Department Care Team (Late st Contact Info) Description 09/25/2021 Refill [facility] [place] [address] [address] Iggy Garnica MD [address] [place] [address] Medication Refill Social History Tobacco [...] - 19 02/11/2024 02/11/2024 02/11/2024 8:33 PM CATTLE FARMER Respiratory Rule-Out 03/12/2025 03/12/2025 025 9:41 AM CATTLE FARMER COVID - 19 03/12/2025 03/12/2025 03/12/2025 9:41 AM CATTLE FARMER Assessment Noted Time PHQ-9 Depression Total Score: 7 04/06/19 3:00 PM CATTLE FARMER documented as of this encounter Care Teams Licensing Registration Examiner Relationship Specialty Start Date End Date Frida Suarez PAC PCP - General Physician Warehouse Analyst 02/25/18 06/26/24 Alphonso Robles MD #[address] [address] PCP - General Family Medicine 06/27/24 Iggy Garnica MD [address]2 [place] [address] Consulting Physician Neurology 07/05/21 Yasmany Sanchez MD [address] [place] [address] Consulting Physician Pulmonary Disease 10/18/21 Tahira Stewart APRN, PROCESS CONSULTANT [address] [place] [address] Nurse Practitioner Advanced Practice Nurse 10/11/22 Carrillo Mendez MD #[address] [address] Consulting Physician Urology 12/01/23 documented as of this encounter
--- NOTE | 2025-03-16 17:33 | ED.URI ---
HPI - URI/Sore Throat General Chief Complaint: Ear Stated Complaint: ear/throat pain Time Seen by Provider: 03/16/25 17:15 Source: patient and RN notes reviewed Mode of arrival: ambulatory Limitations: no limitations History of Present Illness HPI Narrative: 39-year-old female presents Express Care complaining of upper respiratory infection symptoms for approximately 8-9 days. Patient reports cough, congestion, runny nose, bilateral ear pain, sinus pressure, mucopurulent nasal drainage. Patient denies any fevers advice, chills, nausea vomiting, chest pain, breathing problems, any other symptoms. Patient has been taking [id number] Tylenol Arthritis without relief. Related Data Home Medications ?Medication ?Instructions ?Recorded ?Confirmed ?Last Taken ?Type albuterol sulfate 90 mcg/actuation 2 puff inhalation QID PRN sob 07/30/21 08/14/23 Unknown History aerosol inhaler citalopram 40 mg tablet 40 mg PO DAILY 07/30/21 08/14/23 Unknown History erenumab-aooe 140 mg/mL 70 mg subcut MONTHLY 07/30/21 08/14/23 Unknown History subcutaneous auto-injector (Aimovig Autoinjector) famotidine 20 mg tablet 20 mg PO BID 07/30/21 08/14/23 Unknown History fenofibrate nanocrystallized 145 145 mg PO DAILY 07/30/21 08/14/23 Unknown History mg tablet levothyroxine 25 mcg tablet 25 mcg PO DAILY 07/30/21 08/14/23 Unknown History lisinopril 20 mg tablet 20 mg PO DAILY 07/30/21 08/14/23 Unknown History montelukast 10 mg tablet 10 mg PO DAILY 07/30/21 08/14/23 Unknown History simvastatin 20 mg tablet 20 mg PO DAILY 07/30/21 08/14/23 Unknown History Allergies Allergy/AdvReac Type Severity Reaction Status Date / Time Sulfa (Sulfonamide Allergy Severe swell up Verified 03/16/25 17:11 Antibiotics) allopurinol Allergy Unknown Other Verified 03/16/25 17:11 haloperidol Allergy Unknown Unknown Verified 03/16/25 17:11 dexamethasone AdvReac Intermediate Nervousness Verified 03/16/25 17:11 Review of Systems Review of Systems: CONSTITUTIONAL: Denies fever, chills, or sweats. EYES: Denies visual changes, redness, or discharge. ENT: Positive for rhinorrhea, congestion, sore throat, or otalgia. CARDIOVASCULAR: Denies chest pain, palpitations, or edema. RESPIRATORY: Positive for cough. Negative for wheezing or dyspnea. GASTROINTESTINAL: Denies abdominal pain, nausea, vomiting, or diarrhea. GENITOURINARY: Denies dysuria or hematuria. SKIN: Denies rash or itching. MUSCULOSKELETAL: Denies back pain, joint pain, or myalgia. NEUROLOGIC: Denies headache, numbness, or weakness. PSYCHIATRIC: Denies anxiety or depression. All other systems reviewed are negative, except as documented in HPI. [facility] Past Medical History Medical History Kidney stone Asthma Hypothyroidism Depression with anxiety GERD (gastroesophageal reflux disease) Migraines Hyperlipidemia Hypertension Seasonal allergies Surgical History Surgical History Previous section Family History Family History Mother Family history non-contributory Social History Social History Smoking status: Never smoker Alcohol intake: never Substance use: never Living arrangements: with family Gender identity (if verbalized by the patient): Female Comments At the time of my signature, I reviewed and agree with the nursing past medical, surgical, social, and family history. There is no relevant family history pertinent to the patient complaint. Exam Narrative: GENERAL: This is a well-nourished, well-developed adult, in no apparent distress. They are non ill-appearing, nontoxic appearing. HEAD: normocephalic, atraumatic. EYES: Sclera clear/white. Conjunctiva normal. Vision is grossly intact. Extraocular movements intact EARS: External ears normal, auditory canals clear and without drainage, TMs normal without perforation. Hearing grossly intact. NOSE: External nose normal with no obvious nasal discharge, nasal turbinates erythematous, no rhinorrhea. THROAT: Mucous membranes moist, posterior pharynx erythematous with PND. Uvula midline. NECK: Neck supple, non-tender without lymphadenopathy, masses or thyromegaly. CARDIOVASCULAR: Regular rate and rhythm without murmurs, gallops, or rubs. RESPIRATORY: Clear to auscultation. Breath sounds equal bilaterally. No wheezes, rales, or rhonchi. SKIN: warm, Dry, intact with no suspicious lesions or rash, good texture and turgor. NEURO: awake, alert, and oriented to person, place and time. There were no obvious focal neurologic abnormalities. EXTREMITIES: No joint tenderness, effusion, or edema noted. BACK: Nontender without deformity. No CVA tenderness. Course Course Level of Care: Express Care Visit Vital Signs Vital signs: Vital Signs Temperature 99.4 F 03/16/25 17:06 Pulse Rate 92 03/16/25 17:06 Respiratory Rate 20 03/16/25 17:06 Blood Pressure 126/78 03/16/25 17:06 Pulse Oximetry 100 03/16/25 17:06 Oxygen Delivery Room Air 03/16/25 17:06 Temperature 99.4 F 03/16/25 17:06 Pulse Rate 92 03/16/25 17:06 Respiratory Rate 20 03/16/25 17:06 Blood Pressure 126/78 03/16/25 17:06 Pulse Oximetry 100 03/16/25 17:06 Oxygen Delivery Room Air 03/16/25 17:06 MDM MDM Narrative Medical decision making narrative: Given patient's length of symptoms worsen symptoms likely has bacterial sinusitis. Will treat with Augmentin. Discussed physical exam findings. Advised supportive measures and signs/symptoms to go to the ER. Pt is appropriate for outpt treatment and f/u. Differential Diagnosis Differential Diagnosis: Differential diagnostic considerations for upper respiratory infection include upper respiratory infection, croup, otitis media, sinusitis, viral infection, bronchitis, influenza, pharyngitis, strep, uvulitis. Critical Care Time Critical Care Time Critical Care Time: No Discharge Plan Discharge Clinical Impression: Sinusitis Qualifiers: Sinusitis location: unspecified location Chronicity: acute Recurrence: non-recurrent Qualified Code(s): J01.90 - Acute sinusitis, unspecified Patient Disposition: Home Condition: Stable Instructions: Antibiotic Form, Sinusitis (ED) Additional Instructions: Take the antibiotics as directed and complete the course even if you start to feel better. You may use a Neti pot saline rinse 3 times a day with lukewarm distilled water Continue to take Tylenol or Motrin as needed for pain or fevers. Follow instructions on the bottle. Use a humidifier or vaporizer at night. Drink plenty of water. 8-10 glasses per day. Take mucinex 2 times per day and be sure to take with 8oz of water. Follow up with Primary provider in 3-5 days Please go to the ER if he develops any difficulty breathing, chest pain, vomiting, worsening symptoms, or any other serious concerns Patient Language: Romansh Prescriptions: New amoxicillin-pot clavulanate 875-125 mg tablet 1 tablet PO Q12H 7 Days Qty: 14 0RF No Action citalopram 40 mg tablet 40 mg PO DAILY lisinopril 20 mg tablet 20 mg PO DAILY levothyroxine 25 mcg tablet 25 mcg PO DAILY famotidine 20 mg tablet 20 mg PO BID simvastatin 20 mg tablet 20 mg PO DAILY montelukast 10 mg tablet 10 mg PO DAILY fenofibrate nanocrystallized 145 mg tablet 145 mg PO DAILY Aimovig Autoinjector 140 mg/mL auto-injector 70 mg SUBCUT MONTHLY albuterol sulfate 90 mcg/actuation Hfa Aerosol Inhaler 2 puff INHALATION QID PRN (Reason: sob) Follow-up/Referrals: Travis,Alphonso Murray MD [Primary Care Provider] Time of Disposition: 17:29
== END 2025-03-16 17:34 | disposition home or self-care (01) ==
PROVIDERS: PCP Internal Medicine
DX: J01.90 Acute sinusitis, unspecified (principal); I10 Essential (primary) hypertension; E78.5 Hyperlipidemia, unspecified; E03.9 Hypothyroidism, unspecified; K21.9 Gastro-esophageal reflux disease without esophagitis; J45.909 Unspecified asthma, uncomplicated; F32.A Depression, unspecified; F41.9 Anxiety disorder, unspecified
CPT/HCPCS: 99213; G0463